=== PATIENT | female | born 1960 | race Caucasian/White ===

== ENCOUNTER 2016-06-15 17:22 | Inpatient (IN) ==
[2016-06-15] MEDS ORDERED: 0.9 % Sodium Chloride 1,000 ML IVC ONE (17:46)
--- NOTE | 2016-06-15 17:52 | Emergency Department Note ---
Disposition Clinical Impression: Hyponatremia, Hypokalemia, History of alcohol abuse Altered mental status Qualifiers: Altered mental status type: unspecified Qualified Code(s): R41.82 - Altered mental status, unspecified Disposition: Admitted As Inpatient Condition: Fair General Adult HPI - General Chief complaint: ED Fall Stated complaint: fall, AMS Time Seen by Provider: 06/15/16 17:28 Source: patient, EMS Mode of arrival: ambulatory Limitations: no limitations Nursing Notes Reviewed: Yes Vital Signs Reviewed: Yes - History of Present Illness HPI Narrative: 55-year-old female history of alcohol use, hypertension presents for evaluation of altered mental status. Patient presents Medicare of a friend. Patient is status post mechanical fall yesterday where she was walking up a couple stairs and slipped and fell hitting the back of her head. Witnessed fall with no notable LOC. Friend at bedside states that she has been getting progressively worse with her altered mental status. Patient is typically alert and oriented and functional independently. Patient reports pain in her head and in her neck. Patient denies any other pain. The friend of family states that she is a heavy drinker and drinks 20 beers a day but has not drank in the past 24 hours. Onset (ago): hour(s) Location: head Radiation: non-radiation Pain Scale: 4 - Related Data Home Medications Medication Instructions Recorded Confirmed Albuterol Neb [Proventil Neb] 2.5 mg IH TID PRN 06/15/16 06/15/16 Albuterol Sulfate [Albuterol 2 puff IH QID PRN 06/15/16 06/15/16 Inhaler] Amlodipine [Norvasc] 5 mg PO DAILY 06/15/16 06/15/16 Benzonatate [Tessalon] 100 mg PO BID PRN 06/15/16 06/15/16 Calcium Carbonate [Tums] 500 mg PO TID 06/15/16 06/15/16 Citalopram Hydrobromide 40 mg PO DAILY 06/15/16 06/15/16 [Citalopram HBr] Clotrimazole Vag CRM 1 appl VG DAILY 06/15/16 06/15/16 [Gyne-Lotrimin Vag CRM] Ergocalciferol (VITAMIN D2) 800 unit PO DAILY 06/15/16 06/15/16 [Vitamin D] Fluticasone Propionate Nasal 50 mcg NS BID PRN 06/15/16 06/15/16 [Flonase] GuaiFENesin/Dextromethorphan 10 ml PO BID PRN 06/15/16 06/15/16 [Tussin Dm Syrup] HydrOXYzine Pamoate [Vistaril] 50 mg PO Q6H PRN 06/15/16 06/15/16 Ibuprofen [Motrin] 600 mg PO Q6HR PRN 06/15/16 06/15/16 Ipratropium [Atrovent Inhaler] 2 puff IH QID 06/15/16 06/15/16 L. Rhamnosus GG/Inulin [Culturelle 1 each PO DAILY 06/15/16 06/15/16 Capsule] Levothyroxine [Synthroid] 50 mcg PO 0630 06/15/16 06/15/16 Loratadine [Claritin] 10 mg PO DAILY 06/15/16 06/15/16 Methylphenidate HCl [Metadate Cd] 20 mg PO QPM 06/15/16 06/15/16 Methylphenidate HCl [Metadate Cd] 30 mg PO QAM 06/15/16 06/15/16 Montelukast [Singulair] 10 mg PO DAILY 06/15/16 06/15/16 Omeprazole [PriLOSEC] 20 mg PO DAILY 06/15/16 06/15/16 Allergies Allergy/AdvReac Type Severity Reaction Status Date / Time egg AdvReac See Verified 06/15/16 18:55 Comments milk AdvReac See Verified 06/15/16 18:55 Comments pyridoxine AdvReac See Verified 06/15/16 18:55 Comments All systems ED: reviewed and negative except as stated. Constitutional: Reports: as per HPI. Denies: fever Eyes: Reports: as per HPI ENT ED: Reports: as per HPI Cardiovascular: Reports: as per HPI. Denies: chest pain Respiratory: Reports: as per HPI. Denies: dyspnea Gastrointestinal: Reports: as per HPI Genitourinary: Reports: as per HPI Musculoskeletal: Reports: as per HPI Integumentary: Reports: as per HPI Neurological: Reports: as per HPI, headache Psychiatric: Reports: as per HPI Endocrine: Reports: as per HPI Hematological/Lymphatic: Reports: as per HPI Allergic/Immunologic: Reports: as per HPI Past Medical History - Past Medical History Medical history: Reports: hypertension Psychiatric history: Reports: ADHD - Social History Smoking Status: Current every day smoker Alcohol use: Reports: occasionally Drug use: Reports: none Physical Exam - General Limitations: no limitations General appearance: alert - Head Head exam: atraumatic, normal inspection - Eye Eye exam: Present: normal appearance, PERRL, EOMI. Absent: nystagmus - ENT ENT exam: normal exam, mucous membranes moist - Neck Neck exam: Present: normal inspection, trachea midline, other (Atraumatic) - Chest Chest inspection: Present: normal inspection, symmetric chest wall rise - Respiratory Respiratory exam: Present: other (diffusely decreased lung sounds). Absent: respiratory distress - Cardiovascular Cardiovascular exam: Present: tachycardia. Absent: systolic murmur - Abdominal Exam Abdominal exam: Present: soft, Non-Tender - Extremities Exam Extremities exam: Present: normal inspection. Absent: pedal edema - Neurological Exam Neurological exam: Present: alert, CN II-XII intact, other (Symmetric but decreased muscle strength in the upper and lower extremities) - Expanded Neurological Exam Patient oriented to: Present: person, place. Absent: time Cranial nerves: EOM function (II, III, IV, ): Normal, facial sensation (V): Normal, facial palsy (VII): Normal, spinal accessory function (XI): Normal, tongue deviation (XII): Normal Motor strength - LUE: 4/5 Motor strength - RUE: 4/5 Motor strength - LLE: 4/5 Motor strength - RLE: 4/5 Coma Scale Eye Opening: Spontaneous Coma Scale Motor Response: Obeys Commands Coma Scale Verbal Response: Confused Coma Scale Total: 14 - Skin Skin exam: Present: warm, dry, intact, normal color Course Course Narrative: Seen and examined. Patient presents for altered mental status. Status post fall. Patient is alert but confused GCS of 14. Patient is not oriented to time or situation. Patient does have a history of alcohol use. Patient will get a screening labs, ethanol level, a urine drug screen, neuro imaging with CT. Patient will also get an infectious and metabolic workup. Patient's initial blood glucose is 105. Patient will be given folate and thiamine. Hemphill for intercranial as well as metabolic and withdrawal etiologies of symptoms. - Reevaluation(s) Reevaluation #1: Patient's lab work reviewed. Patient is significantly hyponatremic with a sodium of 107. Patient's friends at bedside stated that she did have issues with low sodium in the past. Patient's volume status appears to be euvolemic. Possibly related to be reported wilfredo. Urine electrolytes and osoms are pending. Patient received 0.9 normal saline. Patient's mental status is unchanged from initial evaluation. It is unclear how acute the patient's hyponatremia is. Patient also is hypokalemic. Patient is not acidotic. Patient's repleting potassium orally. Patient was also given 2 mg Ativan IV for possible withdrawal symptoms. Spoke with nephrology recommends repeat labs following normal saline bolus. If patient's lecture lites are unchanged worsening patient may likely need 3% normal saline. Time: 18:58 Reevaluation #2: Patient seen and examined. Patient's vitals are stable. Patient is confused with a GCS of 14. Nonfocal neurologic exam. Updated patient plan of care. Time: 21:38 - Consultations Consultation #1: Spoke with Dr. Dimas, nephrology who recommends repeat Na following IVF bolus. If no significant change the patient may likely need 3 % Saline. Time: 18:57 Consultation #2: Spoke with nephrology Dr. Dimas who suggests to continue with NS at a rate of approximately 100cc. Give lasix IV 20mg. And recheck labs in a couple hours. Patient received 40Meq K po earlier and Dr. Dimas suggest 40Meq K iv and 20 Meq PO. Time: 20:44 Consultation #3: Spoke with hospitalist for admission Time: 21:15 Vital Signs Temperature 97.3 F L 06/15/16 17:23 Pulse Rate 106 06/15/16 17:23 Respiratory Rate 20 06/15/16 17:23 Blood Pressure 158/93 06/15/16 17:23 O2 Sat by Pulse Oximetry 92 06/15/16 17:23 Temperature 98.4 F 06/15/16 23:35 Pulse Rate 93 06/16/16 01:00 Respiratory Rate 16 06/16/16 01:00 Blood Pressure 149/88 06/16/16 01:00 O2 Sat by Pulse Oximetry 96 06/16/16 01:00 Oxygen Delivery Oxygen Delivery Nasal Cannula Medical Decision Making - [facility] Narrative Medical decision making narrative: 55 show female process for evaluation of altered mental status. Patient neuroimaging is unremarkable. Patient's lab work shows hyponatremia at 107 which improved after a liter bolus of normal saline to 109. Spoke with nephrology recommended continuing at a rate of 0.9% also recommend IV Lasix as well as potassium repletion to remove free water. Patient's urine electrolytes and nausea numbness were collected prior to IV Lasix. Patient received by mouth and IV potassium in the emergency department. Patient's symptoms likely result of her hyponatremia. Patient was also ordered magnesium repletion as well. Concerned that the patient possibly was going through withdrawal with tachycardia and history of chronic alcohol use, the patient was given 2 mg Ativan. Concerns of too rapid correction. Patient will not get 3% saline in the emergency department. Patient will get repeat electrolytes in 1-2 hours. The patient will be admitted to the stepdown unit. Spoke with hospitalist for admission. - Lab Data Lab results reviewed: Yes I reviewed the patient's lab results. Result diagrams: 06/15/16 18:09 06/15/16 22:45 Lab Results 06/15/16 06/15/16 06/15/16 Range/Units 18:09 18:09 18:09 WBC 8.2 (4.3-11.1) K/mcL RBC 4.90 (3.82-4.97) M/mcL Hgb 14.5 (11.5-15.4) g/dL Hct 38.9 (35.3-44.9) % MCV 79.4 L (83.0-100.0) fL MCH 29.6 (28.0-33.3) pg MCHC 37.3 H (31.6-35.5) g/dL RDW 12.2 (11.5-14.5) % Plt Count 247 (140-400) K/mcL MPV 7.8 L (9.4-12.4) fL Immature Gran % 0.6 (0-4) % Seg Neutrophils % 78.7 % Lymphocytes % 11.3 % Monocytes % 9.2 % Eosinophils % 0.1 % Basophils % 0.1 % Neutrophils # 6.5 (1.6-8.9) K/mcL Lymphocytes # 0.9 (0.6-4.6) K/mcL Monocytes # 0.8 (0.0-1.3) K/mcL Eosinophils # 0.0 (0.0-0.6) K/mcL Basophils # 0.0 (0.0-0.2) K/mcL Immature Plt Fraction 2.1 (1.1-6.1) % PT 11.4 (9.4-12.1) Seconds INR 1.1 VBG pH (7.32-7.42) pH Units VBG pCO2 (41-51) mmHg VBG pO2 (25-40) mmHg VBG HCO3 (21-27) mEq/L Sodium 107 L* (136-145) mEq/L Potassium 2.7 L (3.5-4.5) mEq/L Chloride 68 L (98-109) mEq/L Carbon Dioxide 23 (19-29) mEq/L BUN 3 L (7-20) mg/dL Creatinine 0.55 L (0.57-1.11) mg/dL Est GFR ( Amer) > 60 (> 60) Est GFR (Non-Af Amer) > 60 (> 60) BUN/Creatinine Ratio 5 L (6-26) Glucose 91 (70-99) mg/dL Serum Osmolality (280-300) mOsm/kg Calculated Osmolality 220 L (280-300) Lactic Acid (0.5-2.2) mmol/L Calcium 8.5 L (8.6-10.8) mg/dL Phosphorus Magnesium (1.6-2.6) mg/dL Total Bilirubin 1.9 H (0.2-1.2) mg/dL AST 33 (5-34) Units/L ALT 14 (0-55) Units/L Alkaline Phosphatase 188 H (38-126) Units/L Troponin I (0-0.03) ng/mL Serum Total Protein 6.0 (6.0-8.3) g/dL Albumin 2.9 L (3.5-5.0) g/dL Globulin 3.1 (2.4-3.5) g/dL Albumin/Globulin Ratio 0.9 L (1.1-2.2) TSH 2.629 (0.350-4.840) mcIU/mL Serum , Qual (Negative) Random Cortisol mcg/dl Urine Color (Yellow) Urine Clarity (Clear) Urine pH (5.0-8.0) pH Units Ur Specific [place] (1.010-1.025) Urine Protein (Neg-Trace) mg/dL Urine Glucose (UA) (Normal) mg/dL Urine Ketones (Negative) mg/dL Urine Blood (Negative) Urine Nitrite (Negative) Urine Bilirubin (Negative) Urine Urobilinogen (Normal) mg/dL Ur Leukocyte Esterase (Negative) Urine Microscopic RBC (0-3) per hpf Urine Microscopic WBC (0-3) per hpf Ur Squamous Epith Cells (None-Few) per lpf Urine Bacteria (None-Few) per hpf Hyaline Casts (None-Few) per lpf Urine Osmolality (300-1090) mOsm/kg Urine Creatinine mg/dL Urine Sodium mEq/L Urine Opiates Screen (Qtqyqo=324) ng/mL Ur Barbiturates Screen (Kvzhnm=736) ng/mL Ur Phencyclidine Scrn (Cutoff=25) ng/mL Ur Amphetamines Screen (Khhvhl=9767) ng/mL U Benzodiazepines Scrn (Ghmpye=419) ng/mL Urine Cocaine Screen (Cutoff= 300) ng/mL U Marijuana (THC) Screen (Cutoff = 50) ng/mL Ethyl Alcohol < 10 (0-10) mg/dL 06/15/16 06/15/16 06/15/16 Range/Units 18:09 18:09 18:09 WBC (4.3-11.1) K/mcL RBC (3.82-4.97) M/mcL Hgb (11.5-15.4) g/dL Hct (35.3-44.9) % MCV (83.0-100.0) fL MCH (28.0-33.3) pg MCHC (31.6-35.5) g/dL RDW (11.5-14.5) % Plt Count (140-400) K/mcL MPV (9.4-12.4) fL Immature Gran % (0-4) % Seg Neutrophils % % Lymphocytes % % Monocytes % % Eosinophils % % Basophils % % Neutrophils # (1.6-8.9) K/mcL Lymphocytes # (0.6-4.6) K/mcL Monocytes # (0.0-1.3) K/mcL Eosinophils # (0.0-0.6) K/mcL Basophils # (0.0-0.2) K/mcL Immature Plt Fraction (1.1-6.1) % PT (9.4-12.1) Seconds INR VBG pH (7.32-7.42) pH Units VBG pCO2 (41-51) mmHg VBG pO2 (25-40) mmHg VBG HCO3 (21-27) mEq/L Sodium (136-145) mEq/L Potassium (3.5-4.5) mEq/L Chloride (98-109) mEq/L Carbon Dioxide (19-29) mEq/L BUN (7-20) mg/dL Creatinine (0.57-1.11) mg/dL Est GFR ( Amer) (> 60) Est GFR (Non-Af Amer) (> 60) BUN/Creatinine Ratio (6-26) Glucose (70-99) mg/dL Serum Osmolality (280-300) mOsm/kg Calculated Osmolality (280-300) Lactic Acid 0.6 (0.5-2.2) mmol/L Calcium (8.6-10.8) mg/dL Phosphorus Magnesium (1.6-2.6) mg/dL Total Bilirubin (0.2-1.2) mg/dL AST (5-34) Units/L ALT (0-55) Units/L Alkaline Phosphatase (38-126) Units/L Troponin I 0.00 (0-0.03) ng/mL Serum Total Protein (6.0-8.3) g/dL Albumin (3.5-5.0) g/dL Globulin (2.4-3.5) g/dL Albumin/Globulin Ratio (1.1-2.2) TSH (0.350-4.840) mcIU/mL Serum , Qual Negative (Negative) Random Cortisol mcg/dl Urine Color (Yellow) Urine Clarity (Clear) Urine pH (5.0-8.0) pH Units Ur Specific [place] (1.010-1.025) Urine Protein (Neg-Trace) mg/dL Urine Glucose (UA) (Normal) mg/dL Urine Ketones (Negative) mg/dL Urine Blood (Negative) Urine Nitrite (Negative) Urine Bilirubin (Negative) Urine Urobilinogen (Normal) mg/dL Ur Leukocyte Esterase (Negative) Urine Microscopic RBC (0-3) per hpf Urine Microscopic WBC (0-3) per hpf Ur Squamous Epith Cells (None-Few) per lpf Urine Bacteria (None-Few) per hpf Hyaline Casts (None-Few) per lpf Urine Osmolality (300-1090) mOsm/kg Urine Creatinine mg/dL Urine Sodium mEq/L Urine Opiates Screen (Xxbkmn=682) ng/mL Ur Barbiturates Screen (Vntlcp=128) ng/mL Ur Phencyclidine Scrn (Cutoff=25) ng/mL Ur Amphetamines Screen (Meqsbn=3313) ng/mL U Benzodiazepines Scrn (Nbmfik=124) ng/mL Urine Cocaine Screen (Cutoff= 300) ng/mL U Marijuana (THC) Screen (Cutoff = 50) ng/mL Ethyl Alcohol (0-10) mg/dL 06/15/16 06/15/16 06/15/16 Range/Units 18:09 18:35 18:35 WBC (4.3-11.1) K/mcL RBC (3.82-4.97) M/mcL Hgb (11.5-15.4) g/dL Hct (35.3-44.9) % MCV (83.0-100.0) fL MCH (28.0-33.3) pg MCHC (31.6-35.5) g/dL RDW (11.5-14.5) % Plt Count (140-400) K/mcL MPV (9.4-12.4) fL Immature Gran % (0-4) % Seg Neutrophils % % Lymphocytes % % Monocytes % % Eosinophils % % Basophils % % Neutrophils # (1.6-8.9) K/mcL Lymphocytes # (0.6-4.6) K/mcL Monocytes # (0.0-1.3) K/mcL Eosinophils # (0.0-0.6) K/mcL Basophils # (0.0-0.2) K/mcL Immature Plt Fraction (1.1-6.1) % PT (9.4-12.1) Seconds INR VBG pH (7.32-7.42) pH Units VBG pCO2 (41-51) mmHg VBG pO2 (25-40) mmHg VBG HCO3 (21-27) mEq/L Sodium (136-145) mEq/L Potassium (3.5-4.5) mEq/L Chloride (98-109) mEq/L Carbon Dioxide (19-29) mEq/L BUN (7-20) mg/dL Creatinine (0.57-1.11) mg/dL Est GFR ( Amer) (> 60) Est GFR (Non-Af Amer) (> 60) BUN/Creatinine Ratio (6-26) Glucose (70-99) mg/dL Serum Osmolality 217 L (280-300) mOsm/kg Calculated Osmolality (280-300) Lactic Acid (0.5-2.2) mmol/L Calcium (8.6-10.8) mg/dL Phosphorus Magnesium (1.6-2.6) mg/dL Total Bilirubin (0.2-1.2) mg/dL AST (5-34) Units/L ALT (0-55) Units/L Alkaline Phosphatase (38-126) Units/L Troponin I (0-0.03) ng/mL Serum Total Protein (6.0-8.3) g/dL Albumin (3.5-5.0) g/dL Globulin (2.4-3.5) g/dL Albumin/Globulin Ratio (1.1-2.2) TSH (0.350-4.840) mcIU/mL Serum , Qual (Negative) Random Cortisol mcg/dl Urine Color (Yellow) Urine Clarity (Clear) Urine pH (5.0-8.0) pH Units Ur Specific [place] (1.010-1.025) Urine Protein (Neg-Trace) mg/dL Urine Glucose (UA) (Normal) mg/dL Urine Ketones (Negative) mg/dL Urine Blood (Negative) Urine Nitrite (Negative) Urine Bilirubin (Negative) Urine Urobilinogen (Normal) mg/dL Ur Leukocyte Esterase (Negative) Urine Microscopic RBC (0-3) per hpf Urine Microscopic WBC (0-3) per hpf Ur Squamous Epith Cells (None-Few) per lpf Urine Bacteria (None-Few) per hpf Hyaline Casts (None-Few) per lpf Urine Osmolality 397 (300-1090) mOsm/kg Urine Creatinine 72 mg/dL Urine Sodium 40.0 mEq/L Urine Opiates Screen Negative (Asbfqo=972) ng/mL Ur Barbiturates Screen Negative (Obcrcv=189) ng/mL Ur Phencyclidine Scrn Negative (Cutoff=25) ng/mL Ur Amphetamines Screen Negative (Isxizq=6518) ng/mL U Benzodiazepines Scrn Negative (Wkmmgx=748) ng/mL Urine Cocaine Screen Negative (Cutoff= 300) ng/mL U Marijuana (THC) Screen Negative (Cutoff = 50) ng/mL Ethyl Alcohol (0-10) mg/dL 06/15/16 06/15/16 06/15/16 Range/Units 18:39 19:05 19:08 WBC (4.3-11.1) K/mcL RBC (3.82-4.97) M/mcL Hgb (11.5-15.4) g/dL Hct (35.3-44.9) % MCV (83.0-100.0) fL MCH (28.0-33.3) pg MCHC (31.6-35.5) g/dL RDW (11.5-14.5) % Plt Count (140-400) K/mcL MPV (9.4-12.4) fL Immature Gran % (0-4) % Seg Neutrophils % % Lymphocytes % % Monocytes % % Eosinophils % % Basophils % % Neutrophils # (1.6-8.9) K/mcL Lymphocytes # (0.6-4.6) K/mcL Monocytes # (0.0-1.3) K/mcL Eosinophils # (0.0-0.6) K/mcL Basophils # (0.0-0.2) K/mcL Immature Plt Fraction (1.1-6.1) % PT (9.4-12.1) Seconds INR VBG pH 7.42 (7.32-7.42) pH Units VBG pCO2 44 (41-51) mmHg VBG pO2 42 H (25-40) mmHg VBG HCO3 28.5 H (21-27) mEq/L Sodium 109 L* (136-145) mEq/L Potassium 2.7 L (3.5-4.5) mEq/L Chloride 71 L (98-109) mEq/L Carbon Dioxide 21 (19-29) mEq/L BUN 3 L (7-20) mg/dL Creatinine 0.51 L (0.57-1.11) mg/dL Est GFR ( Amer) > 60 (> 60) Est GFR (Non-Af Amer) > 60 (> 60) BUN/Creatinine Ratio 6 (6-26) Glucose 87 (70-99) mg/dL Serum Osmolality (280-300) mOsm/kg Calculated Osmolality 224 L (280-300) Lactic Acid (0.5-2.2) mmol/L Calcium 8.5 L (8.6-10.8) mg/dL Phosphorus Cancelled Magnesium 1.0 L (1.6-2.6) mg/dL Total Bilirubin (0.2-1.2) mg/dL AST (5-34) Units/L ALT (0-55) Units/L Alkaline Phosphatase (38-126) Units/L Troponin I (0-0.03) ng/mL Serum Total Protein (6.0-8.3) g/dL Albumin (3.5-5.0) g/dL Globulin (2.4-3.5) g/dL Albumin/Globulin Ratio (1.1-2.2) TSH (0.350-4.840) mcIU/mL Serum , Qual (Negative) Random Cortisol 17.0 mcg/dl Urine Color Dark Yellow (Yellow) Urine Clarity Clear (Clear) Urine pH 6.0 (5.0-8.0) pH Units Ur Specific [place] 1.015 (1.010-1.025) Urine Protein 30 H (Neg-Trace) mg/dL Urine Glucose (UA) Normal (Normal) mg/dL Urine Ketones 80 H (Negative) mg/dL Urine Blood Trace H (Negative) Urine Nitrite Negative (Negative) Urine Bilirubin Negative (Negative) Urine Urobilinogen Normal (Normal) mg/dL Ur Leukocyte Esterase Negative (Negative) Urine Microscopic RBC 0-3 (0-3) per hpf Urine Microscopic WBC 0-3 (0-3) per hpf Ur Squamous Epith Cells Many H (None-Few) per lpf Urine Bacteria None Seen (None-Few) per hpf Hyaline Casts Few (None-Few) per lpf Urine Osmolality (300-1090) mOsm/kg Urine Creatinine mg/dL Urine Sodium mEq/L Urine Opiates Screen (Ajnxok=618) ng/mL Ur Barbiturates Screen (Bwlsrr=248) ng/mL Ur Phencyclidine Scrn (Cutoff=25) ng/mL Ur Amphetamines Screen (Esiahn=5115) ng/mL U Benzodiazepines Scrn (Cyqcgg=298) ng/mL Urine Cocaine Screen (Cutoff= 300) ng/mL U Marijuana (THC) Screen (Cutoff = 50) ng/mL Ethyl Alcohol (0-10) mg/dL - Radiology Data Radiology results reviewed: Yes I reviewed the patient's radiology results. - EKG Data EKG #1 EKG shows normal: sinus rhythm Rate: tachycardia Rhythm: NSR [place]/QRS: normal Voltage: increased voltage throughout, c/w LVH Interpretation: LVH, other (sinus tachycardia) S.B.A.R. - S.B.A.R. Situation: Demographics Background: Presenting Complaint Assessment: Vital Signs, Course and respsone to treatment, Exam Concerns Recommendation: Barrier(s) to disposition, Recommendation based on pending studies, treatments, or consults S.B.A.R. Report Given to: Dr. Stephan Vogel Repor Time: 21:16 Attestation Statement - Attestation Attestation: ISergei, examined this patient and my medical decision-making was reviewed with the [employer] ARCHITECT/PA/Advanced Practice Nurse/Resident Physician. I agree with the documented findings, disposition and treatment plan as described except to the extent set forth below. Sergei Shields, examined this patient and my medical decision-making was reviewed with the [employer] ARCHITECT/PA/Advanced Practice Nurse/Resident Physician. I agree with the documented findings, disposition and treatment plan as described except to the extent set forth below. History source: Patient is unable to provide information for this note. Info was gathered from the patient, hospital staff, the patient's chart. History limitations: Patient condition Medications: As per nurses note 55-year-old female presents with concerns of altered mental status. Family member present in the room and was able to give a history who reports patient fell yesterday while walking up the porch steps. She fell backwards hitting her head but did not have loss of consciousness. Family states the patient became increasing confused after the event. She has not been able to eat or drink over the past 24 hours due to altered mental status and a lack of appetite. Patient has ambulated after the event. Family member states the patient is a chronic alcoholic drinking upwards of at least 20 beers a day. She has not been able to drink alcohol over the past 24 hours. No history of seizure in the past with cessation of alcohol use however patient has not stop drinking within the recent history. Patient has a history of hyponatremia however she has a sodium of 107 in the emergency department today. Resident spoke with the aircrewman who recommended giving a bolus of normal saline and rechecking labs. Sodium semaj to 109 on recheck and aircrewman recommended continued normal saline with administration of Lasix. Patient admitted to the hospital for further evaluation of altered mental status.
[2016-06-15] MEDS ORDERED: Folic Acid 1 MG TABLET PO ONE (18:00)
[2016-06-15] MEDS ORDERED: Thiamine (B-1) 100 MG TABLET PO SCH (18:00)
[2016-06-15 18:24] LABS: INR 1.1; Prothrombin Time 11.4 Seconds (9.4-12.1)
[2016-06-15] MEDS ORDERED: *HR* LORazepam 2 MG/ML VIAL IVP ONE (18:30)
[2016-06-15 18:32] LABS: Basophils % 0.1 %; Hemoglobin 14.5 g/dL (11.5-15.4); Immature Granulocytes % 0.6 % (0-4); Immature Platelets 2.1 % (1.1-6.1); Red Cell Distribution Width 12.2 % (11.5-14.5)
[2016-06-15 18:33] LABS: Alanine Aminotransferase 14 Units/L (0-55); Albumin 2.9 g/dL (3.5-5.0); Albumin/Globulin Ratio 0.9 (1.1-2.2); Alkaline Phosphatase 188 Units/L (38-126); Aspartate Amino Transferase 33 Units/L (5-34); BUN/Creatinine Ratio 5 (6-26); Bilirubin,Total 1.9 mg/dL (0.2-1.2); Calcium 8.5 mg/dL (8.6-10.8); Carbon Dioxide 23 mEq/L (19-29); Chloride 68 mEq/L (98-109); Globulin 3.1 g/dL (2.4-3.5); Glucose 91 mg/dL (70-99); Osmolality,Calculated 220 (280-300); Potassium 2.7 mEq/L (3.5-4.5); eGFR For African Americans > 60 (> 60); eGFR For Non-African Americans > 60 (> 60)
[2016-06-15 18:34] LABS: Blood Urea Nitrogen 3 mg/dL (7-20); Eosinophils % 0.1 %; Ethanol < 10 mg/dL (0-10); Hematocrit 38.9 % (35.3-44.9); Lymphocytes # 0.9 K/mcL (0.6-4.6); Lymphocytes % 11.3 %; Mean Corpuscular Hemoglobin 29.6 pg (28.0-33.3); Mean Corpuscular Volume 79.4 fL (83.0-100.0); Mean Platelet Volume 7.8 fL (9.4-12.4); Monocytes # 0.8 K/mcL (0.0-1.3); Monocytes % 9.2 %; Platelet Count 247 K/mcL (140-400); Segmented Neutrophils % 78.7 %
[2016-06-15 18:35] LABS: Sodium 107 mEq/L (136-145)
[2016-06-15 18:38] LABS: Mean Corpuscular HGB Conc 37.3 g/dL (31.6-35.5); Neutrophils # 6.5 K/mcL (1.6-8.9)
[2016-06-15 18:48] LABS: Bilirubin,Urine Negative (Negative); Blood,Urine Trace (Negative); Clarity,Urine Clear (Clear); Color,Urine Dark Yellow (Yellow); Glucose,Urine (UA) Normal (Normal); Ketones,Urine 80 mg/dL (Negative); Leukocyte Esterase,Urine Negative (Negative); Nitrite,Urine Negative (Negative); Protein,Urine 30 mg/dL (Neg-Trace); Specific Gravity,Urine 1.015 (1.010-1.025); Urobilinogen,Urine Normal (Normal)
[2016-06-15 18:50] LABS: Bacteria,Urine None Seen per hpf (None-Few); Hyaline Casts,Urine Few per lpf (None-Few); RBC,Urine 0-3 per hpf (0-3); Squamous Epithelial Cell,Urine Many per lpf (None-Few); WBC,Urine 0-3 per hpf (0-3)
[2016-06-15 18:54] LABS: Amphetamine Screen,Urine Negative ng/mL (Cutoff=1000); Barbiturate Screen,Urine Negative ng/mL (Cutoff=200); Benzodiazepines Screen,Urine Negative ng/mL (Cutoff=200); Cannabinoid Screen,Urine Negative ng/mL (Cutoff = 50); Cocaine Screen,Urine Negative ng/mL (Cutoff= 300); Opiate Screen,Urine Negative ng/mL (Cutoff=300); Phencyclidine Screen,Urine Negative ng/mL (Cutoff=25)
[2016-06-15 19:20] LABS: VBG HCO3 28.5 mEq/L (21-27); VBG PH 7.42 pH Units (7.32-7.42)
[2016-06-15 19:38] LABS: Thyroid Stimulating Hormone 2.629 mcIU/mL (0.350-4.840)
[2016-06-15 20:15] LABS: BUN/Creatinine Ratio 6 (6-26); Calcium 8.5 mg/dL (8.6-10.8); Carbon Dioxide 21 mEq/L (19-29); Chloride 71 mEq/L (98-109); Glucose 87 mg/dL (70-99); Osmolality,Calculated 224 (280-300); Potassium 2.7 mEq/L (3.5-4.5); eGFR For African Americans > 60 (> 60); eGFR For Non-African Americans > 60 (> 60)
[2016-06-15 20:22] LABS: Blood Urea Nitrogen 3 mg/dL (7-20); Sodium 109 mEq/L (136-145)
[2016-06-15] MEDS ORDERED: Furosemide 40 MG/4 ML VIAL IVP ONE (20:46)
[2016-06-15] MEDS ORDERED: Furosemide 20 MG/2 ML VIAL IVP ONE (20:53)
[2016-06-15] MEDS: 0.9 % Sodium Chloride 1,000 ML IVC SCH (21:13)
[2016-06-15] MEDS ORDERED: Naloxone 0.4 MG/ML INJ IVP PRN (22:47)
--- NOTE | 2016-06-15 22:49 | Internal Med History&Physical ---
<Harry Norman - Last Filed: 06/16/16 00:38> Date of Encounter: 06/16/16 Time of Encounter: 22:00 Assessment and Plan (1) Acute metabolic encephalopathy Current visit: Yes Status: Acute - Likely secondary to current hyponatremia and electrolyte imbalance. But cannot completely rule out alcohol abuse-related causes such as withdrawal or Wernicke's encephalopathy. - CT head found no acute intracranial change. - UA does not suggest UTI. - UDS negative. - Will give thiamine 500 mg IV daily x 3 days for possible Wernicke's encephalopathy. - Correct electrolyte imbalance with IV fluid and supplement with close monitoring. - Continue to monitor. (2) Hyponatremia Current visit: Yes Status: Acute - Na 107 initially but increased to 109 after 1L of NS bolus in ED. - Hypotonic hyponatremia, euvolemic or hypovolemic. Suspect beer protomania given patient's significant alcohol abuse history. SIADH is also possible give she's on citalopram at home. Doubt hypothyroidism or glucocorticoid deficiency given normal TSH and random cortisol. - Lion 40, UCr 72, UOsm 397, SOsm 217, FeNa 0.3%. - [facility] nephrology on board and recommends 100 cc/hr NS with close monitoring of electrolytes. Appreciate nephrology assistance on patient care. - The goal is to correct Na no more than 6 mEq/L within 24 hours. - Continue to monitor closely. (3) Hypokalemia Current visit: Yes Status: Acute - K at 2.7 and Mg at 1.0 - Patient had received 40 meq of IV KCl, 60 meq of PO KCl and 2 gram of IV MgSO4 in ED. - Will give another 2 gram of IV MgSO4 for her hypomagnesemia. - Continue to monitor electrolytes closely and replenish accordingly. (4) History of alcohol abuse Current visit: Yes Status: Acute - Known heavy drinker with 20 beers a day. - Alcohol free for more than 24 hours now per patient's friend. - Serum ethanol < 10 with negative UDS. - Start CIWA protocol. - Multivitamin supplements including thiamine and folate. - Closely monitor. (5) DVT prophylaxis Current visit: Yes Status: Acute - SQ heparin. Internal Medicine - H&P: HPI Chief complaint: Altered mental status Admitted From: Emergency Dept Plans for Post Hospital Care: Home History of present illness: Ms. Pulliam is a 55 year old female with known PMH of alcohol abuse. Patient was sent to [place] ED for altered mental status. Patient was found to have significant hyponatremia with Na at 107. Given patient's mental status, much of history was obtained from reviewing medical records. Per ED note, patient's friend at bedside earlier reports that patient usually drinks 20 beers a day but has no alcohol for > 24 hours. And patient is also known to have low sodium level in the past. Upon encounter, patient is hypersomnolent but arousable to verbal stimuli. Patient is oriented to her name only. Patient says no while asking she has any pain. Past Med Surg Social Fam HX - Past Medical History Medical history: hypertension Psychiatric history: ADHD - Past Surgical History Surgical History: - Social History Smoking Status: Current every day smoker Alcohol use: heavy (20 beers a day) Drug use: unknown - Family History Mother History Unknown: Yes Internal Medicine - H&P: Meds Albuterol Neb [Proventil Neb] 2.5 mg IH TID PRN 06/15/16 [History] Albuterol Sulfate [Albuterol Inhaler] 2 puff IH QID PRN 06/15/16 [History] Amlodipine [Norvasc] 5 mg PO DAILY 06/15/16 [History] Benzonatate [Tessalon] 100 mg PO BID PRN 06/15/16 [History] Calcium Carbonate [Tums] 500 mg PO TID 06/15/16 [History] Citalopram Hydrobromide [Citalopram HBr] 40 mg PO DAILY 06/15/16 [History] Clotrimazole Vag CRM [Gyne-Lotrimin Vag CRM] 1 appl VG DAILY 06/15/16 [History] Ergocalciferol (VITAMIN D2) [Vitamin D] 800 unit PO DAILY 06/15/16 [History] Fluticasone Propionate Nasal [Flonase] 50 mcg NS BID PRN 06/15/16 [History] GuaiFENesin/Dextromethorphan [Tussin Dm Syrup] 10 ml PO BID PRN 06/15/16 [ History] HydrOXYzine Pamoate [Vistaril] 50 mg PO Q6H PRN 06/15/16 [History] Ibuprofen [Motrin] 600 mg PO Q6HR PRN 06/15/16 [History] Ipratropium [Atrovent Inhaler] 2 puff IH QID 06/15/16 [History] L. Rhamnosus GG/Inulin [Culturelle Capsule] 1 each PO DAILY 06/15/16 [History] Levothyroxine [Synthroid] 50 mcg PO 0630 06/15/16 [History] Loratadine [Claritin] 10 mg PO DAILY 06/15/16 [History] Methylphenidate HCl [Metadate Cd] 20 mg PO QPM 06/15/16 [History] Methylphenidate HCl [Metadate Cd] 30 mg PO QAM 06/15/16 [History] Montelukast [Singulair] 10 mg PO DAILY 06/15/16 [History] Omeprazole [PriLOSEC] 20 mg PO DAILY 06/15/16 [History] Allergies egg Adverse Reaction (Verified 06/15/16 18:55) See [facility] per [facility] list, patient is unable to verify. milk Adverse Reaction (Verified 06/15/16 18:55) See Comments per [facility] list, patient is unable to verify. pyridoxine Adverse Reaction (Verified 06/15/16 18:55) See Comments per [facility] list, patient unable to verify. ROS unobtainable: due to mental status All Systems PM: A 10-system review of systems was performed and is negative for pertinent findings except as documented above in the HPI. - Constitutional Vitals: Temp Pulse Resp BP Pulse Ox 97.3 F L 93 18 164/88 96 06/15/16 17:23 06/15/16 21:16 06/15/16 21:16 06/15/16 21:16 06/15/16 21:16 General appearance: Present: A&O X 1, no acute distress, underweight. Absent: answers questions appropriately - Head Head exam: Present: atraumatic, normocephalic - Eye Eye exam: Present: PERRL, conjuntiva pink, sclera anicteric Pupils: Present: PERRL - Neck Neck exam general surgery: Present: supple, trachea midline. Absent: lymphadenopathy - Respiratory Respiratory exam: Present: CTAB. Absent: accessory muscle use, rales, rhonchi, wheezes - Cardiovascular Cardiovascular exam: Present: +S1, +S2, tachycardia. Absent: diastolic murmur, gallop, rubs, systolic murmur - GI/Abdominal GI/Abdominal exam: Present: normal bowel sounds, soft, no peritoneal signs. Absent: distended, tenderness - Extremities Exam Extremities exam: Present: warm, radial pulses palpable and symetrical. Absent : calf tenderness, cyanotic, pedal edema - Neurological Exam Neurological exam: Absent: pronater drift, facial droop Additional comments: Limited given patient is not answering questions appropriately nor following most of commands. - Skin Skin exam: Present: dry, intact, warm Internal Med - H&P Results - Labs CBC & Chem 7: 06/15/16 18:09 06/15/16 22:45 <Mata Cotton - Last Filed: 06/16/16 05:50> Date of Encounter: 06/15/16 Internal Medicine - H&P: HPI History of present illness: Ms. Pulliam is a 55 year old female All Systems PM: A 10-system review of systems was performed and is negative for pertinent findings except as documented above in the HPI. - Constitutional Vitals: Temp Pulse Resp BP Pulse Ox 97.4 F L 92 22 168/95 92 06/16/16 03:00 06/16/16 05:00 06/16/16 05:00 06/16/16 05:00 06/16/16 05:00 Internal Med - H&P Results - Labs CBC & Chem 7: 06/16/16 03:25 06/16/16 03:25 Labs: Short CBC 06/16/16 Range/Units 03:25 WBC 8.6 (4.3-11.1) K/mcL Hgb 14.4 (11.5-15.4) g/dL Hct 38.9 (35.3-44.9) % Plt Count 312 (140-400) K/mcL Neutrophils # 6.7 (1.6-8.9) K/mcL BMP 06/15/16 06/16/16 22:45 03:25 Sodium 110 L* 111 L* Potassium 3.3 L 3.6 Chloride 73 L 76 L Carbon Dioxide 25 24 BUN 2 L 2 L Creatinine 0.51 L 0.51 L Glucose 89 93 Calcium 8.2 L 7.9 L - Diagnostic Studies CT scan - head Status: image reviewed by me Chest x-ray Status: image reviewed by me - Attending Attestation Patient has critical illness, with multiple vital organ impairment; brain and renal with a high probability of imminent or life threatening deterioration in the patient's condition. I performed critical intervention, involving high complexity decision making to assess, manipulate, and support vital organ system failure; and I spent about 45 minutes engaged in work directly related to the patient's care at her immediate bedside and also on the unit, part of this time was also spent counseling immediate family that time was spent at the immediate bedside or elsewhere on the unit.
[2016-06-15 23:08] LABS: BUN/Creatinine Ratio 4 (6-26); Blood Urea Nitrogen 2 mg/dL (7-20); Calcium 8.2 mg/dL (8.6-10.8); Carbon Dioxide 25 mEq/L (19-29); Chloride 73 mEq/L (98-109); Glucose 89 mg/dL (70-99); Osmolality,Calculated 226 (280-300); Phosphorous 2.4 mg/dL (2.3-4.7); Potassium 3.3 mEq/L (3.5-4.5); Uric Acid 3.1 mg/dL (2.6-6.0); eGFR For African Americans > 60 (> 60); eGFR For Non-African Americans > 60 (> 60)
[2016-06-15 23:10] LABS: Sodium 110 mEq/L (136-145)
[2016-06-15] MEDS ORDERED: Magnesium Sulfate 2 GM in D5% in Water 100 ML IVPB ONE (23:19)
[2016-06-16] MEDS: *HR* LORazepam 2 MG/ML VIAL IVP PRN ×2 (02:33→20:05)
[2016-06-16 03:33] LABS: Basophils % 0.1 %; Hematocrit 38.9 % (35.3-44.9); Hemoglobin 14.4 g/dL (11.5-15.4); Immature Granulocytes % 0.6 % (0-4); Immature Platelets 2.1 % (1.1-6.1); Lymphocytes # 0.8 K/mcL (0.6-4.6); Lymphocytes % 9.8 %; Mean Corpuscular Hemoglobin 29.8 pg (28.0-33.3); Mean Corpuscular Volume 80.4 fL (83.0-100.0); Mean Platelet Volume 7.9 fL (9.4-12.4); Monocytes % 11.1 %; Neutrophils # 6.7 K/mcL (1.6-8.9); Platelet Count 312 K/mcL (140-400); Red Blood Count 4.84 M/mcL (3.82-4.97); Red Cell Distribution Width 12.3 % (11.5-14.5); Segmented Neutrophils % 78.4 %
[2016-06-16 03:45] LABS: BUN/Creatinine Ratio 4 (6-26); Calcium 7.9 mg/dL (8.6-10.8); Carbon Dioxide 24 mEq/L (19-29); Chloride 76 mEq/L (98-109); Glucose 93 mg/dL (70-99); Osmolality,Calculated 228 (280-300); Potassium 3.6 mEq/L (3.5-4.5); eGFR For African Americans > 60 (> 60); eGFR For Non-African Americans > 60 (> 60)
[2016-06-16 03:50] LABS: Blood Urea Nitrogen 2 mg/dL (7-20); Sodium 111 mEq/L (136-145)
[2016-06-16] MEDS: *HR* Heparin 5,000 UNIT/ML VIAL SQ SCH ×2 (06:12→17:48)
[2016-06-16 06:46] LABS: BUN/Creatinine Ratio 4 (6-26); Carbon Dioxide 22 mEq/L (19-29); Chloride 77 mEq/L (98-109); Glucose 87 mg/dL (70-99); Osmolality,Calculated 232 (280-300); Potassium 3.2 mEq/L (3.5-4.5); eGFR For African Americans > 60 (> 60); eGFR For Non-African Americans > 60 (> 60)
[2016-06-16 06:50] LABS: Blood Urea Nitrogen 2 mg/dL (7-20)
[2016-06-16 06:52] LABS: Sodium 113 mEq/L (136-145)
[2016-06-16] MEDS: Thiamine (B-1) 500 MG in D5% in Water 50 ML IVPB SCH (08:55)
--- NOTE | 2016-06-16 09:27 | Pulmonology Consult Note ---
Date of Encounter: 06/16/16 Time of Encounter: 07:50 Assessment and Plan (1) Altered mental status Current Visit: Yes Status: Acute Likely secondary to electrolyte imbalances vs. Wernicke's encephalopathy. CT of the head demonstrated: No acute intracranial abnormality. Chronic appearing bilateral basal ganglia lacune infarcts. CT cervical spine: No acute osseous abnormality of the cervical spine. Straightening of the normal cervical lordosis. Severe C5/C6 degenerative disc disease. Chest XR: No acute process. UA did not suggest UTI. Toxicology screen was negative. Continue thiamine supplementation. Continue folate supplementation. Consult to nutrition. Continue to monitor and replace electrolytes as needed per recommendations of nephrology. Qualifiers: Altered mental status type: unspecified Qualified Code(s): R41.82 - Altered mental status, unspecified (2) Acute metabolic encephalopathy Current Visit: Yes Status: Acute See above (3) Hyponatremia Current Visit: Yes Status: Acute 107 on arrival. Improved to 113 this morning. Fluids have been stopped at this time. Nephrology recommended no more than 6mEq/ L correction within a 24 hour period. Nephrology on board. Will follow recommendations. (4) Hypokalemia Current Visit: Yes Status: Acute Improved since arrival 2.7>3.2 Will continue to monitor and replace as needed. (5) History of alcohol abuse Current Visit: Yes Status: Acute The patient is on CIWA protocol and Librium 50mg TID KECIA has been added to prevent withdrawal. (6) Essential hypertension Current Visit: Yes Status: Chronic Continue home medication of Norvasc. The patient has had elevated blood pressures since arrival, but she has not been able to take her medication due to her change in mental status. The patient was able to wake up enough to take her medication at 10:30 this morning. Will continue to monitor. (7) DVT prophylaxis Current Visit: Yes Status: Acute SQ Heparin History of Present Illness Consult date: 06/16/16 Requesting physician: Harry Norman Reason for consult: other (Significant hyponatremia requiring close monitoring. Also potential alcohol withdrawal) Chief complaint: AMS History of present illness: History is obtained by review of medical records as the patient is currently nonresponsive. This is a 55 year old female with PMH of hypertension, ADHD, and alcohol abuse. From friends who were present in the ER she has reportedly had episodes of hyponatremia in the past and drinks up to 20 beers a day, but has not had any alcohol in the 24 hours prior to arrival. Toxicology screen demonstrated an alcohol level <10, and was negative for other substances. Her sodium upon arrival was 107, and has been corrected to 113 at this time. Fluids are currently being held as nephrology recommended no more than 6mEq/L correction within a 24 hour period. She had a CT of her head upon arrival which did not demonstrate any acute abnormality. Upon arrival the patient was arousable to verbal stimuli, but currently she does not respond to her name or awaken during examination. Past Med Surg Social Fam HX - Past Medical History Medical history: hypertension Psychiatric history: ADHD - Past Surgical History Surgical History: - Social History Smoking Status: Current every day smoker Alcohol use: occasionally Drug use: none - Family History Mother History Unknown: Yes Medications and Allergies Albuterol Neb [Proventil Neb] 2.5 mg IH TID PRN 06/15/16 [History] Albuterol Sulfate [Albuterol Inhaler] 2 puff IH QID PRN 06/15/16 [History] Amlodipine [Norvasc] 5 mg PO DAILY 06/15/16 [History] Benzonatate [Tessalon] 100 mg PO BID PRN 06/15/16 [History] Calcium Carbonate [Tums] 500 mg PO TID 06/15/16 [History] Citalopram Hydrobromide [Citalopram HBr] 40 mg PO DAILY 06/15/16 [History] Clotrimazole Vag CRM [Gyne-Lotrimin Vag CRM] 1 appl VG DAILY 06/15/16 [History] Ergocalciferol (VITAMIN D2) [Vitamin D] 800 unit PO DAILY 06/15/16 [History] Fluticasone Propionate Nasal [Flonase] 50 mcg NS BID PRN 06/15/16 [History] GuaiFENesin/Dextromethorphan [Tussin Dm Syrup] 10 ml PO BID PRN 06/15/16 [ History] HydrOXYzine Pamoate [Vistaril] 50 mg PO Q6H PRN 06/15/16 [History] Ibuprofen [Motrin] 600 mg PO Q6HR PRN 06/15/16 [History] Ipratropium [Atrovent Inhaler] 2 puff IH QID 06/15/16 [History] L. Rhamnosus GG/Inulin [Culturelle Capsule] 1 each PO DAILY 06/15/16 [History] Levothyroxine [Synthroid] 50 mcg PO 0630 06/15/16 [History] Loratadine [Claritin] 10 mg PO DAILY 06/15/16 [History] Methylphenidate HCl [Metadate Cd] 20 mg PO QPM 06/15/16 [History] Methylphenidate HCl [Metadate Cd] 30 mg PO QAM 06/15/16 [History] Montelukast [Singulair] 10 mg PO DAILY 06/15/16 [History] Omeprazole [PriLOSEC] 20 mg PO DAILY 06/15/16 [History] Allergies egg Adverse Reaction (Verified 06/15/16 18:55) See Comments per [facility] list, patient is unable to verify. milk Adverse Reaction (Verified 06/15/16 18:55) See Comments per [facility] list, patient is unable to verify. pyridoxine Adverse Reaction (Verified 06/15/16 18:55) See Comments per [facility] list, patient unable to verify. ROS unobtainable: due to mental status All Systems: A 10-system review of systems was performed and is negative for pertinent findings except as documented above in the HPI. Physical Examination Vital Signs: Vital Signs, Last 4 Hours Temp Pulse Resp BP Pulse Ox 06/16/16 08:00 89 28 157/95 95 06/16/16 07:30 98.3 F 83 28 152/95 96 06/16/16 06:00 90 24 140/102 90 General appearance: asleep (does not awaken to name or during examination) Eyes: nonicteric ENT: oropharynx moist Neck: supple Effort: normal Auscultation: bilateral: clear Cardiovascular: regular rate and rhythm Gastrointestinal: normoactive bowel sounds, non-tender, non-distended Integumentary: normal Extremities: no cyanosis Musculoskeletal: no deformities unable to assess due to mental status Results - Laboratory Findings CBC and BMP: 06/16/16 03:25 06/16/16 06:20 PT/INR, D-dimer PT 11.4 Seconds (9.4-12.1) 06/15/16 18:09 Abnormal lab findings: Abnormal lab results MCV 80.4 fL (83.0-100.0) L 06/16/16 03:25 MCHC 37.0 g/dL (31.6-35.5) H 06/16/16 03:25 MPV 7.9 fL (9.4-12.4) L 06/16/16 03:25 VBG pO2 42 mmHg (25-40) H 06/15/16 19:05 VBG HCO3 28.5 mEq/L (21-27) H 06/15/16 19:05 Sodium 113 mEq/L (136-145) L* 06/16/16 06:20 Potassium 3.2 mEq/L (3.5-4.5) L 06/16/16 06:20 Chloride 77 mEq/L (98-109) L 06/16/16 06:20 BUN 2 mg/dL (7-20) L 06/16/16 06:20 Creatinine 0.53 mg/dL (0.57-1.11) L 06/16/16 06:20 BUN/Creatinine Ratio 4 (6-26) L 06/16/16 06:20 POC Glucose 98 (58-89) H 06/15/16 23:27 Serum Osmolality 217 mOsm/kg (280-300) L 06/15/16 18:09 Calculated Osmolality 232 (280-300) L 06/16/16 06:20 Calcium 8.0 mg/dL (8.6-10.8) L 06/16/16 06:20 Total Bilirubin 1.9 mg/dL (0.2-1.2) H 06/15/16 18:09 Alkaline Phosphatase 188 Units/L (38-126) H 06/15/16 18:09 Albumin 2.9 g/dL (3.5-5.0) L 06/15/16 18:09 Albumin/Globulin Ratio 0.9 (1.1-2.2) L 06/15/16 18:09 Urine Protein 30 mg/dL (Neg-Trace) H 06/15/16 18:39 Urine Ketones 80 mg/dL (Negative) H 06/15/16 18:39 Urine Blood Trace (Negative) H 06/15/16 18:39 Ur Squamous Epith Cells Many per lpf (None-Few) H 06/15/16 18:39 - Clinical Findings Intake & Output: Intake & Output 06/15/16 06/16/16 06/16/16 23:59 07:59 15:59 Intake Total 200 / 1200 1254 / 1254 Output Total 300 / 300 400 / 400 Balance -100 / 900 854 / 854 Consult Discharge Plan - Plan [facility]errals: [facility]Primary Care Provider[facility] - - Attending Attestation I examined this patient and my medical decision-making was reviewed with the EQUIPMENT SERVICE ASSOCIATE/PA/Advanced Practice Nurse/Resident Physician. I agree with the documented findings, disposition and treatment plan as described except to the extent set forth below.
[2016-06-16] MEDS: amLODIPine 5 MG TABLET PO SCH (10:22)
[2016-06-16 11:21] LABS: BUN/Creatinine Ratio 4 (6-26); Calcium 8.2 mg/dL (8.6-10.8); Carbon Dioxide 21 mEq/L (19-29); Chloride 80 mEq/L (98-109); Glucose 95 mg/dL (70-99); Osmolality,Calculated 232 (280-300); Potassium 3.4 mEq/L (3.5-4.5); eGFR For African Americans > 60 (> 60); eGFR For Non-African Americans > 60 (> 60)
[2016-06-16 11:23] LABS: Chol/HDL Ratio 2.4 (0-4.9)
[2016-06-16 12:02] LABS: Blood Urea Nitrogen 2 mg/dL (7-20)
[2016-06-16 12:05] LABS: Sodium 113 mEq/L (136-145)
--- NOTE | 2016-06-16 12:13 | Electrocardiograph Report ---
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
--- NOTE | 2016-06-16 15:23 | Nephrology Consult Note ---
Date of Encounter: 06/16/16 Time of Encounter: 09:30 Assessment and Plan (1) Hyponatremia Current Visit: Yes Status: Acute Patient presents with hyponatremia and altered mental status. She was started on normal saline overnight, which saw a slow and steady increase in her sodium level to 113 this morning, when the fluids were stopped to prevent to fast an increase in her sodium levels. Her initial hyponatremia appears to be hypo-osmolar, hypo-volemic in nature. Lion 40, UCr 72, UOsm 397, SOsm 217, FeNa 0.3% suggesting a pre-renal cause of her sodium level. Will evaluate more closely with measured values for urine and serum osmolality. Will keep sodium correction to around 6 mEq/day Will continue to monitor the patient sodium level closely (Q4 hour) Will start isotonic saline at 100 ml/hr starting at 1900 tonight will check both measured serum osm and urine osm will obtain patient records from the [place] (2) Altered mental status Current Visit: Yes Status: Acute patient AMS likely due to her sodium levels. CT head and CXR were both negative. No other significant lab abnormalities seen. Plan as above Qualifiers: Altered mental status type: unspecified Qualified Code(s): R41.82 - Altered mental status, unspecified (3) Hypokalemia Current Visit: Yes Status: Acute Initial potassium 2.7, recheck after 12 hours showed increase in potassium to 3.0 will continue to monitor and supplement as needed (4) History of alcohol abuse Current Visit: Yes Status: Acute Likely contributing to patient hyponatremia due to low solute [place]. Patient started on scheduled librium CIWA protocol in place MVIs given previously History of Present Illness - Reason for Consult Consult date: 06/16/16 hyponatremia Requesting physician: Alex Isaacs - Chief Complaint AMS and hyponatremia - History of Present Illness Patient presents to the ER at [facility] with altered mental status. She has a medical history of hypertension. She was brought to [facility] by a friend after suffering a fall with no reported loss of consciousness. The admission records indicate that her AMS has been progressively worsening for the past several days and that she is normally functionally independent. [facility]. The patient's friend reports that she drinks 20 beers a day typically, but had not had anything to drink 24 hours prior to presentation. The patient's boyfriend was present later in the morning and he states that they were former residents at the [place], and though he was not able to elaborate more on her health history, he did state that she has been taking "handfuls of salt" for several years and that she used to be on salt pills from the [place]. She was found at presentation to have a sodium of 107 and potassium of 2.7. Given what is known about the patient history at this point, it is likely chronic in nature. Past Med Surg Social Fam HX - Past Medical History Medical history: hypertension Psychiatric history: ADHD - Past Surgical History Surgical History: - Social History Smoking Status: Current every day smoker Alcohol use: occasionally Drug use: none - Family History Mother History Unknown: Yes Medications and Allergies Albuterol Neb [Proventil Neb] 2.5 mg IH TID PRN 06/15/16 [History] Albuterol Sulfate [Albuterol Inhaler] 2 puff IH QID PRN 06/15/16 [History] Amlodipine [Norvasc] 5 mg PO DAILY 06/15/16 [History] Benzonatate [Tessalon] 100 mg PO BID PRN 06/15/16 [History] Calcium Carbonate [Tums] 500 mg PO TID 06/15/16 [History] Citalopram Hydrobromide [Citalopram HBr] 40 mg PO DAILY 06/15/16 [History] Clotrimazole Vag CRM [Gyne-Lotrimin Vag CRM] 1 appl VG DAILY 06/15/16 [History] Ergocalciferol (VITAMIN D2) [Vitamin D] 800 unit PO DAILY 06/15/16 [History] Fluticasone Propionate Nasal [Flonase] 50 mcg NS BID PRN 06/15/16 [History] GuaiFENesin/Dextromethorphan [Tussin Dm Syrup] 10 ml PO BID PRN 06/15/16 [ History] HydrOXYzine Pamoate [Vistaril] 50 mg PO Q6H PRN 06/15/16 [History] Ibuprofen [Motrin] 600 mg PO Q6HR PRN 06/15/16 [History] Ipratropium [Atrovent Inhaler] 2 puff IH QID 06/15/16 [History] L. Rhamnosus GG/Inulin [Culturelle Capsule] 1 each PO DAILY 06/15/16 [History] Levothyroxine [Synthroid] 50 mcg PO 0630 06/15/16 [History] Loratadine [Claritin] 10 mg PO DAILY 06/15/16 [History] Methylphenidate HCl [Metadate Cd] 20 mg PO QPM 06/15/16 [History] Methylphenidate HCl [Metadate Cd] 30 mg PO QAM 06/15/16 [History] Montelukast [Singulair] 10 mg PO DAILY 06/15/16 [History] Omeprazole [PriLOSEC] 20 mg PO DAILY 06/15/16 [History] Allergies egg Adverse Reaction (Verified 06/15/16 18:55) See Comments per [facility] list, patient is unable to verify. milk Adverse Reaction (Verified 06/15/16 18:55) See Comments per [facility] list, patient is unable to verify. pyridoxine Adverse Reaction (Verified 06/15/16 18:55) See Comments per [facility] list, patient unable to verify. Review of Systems ROS unobtainable: due to mental status Exam - Vital Signs Vital signs: Initial Vital Signs Temp Pulse Resp BP Pulse Ox 97.3 F L 106 20 158/93 92 06/15/16 17:23 06/15/16 17:23 06/15/16 17:23 06/15/16 17:23 06/15/16 17:23 Vital Signs - Last 8 Hours Temp Pulse Resp BP Pulse Ox 06/16/16 14:00 94 22 155/97 91 06/16/16 13:00 87 24 153/83 94 06/16/16 12:00 91 24 147/82 93 06/16/16 11:16 98.3 F 06/16/16 11:00 98.3 F 90 28 162/96 93 06/16/16 10:00 90 28 162/96 93 06/16/16 09:00 90 28 164/99 95 06/16/16 08:00 89 28 157/95 95 06/16/16 07:30 98.3 F 83 28 152/95 96 Intake and Output 06/15/16 06/16/16 06/16/16 23:59 07:59 15:59 Intake Total 200 / 1200 1254 / 1254 55 / 55 Output Total 300 / 300 400 / 400 175 / 175 Balance -100 / 900 854 / 854 -120 / -120 Intake: IV Fluids 200 / 200 1254 / 1254 55 / 55 0.9 % Sodium Chloride 1, 900 / 900 000 ML @ 100 mls/hr IVC . Q10H [facility] Rx#:[id number] Magnesium Sulfate 2 GM In 104 / 104 Dextrose 5% 100 ML @ 100 mls/hr IVPB ONCE ONE Rx# :[id number] Magnesium Sulfate 2 gm In 50 / 50 50 ml @ 50 mls/hr IVPB ONCE ONE Rx#:[id number] Potassium Chloride 10 mEq 200 / 200 200 / 200 /100mL 10 meq In 100 ml @ 100 mls/hr IVPB Q1H [facility] Rx#:[id number] Vitamin B-1 500 MG In 55 / 55 Dextrose 5% 50 ML @ 50 mls/hr IVPB DAILY [facility] Rx# :[id number] Output: Catheter 300 / 300 400 / 400 175 / 175 Other: Blood Glucose* 98 - General Appearance General appearance: well-developed, well-nourished, appears started age, frail EENT: ATNC, mucous membranes dry Neck: no JVD, supple Respiratory: clear Cardiology: no murmurs, no rub, no gallops, no edema, regular rate, regular rhythm, normal S1, normal S2 Gastrointestinal: normoactive bowel sounds, no tenderness, no guarding, no organomegaly Integumentary: no rash, warm and dry Additional Comments: slightly increased skin turgor Neurologic: no focal deficit, obtunded Additional Comments: alert and oriented x1 Musculoskeletal: no deformities, no erythema, no cyanosis, no clubbing Results - Lab Results 06/16/16 03:25 06/16/16 10:51 Most recent lab results Calcium 8.2 mg/dL (8.6-10.8) L 06/16/16 10:51 Phosphorus 2.0 mg/dL (2.3-4.7) L 06/16/16 10:51 Magnesium 2.4 mg/dL (1.6-2.6) 06/16/16 03:25 Urine Creatinine 72 mg/dL 06/15/16 18:35 Urine Sodium 40.0 mEq/L 06/15/16 18:35 Consult Discharge Plan - Plan [facility]errals: [facility] [Primary Care Provider] -
[2016-06-16] MEDS ORDERED: 0.9 % Sodium Chloride 1,000 ML IVC SCH (19:00)
[2016-06-16 19:20] LABS: BUN/Creatinine Ratio 4 (6-26); Calcium 8.1 mg/dL (8.6-10.8); Carbon Dioxide 25 mEq/L (19-29); Chloride 81 mEq/L (98-109); Glucose 85 mg/dL (70-99); Osmolality,Calculated 237 (280-300); Potassium 3.4 mEq/L (3.5-4.5); eGFR For African Americans > 60 (> 60); eGFR For Non-African Americans > 60 (> 60)
[2016-06-16 19:22] LABS: Blood Urea Nitrogen 2 mg/dL (7-20)
[2016-06-16 19:23] LABS: Sodium 116 mEq/L (136-145)
[2016-06-16] MEDS: 0.9 % Sodium Chloride 1,000 ML IVC SCH (19:53)
[2016-06-16] MEDS ORDERED: Calcium Gluconate 1,000 MG in D5% in Water 100 ML IVPB PRN (21:31)
[2016-06-16] MEDS: Sodium Phosphate 30 MMOL in D5% in Water 100 ML IVPB PRN (21:54)
[2016-06-17] MEDS: *HR* LORazepam 2 MG/ML VIAL IVP PRN ×3 (02:41→20:53)
[2016-06-17 04:24] LABS: BUN/Creatinine Ratio 4 (6-26); Calcium 8.5 mg/dL (8.6-10.8); Carbon Dioxide 24 mEq/L (19-29); Chloride 83 mEq/L (98-109); Glucose 89 mg/dL (70-99); Osmolality,Calculated 246 (280-300); eGFR For African Americans > 60 (> 60); eGFR For Non-African Americans > 60 (> 60)
[2016-06-17 04:30] LABS: Blood Urea Nitrogen 2 mg/dL (7-20); Magnesium 1.7 mg/dL (1.6-2.6); Phosphorous 4.3 mg/dL (2.3-4.7)
[2016-06-17 04:31] LABS: Potassium 3.5 mEq/L (3.5-4.5); Sodium 120 mEq/L (136-145)
[2016-06-17] MEDS: Magnesium Sulfate 2 GM in D5% in Water 100 ML IVPB PRN ×2 (05:19→17:31)
[2016-06-17] MEDS: *HR* Heparin 5,000 UNIT/ML VIAL SQ SCH ×2 (05:21→17:19)
[2016-06-17 06:34] LABS: Basophils % 0.4 %; Eosinophils % 0.4 %; Hematocrit 37.8 % (35.3-44.9); Hemoglobin 13.4 g/dL (11.5-15.4); Immature Granulocytes % 0.5 % (0-4); Immature Platelets 1.4 % (1.1-6.1); Lymphocytes # 1.3 K/mcL (0.6-4.6); Lymphocytes % 16.9 %; Mean Corpuscular HGB Conc 35.4 g/dL (31.6-35.5); Mean Corpuscular Hemoglobin 29.8 pg (28.0-33.3); Monocytes # 1.3 K/mcL (0.0-1.3); Monocytes % 16.8 %; Platelet Count 315 K/mcL (140-400); Red Cell Distribution Width 12.7 % (11.5-14.5)
--- NOTE | 2016-06-17 08:29 | Pulmonology Progress Note ---
<Kevin Hess - Last Filed: 06/17/16 10:37> Date of Encounter: 06/17/16 Time of Encounter: 07:55 Assessment and Plan (1) Altered mental status Current Visit: Yes Status: Acute Some improvement since yesterday as the patient is able to briefly awaken. She does not stay alert long enough to assess for orientation. Likely secondary to electrolyte imbalances vs. Wernicke's encephalopathy. Sodium has improved to 120 this morning and fluids have been held again as she has increased 6mEq since yesterday. Sodium checks Q4hrs per nephrology. Nutrition is following. Continue to monitor closely and replace electrolytes as needed. Qualifiers: Altered mental status type: unspecified Qualified Code(s): R41.82 - Altered mental status, unspecified (2) Acute metabolic encephalopathy Current Visit: Yes Status: Acute See above (3) Hyponatremia Current Visit: Yes Status: Acute 107 > 113 > 120. Fluids being held at this time to keep correction to approximately 6mEq per 24 hour period. Will continue to follow. (4) Hypokalemia Current Visit: Yes Status: Acute Corrected this morning at 3.5. Continue to monitor. (5) History of alcohol abuse Current Visit: Yes Status: Acute Reported history of 20 beers per day. On [place] protocol. 2mg Ativan given last night at 9:25AM for a total of 6mg given on 06/17. When the patient becomes more alert she begins getting tachypnic with RR up to 43. On Librium 50mg TID KECIA. (6) Essential hypertension Current Visit: Yes Status: Chronic The patient responds well to her home PO dose of norvasc. Her medication has not been given yet this morning due to her mental status. Currently blood pressure is 157/85. Will awaken the patient for her PO meds. (7) DVT prophylaxis Current Visit: Yes Status: Acute Heparin 5000 units SQ Q12hr. (8) Tobacco abuse Current Visit: Yes Status: Acute Nicoderm patch Subjective Principal diagnosis: AMS Interval history: The patient was seen and examined. She was able to briefly awaken long enough to say "what" and then became somnolent again. She had one dose of Ativan 2mg overnight at 2:41AM. Objective PUL Vital signs: Last Vital Signs Temp 97.7 F 06/17/16 07:43 Pulse 82 06/17/16 07:30 Resp 30 06/17/16 07:30 BP 157/85 06/17/16 07:30 Pulse Ox 95 06/17/16 07:30 General appearance: no acute distress, other (somnolent, only awakens briefly) Eyes: nonicteric ENT: oropharynx moist Neck: supple Effort: normal Auscultation: bilateral: clear Cardiovascular: regular rate and rhythm Gastrointestinal: normoactive bowel sounds Integumentary: normal Extremities: no cyanosis Musculoskeletal: no deformities unable to assess due to mental status Results - Laboratory Findings CBC and BMP: 06/17/16 05:37 06/17/16 09:13 PT/INR, D-dimer PT 11.4 Seconds (9.4-12.1) 06/15/16 18:09 Abnormal lab findings: Abnormal lab results MPV 8.0 fL (9.4-12.4) L 06/17/16 05:37 VBG pO2 42 mmHg (25-40) H 06/15/16 19:05 VBG HCO3 28.5 mEq/L (21-27) H 06/15/16 19:05 Sodium 120 mEq/L (136-145) L* 06/17/16 03:41 Chloride 83 mEq/L (98-109) L 06/17/16 03:41 BUN 2 mg/dL (7-20) L 06/17/16 03:41 Creatinine 0.48 mg/dL (0.57-1.11) L 06/17/16 03:41 BUN/Creatinine Ratio 4 (6-26) L 06/17/16 03:41 POC Glucose 110 (58-89) H 06/17/16 06:00 Serum Osmolality 237 mOsm/kg (280-300) L 06/16/16 16:07 Calculated Osmolality 246 (280-300) L 06/17/16 03:41 Calcium 8.5 mg/dL (8.6-10.8) L 06/17/16 03:41 Ionized Calcium 1.07 mmol/L (1.15-1.35) L 06/17/16 03:41 Total Bilirubin 1.9 mg/dL (0.2-1.2) H 06/15/16 18:09 Alkaline Phosphatase 188 Units/L (38-126) H 06/15/16 18:09 Albumin 2.9 g/dL (3.5-5.0) L 06/15/16 18:09 Albumin/Globulin Ratio 0.9 (1.1-2.2) L 06/15/16 18:09 HDL Cholesterol 60 mg/dL (40-59) H 06/16/16 10:51 Urine Protein 30 mg/dL (Neg-Trace) H 06/15/16 18:39 Urine Ketones 80 mg/dL (Negative) H 06/15/16 18:39 Urine Blood Trace (Negative) H 06/15/16 18:39 Ur Squamous Epith Cells Many per lpf (None-Few) H 06/15/16 18:39 Urine Osmolality 115 mOsm/kg (300-1090) L 06/16/16 15:58 - Clinical Findings Intake & Output: Intake & Output 06/16/16 06/17/16 06/17/16 23:59 07:59 15:59 Intake Total 250 / 250 724 / 724 Output Total 350 / 350 700 / 700 Balance -100 / -100 24 Weight 59.965 kg Consult Discharge Plan - Plan [facility]errals: [facility]Primary Care Provider[facility] - - Attending Attestation I examined this patient and my medical decision-making was reviewed with the [facility]/PA/Advanced Practice Nurse/Resident Physician. I agree with the documented findings, disposition and treatment plan as described except to the extent set forth below. <Zachary Greenberg - Last Filed: 06/17/16 13:55> Date of Encounter: 06/17/16 Objective PUL Vital signs: Last Vital Signs Temp 98.3 F 06/17/16 11:34 Pulse 89 06/17/16 13:00 Resp 40 06/17/16 13:00 BP 145/82 06/17/16 13:00 Pulse Ox 97 06/17/16 13:00 Results - Laboratory Findings CBC and BMP: 06/17/16 05:37 06/17/16 09:13 PT/INR, D-dimer PT 11.4 Seconds (9.4-12.1) 06/15/16 18:09 Abnormal lab findings: Abnormal lab results MPV 8.0 fL (9.4-12.4) L 06/17/16 05:37 VBG pO2 42 mmHg (25-40) H 06/15/16 19:05 VBG HCO3 28.5 mEq/L (21-27) H 06/15/16 19:05 Sodium 118 mEq/L (136-145) L* 06/17/16 09:13 Chloride 83 mEq/L (98-109) L 06/17/16 03:41 BUN 2 mg/dL (7-20) L 06/17/16 03:41 Creatinine 0.48 mg/dL (0.57-1.11) L 06/17/16 03:41 BUN/Creatinine Ratio 4 (6-26) L 06/17/16 03:41 POC Glucose 104 (58-89) H 06/17/16 11:09 Serum Osmolality 237 mOsm/kg (280-300) L 06/16/16 16:07 Calculated Osmolality 246 (280-300) L 06/17/16 03:41 Calcium 8.5 mg/dL (8.6-10.8) L 06/17/16 03:41 Ionized Calcium 1.07 mmol/L (1.15-1.35) L 06/17/16 03:41 Total Bilirubin 1.9 mg/dL (0.2-1.2) H 06/15/16 18:09 Alkaline Phosphatase 188 Units/L (38-126) H 06/15/16 18:09 Albumin 2.9 g/dL (3.5-5.0) L 06/15/16 18:09 Albumin/Globulin Ratio 0.9 (1.1-2.2) L 06/15/16 18:09 HDL Cholesterol 60 mg/dL (40-59) H 06/16/16 10:51 Urine Protein 30 mg/dL (Neg-Trace) H 06/15/16 18:39 Urine Ketones 80 mg/dL (Negative) H 06/15/16 18:39 Urine Blood Trace (Negative) H 06/15/16 18:39 Ur Squamous Epith Cells Many per lpf (None-Few) H 06/15/16 18:39 Urine Osmolality 115 mOsm/kg (300-1090) L 06/16/16 15:58 - Clinical Findings Intake & Output: Intake & Output 06/16/16 06/17/16 06/17/16 23:59 07:59 15:59 Intake Total 250 / 250 724 / 724 255 / 255 Output Total 350 / 350 700 / 700 600 / 600 Balance -100 / -100 24 / 24 -345 / -345 Weight 59.965 kg - Attending Attestation I have seen and examined the patient, reviewed all pertinent labs, and all pertinent imaging. I discussed the case on multiple rounds of agree with the resident documentation with the following additions. CITY MANAGER: Patient being somnolent but arousable. Suspect due to alcohol withdrawal and multiple doses of Ativan totaling 6 mg in the past 12 hours. Also suspect some contribution from electrolyte abnormality. Cardiovascular: Hemodynamically stable no acute issues. Pulmonary: Tachypneic on exam but maintaining adequate airway. We will obtain ABG now to assess her hypercapnia. Nephrology: Admitted for severe hyponatremia. Serum sodium now improved to 120 following fluid restriction. We will continue with fluid restriction and follow with twice a day Chem-7. GI: No acute issues. ID: No evidence of acute infection at this time. No acute issues. Heme/Onc: No acute issues. Endocrinology: No acute issues. Musculoskeletal: No acute issues. Disposition: Patient remains in ICU. Total critical care time 35 minutes.
[2016-06-17] MEDS: Folic Acid 1 MG TABLET PO SCH (08:51)
[2016-06-17] MEDS: amLODIPine 5 MG TABLET PO SCH (08:51)
[2016-06-17] MEDS: Thiamine (B-1) 500 MG in D5% in Water 50 ML IVPB SCH (08:51)
--- NOTE | 2016-06-17 09:26 | Nephrology Progress Note ---
Date of Encounter: 06/17/16 Time of Encounter: 06:40 - Assessment and Plan (1) Hyponatremia Current Visit: Yes Status: Acute Patient presented with hyponatremia and altered mental status. She initially received normal saline, which brought her sodium level to 113, the fluids were stopped to prevent to fast an increase in her sodium levels. NS was restarted again yesterday evening, but shortly thereafter, she was found to have a sodium of 120 having only received some sodium with other electrolyte replacement. Recheck today showed a slight drop in patient sodium to 118. Her initial hyponatremia appears to be hypo-osmolar, hypo-volemic in nature. Lion 40, UCr 72, UOsm 397, SOsm 217, FeNa 0.3% suggesting a pre-renal cause of her sodium level. A measuref Sosm was 237 and Uosm was 115. Will keep sodium correction to around 6 mEq/day Will continue to monitor the patient sodium level closely (Q4 hour) Will wait for repeat sodium this afternoon and consider starting NS again at a slow rate if improvement in patient sodium is not observed If the patient's sodium shows evidence of self-correction, will hold fluids over consider d5w to prevent to rapid a correction [facility] (2) Altered mental status Current Visit: Yes Status: Acute patient AMS likely due to her sodium levels. CT head and CXR were both negative. No other significant lab abnormalities seen. Patient has history of chronic alcoholism on scheduled librium on CIWA Plan as above Qualifiers: Altered mental status type: unspecified Qualified Code(s): R41.82 - Altered mental status, unspecified (3) Hypokalemia Current Visit: Yes Status: Acute Initial potassium 2.7, she was placed on electrolyte protocol and now her K is 3.5 will continue to monitor and supplement as needed (4) History of alcohol abuse Current Visit: Yes Status: Acute Likely contributing to patient hyponatremia due to low solute [place]. Patient started on scheduled librium CIWA protocol in place MVIs given previously Subjective Principal diagnosis: AMS Interval history: Patient continues to be obtunded, but the nurse reports needing to give her some ativan per CIWA protocol indicating that she appears t bee waking up some. SHe continues to be A&Ox1 and is unable to contribute to interview/ conversation. She was having some episodes of dry heaving while in the room. Objective - Vital Signs Vital signs: Vital Signs Temp Pulse Resp BP Pulse Ox 06/17/16 09:00 82 36 167/93 97 06/17/16 08:00 84 32 164/96 98 06/17/16 07:43 97.7 F 06/17/16 07:30 82 30 157/85 95 06/17/16 06:00 87 43 158/113 99 06/17/16 05:00 85 22 118/69 95 06/17/16 04:43 97.8 F 06/17/16 04:00 97.8 F 84 36 143/101 95 06/17/16 03:00 84 38 145/82 97 06/17/16 02:00 78 34 123/69 97 06/17/16 01:00 80 32 132/73 90 06/17/16 00:58 97.8 F 06/17/16 00:00 84 34 161/98 100 06/16/16 23:00 81 36 170/97 99 06/16/16 22:00 86 33 158/90 95 06/16/16 21:00 123 17 159/103 94 06/16/16 20:00 97.8 F 123 38 151/90 94 06/16/16 19:59 97.8 F 06/16/16 19:00 95 28 147/96 92 06/16/16 18:00 80 28 147/93 94 06/16/16 17:00 86 26 146/87 94 06/16/16 16:00 84 28 145/89 95 06/16/16 15:00 97.5 F L 94 28 155/91 95 06/16/16 14:00 94 22 155/97 91 06/16/16 13:00 87 24 153/83 94 06/16/16 12:00 91 24 147/82 93 06/16/16 11:16 98.3 F 06/16/16 11:00 98.3 F 90 28 162/96 93 06/16/16 10:00 90 28 162/96 93 Intake and Output 06/16/16 06/17/16 06/17/16 23:59 07:59 15:59 Intake Total 250 / 250 724 / 724 100 / 100 Output Total 350 / 350 700 / 700 Balance -100 / -100 24 / 24 100 / 100 Intake: IV Fluids 250 / 250 724 / 724 100 / 100 0.9 % Sodium Chloride 1, 50 / 50 000 ML @ 100 mls/hr IVC . Q10H KECIA Rx#:[id number] Calcium Gluconate 1,000 110 / 110 MG In Dextrose 5% 100 ML @ 50 mls/hr IVPB Q6HR PRN Rx#:[id number] Magnesium Sulfate 2 GM In 104 / 104 Dextrose 5% 100 ML @ 50 mls/hr IVPB Q6H PRN Rx#: [id number] Potassium Chloride 10 mEq 200 / 200 400 / 400 100 / 100 /100mL 10 meq In 100 ml @ 100 mls/hr IVPB Q1H PRN Rx#:[id number] Sodium Phosphate 30 MMOL 110 / 110 In Dextrose 5% 100 ML @ 16 mls/hr IVPB Q12H PRN Rx#:[id number] Output: Catheter 350 / 350 700 / 700 Other: Weight 59.965 kg Blood Glucose* 110 Patient Weight 06/17/16 23:59 Weight 59.965 kg - General Appearance General appearance: Present: well-developed, well-nourished, appears started age EENT: Present: ATNC, PERRL, mucous membranes dry. Absent: conjunctiva injected , pupils dilated, scleral icterus Neck: Present: no JVD, supple Respiratory: Present: no kyphosis, clear Cardiology: Present: no murmurs, no rub, no gallops, no edema, regular rate, regular rhythm, normal S1, normal S2 Gastrointestinal: Present: normoactive bowel sounds, no tenderness Integumentary: Present: no rash, warm and dry Neurologic: Present: no focal deficit, no asterixis, strength 5/5, obtunded. Absent: alert and oriented x3 (oriented to self only) Musculoskeletal: Present: no deformities, no erythema, no cyanosis, no clubbing Psychiatric: Present: mood/affect appropriate, cooperative - Lab 06/17/16 05:37 06/17/16 09:13 Most recent lab results Calcium 8.5 mg/dL (8.6-10.8) L 06/17/16 03:41 Phosphorus 4.3 mg/dL (2.3-4.7) D 06/17/16 03:41 Magnesium 1.7 mg/dL (1.6-2.6) 06/17/16 03:41 Urine Creatinine 72 mg/dL 06/15/16 18:35 Urine Sodium 40.0 mEq/L 06/15/16 18:35 Consult Discharge Plan - Plan [facility]errals: [facility] [Primary Care Provider] -
[2016-06-17] MEDS: Nicotine 21 MG PATCH.TD24 TD SCH (12:14)
[2016-06-17 15:30] LABS: ABG Base Excess 0.5 mEq/L (-2.0 to 3.0); ABG HCO3 25.4 mEQ/L (21-27); ABG Oxygen Saturation 98 % (95-98); ABG PCO2 41 mmHg (35-45); ABG PO2 98 mmHg (85-104); ABG TCO2 26.7 mEq/L (20-26)
[2016-06-17 15:31] LABS: Blood Gas FiO2 36 %
[2016-06-17 16:26] LABS: Ionized Calcium 1.17 mmol/L (1.15-1.35)
[2016-06-17 16:34] LABS: Magnesium 1.6 mg/dL (1.6-2.6); Potassium 4.1 mEq/L (3.5-4.5)
[2016-06-18 01:03] LABS: BUN/Creatinine Ratio 4 (6-26); Calcium 8.6 mg/dL (8.6-10.8); Carbon Dioxide 24 mEq/L (19-29); Chloride 87 mEq/L (98-109); Glucose 102 mg/dL (70-99); Osmolality,Calculated 250 (280-300); Potassium 3.8 mEq/L (3.5-4.5); Sodium 122 mEq/L (136-145); eGFR For African Americans > 60 (> 60); eGFR For Non-African Americans > 60 (> 60)
[2016-06-18 01:05] LABS: Blood Urea Nitrogen 2 mg/dL (7-20)
[2016-06-18] MEDS: *HR* LORazepam 2 MG/ML VIAL IVP PRN ×4 (01:23→21:09)
[2016-06-18 04:50] LABS: Ionized Calcium 1.14 mmol/L (1.15-1.35)
[2016-06-18 05:00] LABS: BUN/Creatinine Ratio 4 (6-26); Calcium 8.9 mg/dL (8.6-10.8); Carbon Dioxide 24 mEq/L (19-29); Chloride 86 mEq/L (98-109); Glucose 102 mg/dL (70-99); Magnesium 1.6 mg/dL (1.6-2.6); Osmolality,Calculated 250 (280-300); Phosphorous 2.7 mg/dL (2.3-4.7); Potassium 3.5 mEq/L (3.5-4.5); Sodium 122 mEq/L (136-145); eGFR For African Americans > 60 (> 60); eGFR For Non-African Americans > 60 (> 60)
[2016-06-18 05:01] LABS: Blood Urea Nitrogen 2 mg/dL (7-20)
[2016-06-18 05:23] LABS: ABG Base Excess 0.5 mEq/L (-2.0 to 3.0); ABG Oxygen Saturation 92 % (95-98); ABG PCO2 44 mmHg (35-45); ABG PH 7.38 pH Units (7.32-7.45); ABG PO2 65 mmHg (85-104); ABG TCO2 27.4 mEq/L (20-26); Blood Gas Liter Flow 10 L/MIN
[2016-06-18] MEDS: *HR* Heparin 5,000 UNIT/ML VIAL SQ SCH ×2 (05:56→17:55)
[2016-06-18] MEDS: Magnesium Sulfate 2 GM in D5% in Water 100 ML IVPB PRN (06:03)
[2016-06-18] MEDS: Sodium Phosphate 30 MMOL in D5% in Water 100 ML IVPB PRN (06:04)
[2016-06-18] MEDS: Thiamine (B-1) 500 MG in D5% in Water 50 ML IVPB SCH (09:05)
[2016-06-18] MEDS: Nicotine 21 MG PATCH.TD24 TD SCH (09:05)
[2016-06-18] MEDS: Folic Acid 1 MG TABLET PO SCH (09:12)
[2016-06-18] MEDS: amLODIPine 5 MG TABLET PO SCH (09:13)
--- NOTE | 2016-06-18 11:22 | Nephrology Progress Note ---
Date of Encounter: 06/18/16 Time of Encounter: 11:10 - Assessment and Plan (1) Hyponatremia Current Visit: Yes Status: Acute Her sodium level has safely risen to 122. Will continue with current plan. Patient is auto-correcting at this time. Per her friend she has a history of hyponatremia, but he has no idea what the sodium level normally is. Monitor closely. (2) Altered mental status Current Visit: Yes Status: Acute Spoke with critical care attending this am. Patient possibly has Wernicke's encephalopathy. Further work-up by primary team. Qualifiers: Altered mental status type: unspecified Qualified Code(s): R41.82 - Altered mental status, unspecified Subjective Principal diagnosis: AMS Interval history: Patient remains lethargic. ROS unobtainable. Objective - Vital Signs Vital signs: Vital Signs Temp Pulse Resp BP Pulse Ox 06/18/16 11:00 83 48 154/96 93 06/18/16 10:00 92 44 156/95 97 06/18/16 09:00 94 44 170/101 98 06/18/16 08:00 83 44 162/101 98 06/18/16 07:54 83 42 146/99 98 06/18/16 07:40 97.5 F L 06/18/16 06:00 83 24 134/88 97 06/18/16 05:00 96.6 F L 96 34 147/91 96 06/18/16 04:00 85 32 154/107 94 06/18/16 03:00 84 32 146/96 94 06/18/16 02:00 96 28 155/102 93 06/18/16 01:00 90 30 141/102 94 06/18/16 00:55 97.7 F 06/18/16 00:00 97.7 F 78 32 136/91 96 06/17/16 23:00 78 30 140/95 98 06/17/16 22:00 93 30 155/92 98 06/17/16 20:45 95 30 146/87 93 06/17/16 20:00 82 06/17/16 19:55 97.5 F L 06/17/16 19:00 82 28 137/90 94 06/17/16 18:00 80 32 143/90 95 06/17/16 17:00 81 32 136/85 95 06/17/16 16:00 92 38 146/96 95 06/17/16 15:48 97.7 F 06/17/16 15:00 91 42 144/91 98 06/17/16 14:15 86 40 112/74 94 06/17/16 13:00 89 40 145/82 97 06/17/16 12:00 76 42 141/88 95 06/17/16 11:34 98.3 F Intake and Output 06/17/16 06/18/16 06/18/16 23:59 07:59 15:59 Intake Total 100 / 100 100 / 100 459 / 459 Output Total 350 / 350 350 / 350 Balance -250 / -250 -250 / -250 459 / 459 Intake: IV Fluids 100 / 100 100 / 100 459 / 459 Magnesium Sulfate 2 GM In 100 / 100 104 / 104 Dextrose 5% 100 ML @ 50 mls/hr IVPB Q6H PRN Rx#: [id number] Potassium Chloride 10 mEq 100 / 100 300 / 300 /100mL 10 meq In 100 ml @ 100 mls/hr IVPB Q1H PRN Rx#:[id number] Vitamin B-1 500 MG In 55 / 55 Dextrose 5% 50 ML @ 50 mls/hr IVPB DAILY KECIA Rx# :[id number] Oral 0 / 0 0 / 0 Output: Urine 0 / 0 Urethral (Anne) 0 / 0 Catheter 350 / 350 350 / 350 Other: # Bowel Movements 0 Weight 59.103 kg Blood Glucose* 103 Patient Weight 06/18/16 23:59 Weight 59.103 kg - General Appearance General appearance: Present: well-developed, well-nourished EENT: Present: ATNC Neck: Present: supple Cardiology: Present: regular rate Integumentary: Present: warm and dry Neurologic: Present: confused - Lab 06/17/16 05:37 06/18/16 08:55 Most recent lab results ABG pH 7.38 pH Units (7.32-7.45) 06/18/16 05:13 ABG pCO2 44 mmHg (35-45) 06/18/16 05:13 ABG pO2 65 mmHg (85-104) L 06/18/16 05:13 ABG HCO3 26.0 mEQ/L (21-27) 06/18/16 05:13 ABG O2 Saturation 92 % (95-98) L 06/18/16 05:13 Calcium 8.9 mg/dL (8.6-10.8) 06/18/16 04:23 Phosphorus 2.7 mg/dL (2.3-4.7) 06/18/16 04:23 Magnesium 1.6 mg/dL (1.6-2.6) 06/18/16 04:23 Urine Creatinine 72 mg/dL 06/15/16 18:35 Urine Sodium 40.0 mEq/L 06/15/16 18:35 Consult Discharge Plan - Plan [facility]errals: [facility] [Primary Care Provider] -
--- NOTE | 2016-06-18 13:08 | Pulmonology Progress Note ---
Date of Encounter: 06/18/16 Time of Encounter: 09:45 Assessment and Plan (1) Hyponatremia Current Visit: Yes Status: Acute Acute presentation with serum sodium of 106. By report from patient's acquaintance, she has history of hyponatremia, although the degree is unknown. Hypernatremia has improved with free water restriction. Altered mental status most likely related to other factors (see below). No evidence of complication of slow christian of serum sodium. Continue with free water restriction. (2) Altered mental status Current Visit: Yes Status: Acute Most likely related to acute alcohol withdrawal and multiple doses of benzodiazepines for symptoms of withdrawal. No asterixis noted on exam and admission pneumonia with approximately 33 however, consider occult liver disease owing to long-standing EtOH abuse and recheck serum ammonia today. Thyroid functions normal. No known history of [place] encephalopathy. Exam is nonfocal and CT head obtained in ED at time of admission did not show any acute process. Low suspicion for stroke. Add IV Precedex and attempt to lower daily Ativan requirement. Continue with reorientation. Mental status currently precludes enteral nutrition and complicates the administration of by mouth medications. Qualifiers: Altered mental status type: delirium Qualified Code(s): R41.0 - Disorientation, unspecified (3) History of alcohol abuse Current Visit: Yes Status: Acute Reportedly drinks approximately one case of beer daily. Last drink approximately one day prior to admission. Showing evidence of alcohol withdrawal. No seizure activity as yet. Requiring approximately 6-10 mg of Ativan daily. Add Precedex today to reduce Ativan dose. (4) Tobacco abuse Current Visit: Yes Status: Acute Known extensive history of tobacco use. Transdermal nicotine replacement at it yesterday. Possible that nicotine withdrawal is complicating the patient's alcohol withdrawal symptoms. (5) Swallowing difficulty Current Visit: Yes Status: Acute Most likely related to acute encephalopathy. Patient has had difficulty with swallowing since admission. Minimize oral medications. Patient to remain nothing by mouth. Qualifiers: Dysphagia type: oropharyngeal phase Qualified Code(s): R13.12 - Dysphagia, oropharyngeal phase Subjective Principal diagnosis: AMS Interval history: 55-year-old female admitted for hypernatremia, most likely related to be the beer potomania. Has been treated with fluid restriction and since admission sodium has improved from 107-122. No acute events overnight the patient remains lethargic. Required 4 mg of Ativan overnight for withdrawal symptoms. Patient is arousable to loud voice this morning and does not complain of any new issues. Objective PUL Vital signs: Last Vital Signs Temp 97.4 F L 06/18/16 11:00 Pulse 83 06/18/16 12:00 Resp 38 06/18/16 12:00 BP 157/106 06/18/16 12:00 Pulse Ox 93 06/18/16 12:00 General appearance: lethargic Eyes: nonicteric Effort: mildly labored, other (tachypneic) Auscultation: bilateral: clear Cardiovascular: regular rate and rhythm Gastrointestinal: soft, non-tender Extremities: no cyanosis, no edema, no clubbing Musculoskeletal: no deformities non-focal exam, other (Lethargic, arousable to loud voice.) other (Altered mental status) Results - Laboratory Findings CBC and BMP: 06/17/16 05:37 06/18/16 11:22 ABG ABG pH 7.38 pH Units (7.32-7.45) 06/18/16 05:13 ABG pCO2 44 mmHg (35-45) 06/18/16 05:13 ABG pO2 65 mmHg (85-104) L 06/18/16 05:13 ABG O2 Saturation 92 % (95-98) L 06/18/16 05:13 PT/INR, D-dimer PT 11.4 Seconds (9.4-12.1) 06/15/16 18:09 Abnormal lab findings: Abnormal lab results MPV 8.0 fL (9.4-12.4) L 06/17/16 05:37 ABG pO2 65 mmHg (85-104) L 06/18/16 05:13 ABG Total CO2 27.4 mEq/L (20-26) H 06/18/16 05:13 ABG O2 Saturation 92 % (95-98) L 06/18/16 05:13 VBG pO2 42 mmHg (25-40) H 06/15/16 19:05 VBG HCO3 28.5 mEq/L (21-27) H 06/15/16 19:05 Sodium 120 mEq/L (136-145) L* 06/18/16 11:22 Chloride 86 mEq/L (98-109) L 06/18/16 04:23 BUN 2 mg/dL (7-20) L 06/18/16 04:23 Creatinine 0.49 mg/dL (0.57-1.11) L 06/18/16 04:23 BUN/Creatinine Ratio 4 (6-26) L 06/18/16 04:23 Glucose 102 mg/dL (70-99) H 06/18/16 04:23 POC Glucose 109 (58-89) H 06/18/16 11:15 Serum Osmolality 237 mOsm/kg (280-300) L 06/16/16 16:07 Calculated Osmolality 250 (280-300) L 06/18/16 04:23 Ionized Calcium 1.14 mmol/L (1.15-1.35) L 06/18/16 04:23 Total Bilirubin 1.9 mg/dL (0.2-1.2) H 06/15/16 18:09 Alkaline Phosphatase 188 Units/L (38-126) H 06/15/16 18:09 Albumin 2.9 g/dL (3.5-5.0) L 06/15/16 18:09 Albumin/Globulin Ratio 0.9 (1.1-2.2) L 06/15/16 18:09 HDL Cholesterol 60 mg/dL (40-59) H 06/16/16 10:51 Urine Protein 30 mg/dL (Neg-Trace) H 06/15/16 18:39 Urine Ketones 80 mg/dL (Negative) H 06/15/16 18:39 Urine Blood Trace (Negative) H 06/15/16 18:39 Ur Squamous Epith Cells Many per lpf (None-Few) H 06/15/16 18:39 Urine Osmolality 115 mOsm/kg (300-1090) L 06/16/16 15:58 - Clinical Findings Intake & Output: Intake & Output 06/17/16 06/18/16 06/18/16 23:59 07:59 15:59 Intake Total 100 / 100 100 / 100 459 / 459 Output Total 350 / 350 350 / 350 200 / 200 Balance -250 / -250 -250 / -250 259 / 259 Weight 59.103 kg Consult Discharge Plan - Plan [facility]errals: [facility] [Primary Care Provider] - - Attending Attestation RADIOLOGY SCHEDULER: Acute encephalopathy. Multifactorial to include possibly electrolyte abnormality, acute alcohol withdrawal, multiple doses of Ativan. Continue CIWA protocol and attempt to reorientation. Pulmonary: Tachypneic but with normal blood gas. Does not appear to be in significant respiratory distress. No acute issues. Cardiovascular:. Hypertension tachycardia most likely related to acute alcohol withdrawal. Continue management with when necessary Ativan and Precedex drip. Nephrology: Hypernatremia most likely related to excessive free water intake and poor oral nutrition. Continue with free water restriction. GI: No evidence of acute GI issue. Possible that her encephalopathy is related to dysfunction however no known history of liver disease. Repeat ammonia today. Continue nothing by mouth until mental status improves. ID: No evidence of acute infection. HO: No acute issues. Endo: No evidence of thyroid or adrenal dysfunction. Disposition: Patient to remain in MICU. Total critical care time: 45 minutes.
[2016-06-18] MEDS: Dexmedetomidine HCl 400 MCG/100 ML MLS IVC SCH (13:25)
[2016-06-18 13:34] LABS: Magnesium 2.5 mg/dL (1.6-2.6)
[2016-06-18 19:11] LABS: Phosphorous 3.6 mg/dL (2.3-4.7)
[2016-06-19] MEDS ORDERED: Albuterol 2.5 MG/3 ML NEBULIZER IH PRN (01:59)
[2016-06-19] MEDS: Ipratropium/Albuterol Neb 3 ML IH SCH ×5 (02:14→22:44)
[2016-06-19] MEDS: Dexmedetomidine HCl 400 MCG/100 ML MLS IVC SCH (03:35)
[2016-06-19 03:44] LABS: Ionized Calcium 1.17 mmol/L (1.15-1.35)
[2016-06-19 03:54] LABS: Alanine Aminotransferase 11 Units/L (0-55); Albumin 2.8 g/dL (3.5-5.0); Albumin/Globulin Ratio 0.8 (1.1-2.2); Alkaline Phosphatase 155 Units/L (38-126); Aspartate Amino Transferase 13 Units/L (5-34); BUN/Creatinine Ratio 5 (6-26); Bilirubin,Total 0.9 mg/dL (0.2-1.2); Calcium 9.4 mg/dL (8.6-10.8); Carbon Dioxide 26 mEq/L (19-29); Chloride 88 mEq/L (98-109); Globulin 3.6 g/dL (2.4-3.5); Glucose 100 mg/dL (70-99); Magnesium 1.3 mg/dL (1.6-2.6); Osmolality,Calculated 253 (280-300); Phosphorous 3.3 mg/dL (2.3-4.7); Potassium 4.1 mEq/L (3.5-4.5); Sodium 123 mEq/L (136-145); Total Protein 6.4 g/dL (6.0-8.3); eGFR For African Americans > 60 (> 60); eGFR For Non-African Americans > 60 (> 60)
[2016-06-19 03:55] LABS: Blood Urea Nitrogen 3 mg/dL (7-20)
[2016-06-19] MEDS: Magnesium Sulfate 2 GM in D5% in Water 100 ML IVPB PRN (04:18)
[2016-06-19 04:31] LABS: ABG HCO3 25.2 mEQ/L (21-27); ABG Oxygen Saturation 87 % (95-98); ABG PCO2 38 mmHg (35-45); ABG PH 7.43 pH Units (7.32-7.45); ABG PO2 51 mmHg (85-104); ABG TCO2 26.4 mEq/L (20-26)
[2016-06-19 04:34] LABS: Blood Gas FiO2 21 %
[2016-06-19] MEDS: *HR* Heparin 5,000 UNIT/ML VIAL SQ SCH ×2 (04:45→16:59)
[2016-06-19] MEDS: Nicotine 21 MG PATCH.TD24 TD SCH (08:02)
[2016-06-19] MEDS: Thiamine (B-1) 500 MG in D5% in Water 50 ML IVPB SCH (08:02)
[2016-06-19] MEDS: amLODIPine 5 MG TABLET PO SCH (09:38)
[2016-06-19] MEDS: Folic Acid 1 MG TABLET PO SCH (09:38)
--- NOTE | 2016-06-19 13:13 | Pulmonology Progress Note ---
Date of Encounter: 06/19/16 Time of Encounter: 10:30 Assessment and Plan (1) Hyponatremia Current Visit: Yes Status: Acute Now stable at 122 with fluid restriction. Cause likely due to poor solute intake, poor diet, and consumption of large quantities of alcohol. Continue with fluid restriction. According to report, patient has history of hyponatremia which has been treated as an outpatient with oral salt supplementation. Baseline sodium is not known. (2) Altered mental status Current Visit: Yes Status: Acute Continuing altered mentation most likely related to alcohol withdrawal. Patient is somnolent while receiving Precedex and Ativan. When central acting medications are held, patient becomes agitated, tachycardic, and hypertensive with some improvement in mental status. No other cause identified. Head imaging normal. No evidence of endocrine abnormality. No evidence of status epilepticus. Plan to continue efforts to reduce Ativan and Precedex dosing to better assess patient's mental status. However, expect this process to be prolonged owing to severe alcohol dependence. Qualifiers: Altered mental status type: delirium Qualified Code(s): R41.0 - Disorientation, unspecified (3) History of alcohol abuse Current Visit: Yes Status: Chronic Reportedly drinks approximately one case of beer daily. Last drink approximately one day prior to admission. Showing evidence of alcohol withdrawal. No seizure activity as yet. Previously required approximate 6-10 mg of Ativan daily. This dose is been reduced since the addition of Precedex drip (4) Tobacco abuse Current Visit: Yes Status: Acute Known extensive history of tobacco use. Transdermal nicotine replacement at it yesterday. Possible that nicotine withdrawal is complicating the patient's alcohol withdrawal symptoms. (5) Swallowing difficulty Current Visit: Yes Status: Acute Most likely related to acute encephalopathy. Patient has had difficulty with swallowing since admission. Minimize oral medications. Patient to remain nothing by mouth. Qualifiers: Dysphagia type: oropharyngeal phase Qualified Code(s): R13.12 - Dysphagia, oropharyngeal phase (6) Hypoxia Current Visit: Yes Status: Acute Improved after aggressive deep tracheal suctioning. Now back to previous supplemental oxygen requirement. Currently receiving scheduled DuoNeb nebs every 6 hours. Plan to add every 2 hour albuterol nebulizers when necessary with chest physiotherapy. Subjective Principal diagnosis: AMS Interval history: Received additional dose of Ativan last night for hypertension, tachycardia, agitation. Had period of hypoxemia and was managed with increased supplemental oxygen flow rate and manipulation of oxygen mask. Aggressive suctioning of respiratory tract yielded significant amount of weight sputum. Patient's SPO2 has since improved. Minimal distress today. Objective PUL Vital signs: Last Vital Signs Temp 98.3 F 06/19/16 12:17 Pulse 113 06/19/16 12:00 Resp 48 06/19/16 12:00 BP 118/82 06/19/16 12:00 Pulse Ox 95 06/19/16 12:00 General appearance: asleep Eyes: nonicteric Effort: mildly labored, other (Tachypnea) Auscultation: bilateral: rhonchi Cardiovascular: regular rate and rhythm (With intermittent periods of tachycardia) Integumentary: normal Extremities: no cyanosis, no edema, no clubbing Musculoskeletal: no deformities Gait: other (Cannot be assessed due to mental status) other (Depressed mental status but arousable to voice.) other (Cannot be assessed due to mental status.) Results - Laboratory Findings CBC and BMP: 06/17/16 05:37 06/19/16 02:28 ABG ABG pH 7.43 pH Units (7.32-7.45) 06/19/16 03:41 ABG pCO2 38 mmHg (35-45) 06/19/16 03:41 ABG pO2 51 mmHg (85-104) L 06/19/16 03:41 ABG O2 Saturation 87 % (95-98) L 06/19/16 03:41 PT/INR, D-dimer PT 11.4 Seconds (9.4-12.1) 06/15/16 18:09 Abnormal lab findings: Abnormal lab results MPV 8.0 fL (9.4-12.4) L 06/17/16 05:37 ABG pO2 51 mmHg (85-104) L 06/19/16 03:41 ABG Total CO2 26.4 mEq/L (20-26) H 06/19/16 03:41 ABG O2 Saturation 87 % (95-98) L 06/19/16 03:41 VBG pO2 42 mmHg (25-40) H 06/15/16 19:05 VBG HCO3 28.5 mEq/L (21-27) H 06/15/16 19:05 Sodium 123 mEq/L (136-145) L 06/19/16 02:28 Chloride 88 mEq/L (98-109) L 06/19/16 02:28 BUN 3 mg/dL (7-20) L 06/19/16 02:28 Creatinine 0.55 mg/dL (0.57-1.11) L 06/19/16 02:28 BUN/Creatinine Ratio 5 (6-26) L 06/19/16 02:28 Glucose 100 mg/dL (70-99) H 06/19/16 02:28 POC Glucose 115 (58-89) H 06/19/16 11:16 Serum Osmolality 237 mOsm/kg (280-300) L 06/16/16 16:07 Calculated Osmolality 253 (280-300) L 06/19/16 02:28 Magnesium 1.3 mg/dL (1.6-2.6) L 06/19/16 02:28 Alkaline Phosphatase 155 Units/L (38-126) H 06/19/16 02:28 Albumin 2.8 g/dL (3.5-5.0) L 06/19/16 02:28 Globulin 3.6 g/dL (2.4-3.5) H 06/19/16 02:28 Albumin/Globulin Ratio 0.8 (1.1-2.2) L 06/19/16 02:28 HDL Cholesterol 60 mg/dL (40-59) H 06/16/16 10:51 Urine Protein 30 mg/dL (Neg-Trace) H 06/15/16 18:39 Urine Ketones 80 mg/dL (Negative) H 06/15/16 18:39 Urine Blood Trace (Negative) H 06/15/16 18:39 Ur Squamous Epith Cells Many per lpf (None-Few) H 06/15/16 18:39 Urine Osmolality 115 mOsm/kg (300-1090) L 06/16/16 15:58 - Microbiology Findings Microbiology Findings: Microbiology, Last 48 Hours 06/19/16 02:30 Sputum Culture - Preliminary Sputum - Clinical Findings Intake & Output: Intake & Output 06/18/16 06/19/16 06/19/16 23:59 07:59 15:59 Intake Total 201.5 / 201.5 76 / 76 Output Total 250 / 250 275 / 275 50 / 50 Balance -250 / -250 -73.5 / -73.5 Consult Discharge Plan - Plan [facility]: [facility] [Primary Care Provider] -
--- NOTE | 2016-06-19 13:55 | Nephrology Progress Note ---
Date of Encounter: 06/19/16 Time of Encounter: 13:53 - Assessment and Plan (1) Hyponatremia Current Visit: Yes Status: Acute Her sodium level has safely risen to 123. Will continue with current plan. Patient is auto-correcting at this time. Per her friend she has a history of hyponatremia, but he has no idea what the sodium level normally is. Continue with free water restriction and avoiding D5 in iv carrier solutions if possible. Can consider tolvaptan if sodium does not continue to rise with conservative therapy. Monitor closely. (2) Altered mental status Current Visit: Yes Status: Acute Defer to primary team. Qualifiers: Altered mental status type: delirium Qualified Code(s): R41.0 - Disorientation, unspecified Subjective Principal diagnosis: AMS Interval history: Patient remains lethargic. ROS unobtainable. Objective - Vital Signs Vital signs: Vital Signs Temp Pulse Resp BP Pulse Ox 06/19/16 13:00 105 32 114/72 96 06/19/16 12:17 98.3 F 06/19/16 12:00 113 48 118/82 95 06/19/16 11:08 22 118/82 92 06/19/16 11:00 114 36 127/87 93 06/19/16 10:00 98 40 119/79 97 06/19/16 09:00 104 36 129/74 94 06/19/16 08:00 105 36 126/84 90 06/19/16 07:22 98.7 F 06/19/16 07:20 98 F 101 40 115/77 94 06/19/16 05:59 103 32 113/81 90 06/19/16 05:20 40 90 06/19/16 05:00 112 40 138/95 92 06/19/16 04:00 105 33 126/47 89 06/19/16 03:05 98 F 109 30 125/83 92 06/19/16 02:15 44 95 06/19/16 02:02 96 38 127/77 96 06/19/16 01:00 94 33 127/77 94 06/19/16 00:00 100 44 172/102 97 06/18/16 23:03 98 F 97 41 153/95 96 06/18/16 21:58 97 44 148/90 96 06/18/16 21:00 97 38 141/103 95 06/18/16 20:00 97 41 147/88 96 04/15/17 19:00 90 34 156/97 94 06/18/16 18:00 83 40 131/93 94 06/18/16 17:00 84 38 137/86 94 06/18/16 16:00 79 48 146/94 90 06/18/16 15:54 97.5 F L 06/18/16 15:00 79 40 134/89 97 06/18/16 14:00 97 40 155/101 96 Intake and Output 06/18/16 06/19/16 06/19/16 23:59 07:59 15:59 Intake Total 201.5 / 201.5 / 76 Output Total 250 / 250 275 / 275 50 / 50 Balance -250 / -250 -73.5 / -73.5 Intake: IV Fluids 201.5 / 201.5 76 / 76 PRECEDEX 400 mcg In 100 97.5 / 97.5 21 / 21 ml @ Titrate IVC .Q0M [facility] Rx#:[id number] Magnesium Sulfate 2 GM In 104 / 104 Dextrose 5% 100 ML @ 50 mls/hr IVPB Q6H PRN Rx#: [id number] Vitamin B-1 500 MG In 55 / 55 Dextrose 5% 50 ML @ 50 mls/hr IVPB DAILY [facility] Rx# :[id number] Oral 0 / 0 0 / 0 Output: Urine 100 / 100 Catheter 150 / 150 275 / 275 50 / 50 Other: Blood Glucose* 126 115 - General Appearance General appearance: Present: well-developed, well-nourished, chronically ill EENT: Present: ATNC Neck: Present: supple Respiratory: Present: clear Cardiology: Present: no edema Gastrointestinal: Present: no tenderness Integumentary: Present: warm and dry Neurologic: Present: confused Musculoskeletal: Present: no cyanosis - Lab 06/17/16 05:37 06/19/16 02:28 Most recent lab results ABG pH 7.43 pH Units (7.32-7.45) 06/19/16 03:41 ABG pCO2 38 mmHg (35-45) 06/19/16 03:41 ABG pO2 51 mmHg (85-104) L 06/19/16 03:41 ABG HCO3 25.2 mEQ/L (21-27) 06/19/16 03:41 ABG O2 Saturation 87 % (95-98) L 06/19/16 03:41 Calcium 9.4 mg/dL (8.6-10.8) 06/19/16 02:28 Phosphorus 3.3 mg/dL (2.3-4.7) 06/19/16 02:28 Magnesium 1.3 mg/dL (1.6-2.6) L 06/19/16 02:28 Urine Creatinine 72 mg/dL 06/15/16 18:35 Urine Sodium 40.0 mEq/L 06/15/16 18:35 Consult Discharge Plan - Plan [facility]errals: [facility] [Primary Care Provider] -
[2016-06-19] MEDS: *HR* LORazepam 2 MG/ML VIAL IVP PRN (21:03)
[2016-06-20] MEDS: Dexmedetomidine HCl 400 MCG/100 ML MLS IVC SCH (01:07)
[2016-06-20] MEDS: *HR* Heparin 5,000 UNIT/ML VIAL SQ SCH ×2 (04:30→18:19)
[2016-06-20 04:54] LABS: BUN/Creatinine Ratio 18 (6-26); Blood Urea Nitrogen 10 mg/dL (7-20); Calcium 9.4 mg/dL (8.6-10.8); Carbon Dioxide 25 mEq/L (19-29); Chloride 91 mEq/L (98-109); Glucose 116 mg/dL (70-99); Magnesium 1.9 mg/dL (1.6-2.6); Osmolality,Calculated 264 (280-300); Potassium 4.3 mEq/L (3.5-4.5); Sodium 127 mEq/L (136-145); eGFR For African Americans > 60 (> 60); eGFR For Non-African Americans > 60 (> 60)
[2016-06-20] MEDS: Ipratropium/Albuterol Neb 3 ML IH SCH ×4 (05:15→23:14)
[2016-06-20] MEDS: Magnesium Sulfate 2 GM in D5% in Water 100 ML IVPB PRN (05:45)
[2016-06-20] MEDS: Nicotine 21 MG PATCH.TD24 TD SCH (09:12)
--- NOTE | 2016-06-20 10:42 | Pulmonology Progress Note ---
<Kevin Hess - Last Filed: 06/20/16 10:51> Date of Encounter: 06/20/16 Time of Encounter: 08:50 Assessment and Plan (1) Altered mental status Current Visit: Yes Status: Acute Likely secondary to electrolyte imbalances vs. Wernicke's encephalopathy. Sodium has improved to 127 this morning, and she continues to be on fluid restriction. Nephrology is following. Nutrition is following. Continue to monitor closely and replace electrolytes as needed. Qualifiers: Altered mental status type: delirium Qualified Code(s): R41.0 - Disorientation, unspecified (2) Hyponatremia Current Visit: Yes Status: Acute 107 > 113 > 120 > 122 > 123 > 127. Continue fluid restriction. The patient is autocorrecting at this time. Secondary to poor nutrition. Will continue to follow. (3) History of alcohol abuse Current Visit: Yes Status: Chronic Reported history of 20 beers per day. On CIWA protocol. 1mg Ativan given yesterday at 21:03. Requirement of Ativan decreased since the patient has been started on precedex. When the patient becomes more alert she continues to become tachypnic and hypertensive. The patient has need been able to take her Librium due to difficulty swallowing secondary to her AMS. Will order banana bag. (4) Essential hypertension Current Visit: Yes Status: Chronic The patient is hypotensive at this time with BP of 98/61. Will continue to monitor. (5) DVT prophylaxis Current Visit: Yes Status: Acute Heparin 5000 units SQ Q12hr. (6) Tobacco abuse Current Visit: Yes Status: Acute Nicoderm patch (7) Swallowing difficulty Current Visit: Yes Status: Acute Secondary to AMS. The patient is on Precedex for control of withdrawal as she has not been able to take her Librium. Will change levothyroxine to IV. Will change omeprazole to protonix. Qualifiers: Dysphagia type: unspecified Qualified Code(s): R13.10 - Dysphagia, unspecified Subjective Principal diagnosis: AMS Interval history: The patient was seen and examined. She remains difficult to arouse. At times when she is more responsive she will become tachypnic and hypertensive. She had one dose of Ativan 1mg yesterday evening at 21:03. She is on a precedex drip in addition to being on the CIWA protocol. Objective PUL Vital signs: Last Vital Signs Temp 97.7 F 04/17/17 07:10 Pulse 91 06/20/16 09:00 Resp 23 06/20/16 09:58 BP 110/68 06/20/16 09:00 Pulse Ox 98 06/20/16 09:58 General appearance: asleep (difficult to arouse) Eyes: nonicteric ENT: oropharynx moist Neck: supple Effort: normal, other (tachypnic) Auscultation: bilateral: clear Cardiovascular: regular rate and rhythm Gastrointestinal: normoactive bowel sounds, non-tender Integumentary: normal Extremities: no cyanosis Musculoskeletal: no deformities unable to assess due to mental status Results - Laboratory Findings CBC and BMP: 06/17/16 05:37 06/20/16 04:30 ABG ABG pH 7.43 pH Units (7.32-7.45) 06/19/16 03:41 ABG pCO2 38 mmHg (35-45) 06/19/16 03:41 ABG pO2 51 mmHg (85-104) L 06/19/16 03:41 ABG O2 Saturation 87 % (95-98) L 06/19/16 03:41 PT/INR, D-dimer PT 11.4 Seconds (9.4-12.1) 06/15/16 18:09 Abnormal lab findings: Abnormal lab results MPV 8.0 fL (9.4-12.4) L 06/17/16 05:37 ABG pO2 51 mmHg (85-104) L 06/19/16 03:41 ABG Total CO2 26.4 mEq/L (20-26) H 06/19/16 03:41 ABG O2 Saturation 87 % (95-98) L 06/19/16 03:41 VBG pO2 42 mmHg (25-40) H 06/15/16 19:05 VBG HCO3 28.5 mEq/L (21-27) H 06/15/16 19:05 Sodium 127 mEq/L (136-145) L 06/20/16 04:30 Chloride 91 mEq/L (98-109) L 06/20/16 04:30 Creatinine 0.56 mg/dL (0.57-1.11) L 06/20/16 04:30 Glucose 116 mg/dL (70-99) H 06/20/16 04:30 POC Glucose 111 (58-89) H 06/19/16 23:06 Serum Osmolality 237 mOsm/kg (280-300) L 06/16/16 16:07 Calculated Osmolality 264 (280-300) L 06/20/16 04:30 Alkaline Phosphatase 155 Units/L (38-126) H 06/19/16 02:28 Albumin 2.8 g/dL (3.5-5.0) L 06/19/16 02:28 Globulin 3.6 g/dL (2.4-3.5) H 06/19/16 02:28 Albumin/Globulin Ratio 0.8 (1.1-2.2) L 06/19/16 02:28 HDL Cholesterol 60 mg/dL (40-59) H 06/16/16 10:51 Urine Protein 30 mg/dL (Neg-Trace) H 06/15/16 18:39 Urine Ketones 80 mg/dL (Negative) H 06/15/16 18:39 Urine Blood Trace (Negative) H 06/15/16 18:39 Ur Squamous Epith Cells Many per lpf (None-Few) H 06/15/16 18:39 Urine Osmolality 115 mOsm/kg (300-1090) L 06/16/16 15:58 - Microbiology Findings Microbiology Findings: Microbiology, Last 48 Hours 06/19/16 02:30 Sputum Culture - Preliminary Sputum - Clinical Findings Intake & Output: Intake & Output 06/19/16 06/20/16 06/20/16 23:59 07:59 15:59 Intake Total 60 / 60 70.9 / 70.9 104 / 104 Output Total 150 / 150 250 / 250 Balance -90 / -90 -179.1 / -179.1 104 / 104 Weight 57.9 kg Consult Discharge Plan - Plan [facility]errals: [facility] [Primary Care Provider] - - Attending Attestation I examined this patient and my medical decision-making was reviewed with the [employer]/PA/Advanced Practice Nurse/Resident Physician. I agree with the documented findings, disposition and treatment plan as described except to the extent set forth below. <Caty Aguilera - Last Filed: 06/20/16 20:01> Date of Encounter: 06/20/16 Objective PUL Vital signs: Last Vital Signs Temp 97.6 F 06/20/16 16:06 Pulse 100 06/20/16 16:07 Resp 12 06/20/16 16:06 BP 153/78 06/20/16 16:06 Pulse Ox 91 06/20/16 16:06 Results - Laboratory Findings CBC and BMP: 06/17/16 05:37 06/20/16 04:30 ABG ABG pH 7.43 pH Units (7.32-7.45) 06/19/16 03:41 ABG pCO2 38 mmHg (35-45) 06/19/16 03:41 ABG pO2 51 mmHg (85-104) L 06/19/16 03:41 ABG O2 Saturation 87 % (95-98) L 06/19/16 03:41 PT/INR, D-dimer PT 11.4 Seconds (9.4-12.1) 06/15/16 18:09 Abnormal lab findings: Abnormal lab results MPV 8.0 fL (9.4-12.4) L 06/17/16 05:37 ABG pO2 51 mmHg (85-104) L 06/19/16 03:41 ABG Total CO2 26.4 mEq/L (20-26) H 06/19/16 03:41 ABG O2 Saturation 87 % (95-98) L 06/19/16 03:41 VBG pO2 42 mmHg (25-40) H 06/15/16 19:05 VBG HCO3 28.5 mEq/L (21-27) H 06/15/16 19:05 Sodium 127 mEq/L (136-145) L 06/20/16 04:30 Chloride 91 mEq/L (98-109) L 06/20/16 04:30 Creatinine 0.56 mg/dL (0.57-1.11) L 06/20/16 04:30 Glucose 116 mg/dL (70-99) H 06/20/16 04:30 POC Glucose 105 (58-89) H 06/20/16 11:20 Serum Osmolality 237 mOsm/kg (280-300) L 06/16/16 16:07 Calculated Osmolality 264 (280-300) L 06/20/16 04:30 Alkaline Phosphatase 155 Units/L (38-126) H 06/19/16 02:28 Albumin 2.8 g/dL (3.5-5.0) L 06/19/16 02:28 Globulin 3.6 g/dL (2.4-3.5) H 06/19/16 02:28 Albumin/Globulin Ratio 0.8 (1.1-2.2) L 06/19/16 02:28 HDL Cholesterol 60 mg/dL (40-59) H 06/16/16 10:51 Urine Protein 30 mg/dL (Neg-Trace) H 06/15/16 18:39 Urine Ketones 80 mg/dL (Negative) H 06/15/16 18:39 Urine Blood Trace (Negative) H 06/15/16 18:39 Ur Squamous Epith Cells Many per lpf (None-Few) H 06/15/16 18:39 Urine Osmolality 115 mOsm/kg (300-1090) L 06/16/16 15:58 - Microbiology Findings Microbiology Findings: Microbiology, Last 48 Hours 06/19/16 02:30 Sputum Culture - Preliminary Sputum - Clinical Findings Intake & Output: Intake & Output 06/20/16 06/20/16 06/20/16 07:59 15:59 23:59 Intake Total 70.9 / 70.9 104 / 104 Output Total 250 / 250 125 / 125 Balance -179.1 / -179.1 -21 / -21 - Attending Attestation Patient seen and examined. Labs, radiology, chart personally reviewed. Agree with resident's history and physical, assessment, plan with following comments: ORGANIZATIONAL RESEARCH CONSULTANT: Patient follows commands, She is lethargic and she needs to be taking vitamins with banana bag. Pulmonary: Acceptable oxygenation and ventilation. Encourage IS. Cardiovascular: stable GI: Nutrition per dietary and GI prophylaxis per routine Heme: DVT prophylaxis per routine Renal; urine out put and renal funtion reviewed. D/C Anne's catheter Endorcine: blood glucose is monitored Lines: all lines checked and no evidence of infections Skin: skin care to prevent pressure ulcers per nursing routine care Patient to be on CIWA protocol and have social media assistant to follow up with her. She needs to change her life style, otherwise prognosis is poor.
[2016-06-20] MEDS ORDERED: MVI, adult with vitamin K 10 ML in 0.9 % Sodium Chloride 1,000 ML IVC ONE (11:12)
[2016-06-20] MEDS ORDERED: Levothyroxine Sodium 100 MCG VIAL IVP SCH (11:15)
[2016-06-20] MEDS ORDERED: Pantoprazole 40 MG VIAL IVP SCH (11:30)
[2016-06-20] MEDS: Folic Acid 1 MG TABLET PO SCH (11:54)
[2016-06-20] MEDS: amLODIPine 5 MG TABLET PO SCH (11:54)
[2016-06-20] MEDS ORDERED: Magnesium Sulfate 2 GM in D5% in Water 100 ML IVPB PRN (13:07)
[2016-06-20] MEDS ORDERED: Sodium Phosphate 30 MMOL in D5% in Water 100 ML IVPB PRN (13:07)
[2016-06-20] MEDS ORDERED: Naloxone 0.4 MG/ML INJ IVP PRN (13:07)
[2016-06-20] MEDS ORDERED: Albuterol 2.5 MG/3 ML NEBULIZER IH PRN (13:07)
[2016-06-20] MEDS ORDERED: Dexmedetomidine HCl 400 MCG/100 ML MLS IVC SCH (13:07)
--- NOTE | 2016-06-20 13:24 | Nephrology Progress Note ---
<Joni Fitzpatrick - Last Filed: 06/20/16 13:25> Date of Encounter: 06/20/16 Time of Encounter: 08:20 - Assessment and Plan (1) Hyponatremia Status: Acute Patient presented with hyponatremia and altered mental status. After initial correction with normal saline, supplemental fluids were stopped and patient was allowed to auto correct, that she has done nicely and in a controlled manner. Current sodium 127. Will keep sodium correction to around 6 mEq/day Severe hyponatremia resolved, current sodium 127. Patient continues to be obtunded and disoriented, likely due to alcohol withdrawal, currently on Precedex, Librium and Ativan based alcohol withdrawal protocol. Continue to monitor patient's sodium levels closely Continue fluid restriction and avoid further free water, if possible (2) Altered mental status Status: Acute Immediate hyponatremia resolved as concern for patient altered mental status. Care per primary team Qualifiers: Altered mental status type: delirium Qualified Code(s): R41.0 - Disorientation, unspecified (3) Hypokalemia Status: Acute Potassium level normal today will continue to monitor and supplement as needed (4) History of alcohol abuse Status: Chronic Likely contributing to patient hyponatremia due to low solute [place]. Withdrawal treatment per primary team Subjective Principal diagnosis: AMS Interval history: Patient continues to be encephalopathic. She will wake to verbal stimulation, but unable to converse meaningfully in conversation. Unable to understand what she says. Her sodium level has continued to auto correct and is at 127 today. She continues on Precedex and CIWA. No obvious signs of nausea improved today Objective - Vital Signs Vital signs: Vital Signs Temp Pulse Resp BP Pulse Ox 06/20/16 12:00 95 26 122/85 94 06/20/16 11:40 97.8 F 06/20/16 11:00 84 31 122/81 98 06/20/16 10:00 81 23 125/91 96 06/20/16 09:58 23 98 06/20/16 09:00 91 24 110/68 99 06/20/16 08:00 83 28 118/80 99 06/20/16 07:10 97.7 F 06/20/16 06:00 78 30 98/61 98 06/20/16 05:15 28 98 06/20/16 05:00 73 33 96/63 98 06/20/16 04:42 96.9 F L 06/20/16 04:00 72 26 130/81 97 06/20/16 03:00 72 25 131/82 97 06/20/16 02:00 72 27 124/81 97 06/20/16 01:00 80 30 119/82 97 06/20/16 00:00 82 32 104/75 96 06/19/16 23:27 97.5 F L 06/19/16 23:00 89 25 107/77 96 06/19/16 22:45 28 97 06/19/16 22:02 89 36 107/77 98 06/19/16 21:00 88 35 124/77 98 06/19/16 20:11 97.6 F 06/19/16 20:02 94 38 108/83 100 06/19/16 19:00 95 30 119/73 100 06/19/16 18:00 87 30 100/63 98 06/19/16 17:00 86 30 103/63 98 06/19/16 16:11 98.1 F 06/19/16 16:00 99 30 116/77 100 06/19/16 15:37 20 100/69 94 06/19/16 15:00 91 30 100/69 98 06/19/16 14:00 101 34 132/71 96 Intake and Output 06/19/16 06/20/16 06/20/16 23:59 07:59 15:59 Intake Total 60 / 60 70.9 / 70.9 104 / 104 Output Total 150 / 150 250 / 250 50 / 50 Balance -90 / -90 -179.1 / -179.1 54 / 54 Intake: IV Fluids 60 / 60 70.9 / 70.9 104 / 104 PRECEDEX 400 mcg In 100 60 / 60 70.9 / 70.9 ml @ Titrate IVC .Q0M [facility] Rx#:[id number] Magnesium Sulfate 2 GM In 104 / 104 Dextrose 5% 100 ML @ 50 mls/hr IVPB Q6H PRN Rx#: [id number] Oral 0 / 0 Output: Catheter 150 / 150 250 / 250 50 / 50 Other: Weight 57.9 kg Blood Glucose* 111 105 - General Appearance General appearance: Present: well-developed, well-nourished Exam: obtunded EENT: Present: ATNC, PERRL, mucous membranes moist Respiratory: Present: no kyphosis, clear Cardiology: Present: no murmurs, no rub, no gallops, no edema, regular rate, regular rhythm, normal S1, normal S2 Gastrointestinal: Present: normoactive bowel sounds, no tenderness, no guarding , no organomegaly, no masses Integumentary: Present: no rash, warm and dry Neurologic: Present: obtunded. Absent: alert and oriented x3 Musculoskeletal: Present: no deformities, no erythema, no cyanosis, no clubbing - Lab 06/17/16 05:37 06/20/16 04:30 Most recent lab results ABG pH 7.43 pH Units (7.32-7.45) 06/19/16 03:41 ABG pCO2 38 mmHg (35-45) 06/19/16 03:41 ABG pO2 51 mmHg (85-104) L 06/19/16 03:41 ABG HCO3 25.2 mEQ/L (21-27) 06/19/16 03:41 ABG O2 Saturation 87 % (95-98) L 06/19/16 03:41 Calcium 9.4 mg/dL (8.6-10.8) 06/20/16 04:30 Phosphorus 4.0 mg/dL (2.3-4.7) 06/20/16 04:30 Magnesium 1.9 mg/dL (1.6-2.6) 06/20/16 04:30 Urine Creatinine 72 mg/dL 06/15/16 18:35 Urine Sodium 40.0 mEq/L 06/15/16 18:35 Consult Discharge Plan - Plan Instructions: How to Stop Smoking (DC), Hypothyroidism (DC), Abuse of Alcohol ( DC), Pneumonia (DC), Cigarette Smoking and Your Health, Nanofabrication Specialist (GEN) [facility]errals: [facility] [Primary Care Provider] - 07/04/16 2:00 pm Prescriptions: Cefdinir [Omnicef] 300 mg PO BID #20 capsule Doxycycline 100 mg PO BID #20 capsule Folic Acid 1 mg PO DAILY #30 tablet Ipratropium/Albuterol Neb [Duoneb] 3 ml IH QIDR PRN 30 Days PRN Reason: Shortness Of Breath/Wheezing Lisinopril [Zestril] 10 mg PO DAILY #30 tablet LORazepam [Ativan] 1 mg IVP Q4H PRN #10 vial PRN Reason: Agitation Nicotine Patch [Nicoderm] 21 mg TD DAILY #20 patch.td24 Thiamine (B-1) [Vitamin B-1] 100 mg PO DAILY #30 tablet <Chani Patino - Last Filed: 07/07/16 16:25> Date of Encounter: 06/20/16 Objective - Lab 06/21/16 22:39 06/23/16 05:25 Most recent lab results ABG pH 7.43 pH Units (7.32-7.45) 06/19/16 03:41 ABG pCO2 38 mmHg (35-45) 06/19/16 03:41 ABG pO2 51 mmHg (85-104) L 06/19/16 03:41 ABG HCO3 25.2 mEQ/L (21-27) 06/19/16 03:41 ABG O2 Saturation 87 % (95-98) L 06/19/16 03:41 Calcium 9.8 mg/dL (8.6-10.8) 06/23/16 05:25 Phosphorus 4.3 mg/dL (2.3-4.7) 06/23/16 05:25 Magnesium 1.9 mg/dL (1.6-2.6) 06/23/16 05:25 Urine Creatinine 72 mg/dL 06/15/16 18:35 Urine Sodium 40.0 mEq/L 06/15/16 18:35 - Attending Attestation I examined this patient and my medical decision-making was reviewed with the CIRCULAR RIPSAW OPERATOR/PA/Advanced Practice Nurse/Resident Physician. I agree with the documented findings, disposition and treatment plan as described except to the extent set forth below. Pt seen and examined with interim events noted. sodium today now improved to 127. Continue increased sodium in diet. continue vitamins and protein supplements. EtOH withdrawal protocol per primary team.
[2016-06-20] MEDS: *HR* LORazepam 2 MG/ML VIAL IVP PRN (20:29)
[2016-06-21] MEDS: Ipratropium/Albuterol Neb 3 ML IH SCH ×4 (04:23→22:19)
[2016-06-21 05:17] LABS: Ionized Calcium 1.19 mmol/L (1.15-1.35)
[2016-06-21 05:38] LABS: Magnesium 1.3 mg/dL (1.6-2.6); Phosphorous 3.6 mg/dL (2.3-4.7)
[2016-06-21 05:39] LABS: BUN/Creatinine Ratio 12 (6-26); Blood Urea Nitrogen 6 mg/dL (7-20); Calcium 9.2 mg/dL (8.6-10.8); Carbon Dioxide 24 mEq/L (19-29); Chloride 96 mEq/L (98-109); Glucose 91 mg/dL (70-99); Osmolality,Calculated 267 (280-300); Potassium 3.6 mEq/L (3.5-4.5); Sodium 130 mEq/L (136-145); eGFR For African Americans > 60 (> 60); eGFR For Non-African Americans > 60 (> 60)
[2016-06-21] MEDS: *HR* Heparin 5,000 UNIT/ML VIAL SQ SCH ×2 (05:59→19:29)
[2016-06-21] MEDS: Levothyroxine Sodium 100 MCG VIAL IVP SCH (06:00)
[2016-06-21] MEDS: Nicotine 21 MG PATCH.TD24 TD SCH (08:45)
[2016-06-21] MEDS: Pantoprazole 40 MG VIAL IVP SCH (08:46)
[2016-06-21] MEDS: Doxycycline 100 MG in 0.9 % Sodium Chloride Mini Bag 100 ML IVPB SCH ×2 (10:17→19:27)
[2016-06-21] MEDS: Folic Acid 1 MG TABLET PO SCH (11:45)
[2016-06-21] MEDS: amLODIPine 5 MG TABLET PO SCH (11:45)
--- NOTE | 2016-06-21 13:10 | Nephrology Progress Note ---
<Joni Fitzpatrick - Last Filed: 06/21/16 13:14> Date of Encounter: 06/21/16 Time of Encounter: 08:15 - Assessment and Plan (1) Hyponatremia Status: Acute Patient presented with hyponatremia and altered mental status. After initial correction with normal saline, supplemental fluids were stopped and patient was allowed to auto correct, that she has done nicely and in a controlled manner. Current sodium 130. Will keep sodium correction to around 6 mEq/day Severe hyponatremia resolved, current sodium 130. Patient continues to be encephalopathic. Currently on Precedex, Librium and Ativan based alcohol withdrawal protocol. Patient sodium levels have correct appropriately Nephrology will signoff and continue to monitor peripherally Continue fluid restriction and avoid further free water (2) Altered mental status Status: Acute Immediate hyponatremia resolved as concern for patient altered mental status. Other potential causes include alcohol withdrawal and infection/pneumonia. Care per primary team Qualifiers: Altered mental status type: delirium Qualified Code(s): R41.0 - Disorientation, unspecified (3) Hypokalemia Status: Resolved Appears resolved (4) History of alcohol abuse Status: Chronic Likely contributing to patient hyponatremia due to low solute [place]. Currently on Librium, Precedex, and Ativan. Withdrawal treatment per primary team Subjective Principal diagnosis: AMS Interval history: Patient remains encephalopathic. She easily wakes verbal stimulation and is able to follow some simple commands. She remains speaking gibberish, without any apparent focal findings. Her sodium level has continued to rise and is currently at 130. She remains on Librium, Precedex, and Ativan for her alcohol withdrawal. Objective - Vital Signs Vital signs: Vital Signs Temp Pulse Resp BP Pulse Ox 06/21/16 11:50 90 06/21/16 11:12 97.7 F 96 16 148/89 92 06/21/16 09:13 93 06/21/16 08:30 96 94 06/21/16 07:23 93 06/21/16 07:21 98.3 F 93 16 145/93 95 06/21/16 05:02 97.6 F 99 20 159/88 98 06/21/16 04:23 18 96 06/21/16 00:30 98.2 F 107 20 147/74 95 06/20/16 23:14 15 94 06/20/16 18:37 98.2 F 106 14 142/76 93 06/20/16 16:07 100 06/20/16 16:06 97.6 F 12 153/78 91 06/20/16 15:15 99 06/20/16 15:00 99 28 96 Intake and Output 06/20/16 06/21/16 06/21/16 23:59 07:59 15:59 Intake Total 100 / 100 470 / 470 Output Total 300 / 300 350 / 350 Balance -200 / -200 120 / 120 Intake: IV Fluids 100 / 100 470 / 470 Doxycycline 100 MG In 0.9 100 / 100 % Sodium Chloride (Mini- Bag +) 100 ML @ 100 mls/ hr IVPB Q12HR [facility] Rx#: [id number] Magnesium Sulfate 2 GM In 100 / 100 Dextrose 5% 100 ML @ 50 mls/hr IVPB Q6H PRN Rx#: [id number] Potassium Chloride 10 mEq 100 / 100 270 / 270 /100mL 10 meq In 100 ml @ 100 mls/hr IVPB Q1H PRN Rx#:[id number] Oral 0 / 0 Output: Urine 300 / 300 350 / 350 Urethral (Anne) 350 / 350 Other: Stool Size Small Stool Consistency soft formed Stool Characteristics Normal for Patient Stool Color Brown Weight 58.1 kg Patient Weight 06/21/16 23:59 Weight 58.1 kg - General Appearance Exam: General: Cooperative, no acute distress, alert and oriented 0, appears to be speaking incoherently Head: Normocephalic, atraumatic Eye: Conjunctiva pink, sclera anicteric Neck: Supple, trachea midline Respiratory: No accessory muscle usage, clear to auscultation bilaterally, no wheezes/rhonchi/rales appreciated Cardiovascular: Mild tachycardia, S1 and S2 present, no murmurs/rubs/gallops/ clicks appreciated GI/abdominal: Nondistended, nontender, soft, normal bowel sounds, no peritoneal signs Extremities: No calf tenderness, noncyanotic, no pedal edema appreciated, warm, lower extremity pulses palpable and symmetrical Neurological: Alert and oriented 0, no facial droop, no focal deficits, accounts clerk strength intact bilaterally Skin: Dry, intact, normal color - Lab 06/17/16 05:37 06/21/16 05:00 Most recent lab results ABG pH 7.43 pH Units (7.32-7.45) 06/19/16 03:41 ABG pCO2 38 mmHg (35-45) 06/19/16 03:41 ABG pO2 51 mmHg (85-104) L 06/19/16 03:41 ABG HCO3 25.2 mEQ/L (21-27) 06/19/16 03:41 ABG O2 Saturation 87 % (95-98) L 06/19/16 03:41 Calcium 9.2 mg/dL (8.6-10.8) 06/21/16 05:00 Phosphorus 3.6 mg/dL (2.3-4.7) 06/21/16 05:00 Magnesium 1.3 mg/dL (1.6-2.6) L 06/21/16 05:00 Urine Creatinine 72 mg/dL 06/15/16 18:35 Urine Sodium 40.0 mEq/L 06/15/16 18:35 Consult Discharge Plan - Plan Instructions: How to Stop Smoking (DC), Hypothyroidism (DC), Abuse of Alcohol ( DC), Pneumonia (DC), Cigarette Smoking and Your Health, Chair Caner (GEN) [facility]errals[facility]Primary Care Provider[facility] - 07/04/16 2:00 pm Prescriptions: Cefdinir [Omnicef] 300 mg PO BID #20 capsule Doxycycline 100 mg PO BID #20 capsule Folic Acid 1 mg PO DAILY #30 tablet Ipratropium/Albuterol Neb [Duoneb] 3 ml IH QIDR PRN 30 Days PRN Reason: Shortness Of Breath/Wheezing Lisinopril [Zestril] 10 mg PO DAILY #30 tablet LORazepam [Ativan] 1 mg IVP Q4H PRN #10 vial PRN Reason: Agitation Nicotine Patch [Nicoderm] 21 mg TD DAILY #20 patch.td24 Thiamine (B-1) [Vitamin B-1] 100 mg PO DAILY #30 tablet <Chani Patino - Last Filed: 07/07/16 16:26> Date of Encounter: 06/21/16 Objective - Lab 06/21/16 22:39 06/23/16 05:25 Most recent lab results ABG pH 7.43 pH Units (7.32-7.45) 06/19/16 03:41 ABG pCO2 38 mmHg (35-45) 06/19/16 03:41 ABG pO2 51 mmHg (85-104) L 06/19/16 03:41 ABG HCO3 25.2 mEQ/L (21-27) 06/19/16 03:41 ABG O2 Saturation 87 % (95-98) L 06/19/16 03:41 Calcium 9.8 mg/dL (8.6-10.8) 06/23/16 05:25 Phosphorus 4.3 mg/dL (2.3-4.7) 06/23/16 05:25 Magnesium 1.9 mg/dL (1.6-2.6) 06/23/16 05:25 Urine Creatinine 72 mg/dL 06/15/16 18:35 Urine Sodium 40.0 mEq/L 06/15/16 18:35 - Attending Attestation I examined this patient and my medical decision-making was reviewed with the PRINCIPAL PRODUCT MANAGER/PA/Advanced Practice Nurse/Resident Physician. I agree with the documented findings, disposition and treatment plan as described except to the extent set forth below. Pt seen and examined. sodium now up to 130. Will sign off, please reconsult prn.
[2016-06-21 15:01] LABS: Magnesium 1.6 mg/dL (1.6-2.6)
[2016-06-21 15:04] LABS: Potassium 4.9 mEq/L (3.5-4.5)
--- NOTE | 2016-06-21 18:05 | Internal Med Progress Note ---
Date of Encounter: 06/21/16 Time of Encounter: 15:00 - Assessment and plan (1) Hyponatremia Current Visit: Yes Status: Acute Assessment and plan: Improving, serum sodium noted to be 130 today. Patient was admitted with severe hyponatremia due to poor oral intake and chronic alcohol abuse. Nephrology has been on board, initially treated with hypertonic saline and then auto correction. Continue to monitor closely. Monitor electrolytes, supplement serum potassium and magnesium as needed. (2) Hypokalemia Current Visit: Yes Status: Resolved (3) Acute metabolic encephalopathy Current Visit: Yes Status: Acute Assessment and plan: Could be related to underlying electrolyte imbalance and chronic alcohol abuse. Questionable Wernicke encephalopathy. Continue current management and monitor closely. Physical and occupational therapy evaluation completed, recommend placement in extended care facility. caseworker protective services consult. (4) Swallowing difficulty Current Visit: Yes Status: Acute Assessment and plan: Due to underlying encephalopathy and alcohol withdrawal. Swallow evaluation completed patient is cleared for regular diet with thickened liquids. Qualifiers: Dysphagia type: unspecified Qualified Code(s): R13.10 - Dysphagia, unspecified (5) Hypothyroidism Current Visit: Yes Status: Chronic Qualifiers: Hypothyroidism type: unspecified Qualified Code(s): E03.9 - Hypothyroidism , unspecified (6) History of alcohol abuse Current Visit: Yes Status: Chronic Assessment and plan: Continue thiamine and folate supplements. Has been on IV Precedex drip, currently off. Not in alcohol withdrawal at this time. Takes intermittent doses of Librium. Has not been receiving any doses of IV Ativan. (7) Essential hypertension Current Visit: Yes Status: Chronic (8) Tobacco abuse Current Visit: Yes Status: Chronic - Subjective Interval history: Noted to be weak, confused and disoriented. Noted to have muffled and garbled speech, incomprehensible. Cannot provide history. - Constitutional Vitals: Temp Pulse Resp BP Pulse Ox 97.4 F L 99 20 172/95 96 06/21/16 15:57 06/21/16 16:03 06/21/16 16:38 06/21/16 16:03 06/21/16 16:38 General appearance: Present: A&O X 1. Absent: answers questions appropriately - Respiratory Respiratory exam: Present: CTAB (Coarse breath sounds bilaterally). Absent: accessory muscle use, rales, rhonchi, wheezes - Cardiovascular Cardiovascular exam: Present: RRR, +S1, +S2. Absent: diastolic murmur, gallop, rubs, systolic murmur - GI/Abdominal GI/Abdominal exam: Present: normal bowel sounds, soft, no peritoneal signs. Absent: distended, tenderness - Extremities Exam Extremities exam: Present: warm, radial pulses palpable and symetrical. Absent : calf tenderness, cyanotic, pedal edema - Neurological Exam Neurological exam: Present: altered, no focal deficits (Noted to move all 4 extremities spontaneously but with diffuse weakness). Absent: pronater drift, facial droop, speech deficit Internal Medicine: Result - Labs CBC & Chem 7: 06/17/16 05:37 06/21/16 14:44 Labs: BMP 06/21/16 06/21/16 05:00 14:44 Sodium 130 L Potassium 3.6 4.9 H D Chloride 96 L Carbon Dioxide 24 BUN 6 L Creatinine 0.49 L Glucose 91 Calcium 9.2 - ABG Interpretation ABG results: ABG ABG pH 7.43 pH Units (7.32-7.45) 06/19/16 03:41 ABG pCO2 38 mmHg (35-45) 06/19/16 03:41 ABG pO2 51 mmHg (85-104) L 06/19/16 03:41 ABG O2 Saturation 87 % (95-98) L 06/19/16 03:41 PT/INR, D-dimer PT 11.4 Seconds (9.4-12.1) 06/15/16 18:09 Consult Discharge Plan - Plan [facility]: [facility] [[facility] Care Provider[facility] -
[2016-06-21] MEDS ORDERED: Magnesium Sulfate 2 GM in D5% in Water 100 ML IVPB PRN (20:34)
[2016-06-21] MEDS: Magnesium Sulfate 2 GM in D5% in Water 100 ML IVPB PRN (21:47)
[2016-06-21 21:50] LABS: BUN/Creatinine Ratio 9 (6-26); Calcium 9.3 mg/dL (8.6-10.8); Carbon Dioxide 22 mEq/L (19-29); Chloride 97 mEq/L (98-109); Glucose 90 mg/dL (70-99); Osmolality,Calculated 264 (280-300); Sodium 129 mEq/L (136-145); eGFR For African Americans > 60 (> 60); eGFR For Non-African Americans > 60 (> 60)
[2016-06-21 21:52] LABS: Blood Urea Nitrogen 4 mg/dL (7-20); Potassium 5.2 mEq/L (3.5-4.5)
[2016-06-21 22:46] LABS: Basophils # 0.1 K/mcL (0.0-0.2); Basophils % 0.7 %; Eosinophils # 0.2 K/mcL (0.0-0.6); Eosinophils % 2.9 %; Hemoglobin 13.3 g/dL (11.5-15.4); Immature Granulocytes % 0.6 % (0-4); Lymphocytes % 12.4 %; Mean Corpuscular HGB Conc 33.3 g/dL (31.6-35.5); Mean Corpuscular Hemoglobin 29.8 pg (28.0-33.3); Mean Corpuscular Volume 89.7 fL (83.0-100.0); Mean Platelet Volume 8.1 fL (9.4-12.4); Monocytes # 0.7 K/mcL (0.0-1.3); Monocytes % 8.8 %; Neutrophils # 6.1 K/mcL (1.6-8.9); Platelet Count 292 K/mcL (140-400); Red Blood Count 4.46 M/mcL (3.82-4.97); Red Cell Distribution Width 13.5 % (11.5-14.5); Segmented Neutrophils % 74.6 %
[2016-06-22] MEDS: Ipratropium/Albuterol Neb 3 ML IH SCH ×4 (03:42→22:49)
[2016-06-22] MEDS: Doxycycline 100 MG in 0.9 % Sodium Chloride Mini Bag 100 ML IVPB SCH ×2 (06:54→19:30)
[2016-06-22] MEDS: *HR* Heparin 5,000 UNIT/ML VIAL SQ SCH ×2 (06:54→19:29)
[2016-06-22] MEDS: Levothyroxine Sodium 100 MCG VIAL IVP SCH (06:54)
[2016-06-22 07:32] LABS: BUN/Creatinine Ratio 9 (6-26); Blood Urea Nitrogen 4 mg/dL (7-20); Calcium 9.4 mg/dL (8.6-10.8); Carbon Dioxide 23 mEq/L (19-29); Chloride 98 mEq/L (98-109); Glucose 89 mg/dL (70-99); Magnesium 1.8 mg/dL (1.6-2.6); Osmolality,Calculated 272 (280-300); Phosphorous 4.3 mg/dL (2.3-4.7); Potassium 4.7 mEq/L (3.5-4.5); Sodium 133 mEq/L (136-145); eGFR For African Americans > 60 (> 60); eGFR For Non-African Americans > 60 (> 60)
[2016-06-22] MEDS: amLODIPine 5 MG TABLET PO SCH (08:11)
[2016-06-22] MEDS: Folic Acid 1 MG TABLET PO SCH (08:11)
[2016-06-22] MEDS: Nicotine 21 MG PATCH.TD24 TD SCH (08:19)
[2016-06-22] MEDS: Pantoprazole 40 MG VIAL IVP SCH (08:20)
[2016-06-22] MEDS: *HR* LORazepam 2 MG/ML VIAL IVP PRN ×3 (10:51→21:02)
[2016-06-22] MEDS: Magnesium Sulfate 2 GM in D5% in Water 100 ML IVPB PRN ×2 (10:51→19:28)
--- NOTE | 2016-06-22 11:49 | Internal Med Progress Note ---
Date of Encounter: 06/22/16 Time of Encounter: 11:48 - Assessment and plan (1) Hyponatremia Current Visit: Yes Status: Acute Assessment and plan: Improving, serum sodium noted to be 133 today. Patient was admitted with severe hyponatremia due to poor oral intake and chronic alcohol abuse. Nephrology has been on board, currently signed off. The goal sodium correction less than 6 mEq in 24 hours. Monitor electrolytes, supplement serum potassium and magnesium as needed. (2) Hypokalemia Current Visit: Yes Status: Resolved Assessment and plan: Noted to have severe hypokalemia and hypomagnesemia due to chronic alcohol abuse , currently improved. (3) Acute metabolic encephalopathy Current Visit: Yes Status: Acute Assessment and plan: Continues to be confused and disoriented with delusions. 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 Continue supportive care, reorientation and fall precautions. (4) Swallowing difficulty Current Visit: Yes Status: Acute Assessment and plan: Due to underlying encephalopathy and alcohol withdrawal. Improving. Swallow evaluation completed patient is cleared for pureed diet with thin liquids, no straws. Patient continues to refuse oral intake. Qualifiers: Dysphagia type: unspecified Qualified Code(s): R13.10 - Dysphagia, unspecified (5) Hypothyroidism Current Visit: Yes Status: Chronic Assessment and plan: We will change levothyroxine to oral form. Qualifiers: Hypothyroidism type: unspecified Qualified Code(s): E03.9 - Hypothyroidism , unspecified (6) History of alcohol abuse Current Visit: Yes Status: Chronic Assessment and plan: Continue thiamine and folic acid supplements. Not in active alcohol withdrawal but does have episodes of tachycardia and hypertension. Will use PRN Clonidine and Hydralazine; (7) Essential hypertension Current Visit: Yes Status: Chronic (8) Tobacco abuse Current Visit: Yes Status: Chronic - Subjective Interval history: Appears more alert today; able to state she is in the hospital but unsure of the reason and thinks she works here; has poor appetite and generalized weakness ; also was noted to be restless and crawling out of bed this am, and transferred closer to nurses station; - Constitutional Vitals: Temp Pulse Resp BP Pulse Ox 97.7 F 110 20 146/96 91 06/22/16 07:53 06/22/16 11:20 06/22/16 10:28 06/22/16 07:53 06/22/16 10:28 General appearance: Present: A&O X 1. Absent: answers questions appropriately - Respiratory Respiratory exam: Present: CTAB. Absent: accessory muscle use, rales, rhonchi, wheezes - Cardiovascular Cardiovascular exam: Present: RRR, +S1, +S2, tachycardia. Absent: diastolic murmur, gallop, rubs, systolic murmur - GI/Abdominal GI/Abdominal exam: Present: normal bowel sounds, soft, no peritoneal signs. Absent: distended, tenderness Internal Medicine: Result - Labs CBC & Chem 7: 06/21/16 22:39 06/22/16 06:56 Labs: Short CBC 06/21/16 Range/Units 22:39 WBC 8.2 (4.3-11.1) K/mcL Hgb 13.3 (11.5-15.4) g/dL Hct 40.0 (35.3-44.9) % Plt Count 292 (140-400) K/mcL Neutrophils # 6.1 (1.6-8.9) K/mcL BMP 06/21/16 06/21/16 06/22/16 14:44 21:29 06:56 Sodium 129 L 133 L Potassium 4.9 H D 5.2 H 4.7 H Chloride 97 L 98 Carbon Dioxide 22 23 BUN 4 L 4 L Creatinine 0.47 L 0.45 L Glucose 90 89 Calcium 9.3 9.4 - ABG Interpretation ABG results: ABG ABG pH 7.43 pH Units (7.32-7.45) 06/19/16 03:41 ABG pCO2 38 mmHg (35-45) 06/19/16 03:41 ABG pO2 51 mmHg (85-104) L 06/19/16 03:41 ABG O2 Saturation 87 % (95-98) L 06/19/16 03:41 PT/INR, D-dimer PT 11.4 Seconds (9.4-12.1) 06/15/16 18:09 Consult Discharge Plan - Plan Referrals: [facility],PCP [Primary Care Provider] - 07/04/16 2:00 pm
[2016-06-22] MEDS ORDERED: cloNIDine HCl 0.1 MG TABLET PO PRN (15:35)
[2016-06-22] MEDS: Calcium Gluconate 1,000 MG in D5% in Water 100 ML IVPB PRN (19:29)
[2016-06-22 22:25] LABS: BUN/Creatinine Ratio 6 (6-26); Calcium 9.5 mg/dL (8.6-10.8); Carbon Dioxide 20 mEq/L (19-29); Chloride 97 mEq/L (98-109); Glucose 116 mg/dL (70-99); Osmolality,Calculated 268 (280-300); Potassium 5.1 mEq/L (3.5-4.5); Sodium 130 mEq/L (136-145); eGFR For African Americans > 60 (> 60); eGFR For Non-African Americans > 60 (> 60)
[2016-06-22 22:26] LABS: Blood Urea Nitrogen 3 mg/dL (7-20)
[2016-06-23] MEDS: *HR* LORazepam 2 MG/ML VIAL IVP PRN ×2 (03:13→08:50)
[2016-06-23] MEDS: Ipratropium/Albuterol Neb 3 ML IH SCH ×2 (04:39→11:00)
[2016-06-23 05:56] LABS: BUN/Creatinine Ratio 6 (6-26); Calcium 9.8 mg/dL (8.6-10.8); Carbon Dioxide 23 mEq/L (19-29); Chloride 95 mEq/L (98-109); Glucose 109 mg/dL (70-99); Osmolality,Calculated 267 (280-300); Phosphorous 4.3 mg/dL (2.3-4.7); Sodium 130 mEq/L (136-145); eGFR For African Americans > 60 (> 60); eGFR For Non-African Americans > 60 (> 60)
[2016-06-23 05:57] LABS: Blood Urea Nitrogen 3 mg/dL (7-20); Magnesium 1.9 mg/dL (1.6-2.6); Potassium 3.7 mEq/L (3.5-4.5)
[2016-06-23] MEDS: *HR* Heparin 5,000 UNIT/ML VIAL SQ SCH (06:25)
[2016-06-23] MEDS: Doxycycline 100 MG in 0.9 % Sodium Chloride Mini Bag 100 ML IVPB SCH (06:25)
[2016-06-23] MEDS: Calcium Gluconate 1,000 MG in D5% in Water 100 ML IVPB PRN (06:26)
[2016-06-23] MEDS: Magnesium Sulfate 2 GM in D5% in Water 100 ML IVPB PRN (06:27)
[2016-06-23 07:07] VITALS: BP 137/88
[2016-06-23] MEDS: Folic Acid 1 MG TABLET PO SCH (08:48)
[2016-06-23] MEDS: Nicotine 21 MG PATCH.TD24 TD SCH (08:49)
[2016-06-23] MEDS: amLODIPine 5 MG TABLET PO SCH (08:49)
--- NOTE | 2016-06-23 10:13 | Discharge Summary ---
Date of Encounter: 06/23/16 Time of Encounter: 10:07 - Discharge Diagnosis (1) Hyponatremia Priority: Primary Status: Resolved (2) Hypokalemia Priority: Primary Status: Resolved (3) Acute metabolic encephalopathy Priority: Primary Status: Acute (4) Swallowing difficulty Priority: Primary Status: Resolved Qualifiers: Dysphagia type: unspecified Qualified Code(s): R13.10 - Dysphagia, unspecified (5) Hypothyroidism Priority: Secondary Status: Chronic Qualifiers: Hypothyroidism type: unspecified Qualified Code(s): E03.9 - Hypothyroidism , unspecified (6) History of alcohol abuse Priority: Secondary Status: Chronic (7) Essential hypertension Priority: Secondary Status: Chronic (8) Tobacco abuse Priority: Secondary Status: Chronic (9) Pneumonia Priority: Primary Status: Acute Qualifiers: Pneumonia type: due to methicillin-resistant Staphylococcus aureus (MRSA) Laterality: left Lung location: unspecified part of lung Qualified Code(s): J15.212 - Pneumonia due to Methicillin resistant Staphylococcus aureus - Discharge Medications Prescriptions: Cefdinir [Omnicef] 300 mg PO BID #20 capsule Doxycycline 100 mg PO BID #20 capsule Folic Acid 1 mg PO DAILY #30 tablet Ipratropium/Albuterol Neb [Duoneb] 3 ml IH QIDR PRN 30 Days PRN Reason: Shortness Of Breath/Wheezing Lisinopril [Zestril] 10 mg PO DAILY #30 tablet LORazepam [Ativan] 1 mg IVP Q4H PRN #10 vial PRN Reason: Agitation Nicotine Patch [Nicoderm] 21 mg TD DAILY #20 patch.td24 Thiamine (B-1) [Vitamin B-1] 100 mg PO DAILY #30 tablet Home Medications: Amlodipine [Norvasc] 5 mg PO DAILY 06/15/16 [History] Benzonatate [Tessalon] 100 mg PO BID PRN 06/15/16 [History] Calcium Carbonate [Tums] 500 mg PO TID 06/15/16 [History] Citalopram Hydrobromide [Citalopram HBr] 40 mg PO DAILY 06/15/16 [History] Clotrimazole Vag CRM [Gyne-Lotrimin Vag CRM] 1 appl VG DAILY 06/15/16 [History] Ergocalciferol (VITAMIN D2) [Vitamin D] 800 unit PO DAILY 06/15/16 [History] Fluticasone Propionate Nasal [Flonase] 50 mcg NS BID PRN 06/15/16 [History] GuaiFENesin/Dextromethorphan [Tussin Dm Syrup] 10 ml PO BID PRN 06/15/16 [ History] Ipratropium [ATROVENT Inhaler] 2 puff IH QID 06/15/16 [History] L. Rhamnosus GG/Inulin [Culturelle Capsule] 1 each PO DAILY 06/15/16 [History] Levothyroxine [Synthroid] 50 mcg PO 0630 06/15/16 [History] Loratadine [Claritin] 10 mg PO DAILY 06/15/16 [History] Methylphenidate HCl [Metadate Cd] 20 mg PO QPM 06/15/16 [History] Methylphenidate HCl [Metadate Cd] 30 mg PO QAM 06/15/16 [History] Montelukast [Singulair] 10 mg PO DAILY 06/15/16 [History] Omeprazole [PriLOSEC] 20 mg PO DAILY 06/15/16 [History] Albuterol Neb [Proventil Neb] 2.5 mg IH Q4H PRN #0 06/23/16 [Rx] Cefdinir [Omnicef] 300 mg PO BID #20 capsule 06/23/16 [Rx] Doxycycline 100 mg PO BID #20 capsule 06/23/16 [Rx] Folic Acid 1 mg PO DAILY #30 tablet 06/23/16 [Rx] Ipratropium/Albuterol Neb [Duoneb] 3 ml IH QIDR PRN 30 Days 06/23/16 [Rx] LORazepam [Ativan] 1 mg IVP Q4H PRN #10 vial 06/23/16 [Rx] Lisinopril [Zestril] 10 mg PO DAILY #30 tablet 06/23/16 [Rx] Nicotine Patch [Nicoderm] 21 mg TD DAILY #20 patch.td24 06/23/16 [Rx] Thiamine (B-1) [Vitamin B-1] 100 mg PO DAILY #30 tablet 06/23/16 [Rx] Allergies/Adverse Reactions: Allergies egg Adverse Reaction (Verified 06/15/16 18:55) See Comments per [facility] list, patient is unable to verify. milk Adverse Reaction (Verified 06/15/16 18:55) See Comments per [facility] list, patient is unable to verify. pyridoxine Adverse Reaction (Verified 06/15/16 18:55) See Comments per [facility] list, patient unable to verify. Date of admission: 06/15/16 21:31 [facility] care physician: [facility] Consults: 06/15/16 21:40 Consult to Nephrology [CONS] Routine Consulting Provider: [facility] [place]/ORIPRINCESS/RONNIE/DEVON Reason for Consult: hypoNa/spoke from the ED Time Notified: 21:41 Call Completed: Yes 06/15/16 23:14 Consult to Marketing Intelligence Analyst [CONS] Routine Reason for SW Consult: Alcohol abuse 06/16/16 10:29 Consult to Nutrition [CONS] Routine Comment: Consulting Provider: NUTRITION Reason for Dietary Consult: PO Supplementation 06/17/16 09:29 Consult to Invasive Line Access Team [CONS] Routine Reason for Consult: Powerglide line insertion Line Type: EPIV 06/19/16 01:59 Consult to Nurse Navigator [CONS] Routine Comment: 06/21/16 09:44 Consult to Speech Therapy [CONS] Stat Comment: Evaluate, develop and implement POC Reason for Consult: EVAL AND TREAT Time Notified: 09:44 Call Completed: Yes 06/21/16 12:24 Consult to Occupational Therapy [CONS] Routine Comment: Evaluate, develop and implement POC Consult to Physical Therapy [CONS] Routine Comment: Evaluate, develop and implement POC Discharging clinician: Mayda Zeng Anticipated date of discharge: 06/23/16 - Patient Status Disposition: Transfer [facility] Condition: Fair Functional capacity at discharge: bed bound Overall status at discharge: patient is not back to baseline - Discharge Instructions Instructions: How to Stop Smoking (DC), Hypothyroidism (DC), Abuse of Alcohol ( DC), Pneumonia (DC), Cigarette Smoking and Your Health, Receptionist/Telephone Operator (GEN) Follow Up With: [facility],PCP [Primary Care Provider] - 07/04/16 2:00 pm - Diet and Activity Activity: as per physical therapy Diet: low fat, low cholesterol, low salt diet, other (pureed diet with thin liquids) Hospital course: Ms. Pulliam is a 55 year old female with history of chronic tobacco and alcohol abuse was initially admitted to ICU with altered mental status and generalized weakness. Patient was noted to have severe hyponatremia along with multiple electrolyte abnormalities, likely due to BX report of wilfredo/poor oral intake due to alcohol abuse/malnutrition. Nephrology was consulted and patient was started on IV hydration with normal saline with gradual improvement in serum sodium, after which she autocorrected and her serum sodium is currently in low 130s. She was placed on electrolyte protocol, serum magnesium/calcium and potassium were aggressively replaced and are currently noted to be normal. Her mental status only improved slightly during her hospitalization and she is more awake now, however remains confused and disoriented with occasional agitation, requiring low doses of IV Ativan. She did have alcohol withdrawal after admission, which is now controlled. She is noted to have untreated hypertension, which is exacerbated due to alcohol withdrawal and she has been started on Norvasc and lisinopril with improvement in blood pressure. Patient also has been seen by speech therapist, bedside swallow evaluation has been completed and she is cleared for pureed diet with thin liquids and no straws. However, patient continues to refuse oral diet and remains at risk for malnutrition and dehydration. Chest x-ray was not clear for pneumonia and she was not treated with antibiotics at admission. However, she was noted to have significant productive cough and sputum culture grew MRSA and beta-lactam is positive Haemophilus influenza and she has been started on IV doxycycline and Rocephin. Blood cultures remain negative. Patient is currently medically stable for discharge to [facility] for continued rehabilitation. Report has been given to at the [facility]. - Time Spent with Patient Total time spent providing and/or coordinating discharge services: Greater than 30 minutes (55 min) - Constitutional Vitals: Temp Pulse Resp BP Pulse Ox 97.2 F L 94 20 137/88 95 06/23/16 07:04 06/23/16 07:04 06/23/16 07:04 06/23/16 07:04 06/23/16 07:04 General appearance: Present: A&O X 1 (somnolent due to Ativan). Absent: answers questions appropriately - Respiratory Respiratory exam: Present: CTAB. Absent: accessory muscle use, rales, rhonchi, wheezes - Cardiovascular Cardiovascular exam: Present: RRR, +S1, +S2. Absent: diastolic murmur, gallop, rubs, systolic murmur
--- NOTE | 2016-06-23 10:26 | Physician Discharge Referral ---
ExtendedCare Referral Info Transfer To: [facility], [place] Provider in Charge: Mayda Zeng Provider in Charge after Transfer: Other () Institutional Level of Care: Skilled - Diagnosis (1) Hyponatremia Priority: Primary Status: Resolved (2) Hypokalemia Priority: Primary Status: Resolved (3) Acute metabolic encephalopathy Priority: Primary Status: Acute (4) Swallowing difficulty Priority: Primary Status: Resolved (5) Hypothyroidism Priority: Secondary Status: Chronic (6) History of alcohol abuse Priority: Secondary Status: Chronic (7) Essential hypertension Priority: Secondary Status: Chronic (8) Tobacco abuse Priority: Secondary Status: Chronic (9) Pneumonia Priority: Primary Status: Acute Expected Duration of Placement: 4 weeks Prognosis: Fair Aware of Diagnosis: Family Aware of Prognosis: Family - Transfer Medications Prescriptions: Cefdinir [Omnicef] 300 mg PO BID #20 capsule Doxycycline 100 mg PO BID #20 capsule Folic Acid 1 mg PO DAILY #30 tablet Ipratropium/Albuterol Neb [Duoneb] 3 ml IH QIDR PRN 30 Days PRN Reason: Shortness Of Breath/Wheezing Lisinopril [Zestril] 10 mg PO DAILY #30 tablet LORazepam [Ativan] 1 mg IVP Q4H PRN #10 vial PRN Reason: Agitation Nicotine Patch [Nicoderm] 21 mg TD DAILY #20 patch.td24 Thiamine (B-1) [Vitamin B-1] 100 mg PO DAILY #30 tablet Home Medications: Amlodipine [Norvasc] 5 mg PO DAILY 06/15/16 [History] Benzonatate [Tessalon] 100 mg PO BID PRN 06/15/16 [History] Calcium Carbonate [Tums] 500 mg PO TID 06/15/16 [History] Citalopram Hydrobromide [Citalopram HBr] 40 mg PO DAILY 06/15/16 [History] Clotrimazole Vag CRM [Gyne-Lotrimin Vag CRM] 1 appl VG DAILY 06/15/16 [History] Ergocalciferol (VITAMIN D2) [Vitamin D] 800 unit PO DAILY 06/15/16 [History] Fluticasone Propionate Nasal [Flonase] 50 mcg NS BID PRN 06/15/16 [History] GuaiFENesin/Dextromethorphan [Tussin Dm Syrup] 10 ml PO BID PRN 04/12/17 [ History] Ipratropium [ATROVENT Inhaler] 2 puff IH QID 06/15/16 [History] L. Rhamnosus GG/Inulin [Culturelle Capsule] 1 each PO DAILY 06/15/16 [History] Levothyroxine [Synthroid] 50 mcg PO 0630 06/15/16 [History] Loratadine [Claritin] 10 mg PO DAILY 06/15/16 [History] Methylphenidate HCl [Metadate Cd] 20 mg PO QPM 06/15/16 [History] Methylphenidate HCl [Metadate Cd] 30 mg PO QAM 06/15/16 [History] Montelukast [Singulair] 10 mg PO DAILY 06/15/16 [History] Omeprazole [PriLOSEC] 20 mg PO DAILY 06/15/16 [History] Albuterol Neb [Proventil Neb] 2.5 mg IH Q4H PRN #0 06/23/16 [Rx] Cefdinir [Omnicef] 300 mg PO BID #20 capsule 06/23/16 [Rx] Doxycycline 100 mg PO BID #20 capsule 06/23/16 [Rx] Folic Acid 1 mg PO DAILY #30 tablet 06/23/16 [Rx] Ipratropium/Albuterol Neb [Duoneb] 3 ml IH QIDR PRN 30 Days 06/23/16 [Rx] LORazepam [Ativan] 1 mg IVP Q4H PRN #10 vial 06/23/16 [Rx] Lisinopril [Zestril] 10 mg PO DAILY #30 tablet 06/23/16 [Rx] Nicotine Patch [Nicoderm] 21 mg TD DAILY #20 patch.td24 06/23/16 [Rx] Thiamine (B-1) [Vitamin B-1] 100 mg PO DAILY #30 tablet 06/23/16 [Rx] Allergies/Adverse Reactions: Allergies egg Adverse Reaction (Verified 06/15/16 18:55) [facility], patient is unable to verify. milk Adverse Reaction (Verified 06/15/16 18:55) See Comments [facility] list, patient is unable to verify. pyridoxine Adverse Reaction (Verified 06/15/16 18:55) See Comments per [facility] list, patient unable to verify. - Respiratory Orders Smoking Cessation: Smoking cessation has been advised. For more information, call the [place] Tobacco Quit Line at 4-225-TGPK-NOW. - Advance Directives Code Status: Full Code - Mobility Orders Ambulate - Rehabiliation Orders Rehab Potential: Fair Rehab Orders: ROM Exercises, Evaluation for Physical Therapy, Evaluation for Occupational Therapy, Evaluation for Speech Therapy - Diet Orders Pureed (thin liquids, no straws) CERTIFICATION: I certify that the transfer of the above named patient to an Extended Care Facility is necessary for the continuing treatment of the diagnosis listed. The above information is true and accurate reflection of patient's current condition. Confidential - Redisclosure prohibited without a patient's written consent.
== END 2016-06-23 12:00 | DRG 640 ==
LOC: EMEROO 17:22 → SUATTDRO 21:31 → ICNU 21:31 → 2NNU 06-20 16:05
PROVIDERS: ADMIT Internal Medicine; ATTEND Internal Medicine

== ENCOUNTER 2016-08-01 23:06 | Inpatient (IN) ==
--- NOTE | 2016-08-01 23:44 | Emergency Department Note ---
Disposition Clinical Impression: Hyponatremia Stroke Qualifiers: CVA mechanism: unspecified Qualified Code(s): I63.9 - Cerebral infarction, unspecified Disposition: Admitted As Inpatient Condition: Fair Altered Mental Status HPI - General Chief Complaint: ED Altered Mental Status Stated Complaint: slurred speech Time Seen by Provider: 08/01/16 23:15 Source: patient, EMS Mode of arrival: EMS Limitations: no limitations Nursing Notes Reviewed: Yes Vital Signs Reviewed: Yes - History of Present Illness HPI Narrative: Patient brought in for evaluation of slurred speech and confusion. called emelia as he is concerned about potential hyponatremia. She is recently diagnosed with this last month. Patient takes salt pills daily. Patient states she has not missed any doses of medication. She states that she currently feels fine and would like to return home. Upon further questioning of her symptoms, she states that she had hard time finding her words. - Related Data Home Medications Medication Instructions Recorded Confirmed Benzonatate [Tessalon] 100 mg PO BID PRN 06/15/16 06/15/16 Calcium Carbonate [Tums] 500 mg PO TID 06/15/16 06/15/16 Citalopram Hydrobromide 40 mg PO DAILY 06/15/16 06/15/16 [Citalopram HBr] Clotrimazole Vag CRM 1 appl VG DAILY 06/15/16 06/15/16 [Gyne-Lotrimin Vag CRM] Ergocalciferol (VITAMIN D2) 800 unit PO DAILY 06/15/16 06/15/16 [Vitamin D] Fluticasone Propionate Nasal 50 mcg NS BID PRN 06/15/16 06/15/16 [Flonase] GuaiFENesin/Dextromethorphan 10 ml PO BID PRN 06/15/16 06/15/16 [Tussin Dm Syrup] Ipratropium [ATROVENT Inhaler] 2 puff IH QID 06/15/16 06/15/16 L. Rhamnosus GG/Inulin [Culturelle 1 each PO DAILY 06/15/16 06/15/16 Capsule] Levothyroxine [Synthroid] 50 mcg PO 0630 06/15/16 06/15/16 Loratadine [Claritin] 10 mg PO DAILY 06/15/16 06/15/16 Methylphenidate HCl [Metadate Cd] 20 mg PO QPM 06/15/16 06/15/16 Methylphenidate HCl [Metadate Cd] 30 mg PO QAM 06/15/16 06/15/16 Montelukast [Singulair] 10 mg PO DAILY 06/15/16 06/15/16 Omeprazole [PriLOSEC] 20 mg PO DAILY 06/15/16 06/15/16 amLODIPine [Norvasc] 5 mg PO DAILY 06/15/16 06/15/16 Previous Rx's Medication Instructions Recorded Albuterol Neb [Proventil Neb] 2.5 mg IH Q4H PRN #0 06/23/16 Cefdinir [Omnicef] 300 mg PO BID #20 capsule 06/23/16 Doxycycline 100 mg PO BID #20 capsule 06/23/16 Folic Acid 1 mg PO DAILY #30 tablet 06/23/16 Ipratropium/Albuterol Neb [Duoneb] 3 ml IH QIDR PRN 30 Days 06/23/16 LORazepam [Ativan] 1 mg IVP Q4H PRN #10 vial 06/23/16 Lisinopril [Zestril] 10 mg PO DAILY #30 tablet 06/23/16 Nicotine Patch [Nicoderm] 21 mg TD DAILY #20 patch.td24 06/23/16 Thiamine (B-1) [Vitamin B-1] 100 mg PO DAILY #30 tablet 06/23/16 Allergies Allergy/AdvReac Type Severity Reaction Status Date / Time egg AdvReac See Verified 06/15/16 18:55 Comments milk AdvReac See Verified 06/15/16 18:55 Comments pyridoxine AdvReac See Verified 06/15/16 18:55 Comments Review of Systems: CONSTITUTIONAL: No weight loss, fever, chills, weakness or fatigue. HEENT: Eyes: No visual changes. Ears, Nose, Throat: No hearing loss, difficulty talking or unable to swallow. SKIN: No rash or itching. CARDIOVASCULAR: No chest pain, chest pressure or chest discomfort. No palpitations or edema. RESPIRATORY: No shortness of breath, cough or sputum. GASTROINTESTINAL: No anorexia, nausea, vomiting or diarrhea. No abdominal pain or blood. GENITOURINARY: No burning on urination or hematuria. NEUROLOGICAL: dizziness , confusion, slurred speech; No syncope, paralysis, ataxia, numbness or tingling in the extremities. No change in bowel or bladder control. MUSCULOSKELETAL: No muscle pain, back pain, joint pain or stiffness. Past Medical History - Past Medical History Medical history: Reports: hypertension Surgical history: Reports: Psychiatric history: Reports: ADHD - Social History Smoking Status: Current every day smoker Smokeless Tobacco Status: No Alcohol use: Reports: occasionally Drug use: Reports: none Physical Exam General appearance: NAD, conversant Eyes: anicteric sclerae, moist conjunctivae; PERRL HENT: Atraumatic; oropharynx clear with moist mucous membranes and no mucosal ulcerations Neck: Normal inspection; Trachea midline; FROM, supple Lungs: CTA, with normal respiratory effort and no intercostal retractions CV: RRR, no MRGs Abdomen: Soft, non-tender; no rebound or gaurding Extremities: No peripheral edema or extremity lymphadenopathy Skin: Normal temperature; no rash, ulcers or lesions Psych: Appropriate mood and affect Neuro: alert and oriented to person, place and time - General Limitations: no limitations General appearance: alert - Expanded Neurological Exam Patient oriented to: Present: person, place, time Speech: Present: fluid speech Cranial nerves: EOM function (II, III, IV, ): Normal, facial sensation (V): Normal, facial palsy (VII): Normal (mild flattening at rest that resolves with smiling), gag reflex (IX): Normal, spinal accessory function (XI): Normal, tongue deviation (XII): Normal Cerebellar function: finger to nose: Normal, heel to mae: Normal Motor strength - LUE: 5/5 Motor strength - RUE: 5/5 Motor strength - LLE: 5/5 Motor strength - RLE: 5/5 Sensory exam upper extremity: light touch: Normal Sensory exam lower extremity: light touch: Normal Coma Scale Eye Opening: Spontaneous Coma Scale Motor Response: Obeys Commands Coma Scale Verbal Response: Oriented Coma Scale Total: 15 Course - Reevaluation(s) Reevaluation #1: Patient reevaluated. Patient continues to be stable. No change in symptoms. Reevaluation #2: CTA negative. Patient will be able to be admitted to this hospital for further evaluation. - Consultations Consultation #1: Discussed with [facility] neurology. Patient is close to the timeframe window. Recommend getting a CT angiogram head and neck for further evaluation. If no Findings the patient can be admitted to our hospital for stroke workup as well as management of her other metabolic issues. Consultation #2: Discussed with Dr. MAGUIRE. Patient accepted for admission. Vital Signs Temperature 98.0 F 08/01/16 23:12 Pulse Rate 87 08/01/16 23:12 Respiratory Rate 18 08/01/16 23:12 Blood Pressure 101/56 08/01/16 23:12 O2 Sat by Pulse Oximetry 99 08/01/16 23:12 Temperature 98.0 F 08/01/16 23:12 Pulse Rate 87 08/02/16 03:20 Respiratory Rate 18 08/02/16 03:20 Blood Pressure 122/77 08/02/16 03:20 O2 Sat by Pulse Oximetry 98 08/02/16 03:20 Oxygen Delivery Oxygen Delivery Room Air Altered Mental Status - Lab Data Result diagrams: 08/01/16 23:20 08/01/16 23:20 Lab Results 08/01/16 08/01/16 08/01/16 Range/Units 23:20 23:20 23:20 WBC 6.4 (4.3-11.1) K/mcL RBC 4.72 (3.82-4.97) M/mcL Hgb 14.2 (11.5-15.4) g/dL Hct 40.9 (35.3-44.9) % MCV 86.7 (83.0-100.0) fL MCH 30.1 (28.0-33.3) pg MCHC 34.7 (31.6-35.5) g/dL RDW 14.8 H (11.5-14.5) % Plt Count 217 (140-400) K/mcL MPV 7.9 L (9.4-12.4) fL Immature Gran % 0.3 (0-4) % Seg Neutrophils % 60.5 % Lymphocytes % 29.5 % Monocytes % 8.2 % Eosinophils % 0.9 % Basophils % 0.6 % Neutrophils # 3.9 (1.6-8.9) K/mcL Lymphocytes # 1.9 (0.6-4.6) K/mcL Monocytes # 0.5 (0.0-1.3) K/mcL Eosinophils # 0.1 (0.0-0.6) K/mcL Basophils # 0.0 (0.0-0.2) K/mcL Sodium 119 L* (136-145) mEq/L Potassium 3.8 (3.5-4.5) mEq/L Chloride 90 L (98-109) mEq/L Carbon Dioxide 16 L (19-29) mEq/L BUN 3 L (7-20) mg/dL Creatinine 0.70 (0.57-1.11) mg/dL Est GFR ( Amer) > 60 (> 60) Est GFR (Non-Af Amer) > 60 (> 60) BUN/Creatinine Ratio 4 L (6-26) Glucose 92 (70-99) mg/dL POC Glucose (58-89) Calculated Osmolality 244 L (280-300) Calcium 8.6 (8.6-10.8) mg/dL Total Bilirubin 0.5 (0.2-1.2) mg/dL Direct Bilirubin 0.2 (0.0-0.5) mg/dL Indirect Bilirubin 0.3 (0.0-1.2) mg/dL AST 31 (5-34) Units/L ALT 9 (0-55) Units/L Alkaline Phosphatase 99 (38-126) Units/L Troponin I 0.00 (0-0.03) ng/mL Serum Total Protein 6.6 (6.0-8.3) g/dL Albumin 3.3 L (3.5-5.0) g/dL Globulin 3.3 (2.4-3.5) g/dL Albumin/Globulin Ratio 1.0 L (1.1-2.2) Urine Color (Yellow) Urine Clarity (Clear) Urine pH (5.0-8.0) pH Units Ur Specific Banks (1.010-1.025) Urine Protein (Neg-Trace) mg/dL Urine Glucose (UA) (Normal) mg/dL Urine Ketones (Negative) mg/dL Urine Blood (Negative) Urine Nitrite (Negative) Urine Bilirubin (Negative) Urine Urobilinogen (Normal) mg/dL Ur Leukocyte Esterase (Negative) Ur Culture Indicated? (NO) Ethyl Alcohol 51 H (0-10) mg/dL 08/02/16 08/02/16 Range/Units 00:02 03:05 WBC (4.3-11.1) K/mcL RBC (3.82-4.97) M/mcL Hgb (11.5-15.4) g/dL Hct (35.3-44.9) % MCV (83.0-100.0) fL MCH (28.0-33.3) pg MCHC (31.6-35.5) g/dL RDW (11.5-14.5) % Plt Count (140-400) K/mcL MPV (9.4-12.4) fL Immature Gran % (0-4) % Seg Neutrophils % % Lymphocytes % % Monocytes % % Eosinophils % % Basophils % % Neutrophils # (1.6-8.9) K/mcL Lymphocytes # (0.6-4.6) K/mcL Monocytes # (0.0-1.3) K/mcL Eosinophils # (0.0-0.6) K/mcL Basophils # (0.0-0.2) K/mcL Sodium (136-145) mEq/L Potassium (3.5-4.5) mEq/L Chloride (98-109) mEq/L Carbon Dioxide (19-29) mEq/L BUN (7-20) mg/dL Creatinine (0.57-1.11) mg/dL Est GFR ( Amer) (> 60) Est GFR (Non-Af Amer) (> 60) BUN/Creatinine Ratio (6-26) Glucose (70-99) mg/dL POC Glucose 84 (58-89) Calculated Osmolality (280-300) Calcium (8.6-10.8) mg/dL Total Bilirubin (0.2-1.2) mg/dL Direct Bilirubin (0.0-0.5) mg/dL Indirect Bilirubin (0.0-1.2) mg/dL AST (5-34) Units/L ALT (0-55) Units/L Alkaline Phosphatase (38-126) Units/L Troponin I (0-0.03) ng/mL Serum Total Protein (6.0-8.3) g/dL Albumin (3.5-5.0) g/dL Globulin (2.4-3.5) g/dL Albumin/Globulin Ratio (1.1-2.2) Urine Color Yellow (Yellow) Urine Clarity Clear (Clear) Urine pH 6.5 (5.0-8.0) pH Units Ur Specific Banks 1.018 (1.010-1.025) Urine Protein Negative (Neg-Trace) mg/dL Urine Glucose (UA) Normal (Normal) mg/dL Urine Ketones Negative (Negative) mg/dL Urine Blood Negative (Negative) Urine Nitrite Negative (Negative) Urine Bilirubin Negative (Negative) Urine Urobilinogen Normal (Normal) mg/dL Ur Leukocyte Esterase Negative (Negative) Ur Culture Indicated? NO (NO) Ethyl Alcohol (0-10) mg/dL Attestation Statement - Attestation Attestation: I personally interviewed and examined this patient and my medical decision- making was reviewed with the ED Resident Physician, Dr. Blair. I agree with the documented findings, disposition and treatment plan as described except to the extent set forth below. Patient is a 55-year-old white female who presented to the emergency department by EMS after describing an episode of acute slurred speech disorientation and lightheadedness that she experienced at home just before 8 PM tonight. Patient states her roommates were very concerned with these changes and called 911 to bring her to the emergency department for evaluation. On arrival to the ED patient was awake alert and oriented 4, clear speech, no focal neurologic deficits and NIH stroke scale of 0. Patient had no complaints on arrival, no headaches or visual changes, no vertigo or dizziness, no chest pain or pressure no shortness of breath, no abdominal pain nausea vomiting diarrhea, no flank pain or urinary symptoms. Patient states she has a history of low sodium and is on salt tabs and has had similar episodes in the past of confusion and disorientation related to her sodium being too low. Patient states she has not had any recent nausea vomiting and is taking her medications as prescribed. Based on patient's complete resolution of symptoms on arrival by EMS we did not call a stroke alert, patient not a candidate for TPA if symptoms prior to arrival were secondary to an acute CVA. We will continue to do serial neurologic examinations here in the ED and proceed with head CT imaging. Patient's sodium was found to be very low today despite oral sodium intake. Patient also with positive blood alcohol which could have contributed to some of her symptoms. We were not directly contacted by radiology but upon review of her CT report she was noted to have an acute right cerebral infarct, putamen. Patient was apparently 5 a half hours into her symptoms at the time of review misreport so we did go ahead and consult the neurologist at [facility] and reviewed the case. They agreed with holding TPA at this time and recommended CTA of the head and neck for further evaluation. Since neuro exam is stable at this time with no change since arrival. CTA of the head and neck showed no vascular obstruction or narrowing. Since CTA images were within normal limits we proceeded to admit the patient here for further evaluation and management. Patient did receive aspirin following her CT studies. Case discussed with hospitalist who accepted patient for admission.
[2016-08-01 23:46] LABS: Basophils % 0.6 %; Eosinophils # 0.1 K/mcL (0.0-0.6); Eosinophils % 0.9 %; Hematocrit 40.9 % (35.3-44.9); Hemoglobin 14.2 g/dL (11.5-15.4); Immature Granulocytes % 0.3 % (0-4); Lymphocytes # 1.9 K/mcL (0.6-4.6); Lymphocytes % 29.5 %; Mean Corpuscular HGB Conc 34.7 g/dL (31.6-35.5); Mean Corpuscular Hemoglobin 30.1 pg (28.0-33.3); Mean Corpuscular Volume 86.7 fL (83.0-100.0); Mean Platelet Volume 7.9 fL (9.4-12.4); Monocytes # 0.5 K/mcL (0.0-1.3); Monocytes % 8.2 %; Neutrophils # 3.9 K/mcL (1.6-8.9); Platelet Count 217 K/mcL (140-400); Red Blood Count 4.72 M/mcL (3.82-4.97); Red Cell Distribution Width 14.8 % (11.5-14.5); Segmented Neutrophils % 60.5 %
[2016-08-01 23:58] LABS: Alanine Aminotransferase 9 Units/L (0-55); Albumin 3.3 g/dL (3.5-5.0); Alkaline Phosphatase 99 Units/L (38-126); BUN/Creatinine Ratio 4 (6-26); Bilirubin,Indirect 0.3 mg/dL (0.0-1.2); Bilirubin,Total 0.5 mg/dL (0.2-1.2); Calcium 8.6 mg/dL (8.6-10.8); Carbon Dioxide 16 mEq/L (19-29); Chloride 90 mEq/L (98-109); Globulin 3.3 g/dL (2.4-3.5); Glucose 92 mg/dL (70-99); Osmolality,Calculated 244 (280-300); Potassium 3.8 mEq/L (3.5-4.5); Total Protein 6.6 g/dL (6.0-8.3); eGFR For African Americans > 60 (> 60); eGFR For Non-African Americans > 60 (> 60)
[2016-08-02 00:01] LABS: Aspartate Amino Transferase 31 Units/L (5-34); Bilirubin,Direct 0.2 mg/dL (0.0-0.5); Blood Urea Nitrogen 3 mg/dL (7-20)
[2016-08-02 00:02] LABS: Sodium 119 mEq/L (136-145)
[2016-08-02] MEDS ORDERED: 0.9 % Sodium Chloride 500 ML IVC ONE (00:04)
[2016-08-02 00:57] LABS: Ethanol 51 mg/dL (0-10)
[2016-08-02 03:16] LABS: Bilirubin,Urine Negative (Negative); Blood,Urine Negative (Negative); Clarity,Urine Clear (Clear); Color,Urine Yellow (Yellow); Glucose,Urine (UA) Normal (Normal); Ketones,Urine Negative (Negative); Leukocyte Esterase,Urine Negative (Negative); Nitrite,Urine Negative (Negative); PH,Urine 6.5 pH Units (5.0-8.0); Protein,Urine Negative (Neg-Trace); Specific Gravity,Urine 1.018 (1.010-1.025); Urobilinogen,Urine Normal (Normal)
[2016-08-02] MEDS ORDERED: Aspirin 81 MG TAB.CHEW PO ONE (04:18)
[2016-08-02] MEDS ORDERED: Ondansetron 4 MG/2 ML VIAL IVP PRN (04:43)
[2016-08-02] MEDS ORDERED: Naloxone 0.4 MG/ML INJ IVP PRN (04:43)
[2016-08-02] MEDS ORDERED: *HR* LORazepam 2 MG/ML VIAL IVP PRN ×3 (04:46)
[2016-08-02 05:06] LABS: Chol/HDL Ratio 2.5 (0-4.9); Cholesterol 160 mg/dL (< 200); HDL Cholesterol 63 mg/dL (40-59); LDL Cholesterol,Calculated 80 mg/dL (0-99); Triglycerides 83 mg/dL (< 150); Uric Acid 5.3 mg/dL (2.6-6.0)
--- NOTE | 2016-08-02 05:18 | Internal Med History&Physical ---
Date of Encounter: 08/02/16 Time of Encounter: 05:00 Assessment and Plan (1) Stroke Current visit: Yes Status: Acute Pt. presents with change in speech and confusion that have resolved. NIH [address] head reveals an ischemic focus right caudate and internal capsule CTA head and neck does not reveal any occlusion Admit to inpatient status. Expected to be in the hospital at least 2 midnights. Expected DC dispo is to inpatient rehab. High risk due to new onset CVA and hyponatremia. PT/OT and speech therapy NPO for now. 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 was recently admitted with hyponatremia last month and given iv fluid hydration and correction froim 107 to 130 Likely related to dehydration vs SIADH Will obtain serum and urine osmolalities, urine electrolytes, FLP, uric acid Once labs obtained, will start iv saline as the patient looks dehydrated clinically (3) Alcohol dependence Current visit: Yes Status: Chronic History of alcohol withdrawal in the past admission requiring BZDs Currently, elevated alcohol level Place on [facility] protocol B1 and folic acid iv Counselled regarding need for cessation. Pt. not willing to quit Qualifiers: Substance use status: uncomplicated Qualified Code(s): F10.20 - Alcohol dependence, uncomplicated (4) Essential hypertension Current visit: Yes Status: Chronic Allow permissive HTN due to acute CVA Hold anti-HTN meds (5) Tobacco abuse Current visit: Yes Status: Chronic Counselled regarding the need for smoking cessation Pt. not willing to quit Internal Medicine - H&P: HPI Chief complaint: Confusion and slurred speech Admitted From: Emergency Dept Plans for Post Hospital Care: Transfer Inp Rehab Fac History of present illness: Ms. Pulliam is a 55 year old female who was brought to the emergency department via EMS due to confusion and slurring speech. Patient is currently alone in the room and is not accompanied by her boyfriend. She is a poor historian and states that she does not remember what happened that led to her being brought to the emergency department. History has been obtained by review of records, EMS notes and from talking to the ER physician. According to the EMS notes, 911 was called by her boyfriend as the patient had confusion and slurring of the speech. When EMS arrived, the patient did not have any neurological symptoms. She was transferred to the emergency department. In the emergency department, she was found to have hyponatremia. CT scan of the head revealed acute ischemia involving the right caudate and internal capsule. As the patient was within the time window, [facility] was contacted. It was recommended that the patient have a CT angiogram of the head and neck. These were normal. The recommendation was that the patient did not require TPA as her symptoms had resolved and CTA of the head and neck did not reveal any blockage. Hence, the patient is being admitted to [facility] for evaluation of her stroke and management of her hyponatremia. The patient currently denies any weakness in her arms or legs, difficulty swallowing, changes in her vision, headache, feeling lightheaded. Past Med Surg Social Fam HX - Past Medical History Source: old records reviewed Medical history: hypertension, other (Alcohol dependence; Tobacco abuse) Psychiatric history: ADHD - Past Surgical History Surgical History: - Social History Smoking Status: Current every day smoker Smokeless Tobacco Status: No Alcohol use: heavy, recent Drug use: none Current living situation: Home, With Family Activity Level: Independent ambulation Recent Out of Country Travel Within the Last 8 Weeks: No Exposure or Possible Exposure to Illness During Travel: No - Additional Family History Additional family history: Reviewed; Not pertinent Internal Medicine - H&P: Meds Benzonatate [Tessalon] 100 mg PO BID PRN 06/15/16 [History] Calcium Carbonate [Tums] 500 mg PO TID 06/15/16 [History] Citalopram Hydrobromide [Citalopram HBr] 40 mg PO DAILY 06/15/16 [History] Clotrimazole Vag CRM [Gyne-Lotrimin Vag CRM] 1 appl VG DAILY 06/15/16 [History] Ergocalciferol (VITAMIN D2) [Vitamin D] 800 unit PO DAILY 06/15/16 [History] Fluticasone Propionate Nasal [Flonase] 50 mcg NS BID PRN 06/15/16 [History] GuaiFENesin/Dextromethorphan [Tussin Dm Syrup] 10 ml PO BID PRN 06/15/16 [ History] Ipratropium [ATROVENT Inhaler] 2 puff IH QID 06/15/16 [History] L. Rhamnosus GG/Inulin [Culturelle Capsule] 1 each PO DAILY 06/15/16 [History] Levothyroxine [Synthroid] 50 mcg PO 0630 06/15/16 [History] Loratadine [Claritin] 10 mg PO DAILY 06/15/16 [History] Methylphenidate HCl [Metadate Cd] 20 mg PO QPM 06/15/16 [History] Methylphenidate HCl [Metadate Cd] 30 mg PO QAM 06/15/16 [History] Montelukast [Singulair] 10 mg PO DAILY 06/15/16 [History] Omeprazole [PriLOSEC] 20 mg PO DAILY 06/15/16 [History] amLODIPine [Norvasc] 5 mg PO DAILY 06/15/16 [History] Albuterol Neb [Proventil Neb] 2.5 mg IH Q4H PRN #0 06/23/16 [Rx] Cefdinir [Omnicef] 300 mg PO BID #20 capsule 06/23/16 [Rx] Doxycycline 100 mg PO BID #20 capsule 06/23/16 [Rx] Folic Acid 1 mg PO DAILY #30 tablet 06/23/16 [Rx] Ipratropium/Albuterol Neb [Duoneb] 3 ml IH QIDR PRN 30 Days 06/23/16 [Rx] LORazepam [Ativan] 1 mg IVP Q4H PRN #10 vial 06/23/16 [Rx] Lisinopril [Zestril] 10 mg PO DAILY #30 tablet 06/23/16 [Rx] Nicotine Patch [Nicoderm] 21 mg TD DAILY #20 patch.td24 06/23/16 [Rx] Thiamine (B-1) [Vitamin B-1] 100 mg PO DAILY #30 tablet 06/23/16 [Rx] Allergies egg Adverse Reaction (Verified 06/15/16 18:55) See Comments per [facility] list, patient is unable to verify. milk Adverse Reaction (Verified 06/15/16 18:55) See Comments per [facility] list, patient is unable to verify. pyridoxine Adverse Reaction (Verified 06/15/16 18:55) See Comments per [facility] list, patient unable to verify. All Systems PM: A 10-system review of systems was performed and is negative for pertinent findings except as documented above in the HPI. Review of systems: 10 systems have been reviewed and are negative except as mentioned in the history of present illness - Constitutional Vitals: Temp Pulse Resp BP Pulse Ox 98.0 F 87 18 122/77 98 08/01/16 23:12 08/02/16 03:20 08/02/16 03:20 08/02/16 03:20 08/02/16 03:20 Exam: Gen.: Lying in bed. No acute distress. Eyes: Pupils equal, round and reactive to light. Extraocular muscles intact. ENT: Moist mucous membranes. No oropharyngeal erythema or discharge. Chest: Clear to auscultation bilaterally. No adventitious sounds present. CVS: First and second heart sounds present. No murmurs, rubs or gallops. Abdomen: Soft, nontender, nondistended. Bowel sounds present. No hepatosplenomegaly. Skin: No decubitus ulcers appreciated. MACHINE CLIPPER: No focal neuro deficits present. Psychiatric: Alert, awake and oriented to time, place and person. Lymphatic system: No lymphadenopathy appreciated Internal Med - H&P Results - Labs CBC & Chem 7: 08/01/16 23:20 08/01/16 23:20 - EKG Data -: EKG Interpreted by Myself EKG shows normal: sinus rhythm Rate: normal - EKG Data Prior EKG available for review: yes When compared to previous EKG: there is no significant change - Diagnostic Studies CT scan - head Additional comments: Small focus of acute ischemia in right caudate head and internal capsule per read. No acute hemorrhage Chest x-ray Status: image reviewed by me (No acute infiltrate seen)
[2016-08-02 06:04] LABS: BUN/Creatinine Ratio 3 (6-26); Calcium 8.1 mg/dL (8.6-10.8); Carbon Dioxide 18 mEq/L (19-29); Chloride 95 mEq/L (98-109); Glucose 85 mg/dL (70-99); Osmolality,Calculated 251 (280-300); Potassium 4.4 mEq/L (3.5-4.5); Sodium 123 mEq/L (136-145); eGFR For African Americans > 60 (> 60); eGFR For Non-African Americans > 60 (> 60)
[2016-08-02 06:05] LABS: Blood Urea Nitrogen 2 mg/dL (7-20)
[2016-08-02 12:05] LABS: BUN/Creatinine Ratio 3 (6-26); Calcium 8.5 mg/dL (8.6-10.8); Carbon Dioxide 23 mEq/L (19-29); Chloride 95 mEq/L (98-109); Glucose 74 mg/dL (70-99); Osmolality,Calculated 255 (280-300); Potassium 3.5 mEq/L (3.5-4.5); Sodium 125 mEq/L (136-145); eGFR For African Americans > 60 (> 60); eGFR For Non-African Americans > 60 (> 60)
[2016-08-02 12:08] LABS: Blood Urea Nitrogen 2 mg/dL (7-20)
[2016-08-02] MEDS: *HR* Heparin 5,000 UNIT/ML VIAL SQ SCH ×3 (12:38→23:43)
[2016-08-02] MEDS: Aspirin Enteric Coated 81 MG Tablet PO SCH (12:38)
--- NOTE | 2016-08-02 16:49 | Electrocardiograph Report ---
[address] [address] Test Date: 2016-08-02 Pat Name: Meredith Pulliam Department: 105 Room: 2N3 Gender: F Parachute Line Tier: JUAN LUIS : 1960 Requested By: Ken Blair Order Number: [id number] Reading MD: Terrie Pride Measurements Intervals [place] Rate: 81 P: 59 NV: 178 QRS: 33 QRSD: 85 T: 40 QT: 394 QTc: 431 Interpretive Statements SINUS RHYTHM Electronically Signed On 08-02-2016 16:47:35 EDT by Terrie Pride
--- NOTE | 2016-08-02 17:05 | Internal Med Progress Note ---
<Chung Manjarrez - Last Filed: 08/02/16 17:19> Date of Encounter: 08/02/16 Time of Encounter: 17:05 - Assessment and plan (1) Stroke Current Visit: Yes Status: Acute Assessment and plan: 55-year-old female presented with chief complaint of slurred speech and confusion that resolved before arrival to ER. Patient underwent CT head which showed ischemia on the right caudate and internal capsule. CT head and neck were negative. PT/OT and speech therapy consulted: PT and OT state patient is at baseline and does not need therapy. Speech stated patient should receive regular textures with thin liquids. Echocardiogram pending. MRI brain shows that patient's right caudate and internal capsule infarct is old. There is no restricted diffusion to suggest acute ischemia or infarct. This was confirmed by radiology. Continue aspirin and statin. Qualifiers: CVA mechanism: embolism Precerebral and cerebral artery: middle cerebral artery Laterality of affected vessel: right Qualified Code(s): I63.411 - Cerebral infarction due to embolism of right middle cerebral artery (2) Hyponatremia Current Visit: Yes Status: Resolved Assessment and plan: Patient was admitted for hyponatremia last month and given IV fluid, hydration. At that time her sodium was 107 and improved to 130. She was discharged with salt tablets and fluid restricted diet. Serum osmolalities 200, urine osmolalities 258. Urine sodium is 38, urine creatinine is 22. Uric acid 5.3 On admission patient appeared dehydrated. Initially patient's sodium was 119 and has improved to 125. Patient has been given 500 mL of normal saline. She is on a cardiac diet. unclear if dehydration versus SIADH, However patient's sodium has improved since administering normal saline and she is not on a fluid restricted diet. Currently plan is to continue cardiac diet without fluid restriction and monitor her sodium every 6 hours. (3) History of alcohol abuse Current Visit: Yes Status: Chronic Assessment and plan: Patient states she drinks 2-3 beers daily and does not drink hard liquor. Her ethanol level was elevated. We will continue her on CIWA protocol. Continue banana bag. She is normotensive, without tremor, without diaphoresis, without confusion. Patient has no intention of quitting alcohol. (4) Essential hypertension Current Visit: Yes Status: Chronic Assessment and plan: Patient has history of hypertension. Antihypertensive medications are on hold to allow for permissive hypertension currently bp is systolic 130s. (5) Tobacco abuse Current Visit: Yes Status: Chronic Assessment and plan: Patient has no intention of quitting tobacco smoking at this point. - Subjective Interval history: Patient denies any numbness, tingling, weakness on one side, slurred speech, confusion. - Constitutional Vitals: Temp Pulse Resp BP Pulse Ox 97.5 F L 92 16 139/82 98 08/02/16 14:46 08/02/16 14:46 08/02/16 14:46 08/02/16 14:46 08/02/16 14:46 General appearance: Present: A&O X 3 - Respiratory Respiratory exam: Present: CTAB. Absent: accessory muscle use, rales, rhonchi, wheezes - Cardiovascular Cardiovascular exam: Present: RRR, +S1, +S2. Absent: diastolic murmur, gallop, rubs, systolic murmur - GI/Abdominal GI/Abdominal exam: Present: normal bowel sounds, soft, no peritoneal signs. Absent: distended, tenderness - Extremities Exam Extremities exam: Present: warm, radial pulses palpable and symetrical. Absent : calf tenderness, cyanotic, pedal edema - Neurological Exam Neurological exam: Present: CN II-XII intact, oriented X3, no focal deficits. Absent: pronater drift, facial droop, speech deficit Internal Medicine: Result - Labs CBC & Chem 7: 08/01/16 23:20 08/02/16 11:26 Labs: BMP 08/02/16 08/02/16 05:39 11:26 Sodium 123 L 125 L Potassium 4.4 3.5 Chloride 95 L 95 L Carbon Dioxide 18 L 23 BUN 2 L 2 L Creatinine 0.59 0.65 Glucose 85 74 Calcium 8.1 L 8.5 L - Impressions Impressions Brain MRI 08/02/16 05:27 IMPRESSION: No acute intracranial abnormality. Mild chronic microvascular ischemic disease. D/ / 08/02/2016 09:21:41 Nikhil Garcia MD / [facility] Interpreting Provider: Nikhil Garcia MD Consult Discharge Plan - Plan [facility]errals: [facility]Primary Care Provider[facility] - <Avery Gomez P - Last Filed: 08/02/16 17:43> Date of Encounter: 08/02/16 - Constitutional Vitals: Temp Pulse Resp BP Pulse Ox 97.5 F L 92 16 139/82 98 08/02/16 14:46 08/02/16 14:46 08/02/16 14:46 08/02/16 14:46 08/02/16 14:46 Internal Medicine: Result - Labs CBC & Chem 7: 08/01/16 23:20 08/02/16 11:26 Labs: BMP 08/02/16 08/02/16 05:39 11:26 Sodium 123 L 125 L Potassium 4.4 3.5 Chloride 95 L 95 L Carbon Dioxide 18 L 23 BUN 2 L 2 L Creatinine 0.59 0.65 Glucose 85 74 Calcium 8.1 L 8.5 L - Impressions Impressions Brain MRI 08/02/16 05:27 IMPRESSION: No acute intracranial abnormality. Mild chronic microvascular ischemic disease. D/ / 08/02/2016 09:21:41 Nikhil Garcia MD / [facility] Interpreting Provider: Nikhil Garcia MD - Attending Attestation I examined this patient and my medical decision-making was reviewed with the STREETSWEEPER OPERATOR/PA/Advanced Practice Nurse/Resident Physician. I agree with the documented findings, disposition and treatment plan as described except to the extent set forth below.
[2016-08-02] MEDS ORDERED: Thiamine (B-1) 100 MG, Folic Acid 1 MG, MVI, adult with vitamin K 10 ML in 0.9 % Sodi... IVPB SCH (18:00)
[2016-08-02] MEDS ORDERED: Acetaminophen 325 MG TABLET PO PRN (21:19)
[2016-08-03 04:02] LABS: Basophils % 0.9 %; Eosinophils # 0.1 K/mcL (0.0-0.6); Eosinophils % 1.8 %; Hematocrit 34.7 % (35.3-44.9); Immature Granulocytes % 0.2 % (0-4); Lymphocytes % 45.5 %; Mean Corpuscular HGB Conc 32.9 g/dL (31.6-35.5); Mean Corpuscular Volume 91.3 fL (83.0-100.0); Mean Platelet Volume 8.6 fL (9.4-12.4); Monocytes # 0.4 K/mcL (0.0-1.3); Neutrophils # 1.9 K/mcL (1.6-8.9); Platelet Count 203 K/mcL (140-400); Red Cell Distribution Width 15.3 % (11.5-14.5); Segmented Neutrophils % 42.6 %
[2016-08-03 04:07] LABS: Hemoglobin 11.4 g/dL (11.5-15.4)
[2016-08-03 04:17] LABS: Alanine Aminotransferase 7 Units/L (0-55); Alkaline Phosphatase 75 Units/L (38-126); Aspartate Amino Transferase 14 Units/L (5-34); BUN/Creatinine Ratio 7 (6-26); Calcium 8.1 mg/dL (8.6-10.8); Carbon Dioxide 17 mEq/L (19-29); Chloride 97 mEq/L (98-109); Globulin 2.5 g/dL (2.4-3.5); Glucose 87 mg/dL (70-99); Osmolality,Calculated 252 (280-300); Potassium 3.6 mEq/L (3.5-4.5); Sodium 123 mEq/L (136-145); eGFR For African Americans > 60 (> 60); eGFR For Non-African Americans > 60 (> 60)
[2016-08-03 04:19] LABS: Bilirubin,Total 0.8 mg/dL (0.2-1.2); Blood Urea Nitrogen 4 mg/dL (7-20)
[2016-08-03 04:20] LABS: Albumin 2.5 g/dL (3.5-5.0)
[2016-08-03 08:09] VITALS: BP 160/93
[2016-08-03] MEDS: Aspirin Enteric Coated 81 MG Tablet PO SCH (08:09)
[2016-08-03] MEDS: *HR* Heparin 5,000 UNIT/ML VIAL SQ SCH (08:09)
--- NOTE | 2016-08-03 11:41 | Discharge Summary ---
<Avery Gomez P - Last Filed: 08/03/16 14:32> Date of Encounter: 08/03/16 - Discharge Medications Prescriptions: Aspirin Enteric Coated [Aspirin EC] 81 mg PO DAILY #30 tablet. Atorvastatin [Lipitor] 80 mg PO HS #30 tablet Home Medications: Benzonatate [Tessalon] 100 mg PO BID PRN 06/15/16 [History] Calcium Carbonate [Tums] 500 mg PO TID 06/15/16 [History] Citalopram Hydrobromide [Citalopram HBr] 40 mg PO DAILY 06/15/16 [History] Ergocalciferol (VITAMIN D2) [Vitamin D] 800 unit PO DAILY 06/15/16 [History] Ipratropium [ATROVENT Inhaler] 2 puff IH QID 06/15/16 [History] L. Rhamnosus GG/Inulin [Culturelle Capsule] 1 each PO DAILY 06/15/16 [History] Levothyroxine [Synthroid] 50 mcg PO 0630 06/15/16 [History] Methylphenidate HCl [Metadate Cd] 20 mg PO QPM 06/15/16 [History] Methylphenidate HCl [Metadate Cd] 30 mg PO QAM 06/15/16 [History] Montelukast [Singulair] 10 mg PO DAILY PRN 06/15/16 [History] Omeprazole [PriLOSEC] 20 mg PO DAILY 06/15/16 [History] Albuterol Neb [Proventil Neb] 2.5 mg IH TID PRN 08/02/16 [History] Albuterol Sulfate [Albuterol Inhaler] 2 puff IH QID PRN 08/02/16 [History] Cyclobenzaprine [Flexeril] 10 mg PO DAILY PRN 08/02/16 [History] Ibuprofen [Motrin] 600 mg PO Q6HR PRN 08/02/16 [History] Lidocaine Viscous Oral Soln 5 ml MM QID PRN 08/02/16 [History] Magnesium Oxide [Mag-Ox] 400 mg PO BID 08/02/16 [History] Polyethylene Glycol 3350 [Smoothlax] 17 gm PO DAILY 08/02/16 [History] Potassium Chloride [K-Tab ER] 20 meq PO DAILY 08/02/16 [History] Sodium Chloride 1 gm PO BID 08/02/16 [History] hydrOXYzine pamoate [HydrOXYzine Pamoate] 50 mg PO Q6H PRN 08/02/16 [History] Aspirin Enteric Coated [Aspirin EC] 81 mg PO DAILY #30 tablet. 08/03/16 [Rx] Atorvastatin [Lipitor] 80 mg PO HS #30 tablet 08/03/16 [Rx] Allergies/Adverse Reactions: Allergies egg Adverse Reaction (Verified 06/15/16 18:55) See Comments per [facility] list, patient is unable to verify. milk Adverse Reaction (Verified 06/15/16 18:55) See Comments per [facility] list, patient is unable to verify. pyridoxine Adverse Reaction (Verified 06/15/16 18:55) See Comments per [facility] list, patient unable to verify. Procedures/tests Complete & Pending: Procedures Performed prior 72 hours Category Date Time Status MR head/brain wo con [MR] Routine MRI 08/02/16 05:27 Draft EV echocardiogram Routine Y 08/02/16 05:24 Completed Date of admission: 08/02/16 04:43 Primary care physician: PCP [facility] Consults: 08/02/16 05:24 Consult to Occupational Therapy [CONS] Routine Comment: Evaluate, develop and implement POC Reason for Consult: CVA Consult to Physical Therapy [CONS] Routine Comment: Evaluate, develop and implement POC Reason for Consult: CVA Consult to Speech Therapy [CONS] Routine Comment: Evaluate, develop and implement POC Reason for Consult: CVA Call Completed: No 08/02/16 13:18 Consult to Vat House Supervisor [CONS] Routine Reason for SW Consult: ETOH abuse - Patient Status Disposition: Home, Self-Care Condition: Fair - Discharge Instructions Instructions: Cirrhosis (DC), Cirrhosis (GEN), Hypothyroidism (DC), Abuse of Alcohol (DC), Abuse of Alcohol (GEN), Ischemic Stroke (DC), Ischemic Stroke (GEN ), Pneumonia (DC), Cigarette Smoking and Your Health, Charge Entry Clerk (GEN) Follow Up With: [facility] [Primary Care Provider] - 08/11/16 3:30 pm Bi Gross MD [Partnered Physician] - (Stroke) Additional Instructions: Please continue to take her salt tablets, follow a fluid restricted diet of 1500 mL, follow-up with neurology and [facility] PCP. Please return to ER if you have new onset numbness, tingling, syncope, unilateral weakness, facial drooping, weakness, fatigue. Hospital course: Ms. Pulliam is a 55 year old female - Time Spent with Patient Total time spent providing and/or coordinating discharge services: - Constitutional Vitals: Temp Pulse Resp BP Pulse Ox 97.7 F 78 16 160/93 97 08/03/16 08:05 08/03/16 08:05 08/03/16 08:05 08/03/16 08:05 08/03/16 08:34 - Attending Attestation I examined this patient and my medical decision-making was reviewed with the TRAVEL REGISTERED NURSE PACU/PA/Advanced Practice Nurse/Resident Physician. I agree with the documented findings, disposition and treatment plan as described except to the extent set forth below. <Chung Manjarrez - Last Filed: 08/03/16 15:31> Date of Encounter: 08/03/16 Time of Encounter: 11:40 - Discharge Diagnosis (1) Stroke Priority: Primary Status: Chronic Qualifiers: CVA mechanism: embolism Precerebral and cerebral artery: middle cerebral artery Laterality of affected vessel: right Qualified Code(s): I63.411 - Cerebral infarction due to embolism of right middle cerebral artery (2) Hyponatremia Priority: Secondary Status: Resolved (3) History of alcohol abuse Priority: Secondary Status: Chronic (4) Essential hypertension Priority: Secondary Status: Chronic (5) Tobacco abuse Priority: Secondary Status: Chronic Procedures/tests Complete & Pending: Procedures Performed prior 72 hours Category Date Time Status MR head/brain wo con [MR] Routine MRI 08/02/16 05:27 Draft EV echocardiogram Routine Y 08/02/16 05:24 Completed Date of admission: 08/02/16 04:43 Primary care physician: [facility]CP [facility] Consults: 08/02/16 05:24 Consult to Occupational Therapy [CONS] Routine Comment: Evaluate, develop and implement POC Reason for Consult: CVA Consult to Physical Therapy [CONS] Routine Comment: Evaluate, develop and implement POC Reason for Consult: CVA Consult to Speech Therapy [CONS] Routine Comment: Evaluate, develop and implement POC Reason for Consult: CVA Call Completed: No 08/02/16 13:18 Consult to Vat House Supervisor [CONS] Routine Reason for SW Consult: ETOH abuse Discharging clinician: Chung Manjarrez Anticipated date of discharge: 08/03/16 - Patient Status Functional capacity at discharge: independent ambulation Overall status at discharge: patient is progressing back to baseline - Diet and Activity Activity: increase activity as tolerated Diet: other (Cardiac diet with fluid restriction 1500.) Interval History: 55-year-old male presented with chief complaint of slurred speech and confusion that resolved before relative the ER. Patient stated she did not remember what happened before being brought to the emergency department. EMS stated that they were called by the boyfriend due to patient being confused and having slurred speech when EMS arrived the patient did not have any neurological symptoms. In the ER patient was found to have hypernatremia and a CT scan of the head revealed acute ischemia involving the right caudate and internal capsule. [facility] was contacted and recommended CT angiogram of the head and neck which was normal. Was recommended not to give TPA as the patient symptoms had resolved. On admission her NIHSS scale was 0. Patient was also found to have elevated ethanol level and stated she drinks 2-3 beers daily with a history of alcohol dependence. Patient had previous admission for hyponatremia last month and was given IV fluids and hydration which improved her sodium from 107 to 1:30. She was discharged at that time at salt tablets and fluid restrict diet. Hospital course: Patient had PT, OT, speech therapy, echocardiogram and MRI of the brain. She started on aspirin and statin. MR of the brain showed that patient's infarct noted on CT scan was not acute as there was no restricted diffusion to suggest acute ischemia or infarct. PT/OT cleared patient. Speech therapy stated patient should receive regular textures with thin liquids. Echocardiogram showed a LVEF of 55% with no valvular dysfunction, no evidence of pulmonary hypertension, no evidence of intracardiac shunting, no wall motion abnormalities. For patient's hyponatremia she was given 500 mL of fluids initially and put on a cardiac diet. Her sodium initially was 119 and improved to 123. Patient's hyponatremia is secondary to combination of beer potomania possible underlying SIADH as she has a history of alcohol abuse. She was on CIWA protocol and banana bag. Throughout the visit she was normotensive without tremor, without diaphoresis, without confusion. She did not require any Ativan per CIWA protocol. 24 hours after admission patients NIHSS scale was 0. She denied any neurological symptoms. She is awake alert 3, ambulating without assistance, with good oral intake. Plan: We will discharge patient with fluid restricted cardiac diet and continue salt tablets. Patient will follow-up with neurology outpatient for further evaluation. Patient has [facility]up with [facility] P[facility] in the next 7 days. - Time Spent with Patient Total time spent providing and/or coordinating discharge services: - Constitutional Vitals: Temp Pulse Resp BP Pulse Ox 97.7 F 78 16 160/93 97 08/03/16 08:05 08/03/16 08:05 08/03/16 08:05 08/03/16 08:05 08/03/16 08:34 General appearance: Present: A&O X 3 - Head Head exam: Present: atraumatic, normocephalic - Eye Eye exam: Present: PERRL, conjuntiva pink, sclera anicteric - Neck Neck exam general surgery: Present: supple, trachea midline. Absent: lymphadenopathy - Respiratory Respiratory exam: Present: CTAB. Absent: accessory muscle use, rales, rhonchi, wheezes - Cardiovascular Cardiovascular exam: Present: RRR, +S1, +S2. Absent: diastolic murmur, gallop, rubs, systolic murmur - GI/Abdominal GI/Abdominal exam: Present: normal bowel sounds, soft, no peritoneal signs. Absent: distended, tenderness - Extremities Exam Extremities exam: Present: warm, radial pulses palpable and symetrical. Absent : calf tenderness, cyanotic, pedal edema - Neurological Exam Neurological exam: Present: CN II-XII intact, oriented X3, no focal deficits. Absent: pronater drift, facial droop, speech deficit - Skin Skin exam: Present: dry, intact
== END 2016-08-03 16:00 | disposition home or self-care (01) | DRG 65 ==
LOC: EMEROO 23:06 → 2NENU 23:06
PROVIDERS: ADMIT Internal Medicine Sleep Medicine; ATTEND Internal Medicine

== ENCOUNTER 2017-06-19 16:46 | Observation (INO) ==
[2017-06-19] MEDS ORDERED: Nitroglycerin 0.4 MG TAB.SUBL SL PRN (17:02)
--- NOTE | 2017-06-19 17:02 | Emergency Department Note ---
Disposition Clinical Impression: Tachycardia, Essential hypertension Chest pain Qualifiers: Chest pain type: precordial pain Qualified Code(s): R07.2 - Precordial pain Disposition: Still a Patient Condition: Good [facility] Provider[facility] - Forms: ED Satisfaction Letter Time of Disposition: 19:21 General Adult HPI - General Chief complaint: ED Chest Pain Stated complaint: chest pain Time Seen by Provider: 06/19/17 16:54 Source: patient, EMS Limitations: no limitations Nursing Notes Reviewed: Yes Vital Signs Reviewed: Yes - History of Present Illness HPI Narrative: Ms. Pulliam is a very pleasant 56-year-old with a past history of COPD, hyperlipidemia, hypertension, hypothyroidism, ADHD and tobacco abuse presents to the [facility] emergency department with a chief complaint of throbbing chest pain. Patient is a [facility] patient. She reports that she has been out of her medications for 3 days which she reports she takes Synthroid and 3 unknown blood pressure medications. Patient uses mail in medication service. For roughly the same time, she reports having this throbbing type chest pain that is nonexertional in nature. She describes this pain as intermittent and nonradiating. No history of chest pain previously. She denies any associated symptoms consistent with short as above, palpitations , nausea, vomiting, diaphoresis. Patient denies any history of CAD. She is a current every day smoker and occasionally uses alcohol. No other complaints at this time. Pain Scale: 5 - Related Data Home Medications Medication Instructions Recorded Confirmed Citalopram Hydrobromide 40 mg PO DAILY 06/15/16 08/02/16 [Citalopram HBr] Ipratropium [ATROVENT Inhaler] 2 puff IH QID 06/15/16 08/02/16 Levothyroxine [Synthroid] 50 mcg PO 0630 06/15/16 08/02/16 Montelukast [Singulair] 10 mg PO DAILY PRN 06/15/16 08/02/16 Omeprazole [PriLOSEC] 20 mg PO DAILY 06/15/16 08/02/16 Albuterol Sulfate [Albuterol 2 puff IH QID PRN 08/02/16 08/02/16 Inhaler] Ibuprofen [Motrin] 600 mg PO Q6HR PRN 08/02/16 08/02/16 Magnesium Oxide [Mag-Ox] 400 mg PO BID 08/02/16 08/02/16 Potassium Chloride [K-Tab ER] 20 meq PO DAILY 08/02/16 08/02/16 Atorvastatin Calcium [Lipitor] 20 mg PO HS 06/19/17 06/19/17 Cyclobenzaprine HCl 5 mg PO TID PRN 06/19/17 06/19/17 hydrOXYzine HCl [Hydroxyzine HCl] 25 mg PO QID 06/19/17 06/19/17 Previous Rx's Medication Instructions Recorded Aspirin Enteric Coated [Aspirin EC] 81 mg PO DAILY #30 tablet. 08/03/16 Allergies Allergy/AdvReac Type Severity Reaction Status Date / Time egg AdvReac See Verified 06/15/16 18:55 Comments milk AdvReac Vomiting Verified 06/19/17 16:55 pyridoxine AdvReac Rash Verified 06/19/17 16:55 Review of Systems: Constitutional: No fever Vision: No blurred vision ENT: No rhinorrhea Respiratory: No cough Allergic: No allergies : No blood in urine GI: No blood in stool Hematologic: No bruising Dermatologic: No skin rash Musculoskeletal: No pain in the extremities Neuro: No numbness of the extremities Past Medical History - Past Medical History Medical history: Reports: hypertension, thyroid disease, other Surgical history: Reports: Psychiatric history: Reports: ADHD - Social History Smoking Status: Current every day smoker Smokeless Tobacco Status: No Alcohol use: Reports: heavy, recent Drug use: Reports: none Physical Exam CONSTITUTIONAL: Alert and oriented X3 in no apparent distress HEAD: Normocephalic; atraumatic. RESP: NRD without use of accessory musculature, CTA b/l with no wheezes/rales/ rhonchi CARD: Regular rhythm, without murmurs, rubs, or gallop ABD: grossly normal, soft, non-tender, no guarding/distention/rigidity SKIN: normal appearance, no pallor/diaphoresis,mottling,jaundice,cyanosis EXT: DP/Rad pulses 2+ and symmetrical; no lateralizing edema; no other lesions seen PSYCH: appropriate mood/affect - General Limitations: no limitations General appearance: alert, in no apparent distress Course Course Narrative: Patient was seen and examined at bedside. Vital signs reviewed and showed heart rate 137 with a blood pressure 167/101. Physical examination was unremarkable. No tenderness to palpation about her chest wall. We will begin workup for chest pain involving twelve-lead EKG, chest x-ray, troponin, CBC, and chemistries. Patient is still complaining of some mild chest pain at this time and Sublingual nitroglycerin will be administered PRN. [facility] and stated that she is not been seen for quite some time. They will however send the most recent medication list. Patient appears comfortable and nontoxic at this time. Disposition pending. 1730: [place] records were sent and shows patient is on multiple medications but of note she is taking aspirin, atorvastatin, diltiazem 60 mg 1 pill 3 times a day as well as metoprolol succinate 50 mg 1 half tablet once per day. CXR shows no acute process. Difficulty obtaining peripheral IV access. On reexamination patient is now chest pain-free and heart rate is down to the 120s and blood pressure is 150/100. 1830: Patient is still persistently tachycardic in the 120s and will proceed with CTA of the chest rule out pulmonary embolism. IV access will be obtained. IV fluids will be given. TSH ordered. Disposition will be likely admission for observation for ACS rule out. 1900: Signed out [place] [address] Waters and Dr. Ponce. All questions and concerns were addressed. Vital Signs Temperature 97.1 F L 06/19/17 16:48 Pulse Rate 137 06/19/17 16:48 Respiratory Rate 16 06/19/17 16:48 Blood Pressure 167/101 06/19/17 16:48 O2 Sat by Pulse Oximetry 98 06/19/17 16:48 Temperature 97.1 F L 06/19/17 16:48 Pulse Rate 118 06/19/17 18:40 Respiratory Rate 20 06/19/17 18:40 Blood Pressure 161/100 06/19/17 18:40 O2 Sat by Pulse Oximetry 98 06/19/17 18:40 Oxygen Delivery Oxygen Delivery Room Air Medical Decision Making - Medical Records Medical records reviewed: Yes I reviewed the patient's medical records. - Lab Data Lab results reviewed: Yes I reviewed the patient's lab results. Result diagrams: 06/19/17 17:21 06/19/17 17:21 Lab Results 06/19/17 06/19/17 06/19/17 Range/Units 17:21 17:21 17:21 WBC 12.2 H (4.3-11.1) K/mcL RBC 4.38 (3.82-4.97) M/mcL Hgb 13.3 (11.5-15.4) g/dL Hct 37.2 (35.3-44.9) % MCV 84.9 (83.0-100.0) fL MCH 30.4 (28.0-33.3) pg MCHC 35.8 H (31.6-35.5) g/dL RDW 13.8 (11.5-14.5) % Plt Count 297 (140-400) K/mcL MPV 8.6 L (9.4-12.4) fL Immature Gran % 0.3 (0-4) % Seg Neutrophils % 72.3 % Lymphocytes % 21.7 % Monocytes % 4.9 % Eosinophils % 0.5 % Basophils % 0.3 % Neutrophils # 8.8 (1.6-8.9) K/mcL Lymphocytes # 2.6 (0.6-4.6) K/mcL Monocytes # 0.6 (0.0-1.3) K/mcL Eosinophils # 0.1 (0.0-0.6) K/mcL Basophils # 0.0 (0.0-0.2) K/mcL PT (9.4-12.1) Seconds INR APTT (26.0-36.0) Seconds Sodium 125 L (136-145) mEq/L Potassium 3.6 (3.5-5.1) mEq/L Chloride 93 L (98-107) mEq/L Carbon Dioxide 21 L (23-29) mEq/L BUN 3 L (6-20) mg/dL Creatinine 0.56 L (0.60-1.20) mg/dL Est GFR ( Amer) > 60 (> 60) Est GFR (Non-Af Amer) > 60 (> 60) BUN/Creatinine Ratio 5 L (6-26) Glucose 110 H (70-105) mg/dL Calculated Osmolality 257 L (280-300) Calcium 9.3 (8.6-10.3) mg/dL Troponin I < 0.03 (< 0.04) ng/mL B-Natriuretic Peptide 110 H (Less than 100) pg/mL 06/19/17 Range/Units 18:16 WBC (4.3-11.1) K/mcL RBC (3.82-4.97) M/mcL Hgb (11.5-15.4) g/dL Hct (35.3-44.9) % MCV (83.0-100.0) fL MCH (28.0-33.3) pg MCHC (31.6-35.5) g/dL RDW (11.5-14.5) % Plt Count (140-400) K/mcL MPV (9.4-12.4) fL Immature Gran % (0-4) % Seg Neutrophils % % Lymphocytes % % Monocytes % % Eosinophils % % Basophils % % Neutrophils # (1.6-8.9) K/mcL Lymphocytes # (0.6-4.6) K/mcL Monocytes # (0.0-1.3) K/mcL Eosinophils # (0.0-0.6) K/mcL Basophils # (0.0-0.2) K/mcL PT 11.2 (9.4-12.1) Seconds INR 1.0 APTT 27.1 (26.0-36.0) Seconds Sodium (136-145) mEq/L Potassium (3.5-5.1) mEq/L Chloride (98-107) mEq/L Carbon Dioxide (23-29) mEq/L BUN (6-20) mg/dL Creatinine (0.60-1.20) mg/dL Est GFR ( Amer) (> 60) Est GFR (Non-Af Amer) (> 60) BUN/Creatinine Ratio (6-26) Glucose (70-105) mg/dL Calculated Osmolality (280-300) Calcium (8.6-10.3) mg/dL Troponin I (< 0.04) ng/mL B-Natriuretic Peptide (Less than 100) pg/mL - Radiology Data Chest X-Ray 06/19/17 16:57 IMPRESSION: No acute process. D/ / Kody Reza MD / Kody Reza MD Interpreting Provider: Kody Reza MD - EKG Data EKG #1 EKG results narrative: 06/19/17 1654: Heart rate 127, WI 155, QRS 82, QTC 3627 consistent with sinus tachycardia. Normal axis. No evidence of acute MO. This EKG was compared to previous was performed on 08/02/16. Lela - Lela Situation: Demographics, MOA Background: Presenting Complaint, Relevant PMH, Meds, & Allergies Assessment: Vital Signs, Course and respsone to treatment, Exam Concerns, Patient/Family Expectation, Pertinant Lab Results, Outstanding Labs Recommendation: Barrier(s) to disposition, Recommendation based on pending studies, treatments, or consults SClint Report Given to: Dr. Jt Vogel Repor Time: 19:00 Attestation Statement - Attestation Attestation: I, Adonay Seals DO, examined this patient [id number] and my medical decision-making was reviewed with Stewart Egan PGY-1, Resident Physician. I agree with the documented findings, disposition and treatment plan as described except to the extent set forth below. Please see my progress notes for details.
[2017-06-19 17:34] LABS: Basophils % 0.3 %; Eosinophils # 0.1 K/mcL (0.0-0.6); Eosinophils % 0.5 %; Hematocrit 37.2 % (35.3-44.9); Hemoglobin 13.3 g/dL (11.5-15.4); Immature Granulocytes % 0.3 % (0-4); Lymphocytes # 2.6 K/mcL (0.6-4.6); Lymphocytes % 21.7 %; Mean Corpuscular HGB Conc 35.8 g/dL (31.6-35.5); Mean Corpuscular Hemoglobin 30.4 pg (28.0-33.3); Mean Corpuscular Volume 84.9 fL (83.0-100.0); Mean Platelet Volume 8.6 fL (9.4-12.4); Monocytes # 0.6 K/mcL (0.0-1.3); Monocytes % 4.9 %; Neutrophils # 8.8 K/mcL (1.6-8.9); Platelet Count 297 K/mcL (140-400); Red Blood Count 4.38 M/mcL (3.82-4.97); Red Cell Distribution Width 13.8 % (11.5-14.5); Segmented Neutrophils % 72.3 %
[2017-06-19 17:58] LABS: Troponin I < 0.03 ng/mL (< 0.04)
[2017-06-19 17:59] LABS: BUN/Creatinine Ratio 5 (6-26); Blood Urea Nitrogen 3 mg/dL (6-20); Calcium 9.3 mg/dL (8.6-10.3); Carbon Dioxide 21 mEq/L (23-29); Chloride 93 mEq/L (98-107); Glucose 110 mg/dL (70-105); Osmolality,Calculated 257 (280-300); Potassium 3.6 mEq/L (3.5-5.1); Sodium 125 mEq/L (136-145); eGFR For African Americans > 60 (> 60); eGFR For Non-African Americans > 60 (> 60)
[2017-06-19] MEDS ORDERED: Aspirin 81 MG TAB.CHEW PO STA (18:41)
--- NOTE | 2017-06-19 18:43 | Emergency Department Note ---
Disposition Clinical Impression: Tachycardia, Essential hypertension, Hyponatremia Chest pain Qualifiers: Chest pain type: precordial pain Qualified Code(s): R07.2 - Precordial pain Disposition: Still a Patient Condition: Fair [facility] Care Provider[facility] - Forms: ED Satisfaction Letter Time of Disposition: 19:25 General Adult HPI - General Chief complaint: ED Chest Pain Stated complaint: chest pain Time Seen by Provider: 06/19/17 16:54 Source: patient, EMS Limitations: no limitations - History of Present Illness Pain Scale: 5 - Related Data Home Medications Medication Instructions Recorded Confirmed Citalopram Hydrobromide 40 mg PO DAILY 06/15/16 08/02/16 [Citalopram HBr] Ipratropium [ATROVENT Inhaler] 2 puff IH QID 06/15/16 08/02/16 Levothyroxine [Synthroid] 50 mcg PO 0630 06/15/16 08/02/16 Montelukast [Singulair] 10 mg PO DAILY PRN 06/15/16 08/02/16 Omeprazole [PriLOSEC] 20 mg PO DAILY 06/15/16 08/02/16 Albuterol Sulfate [Albuterol 2 puff IH QID PRN 08/02/16 08/02/16 Inhaler] Ibuprofen [Motrin] 600 mg PO Q6HR PRN 08/02/16 08/02/16 Magnesium Oxide [Mag-Ox] 400 mg PO BID 08/02/16 08/02/16 Potassium Chloride [K-Tab ER] 20 meq PO DAILY 08/02/16 08/02/16 Atorvastatin Calcium [Lipitor] 20 mg PO HS 06/19/17 06/19/17 Cyclobenzaprine HCl 5 mg PO TID PRN 06/19/17 06/19/17 hydrOXYzine HCl [Hydroxyzine HCl] 25 mg PO QID 06/19/17 06/19/17 Previous Rx's Medication Instructions Recorded Aspirin Enteric Coated [Aspirin EC] 81 mg PO DAILY #30 tablet. 08/03/16 Allergies Allergy/AdvReac Type Severity Reaction Status Date / Time egg AdvReac See Verified 06/15/16 18:55 Comments milk AdvReac Vomiting Verified 06/19/17 16:55 pyridoxine AdvReac Rash Verified 06/19/17 16:55 Past Medical History - Past Medical History Medical history: Reports: hypertension, thyroid disease, other Surgical history: Reports: Psychiatric history: Reports: ADHD - Social History Smoking Status: Current every day smoker Smokeless Tobacco Status: No Alcohol use: Reports: heavy, recent Drug use: Reports: none Physical Exam - General Limitations: no limitations General appearance: alert, in no apparent distress Course Vital Signs Temperature 97.1 F L 06/19/17 16:48 Pulse Rate 137 06/19/17 16:48 Respiratory Rate 16 06/19/17 16:48 Blood Pressure 167/101 06/19/17 16:48 O2 Sat by Pulse Oximetry 98 06/19/17 16:48 Temperature 97.1 F L 06/19/17 16:48 Pulse Rate 118 06/19/17 18:40 Respiratory Rate 20 06/19/17 18:40 Blood Pressure 161/100 06/19/17 18:40 O2 Sat by Pulse Oximetry 98 06/19/17 18:40 Oxygen Delivery Oxygen Delivery Room Air Medical Decision Making - Lab Data Result diagrams: 06/19/17 17:21 06/19/17 17:21 Lab Results 06/19/17 06/19/17 06/19/17 Range/Units 17:21 17:21 17:21 WBC 12.2 H (4.3-11.1) K/mcL RBC 4.38 (3.82-4.97) M/mcL Hgb 13.3 (11.5-15.4) g/dL Hct 37.2 (35.3-44.9) % MCV 84.9 (83.0-100.0) fL MCH 30.4 (28.0-33.3) pg MCHC 35.8 H (31.6-35.5) g/dL RDW 13.8 (11.5-14.5) % Plt Count 297 (140-400) K/mcL MPV 8.6 L (9.4-12.4) fL Immature Gran % 0.3 (0-4) % Seg Neutrophils % 72.3 % Lymphocytes % 21.7 % Monocytes % 4.9 % Eosinophils % 0.5 % Basophils % 0.3 % Neutrophils # 8.8 (1.6-8.9) K/mcL Lymphocytes # 2.6 (0.6-4.6) K/mcL Monocytes # 0.6 (0.0-1.3) K/mcL Eosinophils # 0.1 (0.0-0.6) K/mcL Basophils # 0.0 (0.0-0.2) K/mcL PT (9.4-12.1) Seconds INR APTT (26.0-36.0) Seconds Sodium 125 L (136-145) mEq/L Potassium 3.6 (3.5-5.1) mEq/L Chloride 93 L (98-107) mEq/L Carbon Dioxide 21 L (23-29) mEq/L BUN 3 L (6-20) mg/dL Creatinine 0.56 L (0.60-1.20) mg/dL Est GFR ( Amer) > 60 (> 60) Est GFR (Non-Af Amer) > 60 (> 60) BUN/Creatinine Ratio 5 L (6-26) Glucose 110 H (70-105) mg/dL Calculated Osmolality 257 L (280-300) Calcium 9.3 (8.6-10.3) mg/dL Troponin I < 0.03 (< 0.04) ng/mL B-Natriuretic Peptide 110 H (Less than 100) pg/mL 06/19/17 Range/Units 18:16 WBC (4.3-11.1) K/mcL RBC (3.82-4.97) M/mcL Hgb (11.5-15.4) g/dL Hct (35.3-44.9) % MCV (83.0-100.0) fL MCH (28.0-33.3) pg MCHC (31.6-35.5) g/dL RDW (11.5-14.5) % Plt Count (140-400) K/mcL MPV (9.4-12.4) fL Immature Gran % (0-4) % Seg Neutrophils % % Lymphocytes % % Monocytes % % Eosinophils % % Basophils % % Neutrophils # (1.6-8.9) K/mcL Lymphocytes # (0.6-4.6) K/mcL Monocytes # (0.0-1.3) K/mcL Eosinophils # (0.0-0.6) K/mcL Basophils # (0.0-0.2) K/mcL PT 11.2 (9.4-12.1) Seconds INR 1.0 APTT 27.1 (26.0-36.0) Seconds Sodium (136-145) mEq/L Potassium (3.5-5.1) mEq/L Chloride (98-107) mEq/L Carbon Dioxide (23-29) mEq/L BUN (6-20) mg/dL Creatinine (0.60-1.20) mg/dL Est GFR ( Amer) (> 60) Est GFR (Non-Af Amer) (> 60) BUN/Creatinine Ratio (6-26) Glucose (70-105) mg/dL Calculated Osmolality (280-300) Calcium (8.6-10.3) mg/dL Troponin I (< 0.04) ng/mL B-Natriuretic Peptide (Less than 100) pg/mL Attestation Statement - Attestation Attestation: I, Adonay Seals DO, examined this patient [id number] and my medical decision-making was reviewed with Stewart Egan PGY-1, Resident Physician. I agree with the documented findings, disposition and treatment plan as described except to the extent set forth below. Please see my progress notes for details. 56-year-old female presents emergency room for the [facility] for evaluation chest pain. Patient had these symptoms on and off for several days. Patient denies any specific cardiac history but she has had anginal-like chest pain that is worse with exertion. Vital signs on presentation are stable onset of tachycardia. Patient has no history of atrial fibrillation and atrial flutter or cardiac arrhythmia. Patient denies any history of pulmonary emboli respiratory distress COPD emphysema. Currently she is denying fevers chills nausea vomiting or diarrhea. Denies any headache or vision change. On my evaluation she says that she is completely chest pain-free. Because of the clinical presentation as well as elevated heart rate patient is concerning for multiple medical pathology. EKG chest x-ray CBC chemistry troponin and BNP and thyroid function testing will be ordered at this time. She will also most likely require CT imaging during this treatment course. Physical exam is relatively unremarkable this is a thin appearing female in some mild distress she does not appear to have any discomfort or pain at this time she just has some slight increased work of breathing. Lungs are clear to auscultation with intermittent wheezing. Heart is tachycardic but regular. Abdomen is soft no pulsatile masses lesions were noted at this time. Patient moves all 4 of her extremities without any complication. She has no signs of swelling or pitting edema. Patient will be provided with aspirin nitroglycerin and screening evaluation will be completed. Disposition pending the full workup and treatment course The patient will need admitted to the hospital for acute coronary syndrome rule out. See detailed documentation of the physical exam, medical intervention, medical decision-making and disposition in the resident physician's note. No critical care provider this patient's treatment course at this time 1900 Patient was signed out to the nighttime physician Dr. Ponce and Dr. Waters. Patient was CT angiography of the chest and the most likely admission to the hospital for further management. Patient is asymptomatic at this time but still persistently tachycardic. Fluids will be given as well as resuscitative measures. Patient is found to have hyponatremia and hypochloremia and decreased bicarbonate of unknown etiology at this point. Patient will require further inpatient management.
[2017-06-19] MEDS ORDERED: 0.9 % Sodium Chloride 1,000 ML IVC ONE (18:44)
[2017-06-19] MEDS ORDERED: 0.9 % Sodium Chloride 1,000 ML ONE (18:46)
[2017-06-19 18:52] LABS: Prothrombin Time 11.2 Seconds (9.4-12.1)
[2017-06-19 18:55] LABS: Activated Partial Thrombo Time 27.1 Seconds (26.0-36.0)
--- NOTE | 2017-06-19 19:55 | Emergency Department Note ---
Disposition Clinical Impression: Tachycardia, Essential hypertension, Hyponatremia Chest pain Qualifiers: Chest pain type: unspecified Qualified Code(s): R07.9 - Chest pain, unspecified Disposition: Admitted As Inpatient Condition: Fair Time of Disposition: 19:55 Chest Pain HPI - General Chief Complaint: ED Chest Pain Stated Complaint: chest pain Time Seen by Provider: 06/19/17 16:54 Source: patient, EMS Limitations: no limitations - History of Present Illness Severity scale (1-10): 5 - Related Data Home Medications Medication Instructions Recorded Confirmed Citalopram Hydrobromide 20 mg PO DAILY 06/15/16 06/19/17 [Citalopram HBr] Ipratropium [ATROVENT Inhaler] 2 puff IH QID 06/15/16 06/19/17 Levothyroxine [Synthroid] 50 mcg PO 0630 06/15/16 06/19/17 Montelukast [Singulair] 10 mg PO DAILY PRN 06/15/16 06/19/17 Omeprazole [PriLOSEC] 20 mg PO DAILY 06/15/16 06/19/17 Albuterol Sulfate [Albuterol 2 puff IH QID PRN 08/02/16 06/19/17 Inhaler] Ibuprofen [Motrin] 600 mg PO Q6HR PRN 08/02/16 06/19/17 Magnesium Oxide [Mag-Ox] 400 mg PO BID 08/02/16 06/19/17 Potassium Chloride [K-Tab ER] 20 meq PO DAILY 08/02/16 06/19/17 Acetaminophen [8Hr Muscle 650 mg PO Q6H PRN 06/19/17 06/19/17 Ache-Pain] Atorvastatin Calcium [Lipitor] 20 mg PO HS 06/19/17 06/19/17 Cyclobenzaprine HCl 5 mg PO TID PRN 06/19/17 06/19/17 Diltiazem [Cardizem] 60 mg PO Q8HR 06/19/17 06/19/17 Fluticasone Propionate Nasal 1 spr NS BID 06/19/17 06/19/17 [Flonase] Melatonin [Melatin] 9 mg PO HS 06/19/17 06/19/17 Metoprolol Succinate [Toprol Xl] 25 mg PO DAILY 06/19/17 06/19/17 hydrOXYzine HCl [Hydroxyzine HCl] 25 mg PO QID 06/19/17 06/19/17 traZODone [TraZODone] 50 mg PO HS 06/19/17 06/19/17 Previous Rx's Medication Instructions Recorded Aspirin Enteric Coated [Aspirin EC] 81 mg PO DAILY #30 tablet. 08/03/16 Allergies Allergy/AdvReac Type Severity Reaction Status Date / Time egg AdvReac See Verified 06/19/17 19:28 Comments milk AdvReac Vomiting Verified 06/19/17 19:28 pyridoxine AdvReac Rash Verified 06/19/17 19:28 Chest Pain PMH - Past Medical History Medical history: Reports: hypertension, thyroid disease, other Surgical history: Reports: Psychiatric history: Reports: ADHD - Social History Smoking Status: Current every day smoker Alcohol use: Reports: heavy, recent Drug use: Reports: none Physical Exam - General Limitations: no limitations General appearance: alert, in no apparent distress Course - Reevaluation(s) Reevaluation #1: Patient was signed out from the daytime team with Dr. Seals and Dre. Patient had presented with chest pain. I reviewed the history of present illness, review of systems and physical exam and agree with the previous documentation. Patient was signed out pending. CT of the chest to rule out PE due to tachycardia. There is no evidence of PE on imaging. She does state that she is out of her blood pressure medications, which one of them sounds like it could be a beta sánchez. Reports that she gets them from a [facility] pharmacy and they just have not arrived yet. This could explain her tachycardia and chest pain. However, she has not had a cardiac workup in the past and will be admitted to the hospitalist service for further workup. She also has chronic hyponatremia and is about baseline but we do have an unclear source of what causing that. Underlying malignancy cannot be excluded. I do recommend further evaluation of this. During this hospitalization. Patient's agreeable with staying in the hospital. She is in no acute distress at this time and is pain-free Time: 19:53 Vital Signs Temperature 97.1 F L 06/19/17 16:48 Pulse Rate 137 06/19/17 16:48 Respiratory Rate 16 06/19/17 16:48 Blood Pressure 167/101 06/19/17 16:48 O2 Sat by Pulse Oximetry 98 06/19/17 16:48 Temperature 98.1 F 06/20/17 03:31 Pulse Rate 97 06/20/17 03:31 Respiratory Rate 18 06/20/17 03:31 Blood Pressure 113/71 06/20/17 03:31 O2 Sat by Pulse Oximetry 94 06/20/17 03:31 Oxygen Delivery Oxygen Delivery Room Air Chest Pain - Lab Data Result diagrams: 06/19/17 17:21 06/19/17 17:21 Lab Results 06/19/17 06/19/17 06/19/17 Range/Units 17:21 17:21 17:21 WBC 12.2 H (4.3-11.1) K/mcL RBC 4.38 (3.82-4.97) M/mcL Hgb 13.3 (11.5-15.4) g/dL Hct 37.2 (35.3-44.9) % MCV 84.9 (83.0-100.0) fL MCH 30.4 (28.0-33.3) pg MCHC 35.8 H (31.6-35.5) g/dL RDW 13.8 (11.5-14.5) % Plt Count 297 (140-400) K/mcL MPV 8.6 L (9.4-12.4) fL Immature Gran % 0.3 (0-4) % Seg Neutrophils % 72.3 % Lymphocytes % 21.7 % Monocytes % 4.9 % Eosinophils % 0.5 % Basophils % 0.3 % Neutrophils # 8.8 (1.6-8.9) K/mcL Lymphocytes # 2.6 (0.6-4.6) K/mcL Monocytes # 0.6 (0.0-1.3) K/mcL Eosinophils # 0.1 (0.0-0.6) K/mcL Basophils # 0.0 (0.0-0.2) K/mcL PT (9.4-12.1) Seconds INR APTT (26.0-36.0) Seconds Sodium 125 L (136-145) mEq/L Potassium 3.6 (3.5-5.1) mEq/L Chloride 93 L (98-107) mEq/L Carbon Dioxide 21 L (23-29) mEq/L BUN 3 L (6-20) mg/dL Creatinine 0.56 L (0.60-1.20) mg/dL Est GFR ( Amer) > 60 (> 60) Est GFR (Non-Af Amer) > 60 (> 60) BUN/Creatinine Ratio 5 L (6-26) Glucose 110 H (70-105) mg/dL Calculated Osmolality 257 L (280-300) Calcium 9.3 (8.6-10.3) mg/dL Troponin I < 0.03 (< 0.04) ng/mL B-Natriuretic Peptide 110 H (Less than 100) pg/mL TSH 5.761 H (0.340-5.600) mcIU/mL 06/19/17 Range/Units 18:16 WBC (4.3-11.1) K/mcL RBC (3.82-4.97) M/mcL Hgb (11.5-15.4) g/dL Hct (35.3-44.9) % MCV (83.0-100.0) fL MCH (28.0-33.3) pg MCHC (31.6-35.5) g/dL RDW (11.5-14.5) % Plt Count (140-400) K/mcL MPV (9.4-12.4) fL Immature Gran % (0-4) % Seg Neutrophils % % Lymphocytes % % Monocytes % % Eosinophils % % Basophils % % Neutrophils # (1.6-8.9) K/mcL Lymphocytes # (0.6-4.6) K/mcL Monocytes # (0.0-1.3) K/mcL Eosinophils # (0.0-0.6) K/mcL Basophils # (0.0-0.2) K/mcL PT 11.2 (9.4-12.1) Seconds INR 1.0 APTT 27.1 (26.0-36.0) Seconds Sodium (136-145) mEq/L Potassium (3.5-5.1) mEq/L Chloride (98-107) mEq/L Carbon Dioxide (23-29) mEq/L BUN (6-20) mg/dL Creatinine (0.60-1.20) mg/dL Est GFR ( Amer) (> 60) Est GFR (Non-Af Amer) (> 60) BUN/Creatinine Ratio (6-26) Glucose (70-105) mg/dL Calculated Osmolality (280-300) Calcium (8.6-10.3) mg/dL Troponin I (< 0.04) ng/mL B-Natriuretic Peptide (Less than 100) pg/mL TSH (0.340-5.600) mcIU/mL Attestation Statement - Attestation Attestation: I examined this patient and my medical decision-making was reviewed with the Resident Physician. I agree with the documented findings, disposition and treatment plan as described except to the extent set forth below. Findings consistent with chest pain. CT shows no acute findings. We will admit for ACS rule out and further management as well as turning of cardiac biomarkers.
[2017-06-19 20:10] LABS: Thyroid Stimulating Hormone 5.761 mcIU/mL (0.340-5.600)
--- NOTE | 2017-06-19 21:58 | Internal Med History&Physical ---
<Mayra Murry H - Last Filed: 06/19/17 23:10> Date of Encounter: 06/19/17 Time of Encounter: 21:58 Internal Medicine - H&P: HPI Chief complaint: Chest palpitations/chest pain Admitted From: Emergency Dept Plans for Post Hospital Care: Home History of present illness: Ms. Pulliam is a 56 year old female with past medical history of COPD, HLD, HTN , hypothyroidism, ADHD, alcohol abuse, tobacco abuse, 2 CVAs in May 2016, history of DVTs, and chronic hyponatremia who presented to [facility] on 06/19/2017 with chief complaints of chest pain that she describes as a pounding sensation. Patient reports palpitations that are thudding so significantly they are causing chest discomfort. She states her chest discomfort is localized and does not radiate. She denies any worsening shortness of breath above her baseline. She does report some nausea, however, no vomiting. She denies diaphoresis. Patient states she has been off of her medications for the previous 3 days including Cardizem and metoprolol. She denies any cardiac history including CAD or cardiac interventions. She states she suffered 2 strokes in early 2016. She denies taking any anticoagulation, however[facility]. The reason is unclear. She states she only drinks 2 alcoholic beverages per day, the last of which was yesterday. Patient reports a three-week history of chronic diarrhea which she describes as loose stool. She denies any mucus or blood in her stool. She denies any dysuria or hematuria. She denies any fevers , chills, or night sweats. In the emergency department, EKG showed a ventricular rate of 127 bpm, sinus tachycardia, and moderate ST depression in V4 and V5. CTA was negative for pulmonary embolism. Labs sodium 15, chloride 93, bicarbonate 21. BNP 110, TSH 5.761. Past Med Surg Social Fam HX - Past Medical History Attestation: Yes The following information was validated with the patient. Source: patient, old records reviewed Medical history: COPD, CVA, DVT, GERD, hyperlipidemia, hypertension, thyroid disease, other Psychiatric history: ADHD, depression - Past Surgical History Surgical History: - Social History Smoking Status: Current every day smoker Smokeless Tobacco Status: No Alcohol use: heavy, recent Drug use: none - Family History Mother Living Status: Still Living Hx Family Endocrine Disorder: Yes Internal Medicine - H&P: Meds Citalopram Hydrobromide [Citalopram HBr] 20 mg PO DAILY 06/15/16 [History] Ipratropium [ATROVENT Inhaler] 2 puff IH QID 06/15/16 [History] Levothyroxine [Synthroid] 50 mcg PO 0630 06/15/16 [History] Montelukast [Singulair] 10 mg PO DAILY PRN 06/15/16 [History] Omeprazole [PriLOSEC] 20 mg PO DAILY 06/15/16 [History] Albuterol Sulfate [Albuterol Inhaler] 2 puff IH QID PRN 08/02/16 [History] Ibuprofen [Motrin] 600 mg PO Q6HR PRN 08/02/16 [History] Magnesium Oxide [Mag-Ox] 400 mg PO BID 08/02/16 [History] Potassium Chloride [K-Tab ER] 20 meq PO DAILY 08/02/16 [History] Aspirin Enteric Coated [Aspirin EC] 81 mg PO DAILY #30 tablet. 08/03/16 [Rx] Acetaminophen [8Hr Muscle Ache-Pain] 650 mg PO Q6H PRN 06/19/17 [History] Atorvastatin Calcium [Lipitor] 20 mg PO HS 06/19/17 [History] Cyclobenzaprine HCl 5 mg PO TID PRN 06/19/17 [History] Diltiazem [Cardizem] 60 mg PO Q8HR 06/19/17 [History] Fluticasone Propionate Nasal [Flonase] 1 spr NS BID 06/19/17 [History] Melatonin [Melatin] 9 mg PO HS 06/19/17 [History] Metoprolol Succinate [Toprol Xl] 25 mg PO DAILY 06/19/17 [History] hydrOXYzine HCl [Hydroxyzine HCl] 25 mg PO QID 06/19/17 [History] traZODone [TraZODone] 50 mg PO HS 06/19/17 [History] 3 Allergy/AdvReac Type Severity Reaction Status Date / Time egg AdvReac See Verified 06/19/17 19:28 Comments milk AdvReac Vomiting Verified 06/19/17 19:28 pyridoxine AdvReac Rash Verified 06/19/17 19:28 All Systems PM: A 10-system review of systems was performed and is negative for pertinent findings except as documented above in the HPI. - Constitutional Constitutional: lethargy, weakness, no chills, no fatigue, no night sweats, no weight gain, no weight loss - EENT Eyes: no loss of vision, no other visual disturbances Nose, mouth and throat: no facial pain, no nasal congestion, no nasal discharge - Cardiovascular Cardiovascular ROS IM: chest pain, palpitations, no claudication, no diaphoresis , no dyspnea, no dyspnea on exertion, no edema, no irregular heart rhythm, no lightheadedness, no orthopnea, no paroxysmal nocturnal dyspnea, no syncope - Respiratory Respiratory: dyspnea, no cough, no chest congestion - Gastrointestinal Gastrointestinal: diarrhea, heartburn, loose stools, nausea, no abdominal pain, no coffee ground emesis, no hematemesis, no hematochezia, no melena, no vomiting - Genitourinary Genitourinary: hot flashes - Musculoskeletal Musculoskeletal ROS IM: no numbness - Integumentary Integumentary IM: no pruritus, no rash, no jaundice - Neurological Neurological ROS: no abnormal gait, no confusion, no focal weakness, no tingling - Psychiatric Psychiatric: anxiety, depression - Endocrine Endocrine IM: cold intolerance, no flushing - Hematologic/Lymphatic Hematologic/Lymphatic: no easy bleeding - Constitutional Vitals: Temp Pulse Resp BP Pulse Ox 98.2 F 113 18 135/79 98 06/19/17 21:03 06/19/17 21:03 06/19/17 21:03 06/19/17 21:03 06/19/17 21:03 General appearance: Present: A&O X 3, pleasant, no acute distress, answers questions appropriately - Head Head exam: Present: atraumatic, normocephalic - Eye Eye exam: Present: conjuntiva pink, sclera anicteric - Neck Neck exam general surgery: Present: supple, trachea midline. Absent: lymphadenopathy - Respiratory Respiratory exam: Present: CTAB. Absent: accessory muscle use, rales, rhonchi, wheezes - Cardiovascular Cardiovascular exam: Present: +S1, +S2, tachycardia. Absent: diastolic murmur, gallop, rubs, systolic murmur - GI/Abdominal GI/Abdominal exam: Present: normal bowel sounds, soft, no peritoneal signs. Absent: distended, firm, guarding, tenderness - Extremities Exam Extremities exam: Present: warm, radial pulses palpable and symmetrical. Absent : calf tenderness, cyanotic, pedal edema - Neurological Exam Neurological exam: Present: CN II-XII intact, oriented X3, no focal deficits. Absent: pronater drift, facial droop, speech deficit - Skin Skin exam: Present: dry, intact Internal Med - H&P Results - Labs CBC & Chem 7: 06/19/17 17:21 06/19/17 17:21 - Assessment and plan (1) Chest pain Current Visit: Yes Status: Acute Assessment and plan: 56-year-old female with sinus tachycardia that causes intermittent chest pain with acceleration. -Resume home medications of diltiazem and metoprolol. Unclear reason why she is taking these medications, suspect chronic management of sinus tachycardia and /or essential hypertension. -Because of chest pain with tachycardia, we will proceed with nuclear stress test in the morning. -Echocardiogram in the morning. -Trend troponins. -NPO midnight. Qualifiers: Chest pain type: unspecified Qualified Code(s): R07.9 - Chest pain, unspecified (2) Tachycardia Current Visit: Yes Status: Acute Assessment and plan: Sinus tachycardia. Unclear etiology. Suspect multifactorial including recently running out of medications, potential alcohol withdrawal, and chronic sinus tachycardia. -Resume home metoprolol and diltiazem. -Hydration with IVF. -Echocardiogram and stress test in the a.m. (3) Essential hypertension Current Visit: Yes Status: Acute Assessment and plan: Resume home medications of diltiazem and metoprolol. (4) Hyponatremia Current Visit: Yes Status: Acute Assessment and plan: Chronic in nature. Well-documented history of alcohol abuse. -Hydration with normal saline. (5) History of alcohol abuse Current Visit: No Status: Chronic Assessment and plan: Well-documented history of alcohol abuse. Patient states she only has 2 alcoholic beverages per day. -We will get LFTs in the morning. -[facility] protocol. -Folate B12 and thiamine repletion. (6) GERD (gastroesophageal reflux disease) Current Visit: Yes Status: Acute Assessment and plan: Omeprazole daily. Qualifiers: Esophagitis presence: esophagitis presence not specified Qualified Code(s) : K21.9 - Gastro-esophageal reflux disease without esophagitis (7) History of DVT (deep vein thrombosis) Current Visit: Yes Status: Acute Assessment and plan: CTA negative. -We will continue to monitor and cover with subcutaneous heparin. (8) Hypothyroidism Current Visit: No Status: Chronic Assessment and plan: Resume Synthroid. Qualifiers: Hypothyroidism type: unspecified Qualified Code(s): E03.9 - Hypothyroidism , unspecified (9) DVT prophylaxis Current Visit: No Status: Acute Assessment and plan: Heparin subcutaneous twice a day. (10) History of CVA (cerebrovascular accident) Current Visit: Yes Status: Acute Assessment and plan: CVA in July 2016. -Continue statin and aspirin. - Time Spent With Patient Total time spent is greater than 50% in coordination of care (as documented) at patient's floor/unit and/or counseling patient: <Davie Ramirez - Last Filed: 06/20/17 06:04> Date of Encounter: 06/20/17 Internal Medicine - H&P: HPI History of present illness: Ms. Pulliam is a 56 year old female All Systems PM: A 10-system review of systems was performed and is negative for pertinent findings except as documented above in the HPI. - Constitutional Vitals: Temp Pulse Resp BP Pulse Ox 98.1 F 97 18 113/71 94 06/20/17 03:31 06/20/17 03:31 06/20/17 03:31 06/20/17 03:31 06/20/17 03:31 Internal Med - H&P Results - Labs CBC & Chem 7: 06/20/17 05:19 06/20/17 05:19 Labs: Short CBC 06/20/17 Range/Units 05:19 WBC 5.3 D (4.3-11.1) K/mcL Hgb 10.6 L D (11.5-15.4) g/dL Hct 30.1 L (35.3-44.9) % Plt Count 232 (140-400) K/mcL Neutrophils # 2.3 (1.6-8.9) K/mcL BMP 06/20/17 05:19 Sodium 132 L Potassium 3.6 Chloride 105 Carbon Dioxide 20 L BUN 2 L Creatinine 0.43 L Glucose 92 Calcium 8.2 L Cardiac Enzymes 06/19/17 06/20/17 Range/Units 22:27 05:19 Troponin I < 0.03 < 0.03 (< 0.04) ng/mL Liver Function 06/20/17 Range/Units 05:19 Total Bilirubin 0.8 (0.3-1.0) mg/dL AST 20 (13-39) Units/L ALT 21 (7-52) Units/L Alkaline Phosphatase 117 H (34-104) Units/L Albumin 3.2 L (3.5-5.7) g/dL - Attending Attestation I have seen and examined this patient independently. I have discussed with resident physician Dr Arias regarding the management plan. Agree with the documentation. - Assessment and plan (1) History of alcohol abuse Current Visit: No Status: Chronic (2) DVT prophylaxis Current Visit: No Status: Acute (3) Hypothyroidism Current Visit: No Status: Chronic Qualifiers: Hypothyroidism type: unspecified Qualified Code(s): E03.9 - Hypothyroidism , unspecified (4) Hyponatremia Current Visit: Yes Status: Acute (5) Tachycardia Current Visit: Yes Status: Acute (6) Essential hypertension Current Visit: Yes Status: Acute (7) Chest pain Current Visit: Yes Status: Acute Qualifiers: Chest pain type: unspecified Qualified Code(s): R07.9 - Chest pain, unspecified (8) GERD (gastroesophageal reflux disease) Current Visit: Yes Status: Acute Qualifiers: Esophagitis presence: esophagitis presence not specified Qualified Code(s) : K21.9 - Gastro-esophageal reflux disease without esophagitis (9) History of DVT (deep vein thrombosis) Current Visit: Yes Status: Acute (10) History of CVA (cerebrovascular accident) Current Visit: Yes Status: Acute - Time Spent With Patient Total time spent is greater than 50% in coordination of care (as documented) at patient's floor/unit and/or counseling patient:
[2017-06-19] MEDS ORDERED: *HR* LORazepam 2 MG/ML VIAL IVP PRN ×3 (22:07)
[2017-06-19] MEDS ORDERED: Naloxone 0.4 MG/ML INJ IVP PRN (22:12)
[2017-06-19] MEDS ORDERED: traZODone 50 MG TABLET PO SCH (22:15)
[2017-06-19] MEDS: 0.9 % Sodium Chloride 1,000 ML IVC SCH (23:34)
[2017-06-19] MEDS: Vitamin B Complex/Vit C/Vit E 1 EACH TABLET PO SCH (23:34)
[2017-06-19] MEDS: Thiamine (B-1) 100 MG TABLET PO SCH (23:34)
[2017-06-19] MEDS: Folic Acid 1 MG TABLET PO SCH (23:34)
[2017-06-19] MEDS: Metoprolol XL (24 HR) Succ 25 MG TAB.ER.24H PO SCH (23:34)
[2017-06-20] MEDS: dilTIAZem HCl 60 MG TABLET PO SCH ×2 (00:55→10:32)
[2017-06-20 05:35] LABS: Basophils % 0.6 %; Eosinophils # 0.1 K/mcL (0.0-0.6); Eosinophils % 2.1 %; Hematocrit 30.1 % (35.3-44.9); Immature Granulocytes % 0.2 % (0-4); Lymphocytes # 2.3 K/mcL (0.6-4.6); Lymphocytes % 43.2 %; Mean Corpuscular HGB Conc 35.2 g/dL (31.6-35.5); Mean Corpuscular Hemoglobin 30.3 pg (28.0-33.3); Mean Platelet Volume 8.8 fL (9.4-12.4); Monocytes # 0.5 K/mcL (0.0-1.3); Neutrophils # 2.3 K/mcL (1.6-8.9); Platelet Count 232 K/mcL (140-400); Red Cell Distribution Width 13.9 % (11.5-14.5); Segmented Neutrophils % 43.9 %
[2017-06-20 05:39] LABS: Hemoglobin 10.6 g/dL (11.5-15.4)
[2017-06-20] MEDS ORDERED: Regadenoson 0.4 MG/5 ML SYRINGE IVP ONE (05:44)
[2017-06-20] MEDS ORDERED: *HR* Heparin 5,000 UNIT/ML VIAL SQ SCH (06:00)
[2017-06-20 06:02] LABS: Alanine Aminotransferase 21 Units/L (7-52); Albumin 3.2 g/dL (3.5-5.7); Albumin/Globulin Ratio 1.6 (1.1-2.2); Alkaline Phosphatase 117 Units/L (34-104); Aspartate Amino Transferase 20 Units/L (13-39); BUN/Creatinine Ratio 5 (6-26); Bilirubin,Total 0.8 mg/dL (0.3-1.0); Blood Urea Nitrogen 2 mg/dL (6-20); Calcium 8.2 mg/dL (8.6-10.3); Carbon Dioxide 20 mEq/L (23-29); Chloride 105 mEq/L (98-107); Chol/HDL Ratio 2.3 (0-4.9); Cholesterol 144 mg/dL (< 200); Glucose 92 mg/dL (70-105); HDL Cholesterol 62 mg/dL (40-59); LDL Cholesterol,Calculated 63 mg/dL (0-99); Magnesium 1.6 mg/dL (1.6-2.6); Osmolality,Calculated 270 (280-300); Phosphorous 3.4 mg/dL (2.7-4.5); Potassium 3.6 mEq/L (3.5-5.1); Sodium 132 mEq/L (136-145); Total Protein 5.2 g/dL (6.4-8.9); Triglycerides 95 mg/dL (< 150); eGFR For African Americans > 60 (> 60); eGFR For Non-African Americans > 60 (> 60)
[2017-06-20] MEDS ORDERED: Magnesium Oxide 400 MG TABLET PO SCH (09:00)
[2017-06-20] MEDS ORDERED: Aspirin Enteric Coated 81 MG Tablet PO SCH (09:00)
--- NOTE | 2017-06-20 09:25 | Electrocardiograph Report ---
[address] [place], [place] [address] Test Date: 2017-06-19 Pat Name: Meredith Pulliam Department: 102 Room: 2A25 Gender: F Living Manager: Ekp : 1960 Requested By: Jeremy Egan Order Number: [id number] Reading MD: Evelin Flores Measurements Intervals [place] Rate: 127 P: 72 [place]: 155 QRS: 25 QRSD: 82 T: 12 QT: 294 QTc: 369 Interpretive Statements SINUS TACHYCARDIA Electronically Signed On 06-20-2017 9:23:26 EDT by Evelin Flores
[2017-06-20] MEDS: Thiamine (B-1) 100 MG TABLET PO SCH (10:32)
[2017-06-20] MEDS: Metoprolol XL (24 HR) Succ 25 MG TAB.ER.24H PO SCH (10:32)
[2017-06-20] MEDS: Folic Acid 1 MG TABLET PO SCH (10:32)
[2017-06-20] MEDS: Vitamin B Complex/Vit C/Vit E 1 EACH TABLET PO SCH (10:33)
[2017-06-20] MEDS: 0.9 % Sodium Chloride 1,000 ML IVC SCH (10:33)
[2017-06-20 11:35] VITALS: BP 138/69
[2017-06-20] MEDS ORDERED: Magnesium Oxide 400 MG TABLET PO ONE (11:43)
--- NOTE | 2017-06-20 11:54 | Discharge Summary ---
Orders not resulted at time of discharge: Pending orders 06/19/17 22:11 NM lydia perf SPECT multi [NM] Routine 06/19/17 22:15 GI Panel,Stool [MOLMIC] Routine 06/20/17 06:00 ECG 12 lead ECG [ECG] AM 0600 06/20/17 11:25 Troponin I Q6H Date of Encounter: 06/20/17 Time of Encounter: 11:54 - Discharge Diagnosis (1) History of alcohol abuse Priority: Primary Status: Chronic (2) Hypothyroidism Priority: Secondary Status: Chronic Qualifiers: Hypothyroidism type: unspecified Qualified Code(s): E03.9 - Hypothyroidism , unspecified (3) Hyponatremia Priority: Primary Status: Acute (4) Tachycardia Priority: Primary Status: Acute (5) Essential hypertension Priority: Secondary Status: Acute (6) Chest pain Priority: Primary Status: Acute Qualifiers: Chest pain type: unspecified Qualified Code(s): R07.9 - Chest pain, unspecified (7) GERD (gastroesophageal reflux disease) Priority: Secondary Status: Acute Qualifiers: Esophagitis presence: esophagitis presence not specified Qualified Code(s) : K21.9 - Gastro-esophageal reflux disease without esophagitis (8) History of DVT (deep vein thrombosis) Priority: Secondary Status: Acute (9) History of CVA (cerebrovascular accident) Priority: Secondary Status: Acute Hospital course: Ms. Pulliam is a 56 year old female with past medical history of COPD, HLD, HTN , hypothyroidism, ADHD, alcohol abuse, tobacco abuse, 2 CVAs in May 2016, history of DVTs, and chronic hyponatremia who presented to [facility] on 06/19/2017 with chief complaints of chest pain that she describes as a pounding sensation. Patient reported palpitations. Patient states she has been off of her medications for the previous 3 days including Cardizem and metoprolol. She denied any cardiac history including CAD or cardiac interventions. She states she suffered 2 strokes in early 2016. She stated that she only drinks 2 alcoholic beverages per day, the last of which was yesterday. In the emergency department, EKG showed a ventricular rate of 127 bpm, sinus tachycardia, and moderate ST depression in V4 and V5. CTA was negative for pulmonary embolism. Labs sodium 125, chloride 93, bicarbonate 21. BNP 110, TSH 5.761. She was admitted. trops were not elevated x3. She had an echo and a stress test which were unremrakable. Sodium went up to 132 with IVF. Tachycardia resolved with IVF. I increased her Synthroid to 75mcg from 50 due to mildly elevated TSH. Discharged on 06/20. - Time Spent with Patient Total time spent providing and/or coordinating discharge services: Greater than 30 minutes - Discharge Medications Prescriptions: Levothyroxine [Synthroid] 75 mcg PO 0630 #30 tablet Home Medications: Citalopram Hydrobromide [Citalopram HBr] 20 mg PO DAILY 06/15/16 [History] Ipratropium [ATROVENT Inhaler] 2 puff IH QID 06/15/16 [History] Montelukast [Singulair] 10 mg PO DAILY PRN 06/15/16 [History] Omeprazole [PriLOSEC] 20 mg PO DAILY 06/15/16 [History] Albuterol Sulfate [Albuterol Inhaler] 2 puff IH QID PRN 08/02/16 [History] Ibuprofen [Motrin] 600 mg PO Q6HR PRN 08/02/16 [History] Magnesium Oxide [Mag-Ox] 400 mg PO BID 08/02/16 [History] Potassium Chloride [K-Tab ER] 20 meq PO DAILY 08/02/16 [History] Aspirin Enteric Coated [Aspirin EC] 81 mg PO DAILY #30 tablet. 08/03/16 [Rx] Acetaminophen [8Hr Muscle Ache-Pain] 650 mg PO Q6H PRN 06/19/17 [History] Atorvastatin Calcium [Lipitor] 20 mg PO HS 06/19/17 [History] Cyclobenzaprine HCl 5 mg PO TID PRN 06/19/17 [History] Diltiazem [Cardizem] 60 mg PO Q8HR 06/19/17 [History] Fluticasone Propionate Nasal [Flonase] 1 spr NS BID 06/19/17 [History] Melatonin [Melatin] 9 mg PO HS 06/19/17 [History] Metoprolol Succinate [Toprol Xl] 25 mg PO DAILY 06/19/17 [History] hydrOXYzine HCl [Hydroxyzine HCl] 25 mg PO QID 06/19/17 [History] traZODone [TraZODone] 50 mg PO HS 06/19/17 [History] Levothyroxine [Synthroid] 75 mcg PO 629 #30 tablet 06/20/17 [Rx] Allergies/Adverse Reactions: 3 Allergy/AdvReac Type Severity Reaction Status Date / Time egg AdvReac See Verified 06/19/17 19:28 Comments milk AdvReac Vomiting Verified 06/19/17 19:28 pyridoxine AdvReac Rash Verified 06/19/17 19:28 Date of admission: 06/19/17 19:59 Primary care physician: PCP VIDHYA - Constitutional Vitals: Temp Pulse Resp BP Pulse Ox 98.0 F 88 16 138/69 96 06/20/17 11:32 06/20/17 11:32 06/20/17 11:32 06/20/17 11:32 06/20/17 11:32 General appearance: Present: A&O X 3, pleasant, no acute distress, answers questions appropriately - Patient Status Disposition: Home, Self-Care Condition: Fair Overall status at discharge: patient is progressing back to baseline - Discharge Instructions Instructions: Chest Pain (DC) Follow Up With: VIDHYA,PCP [Primary Care Provider] - 06/28/17 9:30 am (Please follow up as schedule...) - Diet and Activity Activity: increase activity as tolerated Diet: regular diet
[2017-06-20] MEDS ORDERED: Melatonin 3 MG TABLET PO SCH (21:00)
== END 2017-06-20 15:46 | disposition home or self-care (01) ==
LOC: 2ANU 16:46 → EMEROO 16:46 → 2ANU 20:43
PROVIDERS: ADMIT Internal Medicine; ATTEND Internal Medicine

== ENCOUNTER 2017-11-04 17:54 | Inpatient (IN) ==
--- NOTE | 2017-11-04 18:11 | Emergency Department Note ---
Disposition Clinical Impression: Hyponatremia Hearing loss Qualifiers: Hearing loss type: unspecified Laterality: right Qualified Code(s): H91.91 - Unspecified hearing loss, right ear Lower extremity weakness Qualifiers: Laterality: bilateral Qualified Code(s): R29.898 - Other symptoms and signs involving the musculoskeletal system Disposition: Still a Patient Condition: Good [facility]errals: [facility] Care Provider[facility] - Forms: ED Satisfaction Letter, Work/School Release Time of Disposition: 21:22 General Adult HPI - General Chief complaint: ED General Medical Stated complaint: ekg changes Time Seen by Provider: 11/04/17 17:58 Source: patient, EMS Mode of arrival: EMS Limitations: no limitations Nursing Notes Reviewed: Yes Vital Signs Reviewed: Yes - History of Present Illness HPI Narrative: Meredith Pulliam is a 57-yo female patient with PMHx of HTN, HLD, alcohol dependence, hypothyroidism, hyponatremia, stroke x3 this past May with no residual defects, and homelessness. She is presenting after transfer from the [place] [facility] with a chief complaint of bilateral LE weakness for the past few days, and right-sided hearing loss for the past day. She was concerned that her symptoms may have been symptomatic of a stroke, however she states that her symptoms subsided earlier this afternoon after arrival at the [facility]. She admits to having had some lightheadedness as well as sinonasal congestion with coughing, sneezing, and rhinorrhea for several days, but denies any numbness or tingling, chest pain, shortness of breath, or incontinence. EKG shows tachycardia at 104, with T wave inversions in the inferolateral distribution. She denies having any significant workup performed at the [facility] hospital, and says that she was transferred for evaluation of her EKG changes and stroke workup. Pt Subjective Complaint: Lower extremity weakness Onset (ago): hour(s) Pain Scale: 0 Associated symptoms: Reports: weakness Treatments Prior to Arrival: none - Related Data Home Medications Medication Instructions Recorded Confirmed Citalopram Hydrobromide 20 mg PO DAILY 06/15/16 06/19/17 [Citalopram HBr] Ipratropium [ATROVENT Inhaler] 2 puff IH QID 06/15/16 06/19/17 Montelukast [Singulair] 10 mg PO DAILY PRN 06/15/16 06/19/17 Omeprazole [PriLOSEC] 20 mg PO DAILY 06/15/16 06/19/17 Albuterol Sulfate [Albuterol 2 puff IH QID PRN 08/02/16 06/19/17 Inhaler] Ibuprofen [Motrin] 600 mg PO Q6HR PRN 08/02/16 06/19/17 Magnesium Oxide [Mag-Ox] 400 mg PO BID 08/02/16 06/19/17 Potassium Chloride [K-Tab ER] 20 meq PO DAILY 08/02/16 06/19/17 Acetaminophen [8Hr Muscle 650 mg PO Q6H PRN 06/19/17 06/19/17 Aches-Pain] Atorvastatin Calcium [Lipitor] 20 mg PO HS 06/19/17 06/19/17 Cyclobenzaprine HCl 5 mg PO TID PRN 06/19/17 06/19/17 Diltiazem [Cardizem] 60 mg PO Q8HR 06/19/17 06/19/17 Fluticasone Propionate Nasal 1 spr NS BID 06/19/17 06/19/17 [Flonase] Melatonin [Melatin] 9 mg PO HS 06/19/17 06/19/17 Metoprolol Succinate [Toprol Xl] 25 mg PO DAILY 06/19/17 06/19/17 hydrOXYzine HCl [Hydroxyzine HCl] 25 mg PO QID 06/19/17 06/19/17 traZODone [TraZODone] 50 mg PO HS 06/19/17 06/19/17 Previous Rx's Medication Instructions Recorded Aspirin Enteric Coated [Aspirin EC] 81 mg PO DAILY #30 tablet. 08/03/16 Levothyroxine [Synthroid] 75 mcg PO 0630 #30 tablet 06/20/17 Allergies Allergy/AdvReac Type Severity Reaction Status Date / Time egg AdvReac See Verified 06/19/17 19:28 Comments milk AdvReac Vomiting Verified 06/19/17 19:28 pyridoxine AdvReac Rash Verified 06/19/17 19:28 Constitutional: Reports: as per HPI ENT ED: Reports: hearing loss, congestion Respiratory: Reports: cough. Denies: dyspnea Gastrointestinal: Denies: abdominal pain, nausea, vomiting, diarrhea, constipation Genitourinary: Denies: urgency Neurological: Reports: weakness. Denies: numbness, paresthesias, abnormal gait Past Medical History - Past Medical History Medical history: Reports: CVA, hyperlipidemia, hypertension, thyroid disease, other Surgical history: Reports: Psychiatric history: Reports: ADHD - Social History Smoking Status: Current every day smoker Smokeless Tobacco Status: No Alcohol use: Reports: rarely Drug use: Reports: none Physical Exam Patient looks older than her stated age and appears chronically ill. She is alert and oriented x3. On exam, heart has regular rate and rhythm and lungs are CTAB. Ear canals are patent bilaterally with visible cone of light and no erythema. dope heater II-XII are intact bilaterally, and strength, sensation are present with no ataxia. - General Limitations: no limitations General appearance: alert, in no apparent distress - Head Head exam: atraumatic - Eye Eye exam: Present: normal appearance, PERRL, EOMI - ENT ENT exam: normal exam - Respiratory Respiratory exam: Present: normal lung sounds bilaterally - Cardiovascular Cardiovascular exam: Present: regular rate, normal rhythm - Extremities Exam Extremities exam: Present: normal inspection - Neurological Exam Neurological exam: Present: alert, oriented X3, CN II-XII intact - Psychiatric Psychiatric exam: Present: normal affect, normal mood - Skin Skin exam: Present: warm, dry Course Vital Signs Temperature 98.9 F 11/04/17 18:00 Pulse Rate 101 11/04/17 18:00 Respiratory Rate 18 11/04/17 18:00 Blood Pressure 161/96 11/04/17 18:00 O2 Sat by Pulse Oximetry 100 11/04/17 18:00 Temperature 98.9 F 11/04/17 18:00 Pulse Rate 101 11/04/17 18:00 Respiratory Rate 18 11/04/17 18:00 Blood Pressure 161/96 11/04/17 18:00 O2 Sat by Pulse Oximetry 100 11/04/17 18:00 Oxygen Delivery Oxygen Delivery Room Air Medical Decision Making - Lab Data Result diagrams: 11/04/17 18:44 11/04/17 18:44 Lab Results 11/04/17 11/04/17 11/04/17 Range/Units 18:44 18:44 18:44 WBC 5.8 (4.3-11.1) K/mcL RBC 4.09 (3.82-4.97) M/mcL Hgb 12.6 (11.5-15.4) g/dL Hct 35.0 L (35.3-44.9) % MCV 85.6 (83.0-100.0) fL MCH 30.8 (28.0-33.3) pg MCHC 36.0 H (31.6-35.5) g/dL RDW 12.8 (11.5-14.5) % Plt Count 293 (140-400) K/mcL MPV 8.8 L (9.4-12.4) fL Immature Gran % 0.5 (0-4) % Seg Neutrophils % 69.3 % Lymphocytes % 19.3 % Monocytes % 9.2 % Eosinophils % 0.7 % Basophils % 1.0 % Neutrophils # 4.0 (1.6-8.9) K/mcL Lymphocytes # 1.1 (0.6-4.6) K/mcL Monocytes # 0.5 (0.0-1.3) K/mcL Eosinophils # 0.0 (0.0-0.6) K/mcL Basophils # 0.1 (0.0-0.2) K/mcL PT 11.7 (9.4-12.1) Seconds INR 1.0 APTT 31.0 (26.0-36.0) Seconds Sodium 123 L (136-145) mEq/L Potassium 3.3 L (3.5-5.1) mEq/L Chloride 94 L (98-107) mEq/L Carbon Dioxide 19 L (23-29) mEq/L BUN 4 L (6-20) mg/dL Creatinine 0.43 L (0.60-1.20) mg/dL Est GFR ( Amer) > 60 (> 60) Est GFR (Non-Af Amer) > 60 (> 60) BUN/Creatinine Ratio 9 (6-26) Glucose 90 (70-105) mg/dL Calculated Osmolality 252 L (280-300) Calcium 8.8 (8.6-10.3) mg/dL Troponin I < 0.03 (< 0.04) ng/mL Attestation Statement - Attestation Attestation: I, Adonay Seals DO, examined this patient [id number] and my medical decision-making was reviewed with Ruben Alejandro ,MS - 4. I agree with the documented findings, disposition and treatment plan as described except to the extent set forth below. Please see my progress notes for details.
[2017-11-04] MEDS ORDERED: Isovue-370 500 ML INFUS..BTL IV ONE (18:15)
--- NOTE | 2017-11-04 18:20 | Emergency Department Note ---
Disposition Clinical Impression: Hyponatremia Hearing loss Qualifiers: Hearing loss type: unspecified Laterality: right Qualified Code(s): H91.91 - Unspecified hearing loss, right ear Lower extremity weakness Qualifiers: Laterality: bilateral Qualified Code(s): R29.898 - Other symptoms and signs involving the musculoskeletal system Disposition: Still a Patient Condition: Good [facility]errals: [facility] [Non-Partnered Physician] - Forms: ED Satisfaction Letter, Work/School Release Time of Disposition: 21:02 Neuro HPI - General Chief Complaint: ED General Medical Stated Complaint: ekg changes Time Seen by Provider: 11/04/17 17:58 Source: patient, EMS Mode of arrival: EMS Limitations: no limitations Nursing Notes Reviewed: Yes Vital Signs Reviewed: Yes - History of Present Illness HPI Narrative: I have re-performed and reviewed the history documented by the medical student, and I confirm its accuracy except as noted below Patient is a 57-year-old female with past medical history of anxiety, depression , hypertension, reported previous stroke and May, hyponatremia, hypothyroidism, all abuse and dependence. She presented today via EMS due to multiple complaints. She states that over the past 4 days, she has had bilateral lower showed a weakness. Denies any numbness, tingling, specific focal weakness. Denies any falls. Denies any chest pain, shortness breath, nausea, vomiting, fevers, diarrhea, abdominal pain, dysuria, hematuria. She states that she has had some upper respiratory symptoms over the past few days, sinus congestion, sneezing, coughing. She states that yesterday afternoon, her hearing became muffled and then went silent in the right ear. She presented this afternoon/evening to the [facility] for further assessment of right- sided hearing loss and lower showed a weakness. She does report a history of stroke and was concern for possible stroke again. She had an EKG performed at the outside facility. EKG showed new T-wave inversions and V2, V3, V4, V5 that was new from old EKG at [facility]. She denies having had imaging performed at outside facility. She also reports that while at the [facility], she regained hearing and her right ear. She was transferred here for further stroke workup and due to EKG changes. Currently, patient has no symptoms. - Related Data Home Medications: Home Medications Medication Instructions Recorded Confirmed Citalopram Hydrobromide 20 mg PO DAILY 06/15/16 06/19/17 [Citalopram HBr] Ipratropium [ATROVENT Inhaler] 2 puff IH QID 06/15/16 06/19/17 Montelukast [Singulair] 10 mg PO DAILY PRN 06/15/16 06/19/17 Omeprazole [PriLOSEC] 20 mg PO DAILY 06/15/16 06/19/17 Albuterol Sulfate [Albuterol 2 puff IH QID PRN 08/02/16 06/19/17 Inhaler] Ibuprofen [Motrin] 600 mg PO Q6HR PRN 08/02/16 06/19/17 Magnesium Oxide [Mag-Ox] 400 mg PO BID 08/02/16 06/19/17 Potassium Chloride [K-Tab ER] 20 meq PO DAILY 08/02/16 06/19/17 Acetaminophen [8Hr Muscle 650 mg PO Q6H PRN 06/19/17 06/19/17 Aches-Pain] Atorvastatin Calcium [Lipitor] 20 mg PO HS 06/19/17 06/19/17 Cyclobenzaprine HCl 5 mg PO TID PRN 06/19/17 06/19/17 Diltiazem [Cardizem] 60 mg PO Q8HR 06/19/17 06/19/17 Fluticasone Propionate Nasal 1 spr NS BID 06/19/17 06/19/17 [Flonase] Melatonin [Melatin] 9 mg PO HS 06/19/17 06/19/17 Metoprolol Succinate [Toprol Xl] 25 mg PO DAILY 06/19/17 06/19/17 hydrOXYzine HCl [Hydroxyzine HCl] 25 mg PO QID 06/19/17 06/19/17 traZODone [TraZODone] 50 mg PO HS 06/19/17 06/19/17 Previous Rx's Medication Instructions Recorded Aspirin Enteric Coated [Aspirin EC] 81 mg PO DAILY #30 tablet. 08/03/16 Levothyroxine [Synthroid] 75 mcg PO 0630 #30 tablet 06/20/17 Allergies/Adverse Reactions: Allergies Allergy/AdvReac Type Severity Reaction Status Date / Time egg AdvReac See Verified 06/19/17 19:28 Comments milk AdvReac Vomiting Verified 06/19/17 19:28 pyridoxine AdvReac Rash Verified 06/19/17 19:28 All systems ED: reviewed and negative except as stated. Constitutional: Denies: fever Cardiovascular: Denies: chest pain Respiratory: Denies: cough, dyspnea Gastrointestinal: Denies: abdominal pain, nausea, vomiting, diarrhea Genitourinary: Denies: urgency, dysuria Musculoskeletal: Denies: back pain, neck pain Neurological: Reports: weakness (Lower extremity). Denies: headache, numbness Past Medical History - Past Medical History Attestation: Yes The following information was validated with the patient. Medical history: Reports: CVA, hypertension, thyroid disease, other Surgical history: Reports: Psychiatric history: Reports: ADHD - Social History Smoking Status: Current every day smoker Smokeless Tobacco Status: No Alcohol use: Reports: rarely Drug use: Reports: none Physical Exam - General Limitations: no limitations General appearance: alert, in no apparent distress - Head Head exam: atraumatic, normocephalic, normal inspection - Eye Eye exam: Present: normal appearance, PERRL, EOMI - ENT ENT exam: normal exam, normal oropharynx, mucous membranes moist, TM's normal bilaterally - Neck Neck exam: Present: normal inspection, full ROM, trachea midline - Chest Chest inspection: Present: normal inspection, symmetric chest wall rise - Respiratory Respiratory exam: Present: normal lung sounds bilaterally - Cardiovascular Cardiovascular exam: Present: regular rate, normal rhythm, normal heart sounds - Abdominal Exam Abdominal exam: Present: soft, Non-Tender. Absent: tenderness, distention, guarding, rebound, rigidity - Extremities Exam Extremities exam: Present: normal inspection, full ROM. Absent: tenderness, pedal edema - Neurological Exam Neurological exam: Present: alert, oriented X3, CN II-XII intact. Absent: motor sensory deficit - Expanded Neurological Exam Patient oriented to: Present: person, place, time Speech: Present: fluid speech Cranial nerves: EOM function (II, III, IV, ): Normal, facial sensation (V): Normal, facial palsy (VII): Normal, spinal accessory function (XI): Normal, tongue deviation (XII): Normal Motor strength - LUE: 5/5 Motor strength - RUE: 5/5 Motor strength - LLE: 5/5 Motor strength - RLE: 5/5 Sensory exam upper extremity: light touch: Normal Sensory exam lower extremity: light touch: Normal Coma Scale Eye Opening: Spontaneous Coma Scale Motor Response: Obeys Commands Coma Scale Verbal Response: Oriented Coma Scale Total: 15 - Psychiatric Psychiatric exam: Present: normal affect, normal mood - Skin Skin exam: Present: warm, dry, intact, normal color Course Course Narrative: On presentation, NIH score was 0. No focal neurologic deficits. Heart regular rate and rhythm, lungs clear to auscultation, abdomen soft and nontender. In no acute distress. HEENT exam is within normal limits. She is currently asymptomatic. EKG repeated here and does show T-wave inversion in V1, V2, V3, V4, V5, lead 3, lead 2. No acute ST elevation. These are new changes from EKG that was performed on 05/22/2017 on EKG that was provided by the [facility]. She is currently denying any chest pain or shortness of breath. She has a Coumadin agreement form in her chart but currently states that she is not on Coumadin. She is unsure of any blood thinners at this time. We will perform CT the head, CTA head and neck, basic blood work, EKG, chest x-ray. We will likely admit for further CVA workup. 21:00 labs show chronic hyponatremia. Otherwise, no other major abnormalities. Waiting on CTA of the head and neck, CT noncontrast head. Did not recommend admitting for CVA workup. Patient will be signed out to Dr. Apple and Dr. Nelsy Post for further care and disposition. Vital Signs Temperature 98.9 F 11/04/17 18:00 Pulse Rate 101 11/04/17 18:00 Respiratory Rate 18 11/04/17 18:00 Blood Pressure 161/96 11/04/17 18:00 O2 Sat by Pulse Oximetry 100 11/04/17 18:00 Temperature 98.9 F 11/04/17 18:00 Pulse Rate 101 11/04/17 18:00 Respiratory Rate 18 11/04/17 18:00 Blood Pressure 161/96 11/04/17 18:00 O2 Sat by Pulse Oximetry 100 11/04/17 18:00 Oxygen Delivery Oxygen Delivery Room Air Neuro Symptoms/Deficit - MDM Narrative Medical decision making narrative: On presentation, NIH score was 0. No focal neurologic deficits. Heart regular rate and rhythm, lungs clear to auscultation, abdomen soft and nontender. In no acute distress. HEENT exam is within normal limits. She is currently asymptomatic. EKG repeated here and does show T-wave inversion in V1, V2, V3, V4, V5, lead 3, lead 2. No acute ST elevation. These are new changes from EKG that was performed on 05/22/2017 on EKG that was provided by the [facility]. She is currently denying any chest pain or shortness of breath. She has a Coumadin agreement form in her chart but currently states that she is not on Coumadin. She is unsure of any blood thinners at this time. We will perform CT the head, CTA head and neck, basic blood work, EKG, chest x-ray. We will likely admit for further CVA workup. 21:00 labs show chronic hyponatremia. Otherwise, no other major abnormalities. Waiting on CTA of the head and neck, CT noncontrast head. Did not recommend admitting for CVA workup. Patient will be signed out to Dr. Apple and Dr. Nelsy Post for further care and disposition. - Medical Records Medical records reviewed: Yes I reviewed the patient's medical records. - Lab Data Lab results reviewed: Yes I reviewed the patient's lab results. Result diagrams: 11/04/17 18:44 11/04/17 18:44 Lab Results 11/04/17 11/04/17 11/04/17 Range/Units 18:44 18:44 18:44 WBC 5.8 (4.3-11.1) K/mcL RBC 4.09 (3.82-4.97) M/mcL Hgb 12.6 (11.5-15.4) g/dL Hct 35.0 L (35.3-44.9) % MCV 85.6 (83.0-100.0) fL MCH 30.8 (28.0-33.3) pg MCHC 36.0 H (31.6-35.5) g/dL RDW 12.8 (11.5-14.5) % Plt Count 293 (140-400) K/mcL MPV 8.8 L (9.4-12.4) fL Immature Gran % 0.5 (0-4) % Seg Neutrophils % 69.3 % Lymphocytes % 19.3 % Monocytes % 9.2 % Eosinophils % 0.7 % Basophils % 1.0 % Neutrophils # 4.0 (1.6-8.9) K/mcL Lymphocytes # 1.1 (0.6-4.6) K/mcL Monocytes # 0.5 (0.0-1.3) K/mcL Eosinophils # 0.0 (0.0-0.6) K/mcL Basophils # 0.1 (0.0-0.2) K/mcL PT 11.7 (9.4-12.1) Seconds INR 1.0 APTT 31.0 (26.0-36.0) Seconds Sodium 123 L (136-145) mEq/L Potassium 3.3 L (3.5-5.1) mEq/L Chloride 94 L (98-107) mEq/L Carbon Dioxide 19 L (23-29) mEq/L BUN 4 L (6-20) mg/dL Creatinine 0.43 L (0.60-1.20) mg/dL Est GFR ( Amer) > 60 (> 60) Est GFR (Non-Af Amer) > 60 (> 60) BUN/Creatinine Ratio 9 (6-26) Glucose 90 (70-105) mg/dL Calculated Osmolality 252 L (280-300) Calcium 8.8 (8.6-10.3) mg/dL Troponin I < 0.03 (< 0.04) ng/mL NIH Stroke Scale - Level of Consciousness LOC: Alert - LOC Questions LOC Questions: Answers both correctly - LOC Commands LOC Commands: Performs both correctly - Best Gaze Best Gaze: Normal - Visual Visual: No visual loss - Facial Palsy Facial Palsy: Normal - Motor Arms Motor Arm-Left: No drift for 10 seconds Motor Arm-Right: No drift for 10 seconds - Motor Legs Motor Leg-Left: No drift for 5 seconds Motor Leg-Right: No drift for 5 seconds - Limb Ataxia Limb Ataxia: Absent of affected limb too weak to perform exam - Sensory Sensory: Normal - Best Language Best Language: No aphasia - Dysarthria Dysarthria: Normal - Extinction and Inattention Extinction and Inattention: Normal - NIHSS Total Score NIHSS Total Score: 0 S.B.A.R. - S.B.A.R. Situation: Demographics, MOA Background: Presenting Complaint, Relevant PMH, Meds, & Allergies Assessment: Vital Signs, Course and respsone to treatment, Exam Concerns, Patient/Family Expectation, Pertinant Lab Results, Outstanding Labs Recommendation: Barrier(s) to disposition, Recommendation based on pending studies, treatments, or consults S.B.A.R. Report Given to: Dr. apple,Dr. Nelsy Post Attestation Statement - Attestation Attestation: I, Adonay Seals DO, examined this patient [id number] and my medical decision-making was reviewed withDr. Jaxon Herbert Resident Physician. I agree with the documented findings, disposition and treatment plan as described except to the extent set forth below. Please see my progress notes for details.
[2017-11-04 19:03] LABS: Prothrombin Time 11.7 Seconds (9.4-12.1)
[2017-11-04 19:14] LABS: Basophils # 0.1 K/mcL (0.0-0.2); Eosinophils % 0.7 %; Hemoglobin 12.6 g/dL (11.5-15.4); Immature Granulocytes % 0.5 % (0-4); Lymphocytes # 1.1 K/mcL (0.6-4.6); Lymphocytes % 19.3 %; Mean Corpuscular Hemoglobin 30.8 pg (28.0-33.3); Mean Corpuscular Volume 85.6 fL (83.0-100.0); Mean Platelet Volume 8.8 fL (9.4-12.4); Monocytes # 0.5 K/mcL (0.0-1.3); Monocytes % 9.2 %; Platelet Count 293 K/mcL (140-400); Red Blood Count 4.09 M/mcL (3.82-4.97); Red Cell Distribution Width 12.8 % (11.5-14.5); Segmented Neutrophils % 69.3 %
--- NOTE | 2017-11-04 19:33 | Emergency Department Note ---
Disposition Clinical Impression: Hyponatremia Hearing loss Qualifiers: Hearing loss type: unspecified Laterality: right Qualified Code(s): H91.91 - Unspecified hearing loss, right ear Lower extremity weakness Qualifiers: Laterality: bilateral Qualified Code(s): R29.898 - Other symptoms and signs involving the musculoskeletal system Disposition: Still a Patient Condition: Good [facility]: [facility] [Primary Care Provider[facility] - Forms: ED Satisfaction Letter, Work/School Release Time of Disposition: 21:15 General Adult HPI - General Chief complaint: ED General Medical Stated complaint: ekg changes Time Seen by Provider: 11/04/17 17:58 Source: patient, EMS Mode of arrival: EMS Limitations: no limitations - History of Present Illness Pain Scale: 0 Associated symptoms: Reports: weakness Treatments Prior to Arrival: none - Related Data Home Medications Medication Instructions Recorded Confirmed Citalopram Hydrobromide 20 mg PO DAILY 06/15/16 06/19/17 [Citalopram HBr] Ipratropium [ATROVENT Inhaler] 2 puff IH QID 06/15/16 06/19/17 Montelukast [Singulair] 10 mg PO DAILY PRN 06/15/16 06/19/17 Omeprazole [PriLOSEC] 20 mg PO DAILY 06/15/16 06/19/17 Albuterol Sulfate [Albuterol 2 puff IH QID PRN 08/02/16 06/19/17 Inhaler] Ibuprofen [Motrin] 600 mg PO Q6HR PRN 08/02/16 06/19/17 Magnesium Oxide [Mag-Ox] 400 mg PO BID 08/02/16 06/19/17 Potassium Chloride [K-Tab ER] 20 meq PO DAILY 08/02/16 06/19/17 Acetaminophen [8Hr Muscle 650 mg PO Q6H PRN 06/19/17 06/19/17 Aches-Pain] Atorvastatin Calcium [Lipitor] 20 mg PO HS 06/19/17 06/19/17 Cyclobenzaprine HCl 5 mg PO TID PRN 06/19/17 06/19/17 Diltiazem [Cardizem] 60 mg PO Q8HR 06/19/17 06/19/17 Fluticasone Propionate Nasal 1 spr NS BID 06/19/17 06/19/17 [Flonase] Melatonin [Melatin] 9 mg PO HS 06/19/17 06/19/17 Metoprolol Succinate [Toprol Xl] 25 mg PO DAILY 06/19/17 06/19/17 hydrOXYzine HCl [Hydroxyzine HCl] 25 mg PO QID 06/19/17 06/19/17 traZODone [TraZODone] 50 mg PO HS 06/19/17 06/19/17 Previous Rx's Medication Instructions Recorded Aspirin Enteric Coated [Aspirin EC] 81 mg PO DAILY #30 tablet. 08/03/16 Levothyroxine [Synthroid] 75 mcg PO 0630 #30 tablet 06/20/17 Allergies Allergy/AdvReac Type Severity Reaction Status Date / Time egg AdvReac See Verified 06/19/17 19:28 Comments milk AdvReac Vomiting Verified 06/19/17 19:28 pyridoxine AdvReac Rash Verified 06/19/17 19:28 Constitutional: Denies: fever ENT ED: Reports: hearing loss, congestion Cardiovascular: Denies: chest pain Respiratory: Denies: cough, dyspnea Gastrointestinal: Denies: abdominal pain, nausea, vomiting, diarrhea Genitourinary: Denies: urgency, dysuria Musculoskeletal: Denies: back pain, neck pain Neurological: Reports: weakness (Lower extremity). Denies: headache, numbness Past Medical History - Past Medical History Medical history: Reports: CVA, hypertension, thyroid disease, other Surgical history: Reports: Psychiatric history: Reports: ADHD - Social History Smoking Status: Current every day smoker Smokeless Tobacco Status: No Alcohol use: Reports: rarely Drug use: Reports: none Physical Exam - General Limitations: no limitations General appearance: alert, in no apparent distress Course Vital Signs Temperature 98.9 F 11/04/17 18:00 Pulse Rate 101 11/04/17 18:00 Respiratory Rate 18 11/04/17 18:00 Blood Pressure 161/96 11/04/17 18:00 O2 Sat by Pulse Oximetry 100 11/04/17 18:00 Temperature 98.9 F 11/04/17 18:00 Pulse Rate 101 11/04/17 18:00 Respiratory Rate 18 11/04/17 18:00 Blood Pressure 161/96 11/04/17 18:00 O2 Sat by Pulse Oximetry 100 11/04/17 18:00 Oxygen Delivery Oxygen Delivery Room Air Medical Decision Making - Lab Data Result diagrams: 11/04/17 18:44 09/01/18 18:44 Lab Results 11/04/17 11/04/17 11/04/17 Range/Units 18:44 18:44 18:44 WBC 5.8 (4.3-11.1) K/mcL RBC 4.09 (3.82-4.97) M/mcL Hgb 12.6 (11.5-15.4) g/dL Hct 35.0 L (35.3-44.9) % MCV 85.6 (83.0-100.0) fL MCH 30.8 (28.0-33.3) pg MCHC 36.0 H (31.6-35.5) g/dL RDW 12.8 (11.5-14.5) % Plt Count 293 (140-400) K/mcL MPV 8.8 L (9.4-12.4) fL Immature Gran % 0.5 (0-4) % Seg Neutrophils % 69.3 % Lymphocytes % 19.3 % Monocytes % 9.2 % Eosinophils % 0.7 % Basophils % 1.0 % Neutrophils # 4.0 (1.6-8.9) K/mcL Lymphocytes # 1.1 (0.6-4.6) K/mcL Monocytes # 0.5 (0.0-1.3) K/mcL Eosinophils # 0.0 (0.0-0.6) K/mcL Basophils # 0.1 (0.0-0.2) K/mcL PT 11.7 (9.4-12.1) Seconds INR 1.0 APTT 31.0 (26.0-36.0) Seconds Sodium 123 L (136-145) mEq/L Potassium 3.3 L (3.5-5.1) mEq/L Chloride 94 L (98-107) mEq/L Carbon Dioxide 19 L (23-29) mEq/L BUN 4 L (6-20) mg/dL Creatinine 0.43 L (0.60-1.20) mg/dL Est GFR ( Amer) > 60 (> 60) Est GFR (Non-Af Amer) > 60 (> 60) BUN/Creatinine Ratio 9 (6-26) Glucose 90 (70-105) mg/dL Calculated Osmolality 252 L (280-300) Calcium 8.8 (8.6-10.3) mg/dL Troponin I < 0.03 (< 0.04) ng/mL Attestation Statement - Attestation Attestation: I, Adonay Seals DO, examined this patient [id number] and my medical decision-making was reviewed with Dr. Jaxon Herbert, Resident Physician. I agree with the documented findings, disposition and treatment plan as described except to the extent set forth below. Please see my progress notes for details. 57-year-old female presents emergency room for the [facility] for evaluation of abnormal EKG. Patient was seen there today secondary to pressure inside of her head. She has had this on and off over the last several days but is worse today however she fell issues having difficulty walking. Patient has history of strokes according to her she denies any chest pain shortness of breath headache vision changes nausea vomiting or diarrhea. Denies any fevers or chills. Denies any falls trauma or injury. She has not been started on any new medications but she does not recall being on any blood thinners. Patient was seen and evaluated outside facility and supposedly had some labs completed the did not show any acute signs of cardiac related etiology. EKG revealed transported with her shows T-wave inversions in 23 aVF as well as lateral precordial leads. There is no visible signs of ST segment elevation or abnormality at this time. Vital signs are reviewed and are stable. Repeat EKG as well as labs including CBC chemistry and troponin will be added on. CT imaging the head will be resulted. Disposition pending the full workup and treatment course. See detailed documentation of the physical exam, medical intervention, medical decision-making and disposition in the resident physician's note. 2100 Patient's cardiac evaluation is unremarkable at this time troponin is negative. CT of the head is unremarkable but CT angiography of the head and neck are still pending. Patient will require admission for TIA like symptoms after this workup is completed. Patient was discussed and reviewed with the physician Dr. Nelsy Post and Dr. Dowd. We will continue the treatment course and follow up on the imaging modalities. Patient is otherwise clinically stable in no distress pending further evaluation and possible admission
[2017-11-04 19:53] LABS: Troponin I < 0.03 ng/mL (< 0.04)
[2017-11-04 19:59] LABS: BUN/Creatinine Ratio 9 (6-26); Blood Urea Nitrogen 4 mg/dL (6-20); Calcium 8.8 mg/dL (8.6-10.3); Carbon Dioxide 19 mEq/L (23-29); Chloride 94 mEq/L (98-107); Glucose 90 mg/dL (70-105); Osmolality,Calculated 252 (280-300); Potassium 3.3 mEq/L (3.5-5.1); Sodium 123 mEq/L (136-145); eGFR For Non-African Americans > 60 (> 60)
[2017-11-04] MEDS ORDERED: Tdap (Boostrix) Vaccine 0.5 ML SYRINGE IM ONE (20:41)
[2017-11-04] MEDS ORDERED: Aspirin 325 MG TABLET PO ONE (23:40)
--- NOTE | 2017-11-04 23:40 | Emergency Department Note ---
Disposition Clinical Impression: Hyponatremia, T wave inversion in EKG, TIA (transient ischemic attack) Disposition: Admitted As Inpatient Condition: Good [facility] - Forms: ED Satisfaction Letter, Work/School Release General Adult HPI - General Chief complaint: ED General Medical Stated complaint: ekg changes Time Seen by Provider: 11/04/17 17:58 Source: patient, EMS Mode of arrival: EMS Limitations: no limitations - History of Present Illness Pain Scale: 0 Associated symptoms: Reports: weakness Treatments Prior to Arrival: none - Related Data Home Medications Medication Instructions Recorded Confirmed Citalopram Hydrobromide 20 mg PO DAILY 06/15/16 06/19/17 [Citalopram HBr] Ipratropium [ATROVENT Inhaler] 2 puff IH QID 06/15/16 06/19/17 Montelukast [Singulair] 10 mg PO DAILY PRN 06/15/16 06/19/17 Omeprazole [PriLOSEC] 20 mg PO DAILY 06/15/16 06/19/17 Albuterol Sulfate [Albuterol 2 puff IH QID PRN 08/02/16 06/19/17 Inhaler] Ibuprofen [Motrin] 600 mg PO Q6HR PRN 08/02/16 06/19/17 Magnesium Oxide [Mag-Ox] 400 mg PO BID 08/02/16 06/19/17 Potassium Chloride [K-Tab ER] 20 meq PO DAILY 08/02/16 06/19/17 Acetaminophen [8Hr Muscle 650 mg PO Q6H PRN 06/19/17 06/19/17 Aches-Pain] Atorvastatin Calcium [Lipitor] 20 mg PO HS 06/19/17 06/19/17 Cyclobenzaprine HCl 5 mg PO TID PRN 06/19/17 06/19/17 Diltiazem [Cardizem] 60 mg PO Q8HR 06/19/17 06/19/17 Fluticasone Propionate Nasal 1 spr NS BID 06/19/17 06/19/17 [Flonase] Melatonin [Melatin] 9 mg PO HS 06/19/17 06/19/17 Metoprolol Succinate [Toprol Xl] 25 mg PO DAILY 06/19/17 06/19/17 hydrOXYzine HCl [Hydroxyzine HCl] 25 mg PO QID 06/19/17 06/19/17 traZODone [TraZODone] 50 mg PO HS 06/19/17 06/19/17 Previous Rx's Medication Instructions Recorded Aspirin Enteric Coated [Aspirin EC] 81 mg PO DAILY #30 tablet. 08/03/16 Levothyroxine [Synthroid] 75 mcg PO 0630 #30 tablet 06/20/17 Allergies Allergy/AdvReac Type Severity Reaction Status Date / Time egg AdvReac See Verified 06/19/17 19:28 Comments milk AdvReac Vomiting Verified 06/19/17 19:28 pyridoxine AdvReac Rash Verified 06/19/17 19:28 Constitutional: Reports: as per HPI ENT ED: Reports: hearing loss, congestion Cardiovascular: Denies: chest pain Respiratory: Reports: cough. Denies: dyspnea Gastrointestinal: Denies: abdominal pain, nausea, vomiting, diarrhea, constipation Genitourinary: Denies: urgency Musculoskeletal: Denies: back pain, neck pain Neurological: Reports: weakness. Denies: numbness, paresthesias, abnormal gait Past Medical History - Past Medical History Medical history: Reports: CVA, hyperlipidemia, hypertension, thyroid disease, other Surgical history: Reports: Psychiatric history: Reports: ADHD - Social History Smoking Status: Current every day smoker Smokeless Tobacco Status: No Alcohol use: Reports: rarely Drug use: Reports: none Physical Exam - General Limitations: no limitations General appearance: alert, in no apparent distress Course Vital Signs Temperature 98.9 F 11/04/17 18:00 Pulse Rate 101 11/04/17 18:00 Respiratory Rate 18 11/04/17 18:00 Blood Pressure 161/96 11/04/17 18:00 O2 Sat by Pulse Oximetry 100 11/04/17 18:00 Temperature 98.9 F 11/04/17 18:00 Pulse Rate 101 11/04/17 18:00 Respiratory Rate 18 11/04/17 18:00 Blood Pressure 161/96 11/04/17 18:00 O2 Sat by Pulse Oximetry 100 11/04/17 18:00 Oxygen Delivery Oxygen Delivery Room Air Medical Decision Making - Lab Data Result diagrams: 11/04/17 18:44 11/04/17 18:44 Lab Results 11/04/17 11/04/17 11/04/17 Range/Units 18:44 18:44 18:44 WBC 5.8 (4.3-11.1) K/mcL RBC 4.09 (3.82-4.97) M/mcL Hgb 12.6 (11.5-15.4) g/dL Hct 35.0 L (35.3-44.9) % MCV 85.6 (83.0-100.0) fL MCH 30.8 (28.0-33.3) pg MCHC 36.0 H (31.6-35.5) g/dL RDW 12.8 (11.5-14.5) % Plt Count 293 (140-400) K/mcL MPV 8.8 L (9.4-12.4) fL Immature Gran % 0.5 (0-4) % Seg Neutrophils % 69.3 % Lymphocytes % 19.3 % Monocytes % 9.2 % Eosinophils % 0.7 % Basophils % 1.0 % Neutrophils # 4.0 (1.6-8.9) K/mcL Lymphocytes # 1.1 (0.6-4.6) K/mcL Monocytes # 0.5 (0.0-1.3) K/mcL Eosinophils # 0.0 (0.0-0.6) K/mcL Basophils # 0.1 (0.0-0.2) K/mcL PT 11.7 (9.4-12.1) Seconds INR 1.0 APTT 31.0 (26.0-36.0) Seconds Sodium 123 L (136-145) mEq/L Potassium 3.3 L (3.5-5.1) mEq/L Chloride 94 L (98-107) mEq/L Carbon Dioxide 19 L (23-29) mEq/L BUN 4 L (6-20) mg/dL Creatinine 0.43 L (0.60-1.20) mg/dL Est GFR ( Amer) > 60 (> 60) Est GFR (Non-Af Amer) > 60 (> 60) BUN/Creatinine Ratio 9 (6-26) Glucose 90 (70-105) mg/dL Calculated Osmolality 252 L (280-300) Calcium 8.8 (8.6-10.3) mg/dL Troponin I < 0.03 (< 0.04) ng/mL Attestation Statement - Attestation Attestation: I examined this patient and my medical decision-making was reviewed with the Resident Physician. I agree with the documented findings, disposition and treatment plan as described except to the extent set forth below. 57 year old female prsentse to the ED with complaints of EKG changes and stroke like symptoms that occured earlier today. [facility] and fond ot have EKF changes with t wave inversions in the precordial leads. Patinet HCT is negative and has a history of strokesx3 and states that she was havign ssymptoms simliar ot thos einthe past but they have no resolved. We will admit ot medicine for a cardioneuro workup
--- NOTE | 2017-11-04 23:55 | Emergency Department Note ---
Disposition Clinical Impression: Hyponatremia, T wave inversion in EKG, TIA (transient ischemic attack) Disposition: Admitted As Inpatient Condition: Good [facility]errals: [facility] [Primary Care Provider[facility] - Forms: ED Satisfaction Letter, Work/School Release General Adult HPI - General Chief complaint: ED General Medical Stated complaint: ekg changes Time Seen by Provider: 11/04/17 17:58 Source: patient, EMS Mode of arrival: EMS Limitations: no limitations - History of Present Illness Pain Scale: 0 Associated symptoms: Reports: weakness Treatments Prior to Arrival: none - Related Data Home Medications Medication Instructions Recorded Confirmed Citalopram Hydrobromide 20 mg PO DAILY 06/15/16 06/19/17 [Citalopram HBr] Ipratropium [ATROVENT Inhaler] 2 puff IH QID 06/15/16 06/19/17 Montelukast [Singulair] 10 mg PO DAILY PRN 06/15/16 06/19/17 Omeprazole [PriLOSEC] 20 mg PO DAILY 06/15/16 06/19/17 Albuterol Sulfate [Albuterol 2 puff IH QID PRN 08/02/16 06/19/17 Inhaler] Ibuprofen [Motrin] 600 mg PO Q6HR PRN 08/02/16 06/19/17 Magnesium Oxide [Mag-Ox] 400 mg PO BID 08/02/16 06/19/17 Potassium Chloride [K-Tab ER] 20 meq PO DAILY 08/02/16 06/19/17 Acetaminophen [8Hr Muscle 650 mg PO Q6H PRN 06/19/17 06/19/17 Aches-Pain] Atorvastatin Calcium [Lipitor] 20 mg PO HS 06/19/17 06/19/17 Cyclobenzaprine HCl 5 mg PO TID PRN 06/19/17 06/19/17 Diltiazem [Cardizem] 60 mg PO Q8HR 06/19/17 06/19/17 Fluticasone Propionate Nasal 1 spr NS BID 06/19/17 06/19/17 [Flonase] Melatonin [Melatin] 9 mg PO HS 06/19/17 06/19/17 Metoprolol Succinate [Toprol Xl] 25 mg PO DAILY 06/19/17 06/19/17 hydrOXYzine HCl [Hydroxyzine HCl] 25 mg PO QID 06/19/17 06/19/17 traZODone [TraZODone] 50 mg PO HS 06/19/17 06/19/17 Previous Rx's Medication Instructions Recorded Aspirin Enteric Coated [Aspirin EC] 81 mg PO DAILY #30 tablet. 08/03/16 Levothyroxine [Synthroid] 75 mcg PO 0630 #30 tablet 06/20/17 Allergies Allergy/AdvReac Type Severity Reaction Status Date / Time egg AdvReac See Verified 06/19/17 19:28 Comments milk AdvReac Vomiting Verified 06/19/17 19:28 pyridoxine AdvReac Rash Verified 06/19/17 19:28 Constitutional: Reports: as per HPI ENT ED: Reports: hearing loss, congestion Cardiovascular: Denies: chest pain Respiratory: Reports: cough. Denies: dyspnea Gastrointestinal: Denies: abdominal pain, nausea, vomiting, diarrhea, constipation Genitourinary: Denies: urgency Musculoskeletal: Denies: back pain, neck pain Neurological: Reports: weakness. Denies: numbness, paresthesias, abnormal gait Past Medical History - Past Medical History Medical history: Reports: CVA, hyperlipidemia, hypertension, thyroid disease, other Surgical history: Reports: Psychiatric history: Reports: ADHD - Social History Smoking Status: Current every day smoker Smokeless Tobacco Status: No Alcohol use: Reports: rarely Drug use: Reports: none Physical Exam - General Limitations: no limitations General appearance: alert, in no apparent distress Course Vital Signs Temperature 98.9 F 11/04/17 18:00 Pulse Rate 101 11/04/17 18:00 Respiratory Rate 18 11/04/17 18:00 Blood Pressure 161/96 11/04/17 18:00 O2 Sat by Pulse Oximetry 100 11/04/17 18:00 Temperature 98.9 F 11/04/17 18:00 Pulse Rate 101 11/04/17 18:00 Respiratory Rate 18 11/04/17 18:00 Blood Pressure 161/96 11/04/17 18:00 O2 Sat by Pulse Oximetry 100 11/04/17 18:00 Oxygen Delivery Oxygen Delivery Room Air Medical Decision Making - MDM Narrative Medical decision making narrative: 49-year-old female who initially presented today hearing loss and lower extremity weakness. Signed out from day shift team pending had imaging. She was difficult with access so this was changed to a noncontrast head CT which showed no acute findings. Been concern today is that she has new EKG findings from her prior in May. She voices a little bit of shortness of breath but no chest pain. She is hemodynamically stable. The patient is admitted for EKG changes and for neuro monitoring. - Lab Data Lab results reviewed: Yes I reviewed the patient's lab results. Result diagrams: 11/04/17 18:44 11/04/17 18:44 Lab Results 11/04/17 11/04/17 11/04/17 Range/Units 18:44 18:44 18:44 WBC 5.8 (4.3-11.1) K/mcL RBC 4.09 (3.82-4.97) M/mcL Hgb 12.6 (11.5-15.4) g/dL Hct 35.0 L (35.3-44.9) % MCV 85.6 (83.0-100.0) fL MCH 30.8 (28.0-33.3) pg MCHC 36.0 H (31.6-35.5) g/dL RDW 12.8 (11.5-14.5) % Plt Count 293 (140-400) K/mcL MPV 8.8 L (9.4-12.4) fL Immature Gran % 0.5 (0-4) % Seg Neutrophils % 69.3 % Lymphocytes % 19.3 % Monocytes % 9.2 % Eosinophils % 0.7 % Basophils % 1.0 % Neutrophils # 4.0 (1.6-8.9) K/mcL Lymphocytes # 1.1 (0.6-4.6) K/mcL Monocytes # 0.5 (0.0-1.3) K/mcL Eosinophils # 0.0 (0.0-0.6) K/mcL Basophils # 0.1 (0.0-0.2) K/mcL PT 11.7 (9.4-12.1) Seconds INR 1.0 APTT 31.0 (26.0-36.0) Seconds Sodium 123 L (136-145) mEq/L Potassium 3.3 L (3.5-5.1) mEq/L Chloride 94 L (98-107) mEq/L Carbon Dioxide 19 L (23-29) mEq/L BUN 4 L (6-20) mg/dL Creatinine 0.43 L (0.60-1.20) mg/dL Est GFR ( Amer) > 60 (> 60) Est GFR (Non-Af Amer) > 60 (> 60) BUN/Creatinine Ratio 9 (6-26) Glucose 90 (70-105) mg/dL Calculated Osmolality 252 L (280-300) Calcium 8.8 (8.6-10.3) mg/dL Troponin I < 0.03 (< 0.04) ng/mL - Radiology Data Radiology results reviewed: Yes I reviewed the patient's radiology results. Head CT 11/04/17 00:00 IMPRESSION: No acute intracranial abnormality. D/ / Reese Pinon MD / Reese Pinon MD Interpreting Provider: Reese Pinon MD Chest X-Ray 11/04/17 18:24 IMPRESSION: No acute process. D/ / Bradley Alvarez MD / Bradley Alvarez MD Interpreting Provider: Bradley Alvarez MD Lela - Lela Situation: Demographics, MOA Background: Presenting Complaint, Relevant PMH, Meds, & Allergies Assessment: Course and respsone to treatment, Exam Concerns, Patient/Family Expectation, Pertinant Lab Results Recommendation: Barrier(s) to disposition, Recommendation based on pending studies, treatments, or consults [email or web address] Report Given to: Hospitalist Lela Macario Time: 23:54
[2017-11-04] MEDS ORDERED: Naloxone 0.4 MG/ML INJ IVP PRN (23:58)
[2017-11-05] MEDS ORDERED: Folic Acid 1 MG TABLET PO SCH (00:15)
[2017-11-05] MEDS ORDERED: Vitamin B Complex/Vit C/Vit E 1 EACH TABLET PO SCH (00:15)
[2017-11-05] MEDS ORDERED: Thiamine (B-1) 100 MG TABLET PO SCH (00:15)
[2017-11-05 00:54] LABS: Basophils % 0.6 %; Eosinophils # 0.1 K/mcL (0.0-0.6); Eosinophils % 1.2 %; Hematocrit 34.1 % (35.3-44.9); Hemoglobin 12.3 g/dL (11.5-15.4); Immature Granulocytes % 0.2 % (0-4); Lymphocytes # 1.4 K/mcL (0.6-4.6); Lymphocytes % 21.6 %; Mean Corpuscular HGB Conc 36.1 g/dL (31.6-35.5); Mean Corpuscular Volume 85.9 fL (83.0-100.0); Mean Platelet Volume 8.9 fL (9.4-12.4); Monocytes # 0.5 K/mcL (0.0-1.3); Monocytes % 7.4 %; Neutrophils # 4.6 K/mcL (1.6-8.9); Platelet Count 269 K/mcL (140-400); Red Blood Count 3.97 M/mcL (3.82-4.97); Red Cell Distribution Width 12.8 % (11.5-14.5)
[2017-11-05 01:12] LABS: Alanine Aminotransferase 11 Units/L (7-52); Albumin/Globulin Ratio 1.3 (1.1-2.2); Alkaline Phosphatase 149 Units/L (34-104); Aspartate Amino Transferase 17 Units/L (13-39); BUN/Creatinine Ratio 8 (6-26); Bilirubin,Total 0.6 mg/dL (0.3-1.0); Blood Urea Nitrogen 3 mg/dL (6-20); Calcium 8.4 mg/dL (8.6-10.3); Carbon Dioxide 20 mEq/L (23-29); Chloride 94 mEq/L (98-107); Globulin 2.4 g/dL (2.4-3.5); Glucose 75 mg/dL (70-105); Magnesium 1.6 mg/dL (1.6-2.6); Osmolality,Calculated 253 (280-300); Phosphorous 2.6 mg/dL (2.7-4.5); Sodium 124 mEq/L (136-145); Total Protein 5.4 g/dL (6.4-8.9); eGFR For Non-African Americans > 60 (> 60)
[2017-11-05] MEDS ORDERED: Thiamine (B-1) 100 MG, Folic Acid 1 MG, MVI, adult with vitamin K 10 ML in 0.9 % Sodi... IVPB ONE (04:30)
--- NOTE | 2017-11-05 05:40 | Internal Med History&Physical ---
Date of Encounter: 11/04/17 Time of Encounter: 04:35 Internal Medicine - H&P: HPI Chief complaint: Abnormal EKG/Transient hearing loss History of present illness: Ms. Pulliam is a 57 year old female with a past medical history of COPD, hyperlipidemia, hypertension, hypothyroidism, chronic-hyponatremia, alcohol abuse, and 2 CVAs in May 2016 who originally presented to the [place] earlier today complaining of transient loss of hearing involving her left ear and bilateral lower extremity weakness. Patient underwent workup and was found to have new EKG changes not previously noted on a prior EKG. Patient did not endorse any chest pain but was subsequently transferred to [place] for further evaluation. Patient states that she experienced left-sided hearing loss earlier yesterday around 1 PM described as if someone was holding a sock over her ear. Symptoms lasted for 3-4 hours and were not was associated with any pain or upper airway congestion. She denies any recent illness, fever, or chills and eventually the hearing returned. Patient also endorses bilateral lower extremity weakness it has been going for the past 3 days. She states that she can stand but when she ambulates she has difficulty walking. She denies any numbness or tingling in her extremities or low back pain. These symptoms to have also since resolved. She reports poor PO intake which she attributes to her inability to chew food given her poor dentition with many of her natural teeth missing. She states that she is supposed to get dentures but has not been able to do so. Nevertheless she is unable to chew foods except those that are soft. She states that as a result she has lost about 12 pounds over the last month. Patient drinks 2 beers a day and has a significant past smoking history and continues to smoke. Review of EKG shows new T-wave inversions in the precordial leads specifically V3 and V4 when compared to EKG in May 2017 which at this time were upright. Patient received loading dose dose of aspirin in the ED. Past Med Surg Social Fam HX - Past Medical History Medical history: CVA, hyperlipidemia, hypertension, thyroid disease, other Psychiatric history: ADHD - Past Surgical History Surgical History: - Social History Smoking Status: Current every day smoker Smokeless Tobacco Status: No (States she is interesting in a nicotine patch while she is here) Alcohol use: rarely Drug use: none - Family History Mother Living Status: Still Living Hx Family Endocrine Disorder: Yes Internal Medicine - H&P: Meds Ipratropium [ATROVENT Inhaler] 2 puff IH QID PRN 06/15/16 [History] Montelukast [Singulair] 10 mg PO DAILY PRN 06/15/16 [History] Omeprazole [PriLOSEC] 40 mg PO DAILY 06/15/16 [History] Albuterol Sulfate [Albuterol Inhaler] 2 puff IH Q4H PRN 08/02/16 [History] Ibuprofen [Motrin] 600 mg PO TID PRN 08/02/16 [History] Potassium Chloride [K-Tab ER] 20 meq PO DAILY 08/02/16 [History] Aspirin Enteric Coated [Aspirin EC] 81 mg PO DAILY #30 tablet. 08/03/16 [Rx] Atorvastatin Calcium [Lipitor] 20 mg PO HS 06/19/17 [History] Cyclobenzaprine HCl 5 mg PO TID PRN 06/19/17 [History] Fluticasone Propionate Nasal [Flonase] 1 spr NS BID 06/19/17 [History] Melatonin [Melatin] 9 mg PO HS 06/19/17 [History] Metoprolol Succinate [Toprol Xl] 25 mg PO DAILY 06/19/17 [History] hydrOXYzine HCl [Hydroxyzine HCl] 25 mg PO QID 06/19/17 [History] traZODone [TraZODone] 50 mg PO HS 06/19/17 [History] Levothyroxine [Synthroid] 75 mcg PO 0630 #30 tablet 06/20/17 [Rx] Acetaminophen [Tylenol] 650 mg PO Q6HR PRN 11/05/17 [History] Bupropion HCl [Wellbutrin Xl] 300 mg PO DAILY 11/05/17 [History] Calcium Carbonate [Calcium] 500 mg PO BID 11/05/17 [History] Diltiazem HCl [Cardizem] 60 mg PO TID 11/05/17 [History] Ergocalciferol (VITAMIN D2) [Vitamin D] 800 unit PO DAILY 11/05/17 [History] Escitalopram [Lexapro] 10 mg PO DAILY 11/05/17 [History] Estrogens, Conjugated [Premarin Cream] 1 appl VG HS 11/05/17 [History] Medroxyprogesterone Acetate [Provera] 5 mg PO HS 11/05/17 [History] Sodium Chloride [Sodium Chloride Tab] 1 gm PO BID 11/05/17 [History] 3 Allergy/AdvReac Type Severity Reaction Status Date / Time egg AdvReac See Verified 06/19/17 19:28 Comments milk AdvReac Vomiting Verified 06/19/17 19:28 pyridoxine AdvReac Rash Verified 06/19/17 19:28 All Systems PM: A 10-system review of systems was performed and is negative for pertinent findings except as documented above in the HPI. - Constitutional Constitutional: no chills, no fever(s), no night sweats - EENT Eyes: no change in vision, no discharge, no pain, no photophobia Ears: no ear discharge, no ear pain, no tinnitus Nose, mouth and throat: no dysphagia, no nasal discharge, no neck pain, no sore throat - Cardiovascular Cardiovascular ROS IM: no chest pain, no diaphoresis, no dyspnea, no lightheadedness, no palpitations, no syncope - Respiratory Respiratory: no cough, no dyspnea, no wheezing, no excessive phlegm production - Gastrointestinal Gastrointestinal: no abdominal pain, no diarrhea, no hematemesis, no hematochezia, no melena, no nausea, no vomiting - Genitourinary Genitourinary: no change in urinary stream, no dysuria, no flank pain, no hematuria - Musculoskeletal Musculoskeletal ROS IM: no numbness, no tingling - Integumentary Integumentary IM: no rash, no unusual bruising - Neurological Neurological ROS: no confusion, no convulsions, no focal weakness, no numbness, no tingling, no tremor(s) - Hematologic/Lymphatic Hematologic/Lymphatic: no easy bruising - Constitutional Vitals: Temp Pulse Resp BP Pulse Ox 97.3 F L 100 18 152/105 98 11/05/17 02:07 11/05/17 02:07 11/05/17 02:07 11/05/17 02:07 11/05/17 02:07 Exam: General: Alert and oriented 3. Lying in bed in no acute distress. Skin:Normal color, no rash, no lesions. HEENT:EOM, pupils equal, round and reactive. Dry mucous membranes poor dentition with multiple missing teeth Cardiovascular:Normal S1 & S2, no rubs, murmurs or gallops. No JVD. Pulse regular. Lungs:Normal breath sounds, no wheezes or crackles. Abdomen:Soft, non-tender, no rigidity. Extremities:No deformity, no edema or tenderness, no joint swelling or clubbing. Neurological: Cranial nerves II through XII grossly intact; Normal cognition and motor skills with 5 out of 5 muscle strength in the lower extremities.. Pulses:Carotid and radial pulses normal +2. Rest of the physical exam is non contributory Internal Med - H&P Results - Labs CBC & Chem 7: 11/08/17 06:19 11/07/17 07:26 Labs: Short CBC 11/05/17 Range/Units 00:41 WBC 6.6 (4.3-11.1) K/mcL Hgb 12.3 (11.5-15.4) g/dL Hct 34.1 L (35.3-44.9) % Plt Count 269 (140-400) K/mcL Neutrophils # 4.6 (1.6-8.9) K/mcL BMP 11/05/17 00:41 Sodium 124 L Potassium 3.0 L Chloride 94 L Carbon Dioxide 20 L BUN 3 L Creatinine 0.40 L Glucose 75 Calcium 8.4 L Cardiac Enzymes 11/05/17 Range/Units 00:41 Troponin I < 0.03 (< 0.04) ng/mL Liver Function 11/05/17 Range/Units 00:41 Total Bilirubin 0.6 (0.3-1.0) mg/dL AST 17 (13-39) Units/L ALT 11 (7-52) Units/L Alkaline Phosphatase 149 H (34-104) Units/L Albumin 3.0 L (3.5-5.7) g/dL - Assessment and plan (1) Abnormal finding on EKG Current Visit: Yes Status: Acute Assessment and plan: New findings of T-wave inversions within the precordial leads predominantly in V3, V4 and somewhat in V5. These are new findings compared to previous EKG in May 2017. Patient however denies any chest pain or shortness of breath. We will continue to monitor on telemetry. Trend troponins. Consider cardiology consult in the morning. (2) TIA (transient ischemic attack) Current Visit: Yes Status: Suspected Assessment and plan: Low suspicion for TIA in the setting of transient bilateral lower extremity weakness and diminished hearing involving the left ear. CT scan of the head was unremarkable. Patient does have a history of CVA 2 in the past. Her symptoms and more likely be explained by her history of poor by mouth intake, alcohol use and electrolyte derangements. At this time we will continue neuro checks every 2 hours. Consider MRI. (3) Hyponatremia Current Visit: Yes Status: Resolved Assessment and plan: Hyponatremia likely chronic. Reviewing previous sodium levels, her sodium seems to run in the 120s. Possibly secondary to beer potomania given history of alcohol abuse with low solute intake. We will obtain urine osmolality and urine sodium. For now will provide gentle hydration with normal saline. (4) Hypokalemia Current Visit: Yes Status: Acute Assessment and plan: Mild hypokalemia. We will replete potassium (5) Alcohol use disorder Current Visit: Yes Status: Acute Assessment and plan: Patient reportedly drinks 2 beers a day until has a history of chronic alcohol abuse. We will place patient on CIWA protocol and monitor for signs of withdrawal. (6) Tobacco abuse Current Visit: Yes Status: Chronic Assessment and plan: NicoDerm patch - Time Spent With Patient Total time spent is greater than 50% in coordination of care (as documented) at patient's floor/unit and/or counseling patient:
[2017-11-05] MEDS ORDERED: 0.9 % Sodium Chloride 1,000 ML IVC SCH (06:30)
[2017-11-05] MEDS ORDERED: Potassium Chloride 40 MEQ, Lidocaine 1% 2 ML in D5% in Water 500 ML IVPB ONE (07:42)
[2017-11-05] MEDS: Vitamin B Complex/Vit C/Vit E 1 EACH TABLET PO SCH ×2 (08:24→08:40)
[2017-11-05] MEDS: Thiamine (B-1) 100 MG TABLET PO SCH (08:24)
[2017-11-05] MEDS: Folic Acid 1 MG TABLET PO SCH (08:24)
--- NOTE | 2017-11-05 09:44 | Cardiology Consult Note ---
Date of Encounter: 11/05/17 Time of Encounter: 08:00 Assessment and Plan (1) Abnormal EKG Current Visit: Yes Status: Acute Abnormal ECG in the setting of severe electrolyte imbalance. Troponin negative. No chest pain/discomfort reported. Recent nuclear stress test in June 2017 negative for ischemia; TTE June 2017 demonstrated preserved LVEF with normal wall motion. Recommend replacement of electrolytes--potassium rider ordered. On MVI/thiamine per CIWA protool (ETOH abuse). Check limited TTE. If no significant findings on TTE, anticipate sign-off. Recommend close outpatient f/u with PCP at [place]. Discussion w patient/family: The assessment and plan as outlined above was discussed with the patient and/or family members who expressed understanding and agreement. All questions were answered. Thank you for involving us in the care of your patient. Please call with any questions. The patient will be discussed and reviewed with Dr. Concepcion; changes to be made accordingly. History of Present Illness Consult date: 11/05/17 Requesting physician: Tiny Salazar Consult reason: ECG changes Chief complaint: TIA symptoms History of present illness: Ms. Pulliam is a 57 year old female with PMHx significant of HTN, DVT, ETOH abuse, and CVA (x3 last year per patient) who presented to the [place] with TIA symptoms including dizziness, difficulty walking, and sinus/head pressure. Reports symptoms had been ongoing for the past 1 week. ECG with T wave changes at [place] therefore patient was sent to [facility] for further evaluation. Significant electrolyte abnormality noted upon arrival to ED--hyponatremia and hypokalemia. Troponin negative. Patient denies any other CV symptoms including leg edema, chest pain/discomfort, shortness of breath or syncope. Of note, patient is poor historian. Prior CV testing: TTE 06/20/17: LVEF 60-65%, mild MR, normal wall motion, borderline mild PH Regadenoson nuclear stress 06/20/17: perfusion imaging negative for ischemia or infarct, gated EF=59% Past Med Surg Social Fam HX - Past Medical History Attestation: Yes The following information was validated with the patient. Source: patient Medical history: CVA, hyperlipidemia, hypertension, thyroid disease, other Psychiatric history: ADHD - Past Surgical History Surgical History: - Social History Smoking Status: Current every day smoker Packs per day: 0.5-1 Smokeless Tobacco Status: No (States she is interesting in a nicotine patch while she is here) Alcohol use: rarely Drug use: none - Family History Mother Living Status: Still Living Hx Family Endocrine Disorder: Yes Medications and Allergies Citalopram Hydrobromide [Citalopram HBr] 20 mg PO DAILY 06/15/16 [History] Ipratropium [ATROVENT Inhaler] 2 puff IH QID 06/15/16 [History] Montelukast [Singulair] 10 mg PO DAILY PRN 06/15/16 [History] Omeprazole [PriLOSEC] 20 mg PO DAILY 06/15/16 [History] Albuterol Sulfate [Albuterol Inhaler] 2 puff IH QID PRN 08/02/16 [History] Ibuprofen [Motrin] 600 mg PO Q6HR PRN 08/02/16 [History] Magnesium Oxide [Mag-Ox] 400 mg PO BID 08/02/16 [History] Potassium Chloride [K-Tab ER] 20 meq PO DAILY 08/02/16 [History] Aspirin Enteric Coated [Aspirin EC] 81 mg PO DAILY #30 tablet. 08/03/16 [Rx] Acetaminophen [8Hr Muscle Aches-Pain] 650 mg PO Q6H PRN 06/19/17 [History] Atorvastatin Calcium [Lipitor] 20 mg PO HS 06/19/17 [History] Cyclobenzaprine HCl 5 mg PO TID PRN 06/19/17 [History] Diltiazem [Cardizem] 60 mg PO Q8HR 06/19/17 [History] Fluticasone Propionate Nasal [Flonase] 1 spr NS BID 06/19/17 [History] Melatonin [Melatin] 9 mg PO HS 06/19/17 [History] Metoprolol Succinate [Toprol Xl] 25 mg PO DAILY 06/19/17 [History] hydrOXYzine HCl [Hydroxyzine HCl] 25 mg PO QID 06/19/17 [History] traZODone [TraZODone] 50 mg PO HS 06/19/17 [History] Levothyroxine [Synthroid] 75 mcg PO 0630 #30 tablet 06/20/17 [Rx] 3 Allergy/AdvReac Type Severity Reaction Status Date / Time egg AdvReac See Verified 04/16/18 19:28 Comments milk AdvReac Vomiting Verified 06/19/17 19:28 pyridoxine AdvReac Rash Verified 06/19/17 19:28 All Systems Review: The remainder of the systems were reviewed and are negative - Cardiovascular Cardiovascular: as per HPI Physical Examination Vital Signs, Last 4 Hours Temp Pulse Resp BP Pulse Ox 11/05/17 06:52 97.5 F L 100 15 135/92 96 General: Conversant HEENT: Atraumatic, Normocephaly Cardiac: Reg Rate and Rhythm, Normal S1 and S2 Lungs: Normal Breath Sounds Neuro: Alert and responsive Abdomen: Soft Skin: No rashes noted on visualized skin Musculoskeletal: No Chest Wall Tenderness Extremities: No Edema, Normal Pulses Results 11/05/17 00:41 11/05/17 00:41 Lab Results 11/05/17 11/05/17 11/05/17 00:41 00:41 00:41 WBC 6.6 Hgb 12.3 Hct 34.1 L Plt Count 269 Sodium 124 L Potassium 3.0 L Chloride 94 L Carbon Dioxide 20 L BUN 3 L Creatinine 0.40 L Glucose 75 Calcium 8.4 L Magnesium 1.6 Total Bilirubin 0.6 AST 17 ALT 11 Alkaline Phosphatase 149 H Troponin I < 0.03 11/05/17 06:42 WBC Hgb Hct Plt Count Sodium Potassium Chloride Carbon Dioxide BUN Creatinine Glucose Calcium Magnesium Total Bilirubin AST ALT Alkaline Phosphatase Troponin I < 0.03 Active Medications Diphenhydramine HCl (Benadryl) 12.5 mg PO Q8HR PRN PRN Reason: Allergy Symptoms Stop: 05/07/18 00:15 Folic Acid (Folic Acid) 1 mg PO DAILY [facility] Stop: 05/07/18 09:01 Last Admin: 11/05/17 08:24 Dose: 1 mg Thiamine HCl 100 mg/ Folic Acid 1 mg/ Multivitamins 10 ml / Sodium Chloride 511.2 mls @ 85.2 mls/hr IVPB ONCE ONE Stop: 11/05/17 10:29 Last Admin: 11/05/17 05:58 Dose: 85.2 mls/hr Sodium Chloride (0.9 % Sodium Chloride) 1,000 mls @ 75 mls/hr IVC .[id number] [facility] Stop: 11/05/17 19:49 Last Admin: 11/05/17 08:32 Dose: 75 mls/hr Potassium Chloride 40 meq/ (Lidocaine 2 ml/ Dextrose) 522 mls @ 130.5 mls/hr IVPB ONCE ONE Stop: 11/05/17 11:41 Last Admin: 11/05/17 08:33 Dose: 130.5 mls/hr Naloxone HCl (Narcan) 0.4 mg IVP Q2MIN PRN PRN Reason: SEE COMMENTS Stop: 05/06/18 23:59 Thiamine HCl (Vitamin B-1) 100 mg PO DAILY [facility] Stop: 05/07/18 09:01 Last Admin: 11/05/17 08:24 Dose: 100 mg Vitamin B Complex/Vit C/Vit E (Stresstab) 1 each PO DAILY [facility] Stop: 05/07/18 09:01 Last Admin: 11/05/17 08:40 Dose: Not Given - Imaging and Cardiology Stress Test: report reviewed Echo: report reviewed Other Results: 12 hour tele: avg [id number] SR/ST - EKG Interpretation EKG results cardiology: personally reviewed Consult Discharge Plan - Plan [facility]errals: [facility] [Primary Care Provider] -
--- NOTE | 2017-11-05 11:50 | Event Note ---
Date of Encounter: 11/05/17 Time of Encounter: 11:46 Ms. Pulliam is a 57 year old female with a past medical history of COPD, hyperlipidemia, hypertension, hypothyroidism, chronic-hyponatremia, alcohol abuse, and 2 CVAs in May 2016 who originally presented to the [place] earlier today complaining of transient loss of hearing involving her left ear and bilateral lower extremity weakness. Patient underwent workup and was found to have new EKG changes not previously noted on a prior EKG. Patient did not endorse any chest pain but was subsequently transferred to [place] for further evaluation. Patient states that she experienced left-sided hearing loss earlier yesterday around 1 PM described as if someone was holding a sock over her ear. Symptoms lasted for 3-4 hours and were not was associated with any pain or upper airway congestion. She denies any recent illness, fever, or chills and eventually the hearing returned. Patient also endorses bilateral lower extremity weakness it has been going for the past 3 days. She states that she can stand but when she ambulates she has difficulty walking. She denies any numbness or tingling in her extremities or low back pain. These symptoms to have also since resolved. She reports poor PO intake which she attributes to her inability to chew food given her poor dentition with many of her natural teeth missing. She states that she is supposed to get dentures but has not been able to do so. Nevertheless she is unable to chew foods except those that are soft. She states that as a result she has lost about 12 pounds over the last month. Patient drinks 2 beers a day and has a significant past smoking history and continues to smoke. Review of EKG shows new T-wave inversions in the precordial leads specifically V3 and V4 when compared to EKG in May 2017 which at this time were upright. Patient received loading dose dose of aspirin in the ED. Patient was admitted for abnormal EKG and TIA, and possible alcohol with drawal 1. abnormla EKG, cardiology is on board, pending TTE 2. TIA, I ordered MRI, carotid duplex, add ASA 3. alcoholism and possible withdrawal, last drink 36 hours ago, she drinks 2 bottles liquor daily
[2017-11-05] MEDS: Aspirin Enteric Coated 81 MG Tablet PO SCH (13:12)
[2017-11-05] MEDS ORDERED: *HR* LORazepam 2 MG/ML VIAL IVP ONE (16:04)
[2017-11-05] MEDS ORDERED: Nicotine 2 MG GUM BC SCH (16:39)
[2017-11-05] MEDS ORDERED: Nicotine 2 MG GUM BC PRN (16:51)
[2017-11-05] MEDS: Nicotine 21 MG PATCH.TD24 TD SCH (16:55)
[2017-11-05] MEDS: diazePAM 10 MG TABLET PO SCH ×2 (16:55→22:05)
[2017-11-05] MEDS ORDERED: Haloperidol Lactate 5 MG/ML VIAL IVP ONE (22:26)
[2017-11-06] MEDS ORDERED: *HR* LORazepam 2 MG/ML VIAL IVP PRN ×3 (06:14)
[2017-11-06] MEDS: Vitamin B Complex/Vit C/Vit E 1 EACH TABLET PO SCH (08:25)
[2017-11-06] MEDS: Folic Acid 1 MG TABLET PO SCH (08:25)
[2017-11-06] MEDS: Nicotine 21 MG PATCH.TD24 TD SCH (08:26)
[2017-11-06] MEDS: Aspirin Enteric Coated 81 MG Tablet PO SCH ×2 (08:26→12:32)
[2017-11-06] MEDS: Thiamine (B-1) 100 MG TABLET PO SCH (08:26)
[2017-11-06] MEDS: diazePAM 10 MG TABLET PO SCH ×4 (08:26→22:18)
[2017-11-06 08:33] LABS: Basophils # 0.1 K/mcL (0.0-0.2); Eosinophils # 0.2 K/mcL (0.0-0.6); Eosinophils % 3.1 %; Hematocrit 31.8 % (35.3-44.9); Hemoglobin 11.5 g/dL (11.5-15.4); Lymphocytes % 41.5 %; Mean Corpuscular HGB Conc 36.2 g/dL (31.6-35.5); Mean Corpuscular Hemoglobin 30.7 pg (28.0-33.3); Monocytes # 0.7 K/mcL (0.0-1.3); Monocytes % 14.5 %; Neutrophils # 1.9 K/mcL (1.6-8.9); Platelet Count 260 K/mcL (140-400); Red Blood Count 3.74 M/mcL (3.82-4.97); Red Cell Distribution Width 12.7 % (11.5-14.5); Segmented Neutrophils % 37.9 %
--- NOTE | 2017-11-06 08:48 | Cardiology Progress Note ---
Date of Encounter: 11/06/17 Time of Encounter: 07:45 Assessment and Plan (1) Abnormal EKG Current Visit: Yes Status: Acute Abnormal ECG in the setting of severe electrolyte imbalance. Troponin negative. No chest pain/discomfort reported. Combative overnight with nursing staff, in restraints; 1:1 sitter at bedside. Recent nuclear stress test in June 2017 negative for ischemia; TTE June 2017 demonstrated preserved LVEF with normal wall motion. Electrolytes replaced this AM; still with T wave abnormalities on ECG, however improved from yesterday. Continue electrolyte replacement as needed, defer to primary service. On MVI/thiamine per CIWA protool (ETOH abuse). Limited TTE demonstrated preserved LVEF with normal wall motion. Recommend close outpatient f/u with PCP at [place]. Cardiology will sign-off. Discussion w patient/family: The assessment and plan as outlined above was discussed with the patient and/or family members who expressed understanding and agreement. All questions were answered. Thank you for involving us in the care of your patient. Please call with any questions. The patient will be discussed and reviewed with Dr. Concepcion; changes to be made accordingly. Subjective Principal diagnosis: Abnormal ECG Interval history: Seen and examined. No complaints upon exam this morning including chest pain/discomfort or shortness of breath. 1:1 sitter at bedside, patient in restraints. Reportedly combative overnight with nursing staff. Objective Vital Signs, Last 4 Hours Pulse Resp BP Pulse Ox 11/06/17 08:31 117 18 150/107 96 11/06/17 08:15 117 18 150/107 96 11/06/17 06:07 117 15 96 General: Conversant, No Apparent Distress HEENT: Atraumatic, Normocephaly Cardiac: Reg Rate and Rhythm, Normal S1 and S2 Lungs: Normal Breath Sounds Neuro: Alert and responsive Abdomen: Soft Skin: No rashes noted on visualized skin Musculoskeletal: No Chest Wall Tenderness Extremities: No Edema, Normal Pulses Results 11/06/17 08:11 11/05/17 00:41 Lab Results 11/05/17 11/06/17 12:38 08:11 WBC 4.9 Hgb 11.5 Hct 31.8 L Plt Count 260 Troponin I < 0.03 Active Medications Aspirin (Aspirin Ec) 81 mg PO DAILY [facility] Stop: 05/07/18 10:46 Last Admin: 11/06/17 08:26 Dose: 81 mg Diazepam (Valium) 10 mg PO TID [facility] Stop: 05/07/18 16:16 Last Admin: 11/06/17 08:26 Dose: 10 mg Diphenhydramine HCl (Benadryl) 12.5 mg PO Q8HR PRN PRN Reason: Allergy Symptoms Stop: 05/07/18 00:15 Folic Acid (Folic Acid) 1 mg PO DAILY [facility] Stop: 05/07/18 09:01 Last Admin: 11/06/17 08:25 Dose: 1 mg Lorazepam (Ativan) 1 mg IVP Q1H PRN PRN Reason: Alcohol Withdrawal Stop: 05/08/18 06:15 Lorazepam (Ativan) 2 mg IVP Q4HR PRN PRN Reason: CIWA Score of 10-21 Stop: 05/08/18 06:15 Lorazepam (Ativan) 4 mg IVP Q4HR PRN PRN Reason: CIWA Score of 22-45 Stop: 05/08/18 06:15 Naloxone HCl (Narcan) 0.4 mg IVP Q2MIN PRN PRN Reason: SEE COMMENTS Stop: 05/06/18 23:59 Nicotine (Nicoderm) 21 mg TD DAILY [facility] PRN Reason: Protocol Stop: 05/07/18 16:39 Last Admin: 11/06/17 08:26 Dose: 21 mg Nicotine Polacrilex (Nicorette Gum) 2 mg BC Q2HWA PRN PRN Reason: smoker Stop: 05/07/18 16:40 Thiamine HCl (Vitamin B-1) 100 mg PO DAILY [facility] Stop: 05/07/18 09:01 Last Admin: 11/06/17 08:26 Dose: 100 mg Vitamin B Complex/Vit C/Vit E (Stresstab) 1 each PO DAILY [facility] Stop: 05/07/18 09:01 Last Admin: 11/06/17 08:25 Dose: 1 each - Imaging and Cardiology Echo: report reviewed - EKG Interpretation EKG results cardiology: personally reviewed Consult Discharge Plan - Plan [facility]errals: [facility] [Primary Care Provider] -
[2017-11-06 10:33] LABS: BUN/Creatinine Ratio 5 (6-26); Blood Urea Nitrogen 2 mg/dL (6-20); Calcium 8.6 mg/dL (8.6-10.3); Carbon Dioxide 16 mEq/L (23-29); Chloride 100 mEq/L (98-107); Glucose 91 mg/dL (70-105); Magnesium 1.6 mg/dL (1.6-2.6); Osmolality,Calculated 256 (280-300); Potassium 4.1 mEq/L (3.5-5.1); Sodium 125 mEq/L (136-145); eGFR For Non-African Americans > 60 (> 60)
[2017-11-06] MEDS ORDERED: Acetaminophen 325 MG TABLET PO PRN (11:14)
[2017-11-06] MEDS ORDERED: Ipratropium 1 PUFF INHALER IH PRN (11:14)
[2017-11-06] MEDS ORDERED: Ibuprofen 600 MG TABLET PO PRN (11:14)
--- NOTE | 2017-11-06 12:18 | Internal Med Progress Note ---
Hospitalist Progress Note - Encounter Date of Encounter: 11/06/17 Time of Encounter: 12:01 - Subjective Interval History: Ms. Pulliam is a 57 year old female with a past medical history of COPD, hyperlipidemia, hypertension, hypothyroidism, chronic-hyponatremia, alcohol abuse, and 2 CVAs in May 2016 who [facility] complaining of transient loss of hearing involving her left ear and bilateral lower extremity weakness. Patient underwent workup and was found to have new EKG changes not previously noted on a prior EKG. Patient did not endorse any chest pain but was subsequently transferred to [place] for further evaluation. Patient states that she experienced left-sided hearing loss earlier yesterday around 1 PM described as if someone was holding a sock over her ear. Symptoms lasted for 3-4 hours and were not was associated with any pain or upper airway congestion. . Patient also endorses bilateral lower extremity weakness it has been going for the past 3 days. She states that she can stand but when she ambulates she has difficulty walking. She denies any numbness or tingling in her extremities or low back pain. These symptoms to have also since resolved. She states that as a result she has lost about 12 pounds over the last month. Patient drinks daily a day, has a significant past smoking history and continues to smoke. Review of EKG shows new T-wave inversions in the precordial leads specifically V3 and V4 when compared to EKG in May 2017 which at this time were upright. Patient received loading dose dose of aspirin in the ED. Patient was admitted for abnormal EKG and TIA, and possible alcohol with drawal 1. abnormla EKG, cardiology is on board, normal TTE, cardiology signed off 2. TIA, I ordered MRI, but unable to obtain due to confusion and withdrawal, carotid duplex showed non-stenotic plaque, add ASA 3. alcoholism and possible withdrawal, last drink was on 11/03 night, add scheduled diazapam, since floor CIWA score only give ativan when score >9, 4. Hyponatremia, pending urine sodium and Osmo, she looks dehydrated, not eating and drinking, add D5NS at 100, IV thiamine for 3-5 days 5.weight loss, check TSH, consult nutrition, check B12, folic acid - Exam Vitals: Temp Pulse Resp BP Pulse Ox 98.2 F 103 17 129/87 95 11/05/17 19:19 11/06/17 11:46 11/06/17 11:46 11/06/17 11:46 11/06/17 11:46 Exam: General: Alert and oriented 2. Lying in bed in no acute distress. Skin:Normal color, no rash, no lesions. HEENT:EOM, pupils equal, round and reactive. Dry mucous membranes poor dentition with multiple missing teeth Cardiovascular:Normal S1 & S2, no rubs, murmurs or gallops. No JVD. Pulse regular. Lungs:Normal breath sounds, no wheezes or crackles. Abdomen:Soft, non-tender, no rigidity. Extremities:No deformity, no edema or tenderness, no joint swelling or clubbing. Neurological: Cranial nerves II through XII grossly intact; Normal cognition and motor skills with 5 out of 5 muscle strength in the lower extremities.. Pulses:Carotid and radial pulses normal +2. Rest of the physical exam is non contributory - Assessment and Plan (1) TIA (transient ischemic attack) Current Visit: Yes Status: Acute Assessment and Plan: possible TIA, but paitnet has alcoholism, transient bilateral lower extremity weakness and diminished hearing involving the left ear. CT scan of the head was unremarkable. Patient does have a history of CVA 2 in the past. unalb eto get MRI due to AMS, alcohol withdrawal. (2) Alcohol dependence Current Visit: Yes Status: Acute Assessment and Plan: patient is in active withdrawal, has a sitter, not eating and drinking any water , will start IVF add IV thiamie, check B12 and folic acid increase scheduled diazepam (3) Hyponatremia Current Visit: Yes Status: Acute Assessment and Plan: pending urine OSmo and sodium (4) Tobacco abuse Current Visit: No Status: Chronic Assessment and Plan: placed nicotine patch (5) Hypothyroidism Current Visit: No Status: Chronic Assessment and Plan: contineu home meds (6) Essential hypertension Current Visit: Yes Status: Chronic Assessment and Plan: conitneu home meds (7) GERD (gastroesophageal reflux disease) Current Visit: Yes Status: Chronic Assessment and Plan: continue PPI (8) Abnormal EKG Current Visit: Yes Status: Acute Assessment and Plan: Recent nuclear stress test in June 2017 negative for ischemia; TTE June 2017 demonstrated preserved LVEF with normal wall motion. Limited TTE demonstrated preserved LVEF with normal wall motion. cardiology signed off (9) Weight loss, non-intentional Current Visit: Yes Status: Acute Assessment and Plan: check TSh, B12. consult nutrition - Time Spent with Patient Total time spent is greater than 50% in coordination of care (as documented) at patient's floor/unit and/or counseling patient: 25 - 35 minutes Plan of Care Discussed with: patient Internal Medicine: Result - Labs CBC & Chem 7: 11/06/17 08:11 11/06/17 09:55 Labs: Short CBC 11/06/17 Range/Units 08:11 WBC 4.9 (4.3-11.1) K/mcL Hgb 11.5 (11.5-15.4) g/dL Hct 31.8 L (35.3-44.9) % Plt Count 260 (140-400) K/mcL Neutrophils # 1.9 (1.6-8.9) K/mcL BMP 11/06/17 09:55 Sodium 125 L Potassium 4.1 Chloride 100 Carbon Dioxide 16 L BUN 2 L Creatinine 0.39 L Glucose 91 Calcium 8.6 Cardiac Enzymes 11/05/17 Range/Units 12:38 Troponin I < 0.03 (< 0.04) ng/mL - ABG Interpretation ABG results: PT/INR, D-dimer PT 11.7 Seconds (9.4-12.1) 11/04/17 18:44 - Impressions Impressions Echocardiogram Limited Views 11/05/17 09:46 Impressions: LVEF 60-65%. Normal LV chamber size, wall thickness and function. Limited study, valves not assessed. Left Ventricular Wall Motion: Rest Echo Findings All wall segments showed normal motion. Findings: Study Quality * Technically adequate exam. ECG Findings * Sinus tachycardia. Left Ventricle * LVEF 60-65%. * Normal LV chamber size, wall thickness and function. Right Ventricle * Normal right ventricular structure and function. Aorta * Normally sized aortic root. Pericardium * There is a trivial pericardial effusion present. Consult Discharge Plan - Plan [facility]errals: [facility] [Primary Care Provider] - (2) Alcohol dependence Qualifiers: Substance use status: in withdrawal Complication of substance-induced condition: with delirium Qualified Code(s): F10.231 - Alcohol dependence with withdrawal delirium (5) Hypothyroidism Qualifiers: Hypothyroidism type: unspecified Qualified Code(s): E03.9 - Hypothyroidism, unspecified (7) GERD (gastroesophageal reflux disease) Qualifiers: Esophagitis presence: esophagitis presence not specified Qualified Code(s): K21.9 - Gastro-esophageal reflux disease without esophagitis
[2017-11-06] MEDS: hydrOXYzine pamoate 25 MG CAPSULE PO SCH ×3 (12:32→20:32)
[2017-11-06] MEDS: dilTIAZem HCl 60 MG TABLET PO SCH ×3 (12:32→20:26)
[2017-11-06] MEDS: Metoprolol XL (24 HR) Succ 25 MG TAB.ER.24H PO SCH (12:32)
[2017-11-06] MEDS: D5% in 0.9% NACL 1,000 ML IVC SCH ×2 (12:33→23:17)
[2017-11-06] MEDS: Thiamine (B-1) 500 MG in D5% in Water 50 ML IVPB SCH ×3 (15:29→23:50)
[2017-11-06] MEDS: Melatonin 3 MG TABLET PO SCH (20:27)
[2017-11-06] MEDS: traZODone 50 MG TABLET PO SCH (20:27)
[2017-11-06] MEDS: Fluticasone Propionate Nasal 50 MCG/SPRAY BOTTLE NS SCH (22:15)
[2017-11-06] MEDS: Estrogens, Conjugated CREAM 30 GM TUBE VG SCH (22:16)
[2017-11-07 07:47] LABS: Basophils # 0.1 K/mcL (0.0-0.2); Basophils % 1.7 %; Eosinophils # 0.1 K/mcL (0.0-0.6); Eosinophils % 3.1 %; Hematocrit 35.1 % (35.3-44.9); Hemoglobin 12.3 g/dL (11.5-15.4); Immature Granulocytes % 0.2 % (0-4); Lymphocytes # 2.4 K/mcL (0.6-4.6); Mean Corpuscular Hemoglobin 30.4 pg (28.0-33.3); Mean Corpuscular Volume 86.9 fL (83.0-100.0); Monocytes # 0.4 K/mcL (0.0-1.3); Monocytes % 10.2 %; Neutrophils # 1.1 K/mcL (1.6-8.9); Platelet Count 305 K/mcL (140-400); Red Blood Count 4.04 M/mcL (3.82-4.97); Red Cell Distribution Width 13.3 % (11.5-14.5); Segmented Neutrophils % 26.8 %
[2017-11-07] MEDS: Nicotine 21 MG PATCH.TD24 TD SCH (08:30)
[2017-11-07] MEDS: dilTIAZem HCl 60 MG TABLET PO SCH ×3 (08:31→20:12)
[2017-11-07] MEDS: Folic Acid 1 MG TABLET PO SCH (08:31)
[2017-11-07] MEDS: Aspirin Enteric Coated 81 MG Tablet PO SCH (08:31)
[2017-11-07] MEDS: Metoprolol XL (24 HR) Succ 25 MG TAB.ER.24H PO SCH (08:32)
[2017-11-07] MEDS: hydrOXYzine pamoate 25 MG CAPSULE PO SCH (08:32)
[2017-11-07] MEDS: Vitamin B Complex/Vit C/Vit E 1 EACH TABLET PO SCH (08:32)
[2017-11-07] MEDS: diazePAM 10 MG TABLET PO SCH (08:33)
[2017-11-07] MEDS: BuPROPion XL (24 HR) 150 MG TABLET PO SCH (08:33)
[2017-11-07] MEDS: Cholecalciferol (D-3) 1,000 UNIT TABLET PO SCH (08:33)
[2017-11-07 08:34] LABS: Folate 9.1 ng/mL (3.0-16.0)
[2017-11-07] MEDS: Fluticasone Propionate Nasal 50 MCG/SPRAY BOTTLE NS SCH ×2 (08:48→20:13)
[2017-11-07 09:46] LABS: Blood Urea Nitrogen < 2 mg/dL (6-20); Calcium 8.6 mg/dL (8.6-10.3); Carbon Dioxide 18 mEq/L (23-29); Chloride 102 mEq/L (98-107); Glucose 93 mg/dL (70-105); Magnesium 1.5 mg/dL (1.6-2.6); Potassium 3.2 mEq/L (3.5-5.1); Sodium 128 mEq/L (136-145); Thyroid Stimulating Hormone 2.552 mcIU/mL (0.340-5.600); eGFR For Non-African Americans > 60 (> 60)
[2017-11-07] MEDS ORDERED: Potassium Chloride Elixir 20 MEQ/15 ML UDC PO ONE (11:12)
[2017-11-07] MEDS: D5% in 0.9% NACL 1,000 ML IVC SCH (13:51)
[2017-11-07] MEDS: Thiamine (B-1) 500 MG in D5% in Water 50 ML IVPB SCH (13:52)
--- NOTE | 2017-11-07 17:00 | Internal Med Progress Note ---
Hospitalist Progress Note - Encounter Date of Encounter: 11/07/17 Time of Encounter: 15:40 - Subjective Interval History: Patient is somnolent and drowsy, opens eyes but unable to provide any history; responds to her name, denies pain. - Exam Vitals: Temp Pulse Resp BP Pulse Ox 98.3 F 82 18 126/82 97 11/07/17 15:46 11/07/17 15:46 11/07/17 15:46 11/07/17 15:46 11/07/17 15:46 Exam: General: Appears pale, somnolent, lying in bed, thin-built chronically sick female lying comfortably in bed in no acute distress Skin: Warm and supple Chest: Normal thoracic expansion. Normal breath sounds. Clear to auscultation B/ L; Heart: Normal S1 & S2; rhythmic. No rubs or murmurs. Tachycardic; Abdomen: Non-distended, soft and nontender Extremities: No clubbing, cyanosis or edema. No calf tenderness. Normal distal pulses. Neurological: Somnolent and lethargic, quickly falls back asleep; difficult to assess further; follows a few commands; - Assessment and Plan (1) TIA (transient ischemic attack) Current Visit: Yes Status: Suspected Assessment and Plan: less likely; patient presented with nonspecific symptoms of transient hearing loss and generalized leg weakness. CT head showed no acute infarct/bleed. MRI brain shows no acute intracranial abnormality, shows right mastoid effusion; Continue telemetry monitoring. (2) Alcohol withdrawal Current Visit: Yes Status: Acute Assessment and Plan: Patient is currently lethargic, could be secondary to alcohol withdrawal. She does have significant chronic alcohol abuse. Continue CIWA protocol with PRN IV Ativan; Thiamine and MVT supplements; supportive care; adult services librarian consult; PT/OT evaluation when stable; (3) Hyponatremia Current Visit: Yes Status: Resolved (4) Hypokalemia Current Visit: Yes Status: Acute Assessment and Plan: Supplement with oral potassium chloride; monitor electrolytes closely; (5) Tobacco abuse Current Visit: Yes Status: Chronic Assessment and Plan: Nicotine transdermal patch as needed. (6) Abnormal finding on EKG Current Visit: Yes Status: Acute Assessment and Plan: Per previous notes, patient had nonspecific T-wave inversions on initial EKG. Cardiology was consulted, transthoracic echocardiogram and carotid Doppler showed no acute abnormality. Recommended to correct electrolyte abnormalities and treat underlying conditions, currently signed off. (7) COPD (chronic obstructive pulmonary disease) Current Visit: Yes Status: Chronic (8) Essential hypertension Current Visit: Yes Status: Chronic (9) Hypothyroidism Current Visit: Yes Status: Chronic (10) Stroke Current Visit: Yes Status: Chronic DVT Prophylaxis: started s.c Heparin; - Time Spent with Patient Total time spent is greater than 50% in coordination of care (as documented) at patient's floor/unit and/or counseling patient: Plan of Care Discussed with: nurse Internal Medicine: Result - Labs CBC & Chem 7: 11/07/17 07:26 11/07/17 07:26 - ABG Interpretation ABG results: PT/INR, D-dimer PT 11.7 Seconds (9.4-12.1) 11/04/17 18:44 Consult Discharge Plan - Plan [facility]errals: [facility] [Primary Care Provider] - (2) Alcohol withdrawal Qualifiers: Complication of substance-induced condition: with unspecified complication Qualified Code(s): F10.239 - Alcohol dependence with withdrawal, unspecified (7) COPD (chronic obstructive pulmonary disease) Qualifiers: COPD type: unspecified COPD Qualified Code(s): J44.9 - Chronic obstructive pulmonary disease, unspecified (9) Hypothyroidism Qualifiers: Hypothyroidism type: unspecified Qualified Code(s): E03.9 - Hypothyroidism, unspecified (10) Stroke Qualifiers: CVA mechanism: unspecified Qualified Code(s): I63.9 - Cerebral infarction, unspecified
[2017-11-07] MEDS: *HR* Heparin 5,000 UNIT/ML VIAL SQ SCH (17:33)
[2017-11-07] MEDS: traZODone 50 MG TABLET PO SCH (20:11)
[2017-11-07] MEDS: Melatonin 3 MG TABLET PO SCH (20:12)
[2017-11-07] MEDS: Estrogens, Conjugated CREAM 30 GM TUBE VG SCH (20:27)
[2017-11-08] MEDS: *HR* Heparin 5,000 UNIT/ML VIAL SQ SCH ×3 (01:10→16:02)
[2017-11-08] MEDS: D5% in 0.9% NACL 1,000 ML IVC SCH ×3 (01:42→20:30)
[2017-11-08 06:43] LABS: Basophils # 0.1 K/mcL (0.0-0.2); Basophils % 1.3 %; Eosinophils # 0.1 K/mcL (0.0-0.6); Hematocrit 28.6 % (35.3-44.9); Hemoglobin 9.7 g/dL (11.5-15.4); Immature Granulocytes % 0.2 % (0-4); Lymphocytes # 2.5 K/mcL (0.6-4.6); Lymphocytes % 53.3 %; Mean Corpuscular HGB Conc 33.9 g/dL (31.6-35.5); Mean Corpuscular Hemoglobin 29.9 pg (28.0-33.3); Mean Corpuscular Volume 88.3 fL (83.0-100.0); Mean Platelet Volume 9.2 fL (9.4-12.4); Monocytes # 0.5 K/mcL (0.0-1.3); Monocytes % 9.6 %; Neutrophils # 1.5 K/mcL (1.6-8.9); Platelet Count 261 K/mcL (140-400); Red Blood Count 3.24 M/mcL (3.82-4.97); Red Cell Distribution Width 13.8 % (11.5-14.5); Segmented Neutrophils % 32.6 %
[2017-11-08 08:41] LABS: Sodium 131 mEq/L (136-145)
[2017-11-08 08:42] LABS: Blood Urea Nitrogen < 2 mg/dL (6-20); Carbon Dioxide 18 mEq/L (23-29); Chloride 109 mEq/L (98-107); Glucose 88 mg/dL (70-105); Magnesium 1.8 mg/dL (1.6-2.6); Potassium 3.6 mEq/L (3.5-5.1); eGFR For Non-African Americans > 60 (> 60)
[2017-11-08] MEDS: BuPROPion XL (24 HR) 150 MG TABLET PO SCH (10:08)
[2017-11-08] MEDS: Cholecalciferol (D-3) 1,000 UNIT TABLET PO SCH (10:08)
[2017-11-08] MEDS: Thiamine (B-1) 100 MG TABLET PO SCH (10:09)
[2017-11-08] MEDS: Aspirin Enteric Coated 81 MG Tablet PO SCH (10:09)
[2017-11-08] MEDS: Folic Acid 1 MG TABLET PO SCH (10:09)
[2017-11-08] MEDS: Metoprolol XL (24 HR) Succ 25 MG TAB.ER.24H PO SCH (10:09)
[2017-11-08] MEDS: dilTIAZem HCl 60 MG TABLET PO SCH ×3 (10:09→21:36)
[2017-11-08] MEDS: Nicotine 21 MG PATCH.TD24 TD SCH (10:10)
[2017-11-08] MEDS: Vitamin B Complex/Vit C/Vit E 1 EACH TABLET PO SCH (10:10)
[2017-11-08] MEDS: Fluticasone Propionate Nasal 50 MCG/SPRAY BOTTLE NS SCH ×2 (10:44→21:54)
[2017-11-08] MEDS: Sennosides/Docusate Sodium TABLET PO SCH ×2 (10:48→21:54)
--- NOTE | 2017-11-08 16:31 | Internal Med Progress Note ---
Hospitalist Progress Note - Encounter Date of Encounter: 11/08/17 Time of Encounter: 11:00 - Subjective Interval History: Noted to be more awake and alert today. Denies chest or abdominal pain, nausea or vomiting. Reports constipation. Able to participate in physical therapy, not agreeable to placement at this time. - Exam Vitals: Temp Pulse Resp BP Pulse Ox 98.1 F 86 16 134/87 100 11/08/17 15:58 11/08/17 15:58 11/08/17 15:58 11/08/17 15:58 11/08/17 15:58 Exam: General: thin-built chronically sick female lying comfortably in bed in no acute distress Skin: Warm and supple Chest: Normal thoracic expansion. Normal breath sounds. Clear to auscultation B/ L; Heart: Normal S1 & S2; rhythmic. No rubs or murmurs. Tachycardic; Abdomen: Non-distended, soft and nontender Extremities: No clubbing, cyanosis or edema. No calf tenderness. Normal distal pulses. Neurological: awake, alert and oriented to person, place and time; no focal deficits; - Assessment and Plan (1) Hyponatremia Current Visit: Yes Status: Resolved (2) Hypokalemia Current Visit: Yes Status: Resolved (3) Tobacco abuse Current Visit: Yes Status: Chronic Assessment and Plan: NicoDerm patch (4) TIA (transient ischemic attack) Current Visit: Yes Status: Suspected Assessment and Plan: less likely; patient presented with nonspecific symptoms of transient hearing loss and generalized leg weakness. CT head showed no acute infarct/bleed. MRI brain shows no acute intracranial abnormality, shows right mastoid effusion; currently asymptomatic. Continue telemetry monitoring. (5) Abnormal finding on EKG Current Visit: Yes Status: Acute Assessment and Plan: Per previous notes, patient had nonspecific T-wave inversions on initial EKG. Cardiology was consulted, transthoracic echocardiogram and carotid Doppler showed no acute abnormality. Recommended to correct electrolyte abnormalities and treat underlying conditions, currently signed off. (6) Alcohol withdrawal Current Visit: Yes Status: Acute Assessment and Plan: Patient is improving; she denies significant chronic alcohol abuse. Continue CIWA protocol with PRN IV Ativan, has not received any doses so far; Thiamine and MVT supplements; supportive care; resident services manager consulted; PT/OT evaluation noted- recommend ECF placement; (7) COPD (chronic obstructive pulmonary disease) Current Visit: Yes Status: Chronic (8) Essential hypertension Current Visit: Yes Status: Chronic (9) Hypothyroidism Current Visit: Yes Status: Chronic (10) Stroke Current Visit: Yes Status: Chronic - Time Spent with Patient Total time spent is greater than 50% in coordination of care (as documented) at patient's floor/unit and/or counseling patient: Internal Medicine: Result - Labs CBC & Chem 7: 11/08/17 06:19 11/08/17 06:19 Labs: Short CBC 11/08/17 Range/Units 06:19 WBC 4.7 (4.3-11.1) K/mcL Hgb 9.7 L D (11.5-15.4) g/dL Hct 28.6 L (35.3-44.9) % Plt Count 261 (140-400) K/mcL Neutrophils # 1.5 L (1.6-8.9) K/mcL BMP 11/08/17 06:19 Sodium 131 L Potassium 3.6 Chloride 109 H Carbon Dioxide 18 L BUN < 2 L Creatinine 0.46 L Glucose 88 Calcium 8.0 L - ABG Interpretation ABG results: PT/INR, D-dimer PT 11.7 Seconds (9.4-12.1) 11/04/17 18:44 Consult Discharge Plan - Plan [facility] Care Provider[facility] - (6) Alcohol withdrawal Qualifiers: Complication of substance-induced condition: with unspecified complication Qualified Code(s): F10.239 - Alcohol dependence with withdrawal, unspecified (7) COPD (chronic obstructive pulmonary disease) Qualifiers: COPD type: unspecified COPD Qualified Code(s): J44.9 - Chronic obstructive pulmonary disease, unspecified (9) Hypothyroidism Qualifiers: Hypothyroidism type: unspecified Qualified Code(s): E03.9 - Hypothyroidism, unspecified (10) Stroke Qualifiers: CVA mechanism: unspecified Qualified Code(s): I63.9 - Cerebral infarction, unspecified
--- NOTE | 2017-11-08 21:31 | Electrocardiograph Report ---
[address] [place], [place] [address] Test Date: 2017-11-04 Pat Name: Meredith Pulliam Department: EXAM12 Room: 2NE19 Gender: F Mat Weaver: : 1960 Requested By: Jaxon Herbert Order Number: [id number] Reading MD: Gerald Yadav Measurements Intervals [place] Rate: 97 P: 77 UT: 200 QRS: 68 QRSD: 89 T: -80 QT: 404 QTc: 514 Interpretive Statements Sinus rhythm Borderline prolonged UT interval Marked prolonged QT interval Diffuse T wave inversion. Consider ischemia, electrolyte disturbance or drug effect Electronically Signed On 11-08-2017 21:29:30 EDT by Gerald Yadav
[2017-11-08] MEDS: Melatonin 3 MG TABLET PO SCH (21:36)
[2017-11-08] MEDS: traZODone 50 MG TABLET PO SCH (21:36)
[2017-11-08] MEDS: Estrogens, Conjugated CREAM 30 GM TUBE VG SCH (21:54)
--- NOTE | 2017-11-08 23:08 | Electrocardiograph Report ---
[address] [place], [place] [address] Test Date: 2017-11-06 Pat Name: Meredith Pulliam Department: 111 Room: 2NE19 Gender: F Manager Systems: FESTUS : 1960 Requested By: Russel Concepcion Order Number: [id number] Reading MD: Gerald Yadav Measurements Intervals [place] Rate: 110 P: 78 PA: 156 QRS: 56 QRSD: 92 T: -23 QT: 349 QTc: 414 Interpretive Statements SINUS TACHYCARDIA MODERATE T-WAVE ABNORMALITY, CONSIDER ANTERIOR ISCHEMIA Electronically Signed On 11-08-2017 23:06:58 EDT by Gerald Yadav
[2017-11-09] MEDS: *HR* Heparin 5,000 UNIT/ML VIAL SQ SCH ×3 (00:11→15:45)
[2017-11-09] MEDS: D5% in 0.9% NACL 1,000 ML IVC SCH (06:45)
[2017-11-09] MEDS: Folic Acid 1 MG TABLET PO SCH (08:16)
[2017-11-09] MEDS: Metoprolol XL (24 HR) Succ 25 MG TAB.ER.24H PO SCH (08:16)
[2017-11-09] MEDS: Cholecalciferol (D-3) 1,000 UNIT TABLET PO SCH (08:16)
[2017-11-09] MEDS: dilTIAZem HCl 60 MG TABLET PO SCH ×3 (08:16→20:55)
[2017-11-09] MEDS: BuPROPion XL (24 HR) 150 MG TABLET PO SCH (08:17)
[2017-11-09] MEDS: Vitamin B Complex/Vit C/Vit E 1 EACH TABLET PO SCH (08:17)
[2017-11-09] MEDS: Thiamine (B-1) 100 MG TABLET PO SCH (08:17)
[2017-11-09] MEDS: Aspirin Enteric Coated 81 MG Tablet PO SCH (08:17)
[2017-11-09] MEDS: Sennosides/Docusate Sodium TABLET PO SCH ×2 (08:18→20:55)
[2017-11-09] MEDS: Nicotine 21 MG PATCH.TD24 TD SCH (08:18)
[2017-11-09] MEDS: Fluticasone Propionate Nasal 50 MCG/SPRAY BOTTLE NS SCH ×2 (08:48→20:57)
--- NOTE | 2017-11-09 14:02 | Consult Note ---
Date of Encounter: 11/09/17 Time of Encounter: 12:10 Assessment & Recommendation (1) Delirium Current visit: Yes Status: Acute (2) Altered mental status Current visit: No Status: Acute Qualifiers: Altered mental status type: delirium Qualified Code(s): R41.0 - Disorientation, unspecified (3) Alcohol dependence Current visit: Yes Status: Acute Qualifiers: Substance use status: in withdrawal Complication of substance-induced condition: with delirium Qualified Code(s): F10.231 - Alcohol dependence with withdrawal delirium History of Present Illness Patient: new to practice Requesting Physician: Mayda Zeng MD Reason for consult: exacerbation of confusion History of present illness: Pt is a 57 yo, , female, who presents for exacerabation of confusion with hx of alcohol use D/O currently in detox. Pt was alert only to self. Pt did not know where she was located or the date or year. Pt remained confused and unable to fully participate in interview process. Pt noted she felt safe and comfortable on the unit. Pt noted she slept pretty good I think last night. Pt noted her appetite is i am not sure. Pt rated her depression a 0 , on a scale of zero to ten with ten being the worst and zero being none. Pt rate her anxiety a "0, on the same scale. Pt denied any current visual or auditory hallucinations. Pt denied any thoughts to harm herself or anyone else. Pt noted hx of seizure 1 year ago with alcohol detox. Pt denied Hep C, HIV or TBI's No TD noted, AIMS=0 Tobacco: 1ppd Alcohol: minimizes, stated she was "unsure" then stated "only a few....I need to go." Street: denies any current. Caffeine: 2-3 per day 1.Interval hx 2.Continue current medications 3.Review current labs 4.Pt had an opportunity to ask questions and discuss current treatment plan. 5.Supportive therapy was provided 6.Pt encouraged to consider group or individual therapy 7.Pt was in agreement with treatment plan. 8.Pt was educated on the risks benefits and side effects of current medications. 9. Recommend pt follow up with [facility]). 10. Consider fixed ativan taper due to questionable alcohol withdrawal due to severe chronic alcohol 11. consider a UA CC: Mayda Zeng MD Past Med Surg Social Fam HX - Past Medical History Medical history: CVA, hyperlipidemia, hypertension, thyroid disease, other - Past Psychiatric History Psychiatric history: Reports: other (alcohol use D/O) - Past Surgical History Surgical History: - Social History Smoking Status: Current every day smoker Smokeless Tobacco Status: No (States she is interesting in a nicotine patch while she is here) Alcohol use: rarely Drug use: none - Family History Mother Living Status: Still Living Hx Family Endocrine Disorder: Yes Medications & Allergies Ipratropium [ATROVENT Inhaler] 2 puff IH QID PRN 06/15/16 [History] Montelukast [Singulair] 10 mg PO DAILY PRN 06/15/16 [History] Omeprazole [PriLOSEC] 40 mg PO DAILY 06/15/16 [History] Albuterol Sulfate [Albuterol Inhaler] 2 puff IH Q4H PRN 08/02/16 [History] Ibuprofen [Motrin] 600 mg PO TID PRN 08/02/16 [History] Potassium Chloride [K-Tab ER] 20 meq PO DAILY 08/02/16 [History] Aspirin Enteric Coated [Aspirin EC] 81 mg PO DAILY #30 tablet. 08/03/16 [Rx] Atorvastatin Calcium [Lipitor] 20 mg PO HS 06/19/17 [History] Cyclobenzaprine HCl 5 mg PO TID PRN 06/19/17 [History] Fluticasone Propionate Nasal [Flonase] 1 spr NS BID 06/19/17 [History] Melatonin [Melatin] 9 mg PO HS 06/19/17 [History] Metoprolol Succinate [Toprol Xl] 25 mg PO DAILY 06/19/17 [History] hydrOXYzine HCl [Hydroxyzine HCl] 25 mg PO QID 06/19/17 [History] traZODone [TraZODone] 50 mg PO HS 06/19/17 [History] Levothyroxine [Synthroid] 75 mcg PO 0630 #30 tablet 06/20/17 [Rx] Acetaminophen [Tylenol] 650 mg PO Q6HR PRN 11/05/17 [History] Bupropion HCl [Wellbutrin Xl] 300 mg PO DAILY 11/05/17 [History] Calcium Carbonate [Calcium] 500 mg PO BID 11/05/17 [History] Diltiazem HCl [Cardizem] 60 mg PO TID 11/05/17 [History] Ergocalciferol (VITAMIN D2) [Vitamin D] 800 unit PO DAILY 11/05/17 [History] Escitalopram [Lexapro] 10 mg PO DAILY 11/05/17 [History] Estrogens, Conjugated [Premarin Cream] 1 appl VG HS 11/05/17 [History] Medroxyprogesterone Acetate [Provera] 5 mg PO HS 11/05/17 [History] Sodium Chloride [Sodium Chloride Tab] 1 gm PO BID 11/05/17 [History] 3 Allergy/AdvReac Type Severity Reaction Status Date / Time egg AdvReac See Verified 06/19/17 19:28 Comments milk AdvReac Vomiting Verified 06/19/17 19:28 pyridoxine AdvReac Rash Verified 06/19/17 19:28 Review of Systems Constitutional: Denies: fever, chills, weakness, weight change Eyes: Denies: eye pain, vision change Ears, Nose, Throat: Denies: ear pain, throat pain, dental pain, hearing loss, congestion Cardiovascular: Denies: chest pain, palpitations, dyspnea on exertion Respiratory: Denies: cough, dyspnea, wheezes Gastrointestinal: Denies: abdominal pain, nausea, vomiting, diarrhea, constipation Genitourinary female: Denies: urgency, dysuria, frequency, abnormal menses, dyspareunia Musculoskeletal: Denies: joint swelling, joint pain Integumentary: Denies: rash, lesions, pruritus Neurological: Denies: headache, weakness, numbness, memory loss Psychiatric: Reports: other (alcohol use D/O) Endocrine: Denies: fatigue, heat or cold intolerance Hematologic/Lymphatic: Denies: easy bruising, lymphadenopathy Allergic/Immunologic: Denies: urticaria, itchy eyes Psychiatry Exam - Constitutional Vitals: Temp Pulse Resp BP Pulse Ox 98.8 F 86 15 134/87 95 11/09/17 10:44 11/09/17 10:44 11/08/17 20:27 11/09/17 10:44 11/08/17 20:27 General appearance: unkempt, disheveled - Musculoskeletal Gait: unsteady Station: relaxed Strength & Tone: mild weakness - Psychiatric Patient Orientation: Yes Person Level of alertness: Sedated Behavior: calm, uncooperative Psychomotor activity: Slowed Eye Contact: No Eye Contact Mood Description: Depressed Affect description: dysphoric Speech Volume: Whispering Speech pattern: slowed Language & Vocabulary: limited Thought Process: Disorganized, Slowed Thinking Thought Content: No Suicidal ideation, No Homicidal ideation Perceptual Disturbances: No Auditory hallucinations, No Visual hallucinations Attention Span Ability: Unable to Focus Memory Description: Recent Impaired Patient Reliability: Not Reliable Historian Fund of knowledge: Yes average Intelligence Estimate: Average Judgment: Poor Insight: Minimal Results - Labs Labs: Laboratory Last Values WBC 4.7 K/mcL (4.3-11.1) 11/08/17 06:19 RBC 3.24 M/mcL (3.82-4.97) L 11/08/17 06:19 Hgb 9.7 g/dL (11.5-15.4) L D 11/08/17 06:19 Hct 28.6 % (35.3-44.9) L 11/08/17 06:19 MCV 88.3 fL (83.0-100.0) 11/08/17 06:19 MCH 29.9 pg (28.0-33.3) 11/08/17 06:19 MCHC 33.9 g/dL (31.6-35.5) 11/08/17 06:19 RDW 13.8 % (11.5-14.5) 11/08/17 06:19 Plt Count 261 K/mcL (140-400) 11/08/17 06:19 MPV 9.2 fL (9.4-12.4) L 11/08/17 06:19 Immature Gran % 0.2 % (0-4) 11/08/17 06:19 Seg Neutrophils % 32.6 % 11/08/17 06:19 Lymphocytes % 53.3 % 11/08/17 06:19 Monocytes % 9.6 % 11/08/17 06:19 Eosinophils % 3.0 % 11/08/17 06:19 Basophils % 1.3 % 11/08/17 06:19 Neutrophils # 1.5 K/mcL (1.6-8.9) L 11/08/17 06:19 Lymphocytes # 2.5 K/mcL (0.6-4.6) 11/08/17 06:19 Monocytes # 0.5 K/mcL (0.0-1.3) 11/08/17 06:19 Eosinophils # 0.1 K/mcL (0.0-0.6) 11/08/17 06:19 Basophils # 0.1 K/mcL (0.0-0.2) 11/08/17 06:19 PT 11.7 Seconds (9.4-12.1) 11/04/17 18:44 INR 1.0 11/04/17 18:44 APTT 31.0 Seconds (26.0-36.0) 11/04/17 18:44 Sodium 131 mEq/L (136-145) L 11/08/17 06:19 Potassium 3.6 mEq/L (3.5-5.1) 11/08/17 06:19 Chloride 109 mEq/L (98-107) H 11/08/17 06:19 Carbon Dioxide 18 mEq/L (23-29) L 11/08/17 06:19 BUN < 2 mg/dL (6-20) L 11/08/17 06:19 Creatinine 0.46 mg/dL (0.60-1.20) L 11/08/17 06:19 Est GFR ( Amer) > 60 (> 60) 11/08/17 06:19 Est GFR (Non-Af Amer) > 60 (> 60) 11/08/17 06:19 BUN/Creatinine Ratio TNP 11/08/17 06:19 Glucose 88 mg/dL (70-105) 11/08/17 06:19 Calculated Osmolality TNP 11/08/17 06:19 Calcium 8.0 mg/dL (8.6-10.3) L 11/08/17 06:19 Phosphorus 2.6 mg/dL (2.7-4.5) L 11/05/17 00:41 Magnesium 1.8 mg/dL (1.6-2.6) 11/08/17 06:19 Total Bilirubin 0.6 mg/dL (0.3-1.0) 11/05/17 00:41 AST 17 Units/L (13-39) 11/05/17 00:41 ALT 11 Units/L (7-52) 11/05/17 00:41 Alkaline Phosphatase 149 Units/L (34-104) H 11/05/17 00:41 Troponin I < 0.03 ng/mL (< 0.04) 11/05/17 12:38 Serum Total Protein 5.4 g/dL (6.4-8.9) L 11/05/17 00:41 Albumin 3.0 g/dL (3.5-5.7) L 11/05/17 00:41 Globulin 2.4 g/dL (2.4-3.5) 11/05/17 00:41 Albumin/Globulin Ratio 1.3 (1.1-2.2) 11/05/17 00:41 Vitamin B12 702 pg/mL (250-1100) 11/07/17 07:26 Folate 9.1 ng/mL (3.0-16.0) 11/07/17 07:26 TSH 2.552 mcIU/mL (0.340-5.600) 11/07/17 07:26 Urine Osmolality 175 mOsm/kg (300-900) L 11/06/17 16:56 Urine Sodium 32.5 mEq/L 11/06/17 16:56 Specimen Rejected Hemolyzed 11/06/17 08:11 Consult Discharge Plan - Plan Additional Instructions: 1. Recommend pt follow up with Substance abuse treatment program ([facility] the [facility] or [facility] abuse program). 2. Consider fixed ativan taper due to questionable alcohol withdrawal due to severe chronic alcohol 3. consider a UA [facility]errals: [facility] [Primary Care Provider] -
--- NOTE | 2017-11-09 14:16 | Internal Med Progress Note ---
Hospitalist Progress Note - Encounter Date of Encounter: 11/09/17 Time of Encounter: 11:00 - Subjective Interval History: Noted to be disoriented and confused today; able to tell me her name but does not know where she is; insists on going home, with her fiance, who she never mentioned; her story keeps changing between different staff members; denies chest pain, dyspnea, nausea, vomiting or abdominal pain; - Exam Vitals: Temp Pulse Resp BP Pulse Ox 98.8 F 86 15 134/87 95 11/09/17 10:44 11/09/17 10:44 11/08/17 20:27 11/09/17 10:44 11/08/17 20:27 Exam: General: thin-built chronically sick female lying comfortably in bed in no acute distress Skin: Warm and supple Chest: Normal thoracic expansion. Normal breath sounds. Clear to auscultation B/ L; Heart: Normal S1 & S2; rhythmic. No rubs or murmurs. Tachycardic; Neurological: awake, alert and oriented to person, only; no focal deficits; - Assessment and Plan (1) Hyponatremia Current Visit: Yes Status: Resolved (2) Hypokalemia Current Visit: Yes Status: Resolved (3) Tobacco abuse Current Visit: Yes Status: Chronic Assessment and Plan: NicoDerm patch (4) TIA (transient ischemic attack) Current Visit: Yes Status: Suspected (5) Abnormal finding on EKG Current Visit: Yes Status: Acute (6) Alcohol withdrawal Current Visit: Yes Status: Acute Assessment and Plan: continues to have delirium and confusion; consulted and case d/w Psychiatry- agrees with this and thinks she is probably still in withdrawal as she is known to drink heavily; recommend scheduled benzodiazepines slowly tapered; will start Ativan 1mg TID; she has no capacity to make informed decisions at this time, hence cannot be discharged home like she insists; creative services manager on board for placement; PT/OT evaluation noted- recommend ECF placement; (7) COPD (chronic obstructive pulmonary disease) Current Visit: Yes Status: Chronic Assessment and Plan: not in exacerbation; continue PRN breathing treatments and supplemental O2; (8) Essential hypertension Current Visit: Yes Status: Chronic (9) Hypothyroidism Current Visit: Yes Status: Chronic (10) Stroke Current Visit: Yes Status: Chronic - Time Spent with Patient Total time spent is greater than 50% in coordination of care (as documented) at patient's floor/unit and/or counseling patient: Plan of Care Discussed with: actuarial consultant Internal Medicine: Result - Labs CBC & Chem 7: 11/08/17 06:19 11/08/17 06:19 - ABG Interpretation ABG results: PT/INR, D-dimer PT 11.7 Seconds (9.4-12.1) 11/04/17 18:44 Consult Discharge Plan - Plan Additional Instructions: 1. Recommend pt follow up with Substance abuse treatment program ([facility] the [facility] or [facility]stance abuse program). 2. Consider fixed ativan taper due to questionable alcohol withdrawal due to severe chronic alcohol 3. consider a UA Referrals: [facility],PCP [Primary Care Provider] - (6) Alcohol withdrawal Qualifiers: Complication of substance-induced condition: with unspecified complication Qualified Code(s): F10.239 - Alcohol dependence with withdrawal, unspecified (7) COPD (chronic obstructive pulmonary disease) Qualifiers: COPD type: unspecified COPD Qualified Code(s): J44.9 - Chronic obstructive pulmonary disease, unspecified (9) Hypothyroidism Qualifiers: Hypothyroidism type: unspecified Qualified Code(s): E03.9 - Hypothyroidism, unspecified (10) Stroke Qualifiers: CVA mechanism: unspecified Qualified Code(s): I63.9 - Cerebral infarction, unspecified
[2017-11-09] MEDS: *HR* LORazepam 1 MG TABLET PO SCH ×2 (15:45→20:56)
[2017-11-09 16:51] LABS: Bilirubin,Urine Negative (Negative); Blood,Urine Negative (Negative); Clarity,Urine Clear (Clear); Color,Urine Yellow (Yellow); Glucose,Urine (UA) Normal (Normal); Ketones,Urine Negative (Negative); Leukocyte Esterase,Urine Negative (Negative); Nitrite,Urine Negative (Negative); PH,Urine 6.5 pH Units (5.0-8.0); Protein,Urine Negative (Neg-Trace); Specific Gravity,Urine 1.007 (1.010-1.025); Urobilinogen,Urine Normal (Normal)
[2017-11-09] MEDS: traZODone 50 MG TABLET PO SCH (20:55)
[2017-11-09] MEDS: Melatonin 3 MG TABLET PO SCH (20:56)
[2017-11-09] MEDS: Estrogens, Conjugated CREAM 30 GM TUBE VG SCH (20:57)
[2017-11-10] MEDS: *HR* Heparin 5,000 UNIT/ML VIAL SQ SCH (00:50)
[2017-11-10 04:03] LABS: Basophils # 0.1 K/mcL (0.0-0.2); Basophils % 1.5 %; Eosinophils # 0.1 K/mcL (0.0-0.6); Hematocrit 27.2 % (35.3-44.9); Hemoglobin 9.2 g/dL (11.5-15.4); Immature Granulocytes % 0.2 % (0-4); Lymphocytes # 2.5 K/mcL (0.6-4.6); Lymphocytes % 54.7 %; Mean Corpuscular HGB Conc 33.8 g/dL (31.6-35.5); Mean Corpuscular Hemoglobin 29.9 pg (28.0-33.3); Mean Corpuscular Volume 88.3 fL (83.0-100.0); Monocytes # 0.5 K/mcL (0.0-1.3); Monocytes % 9.7 %; Neutrophils # 1.4 K/mcL (1.6-8.9); Platelet Count 280 K/mcL (140-400); Red Blood Count 3.08 M/mcL (3.82-4.97); Red Cell Distribution Width 13.9 % (11.5-14.5); Segmented Neutrophils % 30.9 %
[2017-11-10 04:34] LABS: Blood Urea Nitrogen < 2 mg/dL (6-20); Calcium 8.2 mg/dL (8.6-10.3); Carbon Dioxide 18 mEq/L (23-29); Chloride 108 mEq/L (98-107); Glucose 90 mg/dL (70-105); Magnesium 1.4 mg/dL (1.6-2.6); Potassium 3.7 mEq/L (3.5-5.1); Sodium 130 mEq/L (136-145); eGFR For Non-African Americans > 60 (> 60)
[2017-11-10] MEDS ORDERED: Thiamine (B-1) 100 MG TABLET PO SCH (09:00)
[2017-11-10] MEDS: Thiamine (B-1) 100 MG TABLET PO SCH (09:35)
[2017-11-10] MEDS: Folic Acid 1 MG TABLET PO SCH (09:35)
[2017-11-10] MEDS: BuPROPion XL (24 HR) 150 MG TABLET PO SCH (09:36)
[2017-11-10] MEDS: Vitamin B Complex/Vit C/Vit E 1 EACH TABLET PO SCH (09:36)
[2017-11-10] MEDS: Magnesium Oxide 400 MG TABLET PO SCH ×2 (09:36→20:13)
[2017-11-10] MEDS: Cholecalciferol (D-3) 1,000 UNIT TABLET PO SCH (09:36)
[2017-11-10] MEDS: Nicotine 21 MG PATCH.TD24 TD SCH (09:36)
[2017-11-10] MEDS: dilTIAZem HCl 60 MG TABLET PO SCH ×3 (09:36→20:13)
[2017-11-10] MEDS: Aspirin Enteric Coated 81 MG Tablet PO SCH (09:37)
[2017-11-10] MEDS: Metoprolol XL (24 HR) Succ 25 MG TAB.ER.24H PO SCH (09:37)
[2017-11-10 10:40] LABS: % Iron Saturation 68 % (15-50); Iron 115 mcg/dL (50-170); Transferrin 121 mg/dL (203-362)
[2017-11-10 10:58] LABS: Ferritin 352 ng/mL (10-120)
[2017-11-10] MEDS: *HR* LORazepam 1 MG TABLET PO SCH (11:05)
[2017-11-10] MEDS: Sennosides/Docusate Sodium TABLET PO SCH ×2 (11:06→20:12)
[2017-11-10] MEDS: Fluticasone Propionate Nasal 50 MCG/SPRAY BOTTLE NS SCH ×2 (11:06→20:18)
--- NOTE | 2017-11-10 14:47 | Internal Med Progress Note ---
Hospitalist Progress Note - Encounter Date of Encounter: 11/10/17 Time of Encounter: 11:00 - Subjective Interval History: Patient is noted to be very drowsy today, unable to provide any history. Very poor appetite. - Exam Vitals: Temp Pulse Resp BP Pulse Ox 98.3 F 97 19 124/85 98 11/10/17 11:50 11/10/17 11:50 11/10/17 11:50 11/10/17 11:50 11/10/17 11:50 Exam: General: thin-built chronically sick female lying comfortably in bed in no acute distress, somnolent, pallor+ Skin: Warm and supple Chest: Normal thoracic expansion. Normal breath sounds. Clear to auscultation B/ L; Heart: Normal S1 & S2; rhythmic. No rubs or murmurs. Neurological: no focal deficits; generalized decrease in motor power noted; somnolent; does not follow commands; - Assessment and Plan (1) Hyponatremia Current Visit: Yes Status: Resolved (2) Hypokalemia Current Visit: Yes Status: Resolved (3) Tobacco abuse Current Visit: Yes Status: Chronic Assessment and Plan: NicoDerm patch (4) TIA (transient ischemic attack) Current Visit: Yes Status: Suspected (5) Abnormal finding on EKG Current Visit: Yes Status: Acute (6) Alcohol withdrawal Current Visit: Yes Status: Acute Assessment and Plan: continues to have delirium and confusion; started on scheduled oral Ativan per psychiatry recommendations, noted to be extremely somnolent today. Discussed with psychiatry again-we will decrease dose of Ativan to 0.5 mg twice daily and gradually taper. 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 she has no capacity to make informed decisions at this time, hence cannot be discharged home; business services tech on board for placement; PT/OT evaluation noted- recommend ECF placement; (7) COPD (chronic obstructive pulmonary disease) Current Visit: Yes Status: Chronic Assessment and Plan: not in exacerbation; continue PRN breathing treatments and supplemental O2; (8) Essential hypertension Current Visit: Yes Status: Chronic (9) Hypothyroidism Current Visit: Yes Status: Chronic (10) Stroke Current Visit: Yes Status: Chronic (11) Anemia Current Visit: Yes Status: Chronic Assessment and Plan: Normocytic anemia, likely due to nutritional deficiencies and chronic heavy alcoholism. Serum Vit B12 and folate levels normal; f/up iron profile and ferritin; hold pharmacological anticoagulation; monitor for signs of bleeding; (12) Moderate protein-energy malnutrition Current Visit: Yes Status: Chronic Assessment and Plan: secondary to poor nutrition from alcohol abuse; Nutrition consulted; (13) Acute metabolic encephalopathy Current Visit: Yes Status: Acute Assessment and Plan: Toxic/metabolic encephalopathy due to chronic alcohol abuse, possible current alcohol withdrawal. plan as mentioned above. No signs of infection, urinalysis normal. - Time Spent with Patient Total time spent is greater than 50% in coordination of care (as documented) at patient's floor/unit and/or counseling patient: Plan of Care Discussed with: nurse Internal Medicine: Result - Labs CBC & Chem 7: 11/10/17 03:48 11/10/17 03:48 Labs: Short CBC 11/10/17 Range/Units 03:48 WBC 4.6 (4.3-11.1) K/mcL Hgb 9.2 L (11.5-15.4) g/dL Hct 27.2 L (35.3-44.9) % Plt Count 280 (140-400) K/mcL Neutrophils # 1.4 L (1.6-8.9) K/mcL BMP 11/10/17 03:48 Sodium 130 L Potassium 3.7 Chloride 108 H Carbon Dioxide 18 L BUN < 2 L Creatinine 0.47 L Glucose 90 Calcium 8.2 L Urine 11/09/17 Range/Units 16:30 Urine Color Yellow (Yellow) Urine Clarity Clear (Clear) Urine pH 6.5 (5.0-8.0) pH Units Ur Specific Effie 1.007 L (1.010-1.025) Urine Protein Negative (Neg-Trace) mg/dL Urine Glucose (UA) Normal (Normal) mg/dL - ABG Interpretation ABG results: PT/INR, D-dimer PT 11.7 Seconds (9.4-12.1) 11/04/17 18:44 Consult Discharge Plan - Plan Additional Instructions: 1. Recommend pt follow up with Substance abuse treatment program ([facility] at the [facility] or [facility] Substance abuse program). 2. Consider fixed ativan taper due to questionable alcohol withdrawal due to severe chronic alcohol 3. consider a UA [facility]errals: [facility] [Primary Care Provider] - (6) Alcohol withdrawal Qualifiers: Complication of substance-induced condition: with unspecified complication Qualified Code(s): F10.239 - Alcohol dependence with withdrawal, unspecified (7) COPD (chronic obstructive pulmonary disease) Qualifiers: COPD type: unspecified COPD Qualified Code(s): J44.9 - Chronic obstructive pulmonary disease, unspecified (9) Hypothyroidism Qualifiers: Hypothyroidism type: unspecified Qualified Code(s): E03.9 - Hypothyroidism, unspecified (10) Stroke Qualifiers: CVA mechanism: unspecified Qualified Code(s): I63.9 - Cerebral infarction, unspecified (11) Anemia Qualifiers: Anemia type: unspecified type Qualified Code(s): D64.9 - Anemia, unspecified
[2017-11-10] MEDS: *HR* LORazepam 0.5 MG TABLET PO SCH ×2 (15:27→20:13)
[2017-11-10] MEDS: traZODone 50 MG TABLET PO SCH (20:13)
[2017-11-10] MEDS: Melatonin 3 MG TABLET PO SCH (20:13)
[2017-11-10] MEDS: Estrogens, Conjugated CREAM 30 GM TUBE VG SCH (20:23)
[2017-11-11 04:22] LABS: Blood Urea Nitrogen < 2 mg/dL (6-20); Calcium 8.5 mg/dL (8.6-10.3); Carbon Dioxide 21 mEq/L (23-29); Chloride 106 mEq/L (98-107); Glucose 87 mg/dL (70-105); Magnesium 1.7 mg/dL (1.6-2.6); Potassium 3.9 mEq/L (3.5-5.1); Sodium 132 mEq/L (136-145); eGFR For Non-African Americans > 60 (> 60)
[2017-11-11] MEDS: Nicotine 21 MG PATCH.TD24 TD SCH (07:37)
[2017-11-11] MEDS: Thiamine (B-1) 100 MG TABLET PO SCH (07:38)
[2017-11-11] MEDS: BuPROPion XL (24 HR) 150 MG TABLET PO SCH (07:38)
[2017-11-11] MEDS: Fluticasone Propionate Nasal 50 MCG/SPRAY BOTTLE NS SCH ×2 (07:38→20:08)
[2017-11-11] MEDS: Cholecalciferol (D-3) 1,000 UNIT TABLET PO SCH (07:38)
[2017-11-11] MEDS: dilTIAZem HCl 60 MG TABLET PO SCH ×3 (07:38→20:04)
[2017-11-11] MEDS: *HR* LORazepam 0.5 MG TABLET PO SCH ×2 (07:38→20:04)
[2017-11-11] MEDS: Metoprolol XL (24 HR) Succ 25 MG TAB.ER.24H PO SCH (07:38)
[2017-11-11] MEDS: Sennosides/Docusate Sodium TABLET PO SCH ×2 (07:38→20:03)
[2017-11-11] MEDS: Folic Acid 1 MG TABLET PO SCH (07:38)
[2017-11-11] MEDS: Vitamin B Complex/Vit C/Vit E 1 EACH TABLET PO SCH (07:38)
[2017-11-11] MEDS: Aspirin Enteric Coated 81 MG Tablet PO SCH (07:38)
[2017-11-11] MEDS: Magnesium Oxide 400 MG TABLET PO SCH ×2 (07:38→20:04)
--- NOTE | 2017-11-11 12:06 | Internal Med Progress Note ---
Hospitalist Progress Note - Encounter Date of Encounter: 11/11/17 Time of Encounter: 10:25 - Subjective Interval History: Patient is more awake today, however continues to be confused and disoriented; tells me her name but does not know where she is; she thinks "she is here to find her daughter and her best friend, it is her daughter's birthday today and she has a lot of things planned, and she needs to go home"; denies chest pain, shortness of breath, cough; poor appetite; - Exam Vitals: Temp Pulse Resp BP Pulse Ox 98.1 F 84 17 123/82 96 11/11/17 10:30 11/11/17 10:30 11/11/17 10:30 11/11/17 10:30 11/11/17 10:30 Exam: General: thin-built chronically sick female sitting up in bed in no acute distress, occasionally trying to crawl out; Skin: Warm and supple Chest: Normal thoracic expansion. Normal breath sounds. Clear to auscultation B/ L; Heart: Normal S1 & S2; rhythmic. No rubs or murmurs. 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 she has no capacity to make informed decisions at this time, hence cannot be discharged home; she has been [place]-slipped on 11/10 as she keeps asking to be discharged home; registered nurse surgical services on board for placement; PT/OT evaluation noted- recommend ECF placement; She is probably as stable for discharge as she can be; (2) Hyponatremia Current Visit: Yes Status: Resolved (3) Hypokalemia Current Visit: Yes Status: Resolved (4) Tobacco abuse Current Visit: Yes Status: Chronic Assessment and Plan: continue NicoDerm patch (5) TIA (transient ischemic attack) Current Visit: Yes Status: Suspected (6) Abnormal finding on EKG Current Visit: Yes Status: Acute (7) COPD (chronic obstructive pulmonary disease) Current Visit: Yes Status: Chronic (8) Essential hypertension Current Visit: Yes Status: Chronic Assessment and Plan: BP acceptable; continue current meds; (9) Hypothyroidism Current Visit: Yes Status: Chronic (10) Stroke Current Visit: Yes Status: Chronic (11) Anemia Current Visit: Yes Status: Chronic Assessment and Plan: Normocytic anemia, likely due to nutritional deficiencies and chronic heavy alcoholism. Serum Vit B12 and folate levels normal; iron stores normal, mildly elevated Ferritin; hold pharmacological anticoagulation; monitor for signs of bleeding; (12) Moderate protein-energy malnutrition Current Visit: Yes Status: Chronic (13) Acute metabolic encephalopathy Current Visit: Yes Status: Acute Assessment and Plan: Toxic/metabolic encephalopathy due to chronic alcohol abuse, possible current alcohol withdrawal. plan as mentioned above. No signs of infection, urinalysis normal. - Time Spent with Patient Total time spent is greater than 50% in coordination of care (as documented) at patient's floor/unit and/or counseling patient: Plan of Care Discussed with: nurse Internal Medicine: Result - Labs CBC & Chem 7: 11/10/17 03:48 11/11/17 03:54 Labs: BMP 11/11/17 03:54 Sodium 132 L Potassium 3.9 Chloride 106 Carbon Dioxide 21 L BUN < 2 L Creatinine 0.43 L Glucose 87 Calcium 8.5 L - ABG Interpretation ABG results: PT/INR, D-dimer PT 11.7 Seconds (9.4-12.1) 11/04/17 18:44 - VTE Documentation of Mechanical Device: Graduated compression elastic hosiery Consult Discharge Plan - Plan Additional Instructions: 1. Recommend pt follow up with Substance abuse treatment program ([facility] at the [place] or civilian Substance abuse program). 2. Consider fixed ativan taper due to questionable alcohol withdrawal due to severe chronic alcohol 3. consider a UA [facility]Primary Care Provider[facility] - (1) Alcohol withdrawal Qualifiers: Complication of substance-induced condition: with unspecified complication Qualified Code(s): F10.239 - Alcohol dependence with withdrawal, unspecified (7) COPD (chronic obstructive pulmonary disease) Qualifiers: COPD type: unspecified COPD Qualified Code(s): J44.9 - Chronic obstructive pulmonary disease, unspecified (9) Hypothyroidism Qualifiers: Hypothyroidism type: unspecified Qualified Code(s): E03.9 - Hypothyroidism, unspecified (10) Stroke Qualifiers: CVA mechanism: unspecified Qualified Code(s): I63.9 - Cerebral infarction, unspecified (11) Anemia Qualifiers: Anemia type: unspecified type Qualified Code(s): D64.9 - Anemia, unspecified
[2017-11-11] MEDS ORDERED: *HR* LORazepam 2 MG/ML VIAL IVP ONE (14:04)
[2017-11-11] MEDS ORDERED: *HR* LORazepam 2 MG/ML VIAL ONE (14:08)
[2017-11-11] MEDS: Melatonin 3 MG TABLET PO SCH (20:03)
[2017-11-11] MEDS: traZODone 50 MG TABLET PO SCH (20:04)
[2017-11-11] MEDS: Estrogens, Conjugated CREAM 30 GM TUBE VG SCH (20:08)
[2017-11-12] MEDS: Sennosides/Docusate Sodium TABLET PO SCH ×2 (07:32→20:53)
[2017-11-12] MEDS: Cholecalciferol (D-3) 1,000 UNIT TABLET PO SCH (07:32)
[2017-11-12] MEDS: Thiamine (B-1) 100 MG TABLET PO SCH (07:33)
[2017-11-12] MEDS: Folic Acid 1 MG TABLET PO SCH (07:33)
[2017-11-12] MEDS: *HR* LORazepam 0.5 MG TABLET PO SCH ×2 (07:33→20:54)
[2017-11-12] MEDS: Aspirin Enteric Coated 81 MG Tablet PO SCH (07:33)
[2017-11-12] MEDS: Vitamin B Complex/Vit C/Vit E 1 EACH TABLET PO SCH (07:33)
[2017-11-12] MEDS: Magnesium Oxide 400 MG TABLET PO SCH ×2 (07:33→20:53)
[2017-11-12] MEDS: Metoprolol XL (24 HR) Succ 25 MG TAB.ER.24H PO SCH (07:33)
[2017-11-12] MEDS: dilTIAZem HCl 60 MG TABLET PO SCH ×3 (07:33→20:53)
[2017-11-12] MEDS: Nicotine 21 MG PATCH.TD24 TD SCH (07:33)
[2017-11-12] MEDS: BuPROPion XL (24 HR) 150 MG TABLET PO SCH (07:33)
[2017-11-12] MEDS: Fluticasone Propionate Nasal 50 MCG/SPRAY BOTTLE NS SCH ×2 (07:34→20:54)
--- NOTE | 2017-11-12 14:48 | Internal Med Progress Note ---
Hospitalist Progress Note - Encounter Date of Encounter: 11/12/17 Time of Encounter: 11:00 - Subjective Interval History: remains confused and not oriented to place or time, poor insight into her medical conditions; denies chest or abdominal pain, has poor appetite; no nausea , vomiting, diarrhea; per staff development manager, patient sustained a fall and hit her head as she got out of her bed in confusion despite bed alarms and multiple reinforcements to call for help ; - Exam Vitals: Temp Pulse Resp BP Pulse Ox 98.7 F 89 16 135/93 97 11/12/17 13:10 11/12/17 13:10 11/12/17 13:10 11/12/17 13:10 11/12/17 13:10 Exam: General: thin-built chronically sick female sitting up in bed in no acute distress, occasionally trying to crawl out; Skin: Warm and supple Chest: Normal thoracic expansion. Normal breath sounds. Clear to auscultation B/ L; Heart: Normal S1 & S2; rhythmic. No rubs or murmurs. 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 Wernicke's encephalopathy and alcohol- related dementia; continue scheduled oral Ativan tapering per psychiatry recommendations, now on 0.25mg PO BID; she has no capacity to make informed decisions at this time, hence cannot be discharged home; she has been [place]-slipped on 11/10 as she keeps asking to be discharged home; instructional media services technician on board for placement; PT/OT evaluation noted- recommend ECF placement; 11/12- Patient sustained a fall today as she got out of bed without supervision due to delirium, and sustained a fall, she hit her head; she has posterior scalp hematoma with no acute fracture/bleed on CT head; (2) Hyponatremia Current Visit: Yes Status: Resolved (3) Hypokalemia Current Visit: Yes Status: Resolved (4) Tobacco abuse Current Visit: Yes Status: Chronic Assessment and Plan: continue NicoDerm patch (5) TIA (transient ischemic attack) Current Visit: Yes Status: Suspected (6) Abnormal finding on EKG Current Visit: Yes Status: Acute (7) COPD (chronic obstructive pulmonary disease) Current Visit: Yes Status: Chronic Assessment and Plan: not in exacerbation; continue PRN breathing treatments and supplemental O2; (8) Essential hypertension Current Visit: Yes Status: Chronic (9) Hypothyroidism Current Visit: Yes Status: Chronic (10) Stroke Current Visit: Yes Status: Chronic (11) Anemia Current Visit: Yes Status: Chronic Assessment and Plan: Normocytic anemia, likely due to nutritional deficiencies and chronic heavy alcoholism. Serum Vit B12 and folate levels normal; iron stores normal, mildly elevated Ferritin; hold pharmacological anticoagulation; monitor for signs of bleeding; (12) Moderate protein-energy malnutrition Current Visit: Yes Status: Chronic (13) Acute metabolic encephalopathy Current Visit: Yes Status: Acute Assessment and Plan: Toxic/metabolic encephalopathy due to chronic alcohol abuse, possible current alcohol withdrawal. plan as mentioned above. No signs of infection, urinalysis normal. - Time Spent with Patient Total time spent is greater than 50% in coordination of care (as documented) at patient's floor/unit and/or counseling patient: Plan of Care Discussed with: nurse Internal Medicine: Result - Labs CBC & Chem 7: 11/10/17 03:48 11/11/17 03:54 - ABG Interpretation ABG results: PT/INR, D-dimer PT 11.7 Seconds (9.4-12.1) 11/04/17 18:44 - Impressions Impressions Head CT 11/12/17 13:07 IMPRESSION: No acute intracranial abnormality. Posterior scalp hematoma. No underlying calvarial fracture. D/ / 11/12/2017 13:58:39 Frank Garcia MD / [facility] Interpreting Provider: Frank Garcia MD - VTE Documentation of Mechanical Device: Graduated compression elastic hosiery Consult Discharge Plan - Plan Additional Instructions: 1. Recommend pt follow up with [facility]). 2. Consider fixed ativan taper due to questionable alcohol withdrawal due to severe chronic alcohol 3. consider a UA Referrals: [facility] [Primary Care Provider] - (1) Alcohol withdrawal Qualifiers: Complication of substance-induced condition: with unspecified complication Qualified Code(s): F10.239 - Alcohol dependence with withdrawal, unspecified (7) COPD (chronic obstructive pulmonary disease) Qualifiers: COPD type: unspecified COPD Qualified Code(s): J44.9 - Chronic obstructive pulmonary disease, unspecified (9) Hypothyroidism Qualifiers: Hypothyroidism type: unspecified Qualified Code(s): E03.9 - Hypothyroidism, unspecified (10) Stroke Qualifiers: CVA mechanism: unspecified Qualified Code(s): I63.9 - Cerebral infarction, unspecified (11) Anemia Qualifiers: Anemia type: unspecified type Qualified Code(s): D64.9 - Anemia, unspecified
[2017-11-12] MEDS: traZODone 50 MG TABLET PO SCH (20:52)
[2017-11-12] MEDS: Melatonin 3 MG TABLET PO SCH (20:53)
[2017-11-12] MEDS: Estrogens, Conjugated CREAM 30 GM TUBE VG SCH (20:54)
[2017-11-13 06:15] LABS: Basophils % 0.5 %; Eosinophils # 0.1 K/mcL (0.0-0.6); Eosinophils % 2.1 %; Hematocrit 30.5 % (35.3-44.9); Hemoglobin 10.7 g/dL (11.5-15.4); Immature Granulocytes % 0.2 % (0-4); Lymphocytes # 1.9 K/mcL (0.6-4.6); Lymphocytes % 44.4 %; Mean Corpuscular HGB Conc 35.1 g/dL (31.6-35.5); Mean Corpuscular Hemoglobin 30.7 pg (28.0-33.3); Mean Corpuscular Volume 87.4 fL (83.0-100.0); Mean Platelet Volume 9.4 fL (9.4-12.4); Monocytes # 0.5 K/mcL (0.0-1.3); Monocytes % 10.3 %; Neutrophils # 1.9 K/mcL (1.6-8.9); Platelet Count 327 K/mcL (140-400); Red Blood Count 3.49 M/mcL (3.82-4.97); Red Cell Distribution Width 13.4 % (11.5-14.5); Segmented Neutrophils % 42.5 %
[2017-11-13 06:42] LABS: BUN/Creatinine Ratio 4 (6-26); Blood Urea Nitrogen 2 mg/dL (6-20); Calcium 8.9 mg/dL (8.6-10.3); Carbon Dioxide 23 mEq/L (23-29); Chloride 98 mEq/L (98-107); Glucose 92 mg/dL (70-105); Osmolality,Calculated 258 (280-300); Potassium 4.2 mEq/L (3.5-5.1); Sodium 126 mEq/L (136-145); eGFR For Non-African Americans > 60 (> 60)
[2017-11-13] MEDS: Thiamine (B-1) 100 MG TABLET PO SCH (10:20)
[2017-11-13] MEDS: Aspirin Enteric Coated 81 MG Tablet PO SCH (10:20)
[2017-11-13] MEDS: BuPROPion XL (24 HR) 150 MG TABLET PO SCH (10:20)
[2017-11-13] MEDS: Vitamin B Complex/Vit C/Vit E 1 EACH TABLET PO SCH (10:21)
[2017-11-13] MEDS: Cholecalciferol (D-3) 1,000 UNIT TABLET PO SCH (10:21)
[2017-11-13] MEDS: dilTIAZem HCl 60 MG TABLET PO SCH ×3 (10:21→20:44)
[2017-11-13] MEDS: Metoprolol XL (24 HR) Succ 25 MG TAB.ER.24H PO SCH (10:21)
[2017-11-13] MEDS: Nicotine 21 MG PATCH.TD24 TD SCH (10:21)
[2017-11-13] MEDS: Magnesium Oxide 400 MG TABLET PO SCH ×2 (10:24→20:44)
[2017-11-13] MEDS: Folic Acid 1 MG TABLET PO SCH (10:24)
[2017-11-13] MEDS: Sennosides/Docusate Sodium TABLET PO SCH ×2 (10:24→20:46)
[2017-11-13] MEDS: Fluticasone Propionate Nasal 50 MCG/SPRAY BOTTLE NS SCH ×2 (10:24→21:08)
[2017-11-13] MEDS: *HR* LORazepam 0.5 MG TABLET PO SCH ×2 (10:25→20:45)
--- NOTE | 2017-11-13 14:20 | Internal Med Progress Note ---
Hospitalist Progress Note - Encounter Date of Encounter: 11/13/17 Time of Encounter: 10:15 - Subjective Interval History: with 1:1 sitter for safety as she sustained a fall yesterday; only remembers her name, does not know where she is, or her medical condition; keeps asking for her daughter; - Exam Vitals: Temp Pulse Resp BP Pulse Ox 97.7 F 95 16 127/92 97 11/13/17 11:35 11/13/17 11:35 11/13/17 11:35 11/13/17 11:35 11/13/17 11:35 Exam: General: thin-built chronically sick female sitting up in bed in no acute distress, drowsy; Skin: Warm and supple Chest: Normal thoracic expansion. Normal breath sounds. Clear to auscultation B/ L; Heart: Normal S1 & S2; rhythmic. No rubs or murmurs. 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 Wernicke's encephalopathy and alcohol- related dementia; she had a fall with no acute trauma on CT head; continue scheduled oral Ativan tapering per initial psychiatry recommendations, now on 0.25mg PO BID;will reconsult Psychiatry to recommend BDZ dosing and disposition; she has no capacity to make informed decisions at this time, hence cannot be discharged home; she has been [place]-slipped on 11/10 as she keeps asking to be discharged home; supervisor gate services on board for placement; PT/OT evaluation noted- recommend ECF placement; (2) Hyponatremia Current Visit: Yes Status: Chronic Assessment and Plan: acute on chronic, due to poor oral intake; continues to refuse food due to dementia and delirium; continue salt tablets; (3) Hypokalemia Current Visit: Yes Status: Resolved (4) Tobacco abuse Current Visit: Yes Status: Chronic Assessment and Plan: continue NicoDerm patch (5) TIA (transient ischemic attack) Current Visit: Yes Status: Suspected Assessment and Plan: less likely; patient presented with nonspecific symptoms of transient hearing loss and generalized leg weakness. CT head showed no acute infarct/bleed. MRI brain shows no acute intracranial abnormality, shows right mastoid effusion; currently asymptomatic. Continue telemetry monitoring. (6) Abnormal finding on EKG Current Visit: Yes Status: Acute Assessment and Plan: Per previous notes, patient had nonspecific T-wave inversions on initial EKG. Cardiology was consulted, transthoracic echocardiogram and carotid Doppler showed no acute abnormality. Recommended to correct electrolyte abnormalities and treat underlying conditions, currently signed off. (7) COPD (chronic obstructive pulmonary disease) Current Visit: Yes Status: Chronic (8) Essential hypertension Current Visit: Yes Status: Chronic (9) Hypothyroidism Current Visit: Yes Status: Chronic (10) Stroke Current Visit: Yes Status: Chronic (11) Anemia Current Visit: Yes Status: Chronic Assessment and Plan: Normocytic anemia, likely due to nutritional deficiencies and chronic heavy alcoholism. Serum Vit B12 and folate levels normal; iron stores normal, mildly elevated Ferritin; hold pharmacological anticoagulation; monitor for signs of bleeding; (12) Moderate protein-energy malnutrition Current Visit: Yes Status: Chronic (13) Acute metabolic encephalopathy Current Visit: Yes Status: Acute Assessment and Plan: Toxic/metabolic encephalopathy due to chronic alcohol abuse, possible current alcohol withdrawal. plan as mentioned above. No signs of infection, urinalysis normal. - Time Spent with Patient Total time spent is greater than 50% in coordination of care (as documented) at patient's floor/unit and/or counseling patient: Plan of Care Discussed with: nurse Internal Medicine: Result - Labs CBC & Chem 7: 11/13/17 05:55 11/13/17 05:55 Labs: Short CBC 11/13/17 Range/Units 05:55 WBC 4.4 (4.3-11.1) K/mcL Hgb 10.7 L D (11.5-15.4) g/dL Hct 30.5 L (35.3-44.9) % Plt Count 327 (140-400) K/mcL Neutrophils # 1.9 (1.6-8.9) K/mcL BMP 11/13/17 05:55 Sodium 126 L Potassium 4.2 Chloride 98 Carbon Dioxide 23 BUN 2 L Creatinine 0.47 L Glucose 92 Calcium 8.9 - ABG Interpretation ABG results: PT/INR, D-dimer PT 11.7 Seconds (9.4-12.1) 11/04/17 18:44 - Impressions Impressions Head CT 11/12/17 13:07 IMPRESSION: 1. No acute intracranial abnormality. 2. Posterior scalp hematoma. No underlying calvarial fracture. D/ / 11/12/2017 13:58:39 Frank Garcia MD / [facility] Interpreting Provider: Frank Garcia MD - [facility] Documentation of Mechanical Device: Graduated compression elastic hosiery Consult Discharge Plan - Plan Additional Instructions: 1. Recommend pt follow up with Substance abuse treatment program ([facility] at the [place] or civilian Substance abuse program). 2. Consider fixed ativan taper due to questionable alcohol withdrawal due to severe chronic alcohol 3. consider a UA [facility]errals: [facility] [Primary Care Provider] - (1) Alcohol withdrawal Qualifiers: Complication of substance-induced condition: with unspecified complication Qualified Code(s): F10.239 - Alcohol dependence with withdrawal, unspecified (7) COPD (chronic obstructive pulmonary disease) Qualifiers: COPD type: unspecified COPD Qualified Code(s): J44.9 - Chronic obstructive pulmonary disease, unspecified (9) Hypothyroidism Qualifiers: Hypothyroidism type: unspecified Qualified Code(s): E03.9 - Hypothyroidism, unspecified (10) Stroke Qualifiers: CVA mechanism: unspecified Qualified Code(s): I63.9 - Cerebral infarction, unspecified (11) Anemia Qualifiers: Anemia type: unspecified type Qualified Code(s): D64.9 - Anemia, unspecified
--- NOTE | 2017-11-13 18:21 | Consult Note ---
Date of Encounter: 11/13/17 Time of Encounter: 17:30 Assessment & Recommendation (1) Delirium due to known physiological condition Current visit: Yes Status: Acute (2) Hyponatremia Current visit: Yes Status: Acute (3) Altered mental status Current visit: No Status: Acute Qualifiers: Altered mental status type: delirium Qualified Code(s): R41.0 - Disorientation, unspecified History of Present Illness Patient: known to practice within the last 3 years Requesting Physician: Mayda Zeng MD Reason for consult: confusion History of present illness: Ms. 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 History of present illness: This patient is known to me from the [facility] and treated her on an outpatient basis and recently when she was [facility] she stopped me in the camp to talk to me. The patient's hospital course is been complicated 1 alcohol withdrawal has been suspected use of Ativan to help with this has been used. 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 She does not know what day it is does not know what floor it is on and she is rather irritable. This is a change from her baseline personality she is mostly hypoactive wandering around the unit confused she reported that she heard children talking in the camp. She did not report visual hallucinations she had impaired short-term memory. My colleague and recommended a taper of lorazepam and she is on very little. CC: Mayda Zeng MD Past Med Surg Social Fam HX - Past Medical History Medical history: CVA, hyperlipidemia, hypertension, thyroid disease, other - Past Psychiatric History Psychiatric history: Reports: anxiety Family psychiatric history: Unknown Family History of Suicide: Unknown - Past Surgical History Surgical History: - Social History Smoking Status: Current every day smoker Smokeless Tobacco Status: No (States she is interesting in a nicotine patch while she is here) Alcohol use: rarely Drug use: none Occupational status: previously employed Current living situation: Home, With Family Activity Level: Independent ambulation Recent Out of Country Travel Within the Last 8 Weeks: No Exposure or Possible Exposure to Illness During Travel: No - Family History Mother Living Status: Still Living Hx Family Endocrine Disorder: Yes Medications & Allergies Ipratropium [ATROVENT Inhaler] 2 puff IH QID PRN 06/15/16 [History] Montelukast [Singulair] 10 mg PO DAILY PRN 06/15/16 [History] Omeprazole [PriLOSEC] 40 mg PO DAILY 06/15/16 [History] Albuterol Sulfate [Albuterol Inhaler] 2 puff IH Q4H PRN 08/02/16 [History] Ibuprofen [Motrin] 600 mg PO TID PRN 08/02/16 [History] Potassium Chloride [K-Tab ER] 20 meq PO DAILY 08/02/16 [History] Aspirin Enteric Coated [Aspirin EC] 81 mg PO DAILY #30 tablet. 08/03/16 [Rx] Atorvastatin Calcium [Lipitor] 20 mg PO HS 06/19/17 [History] Cyclobenzaprine HCl 5 mg PO TID PRN 06/19/17 [History] Fluticasone Propionate Nasal [Flonase] 1 spr NS BID 06/19/17 [History] Melatonin [Melatin] 9 mg PO HS 06/19/17 [History] Metoprolol Succinate [Toprol Xl] 25 mg PO DAILY 06/19/17 [History] hydrOXYzine HCl [Hydroxyzine HCl] 25 mg PO QID 06/19/17 [History] traZODone [TraZODone] 50 mg PO HS 06/19/17 [History] Levothyroxine [Synthroid] 75 mcg PO 0630 #30 tablet 06/20/17 [Rx] Acetaminophen [Tylenol] 650 mg PO Q6HR PRN 11/05/17 [History] Bupropion HCl [Wellbutrin Xl] 300 mg PO DAILY 11/05/17 [History] Calcium Carbonate [Calcium] 500 mg PO BID 11/05/17 [History] Diltiazem HCl [Cardizem] 60 mg PO TID 11/05/17 [History] Ergocalciferol (VITAMIN D2) [Vitamin D] 800 unit PO DAILY 11/05/17 [History] Escitalopram [Lexapro] 10 mg PO DAILY 11/05/17 [History] Estrogens, Conjugated [Premarin Cream] 1 appl VG HS 11/05/17 [History] Medroxyprogesterone Acetate [Provera] 5 mg PO HS 11/05/17 [History] Sodium Chloride [Sodium Chloride Tab] 1 gm PO BID 11/05/17 [History] 3 Allergy/AdvReac Type Severity Reaction Status Date / Time egg AdvReac See Verified 06/19/17 19:28 Comments milk AdvReac Vomiting Verified 06/19/17 19:28 pyridoxine AdvReac Rash Verified 06/19/17 19:28 Review of Systems Psychiatric: Reports: abnormal sleep pattern, auditory hallucinations, confusion , difficulty concentrating, other (alcohol use D/O) Psychiatry Exam - Constitutional Vitals: Temp Pulse Resp BP Pulse Ox 97.7 F 95 16 127/92 97 11/13/17 11:35 11/13/17 11:35 11/13/17 11:35 11/13/17 11:35 11/13/17 11:35 General appearance: age & developmentally appropriate, disheveled - Musculoskeletal Gait: unsteady Station: shaky - Psychiatric Patient Orientation: Yes Person, Yes Place Level of alertness: Alert Behavior: uncooperative Psychomotor activity: Slowed Eye Contact: Minimal Contact Mood Description: Anxious Affect description: anxious Speech Volume: Soft/Quiet Speech pattern: Inappropriate to situation, impoverished Thought Process: Slowed Thinking, Confabulation Thought Content: No Suicidal ideation, No Homicidal ideation, No Overt delusions Perceptual Disturbances: Yes Auditory hallucinations Attention Span Ability: Unable to Focus Patient Reliability: Not Reliable Historian Intelligence Estimate: Average Judgment: Poor Insight: None Results - Labs Labs: Laboratory Last Values WBC 4.4 K/mcL (4.3-11.1) 11/13/17 05:55 RBC 3.49 M/mcL (3.82-4.97) L 11/13/17 05:55 Hgb 10.7 g/dL (11.5-15.4) L D 11/13/17 05:55 Hct 30.5 % (35.3-44.9) L 11/13/17 05:55 MCV 87.4 fL (83.0-100.0) 11/13/17 05:55 MCH 30.7 pg (28.0-33.3) 11/13/17 05:55 MCHC 35.1 g/dL (31.6-35.5) 11/13/17 05:55 RDW 13.4 % (11.5-14.5) 11/13/17 05:55 Plt Count 327 K/mcL (140-400) 11/13/17 05:55 MPV 9.4 fL (9.4-12.4) 11/13/17 05:55 Immature Gran % 0.2 % (0-4) 11/13/17 05:55 Seg Neutrophils % 42.5 % 11/13/17 05:55 Lymphocytes % 44.4 % 11/13/17 05:55 Monocytes % 10.3 % 11/13/17 05:55 Eosinophils % 2.1 % 11/13/17 05:55 Basophils % 0.5 % 11/13/17 05:55 Neutrophils # 1.9 K/mcL (1.6-8.9) 11/13/17 05:55 Lymphocytes # 1.9 K/mcL (0.6-4.6) 11/13/17 05:55 Monocytes # 0.5 K/mcL (0.0-1.3) 11/13/17 05:55 Eosinophils # 0.1 K/mcL (0.0-0.6) 11/13/17 05:55 Basophils # 0.0 K/mcL (0.0-0.2) 11/13/17 05:55 PT 11.7 Seconds (9.4-12.1) 11/04/17 18:44 INR 1.0 11/04/17 18:44 APTT 31.0 Seconds (26.0-36.0) 11/04/17 18:44 Sodium 126 mEq/L (136-145) L 11/13/17 05:55 Potassium 4.2 mEq/L (3.5-5.1) 11/13/17 05:55 Chloride 98 mEq/L (98-107) 11/13/17 05:55 Carbon Dioxide 23 mEq/L (23-29) 11/13/17 05:55 BUN 2 mg/dL (6-20) L 11/13/17 05:55 Creatinine 0.47 mg/dL (0.60-1.20) L 11/13/17 05:55 Est GFR ( Amer) > 60 (> 60) 11/13/17 05:55 Est GFR (Non-Af Amer) > 60 (> 60) 11/13/17 05:55 BUN/Creatinine Ratio 4 (6-26) L 11/13/17 05:55 Glucose 92 mg/dL (70-105) 11/13/17 05:55 Calculated Osmolality 258 (280-300) L 11/13/17 05:55 Calcium 8.9 mg/dL (8.6-10.3) 11/13/17 05:55 Phosphorus 2.6 mg/dL (2.7-4.5) L 11/05/17 00:41 Magnesium 1.7 mg/dL (1.6-2.6) 11/11/17 03:54 Iron 115 mcg/dL (50-170) 11/10/17 07:59 % Saturation 68 % (15-50) H 11/10/17 07:59 Transferrin 121 mg/dL (203-362) L 11/10/17 07:59 Ferritin 352 ng/mL (10-120) H 11/10/17 07:59 Total Bilirubin 0.6 mg/dL (0.3-1.0) 11/05/17 00:41 AST 17 Units/L (13-39) 11/05/17 00:41 ALT 11 Units/L (7-52) 11/05/17 00:41 Alkaline Phosphatase 149 Units/L (34-104) H 11/05/17 00:41 Troponin I < 0.03 ng/mL (< 0.04) 11/05/17 12:38 Serum Total Protein 5.4 g/dL (6.4-8.9) L 11/05/17 00:41 Albumin 3.0 g/dL (3.5-5.7) L 11/05/17 00:41 Globulin 2.4 g/dL (2.4-3.5) 11/05/17 00:41 Albumin/Globulin Ratio 1.3 (1.1-2.2) 11/05/17 00:41 Vitamin B12 702 pg/mL (250-1100) 11/07/17 07:26 Folate 9.1 ng/mL (3.0-16.0) 11/07/17 07:26 TSH 2.552 mcIU/mL (0.340-5.600) 11/07/17 07:26 Urine Color Yellow (Yellow) 11/09/17 16:30 Urine Clarity Clear (Clear) 11/09/17 16:30 Urine pH 6.5 pH Units (5.0-8.0) 11/09/17 16:30 Ur Specific Bryce 1.007 (1.010-1.025) L 11/09/17 16:30 Urine Protein Negative mg/dL (Neg-Trace) 11/09/17 16:30 Urine Glucose (UA) Normal mg/dL (Normal) 11/09/17 16:30 Urine Ketones Negative mg/dL (Negative) 11/09/17 16:30 Urine Blood Negative (Negative) 11/09/17 16:30 Urine Nitrite Negative (Negative) 11/09/17 16:30 Urine Bilirubin Negative (Negative) 11/09/17 16:30 Urine Urobilinogen Normal mg/dL (Normal) 11/09/17 16:30 Ur Leukocyte Esterase Negative (Negative) 11/09/17 16:30 Ur Culture Indicated? NO (NO) 11/09/17 16:30 Urine Osmolality 175 mOsm/kg (300-900) L 11/06/17 16:56 Urine Sodium 32.5 mEq/L 11/06/17 16:56 Specimen Rejected Hemolyzed 11/06/17 08:11 - Impressions Impressions Head CT 11/12/17 13:07 IMPRESSION: 1. No acute intracranial abnormality. 2. Posterior scalp hematoma. No underlying calvarial fracture. D/ / 11/12/2017 13:58:39 Frank Garcia MD / sofia Interpreting Provider: Frank Garcia MD Consult Discharge Plan - Plan Additional Instructions: 1. Recommend pt follow up with Substance abuse treatment program ([facility] at the [facility] or civilian Substance abuse program). 2. Consider fixed ativan taper due to questionable alcohol withdrawal due to severe chronic alcohol 3. consider a UA [facility]: [facility] [Primary Care Provider[facility] -
[2017-11-13] MEDS: traZODone 50 MG TABLET PO SCH (20:44)
[2017-11-13] MEDS: Melatonin 3 MG TABLET PO SCH (20:47)
[2017-11-14 04:35] LABS: BUN/Creatinine Ratio 7 (6-26); Blood Urea Nitrogen 3 mg/dL (6-20); Calcium 8.6 mg/dL (8.6-10.3); Carbon Dioxide 20 mEq/L (23-29); Chloride 100 mEq/L (98-107); Glucose 94 mg/dL (70-105); Magnesium 1.6 mg/dL (1.6-2.6); Osmolality,Calculated 262 (280-300); Phosphorous 3.9 mg/dL (2.7-4.5); Potassium 4.1 mEq/L (3.5-5.1); Sodium 128 mEq/L (136-145); eGFR For Non-African Americans > 60 (> 60)
[2017-11-14] MEDS: Estrogens, Conjugated CREAM 30 GM TUBE VG SCH ×2 (05:00→22:50)
[2017-11-14] MEDS: dilTIAZem HCl 60 MG TABLET PO SCH ×3 (10:24→22:36)
[2017-11-14] MEDS: Folic Acid 1 MG TABLET PO SCH (10:24)
[2017-11-14] MEDS: Magnesium Oxide 400 MG TABLET PO SCH ×2 (10:24→22:37)
[2017-11-14] MEDS: Metoprolol XL (24 HR) Succ 25 MG TAB.ER.24H PO SCH (10:24)
[2017-11-14] MEDS: Thiamine (B-1) 100 MG TABLET PO SCH (10:25)
[2017-11-14] MEDS: Sennosides/Docusate Sodium TABLET PO SCH ×2 (10:25→22:37)
[2017-11-14] MEDS: Vitamin B Complex/Vit C/Vit E 1 EACH TABLET PO SCH (10:25)
[2017-11-14] MEDS: BuPROPion XL (24 HR) 150 MG TABLET PO SCH (10:25)
[2017-11-14] MEDS: Aspirin Enteric Coated 81 MG Tablet PO SCH (10:25)
[2017-11-14] MEDS: Nicotine 21 MG PATCH.TD24 TD SCH (10:25)
[2017-11-14] MEDS: Cholecalciferol (D-3) 1,000 UNIT TABLET PO SCH (10:25)
[2017-11-14] MEDS: Fluticasone Propionate Nasal 50 MCG/SPRAY BOTTLE NS SCH ×2 (10:28→22:50)
[2017-11-14] MEDS: *HR* LORazepam 0.5 MG TABLET PO SCH (10:29)
[2017-11-14] MEDS: Potassium Chloride Elixir 20 MEQ/15 ML UDC PO SCH (10:46)
--- NOTE | 2017-11-14 15:14 | Internal Med Progress Note ---
Hospitalist Progress Note - Encounter Date of Encounter: 11/14/17 Time of Encounter: 09:00 - Subjective Interval History: Patient is laying on bed, in no acute distress. Do not like to talk to me. No complaints. - Exam Vitals: Temp Pulse Resp BP Pulse Ox 98.6 F 81 15 122/84 96 11/14/17 03:33 11/14/17 03:33 11/14/17 03:33 11/14/17 11:27 11/14/17 03:33 Exam: General: thin-built chronically sick female laying in bed in no acute distress , drowsy; Skin: Warm and supple Chest: Normal thoracic expansion. Normal breath sounds. Clear to auscultation B/ L; Heart: Normal S1 & S2; rhythmic. No rubs or murmurs. Neurological: no focal deficits; generalized decrease in motor power noted; confused and disoriented. - Assessment and Plan (1) Hyponatremia Current Visit: Yes Status: Acute Assessment and Plan: acute on chronic, due to poor oral intake; continues to have poor intake due to dementia and delirium; continue salt tablets; (2) Hypokalemia Current Visit: Yes Status: Resolved Assessment and Plan: Resolved (3) Acute metabolic encephalopathy Current Visit: Yes Status: Acute Assessment and Plan: Toxic/metabolic encephalopathy due to chronic alcohol abuse, less likely current alcohol withdrawal as pt is already in hospital for 10days. plan as mentioned above. No signs of infection, urinalysis normal. Psychiatry consult appreciated. We will switch Ativan to Haldol po. Continue closely monitor patient. (4) Essential hypertension Current Visit: Yes Status: Chronic Assessment and Plan: BP acceptable; continue current meds; (5) Tobacco abuse Current Visit: Yes Status: Chronic Assessment and Plan: continue NicoDerm patch (6) Hypothyroidism Current Visit: Yes Status: Chronic Assessment and Plan: Continue home medications (7) Stroke Current Visit: Yes Status: Chronic Assessment and Plan: History of CVA, continue antiplatelet treatment. MRI shows no acute infarct this time. (8) TIA (transient ischemic attack) Current Visit: Yes Status: Suspected Assessment and Plan: less likely; patient presented with nonspecific symptoms of transient hearing loss and generalized leg weakness. CT head showed no acute infarct/bleed. MRI brain shows no acute intracranial abnormality, shows right mastoid effusion; currently asymptomatic. Continue telemetry monitoring. Echo and duplex carotid unremarkable (9) Abnormal finding on EKG Current Visit: Yes Status: Acute Assessment and Plan: Cardiology consult appreciated. Consider caused by electrolyte abnormality. Patient denies chest pain. (10) Alcohol withdrawal Current Visit: Yes Status: Acute Assessment and Plan: Cont closely monitoring. Less likely alcohol withdrawal at this point. environmental services manager on board for placement; PT/OT evaluation noted- recommend ECF placement; (11) COPD (chronic obstructive pulmonary disease) Current Visit: Yes Status: Chronic Assessment and Plan: not in exacerbation; continue PRN breathing treatments and supplemental O2; (12) Anemia Current Visit: Yes Status: Chronic Assessment and Plan: Normocytic anemia, likely due to nutritional deficiencies and chronic heavy alcoholism. Serum Vit B12 and folate levels normal; iron stores normal, mildly elevated Ferritin, monitor for signs of bleeding; (13) Moderate protein-energy malnutrition Current Visit: Yes Status: Chronic Assessment and Plan: secondary to poor nutrition from alcohol abuse; Nutrition consulted; DVT Prophylaxis: SCDs - Time Spent with Patient Total time spent is greater than 50% in coordination of care (as documented) at patient's floor/unit and/or counseling patient: 30 min 25 - 35 minutes Internal Medicine: Result - Labs CBC & Chem 7: 11/13/17 05:55 11/14/17 03:28 Labs: BMP 11/14/17 03:28 Sodium 128 L Potassium 4.1 Chloride 100 Carbon Dioxide 20 L BUN 3 L Creatinine 0.46 L Glucose 94 Calcium 8.6 - ABG Interpretation ABG results: PT/INR, D-dimer PT 11.7 Seconds (9.4-12.1) 11/04/17 18:44 - VTE Documentation of Mechanical Device: Graduated compression elastic hosiery Consult Discharge Plan - Plan Additional Instructions: 1. Recommend pt follow up with Substance abuse treatment program ([facility] at the [facility] or [facility] Substance abuse program). 2. Consider fixed ativan taper due to questionable alcohol withdrawal due to severe chronic alcohol 3. consider a UA [facility]errals: [facility] [Primary Care Provider] - (6) Hypothyroidism Qualifiers: Hypothyroidism type: unspecified Qualified Code(s): E03.9 - Hypothyroidism, unspecified (7) Stroke Qualifiers: CVA mechanism: unspecified Qualified Code(s): I63.9 - Cerebral infarction, unspecified (10) Alcohol withdrawal Qualifiers: Complication of substance-induced condition: with unspecified complication Qualified Code(s): F10.239 - Alcohol dependence with withdrawal, unspecified (11) COPD (chronic obstructive pulmonary disease) Qualifiers: COPD type: unspecified COPD Qualified Code(s): J44.9 - Chronic obstructive pulmonary disease, unspecified (12) Anemia Qualifiers: Anemia type: unspecified type Qualified Code(s): D64.9 - Anemia, unspecified
[2017-11-14] MEDS: traZODone 50 MG TABLET PO SCH (22:36)
[2017-11-14] MEDS: Melatonin 3 MG TABLET PO SCH (22:37)
[2017-11-15 05:38] LABS: Basophils % 0.9 %; Eosinophils # 0.1 K/mcL (0.0-0.6); Eosinophils % 1.3 %; Hematocrit 28.8 % (35.3-44.9); Lymphocytes # 2.5 K/mcL (0.6-4.6); Mean Corpuscular HGB Conc 34.7 g/dL (31.6-35.5); Mean Corpuscular Hemoglobin 30.2 pg (28.0-33.3); Mean Platelet Volume 9.4 fL (9.4-12.4); Monocytes # 0.4 K/mcL (0.0-1.3); Monocytes % 9.2 %; Neutrophils # 1.5 K/mcL (1.6-8.9); Platelet Count 317 K/mcL (140-400); Red Blood Count 3.31 M/mcL (3.82-4.97); Red Cell Distribution Width 13.3 % (11.5-14.5); Segmented Neutrophils % 33.6 %
[2017-11-15 05:58] LABS: BUN/Creatinine Ratio 5 (6-26); Blood Urea Nitrogen 2 mg/dL (6-20); Calcium 8.6 mg/dL (8.6-10.3); Carbon Dioxide 21 mEq/L (23-29); Chloride 100 mEq/L (98-107); Glucose 77 mg/dL (70-105); Osmolality,Calculated 259 (280-300); Potassium 3.9 mEq/L (3.5-5.1); Sodium 127 mEq/L (136-145); eGFR For Non-African Americans > 60 (> 60)
[2017-11-15] MEDS ORDERED: Haloperidol Lactate 5 MG/ML VIAL IM ONE (08:55)
[2017-11-15] MEDS: BuPROPion XL (24 HR) 150 MG TABLET PO SCH (09:29)
[2017-11-15] MEDS: Cholecalciferol (D-3) 1,000 UNIT TABLET PO SCH (09:30)
[2017-11-15] MEDS: Vitamin B Complex/Vit C/Vit E 1 EACH TABLET PO SCH (09:30)
[2017-11-15] MEDS: Sennosides/Docusate Sodium TABLET PO SCH ×2 (09:30→20:50)
[2017-11-15] MEDS: Folic Acid 1 MG TABLET PO SCH (09:30)
[2017-11-15] MEDS: Aspirin Enteric Coated 81 MG Tablet PO SCH (09:30)
[2017-11-15] MEDS: dilTIAZem HCl 60 MG TABLET PO SCH ×3 (09:30→20:50)
[2017-11-15] MEDS: Metoprolol XL (24 HR) Succ 25 MG TAB.ER.24H PO SCH (09:30)
[2017-11-15] MEDS: Potassium Chloride Elixir 20 MEQ/15 ML UDC PO SCH (09:31)
[2017-11-15] MEDS: Nicotine 21 MG PATCH.TD24 TD SCH (09:31)
[2017-11-15] MEDS: Magnesium Oxide 400 MG TABLET PO SCH ×2 (09:31→20:50)
[2017-11-15] MEDS: Thiamine (B-1) 100 MG TABLET PO SCH (09:31)
[2017-11-15] MEDS: Fluticasone Propionate Nasal 50 MCG/SPRAY BOTTLE NS SCH ×2 (09:33→20:53)
--- NOTE | 2017-11-15 13:43 | Internal Med Progress Note ---
Hospitalist Progress Note - Encounter Date of Encounter: 11/15/17 Time of Encounter: 09:00 - Subjective Interval History: Patient is more awake alert. Fluctuating mental status. When I ask her where she is, her answer is "sister's house". - Exam Vitals: Temp Pulse Resp BP Pulse Ox 98 F 92 15 109/50 96 11/15/17 03:49 11/15/17 07:46 11/15/17 07:46 11/15/17 07:46 11/15/17 07:46 Exam: General: thin-built chronically sick female laying in bed in no acute distress , drowsy; Skin: Warm and supple Chest: Normal thoracic expansion. Normal breath sounds. Clear to auscultation B/ L; Heart: Normal S1 & S2; rhythmic. No rubs or murmurs. Neurological: no focal deficits; generalized decrease in motor power noted; confused and disoriented. - Assessment and Plan (1) Hyponatremia Current Visit: Yes Status: Acute Assessment and Plan: acute on chronic, due to poor oral intake; continues to have poor intake due to dementia and delirium; continue salt tablets; (2) Hypokalemia Current Visit: Yes Status: Resolved Assessment and Plan: Resolved (3) Acute metabolic encephalopathy Current Visit: Yes Status: Acute Assessment and Plan: Toxic/metabolic encephalopathy due to chronic alcohol abuse, less likely current alcohol withdrawal as pt is already in hospital for 10days. No signs of infection, urinalysis normal. Pt has baseline psych issue and probably early dementia. Psychiatry consult appreciated. We will switch Ativan to Haldol po. Continue closely monitor patient. (4) Essential hypertension Current Visit: Yes Status: Chronic Assessment and Plan: BP acceptable; continue current meds; (5) Tobacco abuse Current Visit: Yes Status: Chronic Assessment and Plan: continue NicoDerm patch (6) Hypothyroidism Current Visit: Yes Status: Chronic Assessment and Plan: Continue home medications (7) Stroke Current Visit: Yes Status: Chronic Assessment and Plan: History of CVA, continue antiplatelet treatment. MRI shows no acute infarct this time. (8) TIA (transient ischemic attack) Current Visit: Yes Status: Suspected Assessment and Plan: less likely; patient presented with nonspecific symptoms of transient hearing loss and generalized leg weakness. CT head showed no acute infarct/bleed. MRI brain shows no acute intracranial abnormality, shows right mastoid effusion; currently asymptomatic. Continue telemetry monitoring. Echo and duplex carotid unremarkable (9) Abnormal finding on EKG Current Visit: Yes Status: Acute Assessment and Plan: Cardiology consult appreciated. Consider caused by electrolyte abnormality. Patient denies chest pain. (10) Alcohol withdrawal Current Visit: Yes Status: Acute Assessment and Plan: Cont closely monitoring. Less likely alcohol withdrawal at this point. guidance services coordinator on board for placement; PT/OT evaluation noted- recommend ECF placement; (11) COPD (chronic obstructive pulmonary disease) Current Visit: Yes Status: Chronic Assessment and Plan: not in exacerbation; continue PRN breathing treatments and supplemental O2; (12) Anemia Current Visit: Yes Status: Chronic Assessment and Plan: Normocytic anemia, likely due to nutritional deficiencies and chronic heavy alcoholism. Serum Vit B12 and folate levels normal; iron stores normal, mildly elevated Ferritin, monitor for signs of bleeding; H/H stable (13) Moderate protein-energy malnutrition Current Visit: Yes Status: Chronic Assessment and Plan: secondary to poor nutrition from alcohol abuse; Nutrition consulted; DVT Prophylaxis: SCDs - Time Spent with Patient Total time spent is greater than 50% in coordination of care (as documented) at patient's floor/unit and/or counseling patient: 30min 25 - 35 minutes Plan of Care Discussed with: social work Internal Medicine: Result - Labs CBC & Chem 7: 11/15/17 05:20 11/15/17 05:20 Labs: Short CBC 11/15/17 Range/Units 05:20 WBC 4.6 (4.3-11.1) K/mcL Hgb 10.0 L (11.5-15.4) g/dL Hct 28.8 L (35.3-44.9) % Plt Count 317 (140-400) K/mcL Neutrophils # 1.5 L (1.6-8.9) K/mcL BMP 11/15/17 05:20 Sodium 127 L Potassium 3.9 Chloride 100 Carbon Dioxide 21 L BUN 2 L Creatinine 0.43 L Glucose 77 Calcium 8.6 - ABG Interpretation ABG results: PT/INR, D-dimer PT 11.7 Seconds (9.4-12.1) 11/04/17 18:44 - VTE Documentation of Mechanical Device: Graduated compression elastic hosiery Consult Discharge Plan - Plan Additional Instructions: 1. Recommend pt follow up with Substance abuse treatment program ([facility] at the [facility] or [facility] Substance abuse program). 2. Consider fixed ativan taper due to questionable alcohol withdrawal due to severe chronic alcohol 3. consider a UA [facility]errals: [facility] [Primary Care Provider] - (6) Hypothyroidism Qualifiers: Hypothyroidism type: unspecified Qualified Code(s): E03.9 - Hypothyroidism, unspecified (7) Stroke Qualifiers: CVA mechanism: unspecified Qualified Code(s): I63.9 - Cerebral infarction, unspecified (10) Alcohol withdrawal Qualifiers: Complication of substance-induced condition: with unspecified complication Qualified Code(s): F10.239 - Alcohol dependence with withdrawal, unspecified (11) COPD (chronic obstructive pulmonary disease) Qualifiers: COPD type: unspecified COPD Qualified Code(s): J44.9 - Chronic obstructive pulmonary disease, unspecified (12) Anemia Qualifiers: Anemia type: unspecified type Qualified Code(s): D64.9 - Anemia, unspecified
[2017-11-15] MEDS ORDERED: Haloperidol Lactate 5 MG/ML VIAL IM PRN (16:19)
[2017-11-15] MEDS: traZODone 50 MG TABLET PO SCH (20:50)
[2017-11-15] MEDS: Melatonin 3 MG TABLET PO SCH (20:51)
[2017-11-15] MEDS: Estrogens, Conjugated CREAM 30 GM TUBE VG SCH (20:54)
[2017-11-16 08:44] LABS: BUN/Creatinine Ratio 6 (6-26); Blood Urea Nitrogen 3 mg/dL (6-20); Calcium 8.6 mg/dL (8.6-10.3); Carbon Dioxide 23 mEq/L (23-29); Chloride 104 mEq/L (98-107); Glucose 85 mg/dL (70-105); Osmolality,Calculated 268 (280-300); Potassium 3.9 mEq/L (3.5-5.1); Sodium 131 mEq/L (136-145); eGFR For Non-African Americans > 60 (> 60)
[2017-11-16 08:45] LABS: Basophils # 0.1 K/mcL (0.0-0.2); Basophils % 1.2 %; Eosinophils # 0.1 K/mcL (0.0-0.6); Eosinophils % 1.2 %; Hematocrit 28.4 % (35.3-44.9); Immature Platelets 2.5 % (1.1-6.1); Lymphocytes # 1.9 K/mcL (0.6-4.6); Lymphocytes % 47.4 %; Mean Corpuscular HGB Conc 35.6 g/dL (31.6-35.5); Mean Corpuscular Hemoglobin 31.1 pg (28.0-33.3); Mean Corpuscular Volume 87.4 fL (83.0-100.0); Mean Platelet Volume 9.7 fL (9.4-12.4); Monocytes # 0.3 K/mcL (0.0-1.3); Monocytes % 7.5 %; Neutrophils # 1.7 K/mcL (1.6-8.9); Platelet Count 327 K/mcL (140-400); Red Blood Count 3.25 M/mcL (3.82-4.97); Red Cell Distribution Width 13.3 % (11.5-14.5); Segmented Neutrophils % 42.7 %
[2017-11-16 08:59] LABS: Hemoglobin 10.1 g/dL (11.5-15.4)
[2017-11-16] MEDS: Vitamin B Complex/Vit C/Vit E 1 EACH TABLET PO SCH (09:03)
[2017-11-16] MEDS: Folic Acid 1 MG TABLET PO SCH (09:03)
[2017-11-16] MEDS: dilTIAZem HCl 60 MG TABLET PO SCH (09:04)
[2017-11-16] MEDS: Thiamine (B-1) 100 MG TABLET PO SCH (09:05)
[2017-11-16] MEDS: Metoprolol XL (24 HR) Succ 25 MG TAB.ER.24H PO SCH (09:05)
[2017-11-16] MEDS: Magnesium Oxide 400 MG TABLET PO SCH (09:05)
[2017-11-16] MEDS: BuPROPion XL (24 HR) 150 MG TABLET PO SCH (09:06)
[2017-11-16] MEDS: Cholecalciferol (D-3) 1,000 UNIT TABLET PO SCH (09:06)
[2017-11-16] MEDS: Nicotine 21 MG PATCH.TD24 TD SCH (09:07)
[2017-11-16] MEDS: Sennosides/Docusate Sodium TABLET PO SCH (09:08)
[2017-11-16] MEDS: Aspirin Enteric Coated 81 MG Tablet PO SCH (09:09)
[2017-11-16] MEDS: Potassium Chloride Elixir 20 MEQ/15 ML UDC PO SCH (09:09)
[2017-11-16] MEDS: Fluticasone Propionate Nasal 50 MCG/SPRAY BOTTLE NS SCH (09:13)
[2017-11-16 09:33] VITALS: BP 115/78
--- NOTE | 2017-11-16 11:35 | Discharge Summary ---
Date of Encounter: 11/16/17 Time of Encounter: 11:00 - Discharge Diagnosis (1) Hyponatremia Priority: Secondary Status: Acute (2) Hypokalemia Priority: Secondary Status: Resolved (3) Acute metabolic encephalopathy Priority: Primary Status: Acute (4) Essential hypertension Priority: Secondary Status: Chronic (5) Tobacco abuse Priority: Secondary Status: Chronic (6) Hypothyroidism Priority: Secondary Status: Chronic Qualifiers: Hypothyroidism type: unspecified Qualified Code(s): E03.9 - Hypothyroidism , unspecified (7) Stroke Priority: Secondary Status: Chronic Qualifiers: CVA mechanism: unspecified Qualified Code(s): I63.9 - Cerebral infarction, unspecified (8) TIA (transient ischemic attack) Priority: Secondary Status: Suspected (9) Abnormal finding on EKG Priority: Primary Status: Acute (10) Alcohol withdrawal Priority: Primary Status: Acute Qualifiers: Complication of substance-induced condition: with unspecified complication Qualified Code(s): F10.239 - Alcohol dependence with withdrawal, unspecified (11) COPD (chronic obstructive pulmonary disease) Priority: Secondary Status: Chronic Qualifiers: COPD type: unspecified COPD Qualified Code(s): J44.9 - Chronic obstructive pulmonary disease, unspecified (12) Anemia Priority: Secondary Status: Chronic Qualifiers: Anemia type: unspecified type Qualified Code(s): D64.9 - Anemia, unspecified (13) Moderate protein-energy malnutrition Priority: Secondary Status: Chronic Hospital course: Ms. Pulliam is a 57 year old female present to ER for transient hearing loss and abnormal EKG. Patient has depression and anxiety on multiple psych medications. Patient also has history of CVA. In the hospital, cardiology consult was called, consider EKG change is due to electrolyte abnormality. Patient has no further hearing problem. MRI has been done, negative for acute infarct. Patient has and remarkable echo and duplex carotid study. Patient has normal vitamin B12 and folic acid and TSH. Patient has history of alcoholism, she was also treated with CIWA protocol and vitamin B-1 and folic acid. After treatment, patient still has fluctuate mental status and sometimes delirium. She was considered alcohol withdrawal and was treated with ativan po. Psychiatry consult was called and see patient. Recommend low dose haldol 2mg po tid and dc ativan. Patient need one-to-one sitter at Hospital. Per psychiatry recommendation, will transfer patient to [facility] for further and long-term care. I saw and examined the patient today. Patient is awake alert, cooperative , knows she is in [facility], can tell me her date of and her daughter' s name. Vitals are stable. 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 Will transfer patient today to [facility] for long-term care and further treatment. Discharge discussed with: patient Time spent discussing smoking cessation with patient: 3 to 10 minutes - Time Spent with Patient Total time spent providing and/or coordinating discharge services: 40min Greater than 30 minutes - Discharge Medications Prescriptions: Folic Acid 1 mg PO DAILY #30 tablet Haloperidol [Haldol] 2 mg PO TID 3 Days #18 tablet Thiamine (B-1) [Vitamin B-1] 100 mg PO DAILY #30 tablet Vitamin B Complex/Vit C/Vit E [Stresstab] 1 each PO DAILY #30 tablet Home Medications: Ipratropium [ATROVENT Inhaler] 2 puff IH QID PRN 06/15/16 [History] Montelukast [Singulair] 10 mg PO DAILY PRN 06/15/16 [History] Omeprazole [PriLOSEC] 40 mg PO DAILY 06/15/16 [History] Albuterol Sulfate [Albuterol Inhaler] 2 puff IH Q4H PRN 08/02/16 [History] Ibuprofen [Motrin] 600 mg PO TID PRN 08/02/16 [History] Potassium Chloride [K-Tab ER] 20 meq PO DAILY 08/02/16 [History] Aspirin Enteric Coated [Aspirin EC] 81 mg PO DAILY #30 tablet. 08/03/16 [Rx] Atorvastatin Calcium [Lipitor] 20 mg PO HS 06/19/17 [History] Cyclobenzaprine HCl 5 mg PO TID PRN 06/19/17 [History] Fluticasone Propionate Nasal [Flonase] 1 spr NS BID 06/19/17 [History] Melatonin [Melatin] 9 mg PO HS 06/19/17 [History] Metoprolol Succinate [Toprol Xl] 25 mg PO DAILY 06/19/17 [History] hydrOXYzine HCl [Hydroxyzine HCl] 25 mg PO QID 06/19/17 [History] traZODone [TraZODone] 50 mg PO HS 06/19/17 [History] Levothyroxine [Synthroid] 75 mcg PO 0630 #30 tablet 06/20/17 [Rx] Acetaminophen [Tylenol] 650 mg PO Q6HR PRN 11/05/17 [History] Bupropion HCl [Wellbutrin Xl] 300 mg PO DAILY 11/05/17 [History] Calcium Carbonate [Calcium] 500 mg PO BID 11/05/17 [History] Diltiazem HCl [Cardizem] 60 mg PO TID 11/05/17 [History] Ergocalciferol (VITAMIN D2) [Vitamin D] 800 unit PO DAILY 11/05/17 [History] Escitalopram [Lexapro] 10 mg PO DAILY 11/05/17 [History] Estrogens, Conjugated [Premarin Cream] 1 appl VG HS 11/05/17 [History] Medroxyprogesterone Acetate [Provera] 5 mg PO HS 11/05/17 [History] Sodium Chloride [Sodium Chloride Tab] 1 gm PO BID 11/05/17 [History] Folic Acid 1 mg PO DAILY #30 tablet 11/16/17 [Rx] Haloperidol [Haldol] 2 mg PO TID 3 Days #18 tablet 11/16/17 [Rx] Nicotine Patch [Nicoderm] 21 mg TD DAILY patch.td24 11/16/17 [Rx] Thiamine (B-1) [Vitamin B-1] 100 mg PO DAILY #30 tablet 11/16/17 [Rx] Vitamin B Complex/Vit C/Vit E [Stresstab] 1 each PO DAILY #30 tablet 11/16/17 [ Rx] Allergies/Adverse Reactions: 3 Allergy/AdvReac Type Severity Reaction Status Date / Time egg AdvReac See Verified 06/19/17 19:28 Comments milk AdvReac Vomiting Verified 06/19/17 19:28 pyridoxine AdvReac Rash Verified 06/19/17 19:28 Date of admission: 11/07/17 11:20 [facility] Consults: 11/08/17 13:09 Consult to Invasive Line Access Team [CONS] Routine Reason for Consult: poor access Line Type: EPIV 11/09/17 11:18 Consult to Psychiatry [CONS] Routine Consulting Provider: [facility] Reason consult: Capacity assessment Other reason and/or additional details: Chronic alcohol abuse, somewhat delirious now; gives conflicting history, wants to be discharged home vs ECF; Time Notified: 11:19 Call Completed: Yes 11/13/17 14:19 Consult to Psychiatry [CONS] Routine Consulting Provider: [facility] Reason consult: Confusion Other reason and/or additional details: continues to be disoriented and confabulating; to recommend BDZ taper and disposition; Time Notified: 14:20 Call Completed: Yes Discharging clinician: Davie Ramirez Anticipated date of discharge: 11/16/17 - Constitutional Vitals: Temp Pulse Resp BP Pulse Ox 98.3 F 77 17 115/78 96 11/16/17 09:32 11/16/17 09:32 11/16/17 09:32 11/16/17 09:32 11/16/17 09:32 General appearance: Present: A&O X 2, no acute distress, answers questions appropriately Exam: in NAD - Head Head exam: Present: atraumatic, normocephalic - Eye Eye exam: Present: PERRL, conjuntiva pink, sclera anicteric Pupils: Present: PERRL - Neck Neck exam general surgery: Present: supple, trachea midline. Absent: lymphadenopathy - Respiratory Respiratory exam: Present: CTAB. Absent: accessory muscle use, rales, rhonchi, wheezes - Cardiovascular Cardiovascular exam: Present: RRR, +S1, +S2. Absent: diastolic murmur, gallop, rubs, systolic murmur - GI/Abdominal GI/Abdominal exam: Present: normal bowel sounds, soft, no peritoneal signs. Absent: distended, tenderness - Extremities Exam Extremities exam: Present: warm, radial pulses palpable and symmetrical. Absent : calf tenderness, cyanotic, pedal edema - Neurological Exam Neurological exam: Present: CN II-XII intact, oriented X3, no focal deficits. Absent: pronater drift, facial droop, speech deficit - Skin Skin exam: Present: dry, intact - Patient Status Disposition: Transfer [facility] Condition: Good Functional capacity at discharge: independent ambulation Overall status at discharge: patient is not back to baseline - Discharge Instructions [facility] With: [facility] Care Provider[facility] - Additional Instructions: 1. Recommend pt follow up with Substance abuse treatment program ([facility] or civilian Substance abuse program). 2. Consider fixed ativan taper due to questionable alcohol withdrawal due to severe chronic alcohol 3. consider a UA - Diet and Activity Activity: as per physical therapy Diet: other (Mechanical soft diet) - VTE Documentation of Mechanical Device: Graduated compression elastic hosiery
--- NOTE | 2017-11-16 11:54 | Physician Discharge Referral ---
ExtendedCare Referral Info Transfer To: [facility] Provider in Charge after Transfer: PCP - Diagnosis (1) Hyponatremia Status: Acute (2) Hypokalemia Status: Resolved (3) Acute metabolic encephalopathy Status: Acute (4) Essential hypertension Status: Chronic (5) Tobacco abuse Status: Chronic (6) Hypothyroidism Status: Chronic (7) Stroke Status: Chronic (8) TIA (transient ischemic attack) Status: Suspected (9) Abnormal finding on EKG Status: Acute (10) Alcohol withdrawal Status: Acute (11) COPD (chronic obstructive pulmonary disease) Status: Chronic (12) Anemia Status: Chronic (13) Moderate protein-energy malnutrition Status: Chronic - Transfer Medications Prescriptions: Folic Acid 1 mg PO DAILY #30 tablet Haloperidol [Haldol] 2 mg PO TID 3 Days #18 tablet Thiamine (B-1) [Vitamin B-1] 100 mg PO DAILY #30 tablet Vitamin B Complex/Vit C/Vit E [Stresstab] 1 each PO DAILY #30 tablet Home Medications: Ipratropium [ATROVENT Inhaler] 2 puff IH QID PRN 06/15/16 [History] Montelukast [Singulair] 10 mg PO DAILY PRN 06/15/16 [History] Omeprazole [PriLOSEC] 40 mg PO DAILY 06/15/16 [History] Albuterol Sulfate [Albuterol Inhaler] 2 puff IH Q4H PRN 08/02/16 [History] Ibuprofen [Motrin] 600 mg PO TID PRN 08/02/16 [History] Potassium Chloride [K-Tab ER] 20 meq PO DAILY 08/02/16 [History] Aspirin Enteric Coated [Aspirin EC] 81 mg PO DAILY #30 tablet. 08/03/16 [Rx] Atorvastatin Calcium [Lipitor] 20 mg PO HS 06/19/17 [History] Cyclobenzaprine HCl 5 mg PO TID PRN 06/19/17 [History] Fluticasone Propionate Nasal [Flonase] 1 spr NS BID 06/19/17 [History] Melatonin [Melatin] 9 mg PO HS 06/19/17 [History] Metoprolol Succinate [Toprol Xl] 25 mg PO DAILY 06/19/17 [History] hydrOXYzine HCl [Hydroxyzine HCl] 25 mg PO QID 06/19/17 [History] traZODone [TraZODone] 50 mg PO HS 06/19/17 [History] Levothyroxine [Synthroid] 75 mcg PO 0630 #30 tablet 06/20/17 [Rx] Acetaminophen [Tylenol] 650 mg PO Q6HR PRN 11/05/17 [History] Bupropion HCl [Wellbutrin Xl] 300 mg PO DAILY 11/05/17 [History] Calcium Carbonate [Calcium] 500 mg PO BID 11/05/17 [History] Diltiazem HCl [Cardizem] 60 mg PO TID 11/05/17 [History] Ergocalciferol (VITAMIN D2) [Vitamin D] 800 unit PO DAILY 11/05/17 [History] Escitalopram [Lexapro] 10 mg PO DAILY 11/05/17 [History] Estrogens, Conjugated [Premarin Cream] 1 appl VG HS 11/05/17 [History] Medroxyprogesterone Acetate [Provera] 5 mg PO HS 11/05/17 [History] Sodium Chloride [Sodium Chloride Tab] 1 gm PO BID 11/05/17 [History] Folic Acid 1 mg PO DAILY #30 tablet 11/16/17 [Rx] Haloperidol [Haldol] 2 mg PO TID 3 Days #18 tablet 11/16/17 [Rx] Nicotine Patch [Nicoderm] 21 mg TD DAILY patch.td24 11/16/17 [Rx] Thiamine (B-1) [Vitamin B-1] 100 mg PO DAILY #30 tablet 11/16/17 [Rx] Vitamin B Complex/Vit C/Vit E [Stresstab] 1 each PO DAILY #30 tablet 11/16/17 [ Rx] Allergies/Adverse Reactions: 3 Allergy/AdvReac Type Severity Reaction Status Date / Time egg AdvReac See Verified 06/19/17 19:28 Comments milk AdvReac Vomiting Verified 06/19/17 19:28 pyridoxine AdvReac Rash Verified 06/19/17 19:28 - Respiratory Orders Smoking Cessation: Smoking cessation has been advised. For more information, call the [place] Tobacco Quit Line at 1-277-HYII-NOW. - Advance Directives Code Status: Full Code - Mobility Orders Ambulate - Rehabiliation Orders Rehab Orders: Evaluation for Physical Therapy, Evaluation for Occupational Therapy - Diet Orders Mechanical Soft CERTIFICATION: I certify that the transfer of the above named patient to an Extended Care Facility is necessary for the continuing treatment of the diagnosis listed. The above information is true and accurate reflection of patient's current condition. Confidential - Redisclosure prohibited without a patient's written consent.
== END 2017-11-16 13:32 | DRG 896 ==
LOC: 2NENU 17:54 → EMEROOARM 17:54 → SUATTDRO 23:57 → 2NENU 11-05 01:59
PROVIDERS: ADMIT Internal Medicine; ATTEND Internal Medicine

== ENCOUNTER 2020-01-05 23:55 | Inpatient (IN) ==
[2020-01-06] MEDS ORDERED: Ondansetron 4 MG/2 ML VIAL IVP PRN (01:58)
[2020-01-06] MEDS ORDERED: Naloxone 0.4 MG/ML INJ IVP PRN (01:58)
[2020-01-06] MEDS ORDERED: Acetaminophen 325 MG TABLET PO PRN (05:01)
[2020-01-06 05:09] LABS: Basophils # 0.1 K/mcL (0.0-0.2); Eosinophils # 0.1 K/mcL (0.0-0.6); Eosinophils % 1.8 %; Hematocrit 36.5 % (35.3-44.9); Immature Granulocytes % 0.2 % (0-4); Lymphocytes # 2.6 K/mcL (0.6-4.6); Lymphocytes % 40.9 %; Mean Corpuscular HGB Conc 32.9 g/dL (31.6-35.5); Mean Corpuscular Hemoglobin 28.3 pg (28.0-33.3); Mean Corpuscular Volume 86.1 fL (83.0-100.0); Mean Platelet Volume 9.2 fL (9.4-12.4); Monocytes # 0.6 K/mcL (0.0-1.3); Monocytes % 9.1 %; Platelet Count 312 K/mcL (140-400); Red Blood Count 4.24 M/mcL (3.82-4.97); Red Cell Distribution Width 14.3 % (11.5-14.5); White Blood Count 6.3 K/mcL (4.3-11.1)
[2020-01-06 05:35] LABS: BUN/Creatinine Ratio 3 (6-26); Blood Urea Nitrogen 2 mg/dL (8-23); Calcium 8.8 mg/dL (8.6-10.3); Carbon Dioxide 25 mEq/L (23-29); Chloride 98 mEq/L (98-107); Glucose 84 mg/dL (70-105); Osmolality,Calculated 263 (280-300); Potassium 3.8 mEq/L (3.5-5.1); Sodium 129 mEq/L (136-145); eGFR For African Americans > 60 (> 60); eGFR For Non-African Americans > 60 (> 60)
[2020-01-06] MEDS ORDERED: D5% in Water 1,000 ML IVC SCH (05:45)
[2020-01-06 10:57] LABS: Thyroid Stimulating Hormone 2.272 mcIU/mL (0.340-5.600)
[2020-01-06 10:58] LABS: Bilirubin,Urine Negative (Negative); Blood,Urine Negative (Negative); Clarity,Urine Clear (Clear); Color,Urine Colorless (Yellow); Glucose,Urine (UA) Normal (Normal); Ketones,Urine Negative (Negative); Leukocyte Esterase,Urine Negative (Negative); Nitrite,Urine Negative (Negative); PH,Urine 7.5 pH Units (5.0-8.0); Protein,Urine Negative (Neg-Trace); Specific Gravity,Urine < 1.005 (1.010-1.025); Urobilinogen,Urine Normal (Normal)
[2020-01-06] MEDS ORDERED: *HR* LORazepam 2 MG/ML VIAL IVP ONE (17:48)
[2020-01-06] MEDS: Ipratropium 1 PUFF INHALER IH SCH (20:48)
[2020-01-06] MEDS: Melatonin 3 MG TABLET PO SCH (20:57)
[2020-01-06] MEDS: Mirtazapine 15 MG TABLET PO SCH (20:58)
[2020-01-06] MEDS: Cholecalciferol (D-3) 1,000 UNIT (25MCG) TABLET PO SCH (21:15)
[2020-01-06] MEDS: Fluticasone Propionate Nasal 50 MCG/SPRAY BOTTLE NS SCH (21:15)
[2020-01-07 01:34] LABS: Basophils % 0.8 %; Eosinophils # 0.1 K/mcL (0.0-0.6); Eosinophils % 1.4 %; Hematocrit 32.4 % (35.3-44.9); Hemoglobin 10.6 g/dL (11.5-15.4); Immature Granulocytes % 0.2 % (0-4); Lymphocytes # 1.1 K/mcL (0.6-4.6); Lymphocytes % 22.7 %; Mean Corpuscular HGB Conc 32.7 g/dL (31.6-35.5); Mean Corpuscular Hemoglobin 28.3 pg (28.0-33.3); Mean Corpuscular Volume 86.4 fL (83.0-100.0); Mean Platelet Volume 9.4 fL (9.4-12.4); Monocytes # 0.5 K/mcL (0.0-1.3); Monocytes % 9.9 %; Neutrophils # 3.2 K/mcL (1.6-8.9); Platelet Count 300 K/mcL (140-400); Red Blood Count 3.75 M/mcL (3.82-4.97); Red Cell Distribution Width 14.5 % (11.5-14.5); White Blood Count 4.9 K/mcL (4.3-11.1)
[2020-01-07 01:46] LABS: BUN/Creatinine Ratio 7 (6-26); Blood Urea Nitrogen 4 mg/dL (8-23); Calcium 8.8 mg/dL (8.6-10.3); Carbon Dioxide 22 mEq/L (23-29); Chloride 100 mEq/L (98-107); Glucose 85 mg/dL (70-105); Magnesium 1.5 mg/dL (1.6-2.6); Osmolality,Calculated 264 (280-300); Sodium 129 mEq/L (136-145); eGFR For African Americans > 60 (> 60); eGFR For Non-African Americans > 60 (> 60)
[2020-01-07] MEDS: Acetaminophen 325 MG TABLET PO PRN ×3 (05:33→18:30)
[2020-01-07] MEDS: Ipratropium 1 PUFF INHALER IH SCH ×2 (07:42→20:15)
[2020-01-07] MEDS: Folic Acid 1 MG TABLET PO SCH (07:47)
[2020-01-07] MEDS: Cholecalciferol (D-3) 1,000 UNIT (25MCG) TABLET PO SCH (07:47)
[2020-01-07] MEDS: Thiamine (B-1) 100 MG TABLET PO SCH (07:49)
[2020-01-07] MEDS: Fluticasone Propionate Nasal 50 MCG/SPRAY BOTTLE NS SCH ×2 (07:52→20:57)
[2020-01-07] MEDS ORDERED: Patient Taking Own Medication 1 EACH PO SCH (09:00)
[2020-01-07] MEDS: Melatonin 3 MG TABLET PO SCH (20:54)
[2020-01-07] MEDS: Mirtazapine 15 MG TABLET PO SCH (20:55)
[2020-01-08] MEDS: Thiamine (B-1) 100 MG TABLET PO SCH (08:13)
[2020-01-08] MEDS: Cholecalciferol (D-3) 1,000 UNIT (25MCG) TABLET PO SCH (08:13)
[2020-01-08] MEDS: Fluticasone Propionate Nasal 50 MCG/SPRAY BOTTLE NS SCH ×2 (08:13→19:52)
[2020-01-08] MEDS: Folic Acid 1 MG TABLET PO SCH (08:13)
[2020-01-08] MEDS ORDERED: PROGESTERONE MICRONIZED 100 MG PO SCH (09:00)
[2020-01-08 09:23] LABS: Hematocrit 32.6 % (35.3-44.9); Hemoglobin 10.6 g/dL (11.5-15.4); Lymphocytes # 1.2 K/mcL (0.6-4.6); Mean Corpuscular HGB Conc 32.5 g/dL (31.6-35.5); Mean Corpuscular Hemoglobin 28.4 pg (28.0-33.3); Mean Corpuscular Volume 87.4 fL (83.0-100.0); Mean Platelet Volume 9.1 fL (9.4-12.4); Platelet Count 247 K/mcL (140-400); Red Blood Count 3.73 M/mcL (3.82-4.97); Red Cell Distribution Width 14.6 % (11.5-14.5); White Blood Count 3.4 K/mcL (4.3-11.1)
[2020-01-08 09:29] LABS: BUN/Creatinine Ratio 5 (6-26); Blood Urea Nitrogen 3 mg/dL (8-23); Calcium 8.1 mg/dL (8.6-10.3); Carbon Dioxide 19 mEq/L (23-29); Chloride 98 mEq/L (98-107); Glucose 96 mg/dL (70-105); Osmolality,Calculated 256 (280-300); Potassium 3.5 mEq/L (3.5-5.1); Sodium 125 mEq/L (136-145); eGFR For African Americans > 60 (> 60); eGFR For Non-African Americans > 60 (> 60)
[2020-01-08 09:54] LABS: Monocytes # 0.5 K/mcL (0.0-1.3); Neutrophils # 1.7 K/mcL (1.6-8.9)
[2020-01-08 09:55] LABS: Platelet Estimate Normal (Normal)
[2020-01-08] MEDS: Ipratropium 1 PUFF INHALER IH SCH ×2 (11:01→20:06)
[2020-01-08] MEDS: Acetaminophen 325 MG TABLET PO PRN (13:25)
[2020-01-08] MEDS: Mirtazapine 15 MG TABLET PO SCH (19:51)
[2020-01-08] MEDS: Melatonin 3 MG TABLET PO SCH (19:51)
[2020-01-09] MEDS: Ipratropium 1 PUFF INHALER IH SCH ×2 (08:13→19:42)
[2020-01-09] MEDS: Thiamine (B-1) 100 MG TABLET PO SCH (08:36)
[2020-01-09] MEDS: Folic Acid 1 MG TABLET PO SCH (08:36)
[2020-01-09] MEDS: Cholecalciferol (D-3) 1,000 UNIT (25MCG) TABLET PO SCH (08:36)
[2020-01-09] MEDS: Fluticasone Propionate Nasal 50 MCG/SPRAY BOTTLE NS SCH ×2 (08:37→19:52)
[2020-01-09 09:35] LABS: Basophils % 0.9 %; Eosinophils % 0.9 %; Hematocrit 34.8 % (35.3-44.9); Hemoglobin 11.1 g/dL (11.5-15.4); Lymphocytes # 1.8 K/mcL (0.6-4.6); Lymphocytes % 52.9 %; Mean Corpuscular HGB Conc 31.9 g/dL (31.6-35.5); Mean Corpuscular Hemoglobin 28.4 pg (28.0-33.3); Mean Platelet Volume 9.3 fL (9.4-12.4); Monocytes # 0.5 K/mcL (0.0-1.3); Monocytes % 15.6 %; Platelet Count 260 K/mcL (140-400); Red Blood Count 3.91 M/mcL (3.82-4.97); Red Cell Distribution Width 14.9 % (11.5-14.5); Segmented Neutrophils % 29.7 %; White Blood Count 3.5 K/mcL (4.3-11.1)
[2020-01-09 09:53] LABS: BUN/Creatinine Ratio 6 (6-26); Blood Urea Nitrogen 4 mg/dL (8-23); Calcium 8.4 mg/dL (8.6-10.3); Carbon Dioxide 23 mEq/L (23-29); Chloride 101 mEq/L (98-107); Glucose 104 mg/dL (70-105); Osmolality,Calculated 267 (280-300); Potassium 4.1 mEq/L (3.5-5.1); Sodium 130 mEq/L (136-145); eGFR For African Americans > 60 (> 60); eGFR For Non-African Americans > 60 (> 60)
[2020-01-09] MEDS: Melatonin 3 MG TABLET PO SCH (19:52)
[2020-01-09] MEDS: Mirtazapine 15 MG TABLET PO SCH (19:52)
[2020-01-09 23:20] LABS: Adenovirus Not Detected (Not Detect); Coronavirus 229E Not Detected (Not Detect); Coronavirus HKU1 Not Detected (Not Detect); Coronavirus NL63 Not Detected (Not Detect); Coronavirus OC43 Not Detected (Not Detect)
[2020-01-09 23:21] LABS: SARS-CoV-2 DETECTED (Not Detect)
[2020-01-09 23:22] LABS: Bordetella Pertussis Not Detected (Not Detect); Chlamydophila pneumoniae Not Detected (Not Detect); Human Metapneumovirus Not Detected (Not Detect); Human Rhinovirus/Enterovirus Not Detected (Not Detect); Influenza A Subtype 2009 H1 Not Detected (Not Detect); Influenza B Not Detected (Not Detect); Mycoplasma pneumoniae Not Detected (Not Detect); Parainfluenza Virus 1 Not Detected (Not Detect); Parainfluenza Virus 2 Not Detected (Not Detect); Parainfluenza Virus 3 Not Detected (Not Detect); Parainfluenza Virus 4 Not Detected (Not Detect); Respiratory Syncytial Virus Not Detected (Not Detect)
[2020-01-10] MEDS: Folic Acid 1 MG TABLET PO SCH (07:51)
[2020-01-10] MEDS: Cholecalciferol (D-3) 1,000 UNIT (25MCG) TABLET PO SCH (07:51)
[2020-01-10] MEDS: Thiamine (B-1) 100 MG TABLET PO SCH (07:51)
[2020-01-10] MEDS: Ipratropium 1 PUFF INHALER IH SCH (10:30)
[2020-01-10] MEDS: Fluticasone Propionate Nasal 50 MCG/SPRAY BOTTLE NS SCH (10:31)
[2020-01-10 15:11] VITALS: BP 111/76
== END 2020-01-10 17:50 | DRG 885 ==
LOC: EMEROOARM 23:55 → 2ANU 23:55 → SUATTDRO 01-06 03:41 → 2ANU 01-06 04:35 → SUATTDRO 01-07 17:38 → CDU 01-10 00:38
PROVIDERS: ADMIT Family Medicine; ATTEND Student in an Organized Health Care Education/Training Program

== ENCOUNTER 2020-01-17 02:02 | Inpatient (IN) ==
[2020-01-17] MEDS ORDERED: levoFLOXacin 750 MG/150 ML 750 MG/150 ML BAG IVPB ONE (02:12)
[2020-01-17] MEDS ORDERED: Dexamethasone 4 MG/ML VIAL IVP ONE (02:14)
[2020-01-17] MEDS ORDERED: Isovue-370 500 ML BOTTLE IVP ONE ×2 (02:14→03:19)
[2020-01-17] MEDS ORDERED: Ipratropium/Albuterol Neb 3 ML IH ONE (02:15)
[2020-01-17 02:21] LABS: ABG Base Excess -5 mEq/L (-2 to 3); ABG HCO3 19 mEq/L (21-27); ABG Oxygen Saturation 100 % (95-98); ABG PCO2 33 mmHg (35-45); ABG PH 7.38 pH Units (7.32-7.45); ABG PO2 208 mmHg (85-104); ABG TCO2 20 mEq/L (20-26)
[2020-01-17] MEDS ORDERED: 0.9 % Sodium Chloride 1,000 ML IVC ONE (02:28)
[2020-01-17] MEDS: 0.9 % Sodium Chloride 1,000 ML IVC ONE ×2 (02:37→02:56)
[2020-01-17 02:55] LABS: Basophils % 0.1 %; Eosinophils % 0.2 %; Hematocrit 29.2 % (35.3-44.9); Hemoglobin 9.5 g/dL (11.5-15.4); Immature Granulocytes % 1.1 % (0-4); Lymphocytes # 1.4 K/mcL (0.6-4.6); Lymphocytes % 15.7 %; Mean Corpuscular HGB Conc 32.5 g/dL (31.6-35.5); Mean Corpuscular Hemoglobin 28.1 pg (28.0-33.3); Mean Corpuscular Volume 86.4 fL (83.0-100.0); Mean Platelet Volume 9.3 fL (9.4-12.4); Monocytes # 0.6 K/mcL (0.0-1.3); Monocytes % 6.3 %; Neutrophils # 6.7 K/mcL (1.6-8.9); Platelet Count 229 K/mcL (140-400); Red Blood Count 3.38 M/mcL (3.82-4.97); Segmented Neutrophils % 76.6 %; White Blood Count 8.7 K/mcL (4.3-11.1)
[2020-01-17 03:01] LABS: Activated Partial Thrombo Time 28.8 Seconds (26.0-36.0)
[2020-01-17 03:09] LABS: Ethanol < 10 mg/dL (Less than 10)
[2020-01-17 03:14] LABS: Alanine Aminotransferase 13 Units/L (7-52); Albumin 3.3 g/dL (3.5-5.7); Albumin/Globulin Ratio 1.4 (1.1-2.2); Alkaline Phosphatase 104 Units/L (34-104); Aspartate Amino Transferase 18 Units/L (13-39); BUN/Creatinine Ratio 12 (6-26); Bilirubin,Direct 0.1 mg/dL (0.0-0.2); Bilirubin,Indirect 0.3 mg/dL (0.0-1.0); Bilirubin,Total 0.4 mg/dL (0.3-1.0); Blood Urea Nitrogen 7 mg/dL (8-23); Calcium 7.8 mg/dL (8.6-10.3); Carbon Dioxide 18 mEq/L (23-29); Chloride 97 mEq/L (98-107); Globulin 2.4 g/dL (2.4-3.5); Glucose 96 mg/dL (70-105); Lipase 26 Units/L (11-82); Osmolality,Calculated 256 (280-300); Phosphorous 2.2 mg/dL (2.7-4.5); Potassium 3.2 mEq/L (3.5-5.1); Sodium 124 mEq/L (136-145); Total Protein 5.7 g/dL (6.4-8.9); eGFR For African Americans > 60 (> 60); eGFR For Non-African Americans > 60 (> 60)
[2020-01-17 03:15] LABS: Troponin I 0.03 ng/mL (< 0.04)
[2020-01-17] MEDS ORDERED: Potassium Chloride Elixir 20 MEQ/15 ML UDC PO ONE (03:18)
[2020-01-17 03:30] LABS: Amphetamine Screen,Urine Negative ng/mL (Cutoff=1000); Barbiturate Screen,Urine Negative ng/mL (Cutoff=200); Benzodiazepines Screen,Urine Negative ng/mL (Cutoff=300); Cannabinoid Screen,Urine Negative ng/mL (Cutoff = 50); Cocaine Screen,Urine Negative ng/mL (Cutoff= 300); Opiate Screen,Urine Negative ng/mL (Cutoff=300); Phencyclidine Screen,Urine Negative ng/mL (Cutoff=25)
[2020-01-17 03:33] LABS: Bilirubin,Urine Negative (Negative); Blood,Urine Trace (Negative); Clarity,Urine Clear (Clear); Color,Urine Colorless (Yellow); Glucose,Urine (UA) Normal (Normal); Ketones,Urine Negative (Negative); Leukocyte Esterase,Urine Negative (Negative); Mucus,Urine Few per lpf (None-Few); Nitrite,Urine Negative (Negative); Protein,Urine Negative (Neg-Trace); Specific Gravity,Urine 1.006 (1.010-1.025); Squamous Epithelial Cell,Urine Few per hpf (None-Few); Urobilinogen,Urine Normal (Normal); WBC,Urine 0-3 per hpf (0-3)
[2020-01-17] MEDS ORDERED: Magnesium Sulfate 1 GM/102 ML PIGGYBACK IVPB ONE (03:37)
[2020-01-17] MEDS ORDERED: levETIRAcetam 1,500 MG in 0.9 % Sodium Chloride 250 ML IVPB ONE (04:05)
[2020-01-17] MEDS ORDERED: *HR* LORazepam 2 MG/ML VIAL IVP ONE (04:32)
[2020-01-17] MEDS ORDERED: Ondansetron ODT 4 MG TAB.RAPDIS SL PRN (04:48)
[2020-01-17] MEDS ORDERED: Acetaminophen 325 MG TABLET PO PRN (04:48)
[2020-01-17] MEDS ORDERED: *HR* LORazepam 2 MG/ML VIAL IVP PRN (04:56)
[2020-01-17 05:06] LABS: Thyroid Stimulating Hormone 4.788 mcIU/mL (0.340-5.600)
[2020-01-17] MEDS ORDERED: Potassium Chloride 40 MEQ, Lidocaine 1% 2 ML in 0.9 % Sodium Chloride 500 ML IVPB ONE (05:30)
[2020-01-17] MEDS ORDERED: Potassium Phosphate 44 MEQ in 0.9 % Sodium Chloride 250 ML IVPB ONE (08:11)
[2020-01-17] MEDS ORDERED: Calcium Gluconate 1gm/50mL 1 GM/50 ML BAG IVPB ONE (08:11)
[2020-01-17] MEDS: *HR* Enoxaparin 40 MG/0.4 ML SYRINGE SQ SCH (10:00)
[2020-01-17] MEDS: Ziprasidone 20 MG CAPSULE PO SCH ×2 (10:06→19:54)
[2020-01-17] MEDS: Folic Acid 1 MG TABLET PO SCH (10:06)
[2020-01-17] MEDS: Multivit/Ca/Min/Fe/FA 1 TAB TABLET PO SCH (10:07)
[2020-01-17] MEDS: Thiamine (B-1) 100 MG TABLET PO SCH (10:07)
[2020-01-17] MEDS: Ipratropium 1 PUFF INHALER IH SCH ×2 (10:15→22:22)
[2020-01-17] MEDS ORDERED: Ziprasidone 10 MG in Water for inj. (sterile) 0.5 ML IM ONE (17:10)
[2020-01-17] MEDS: Valproic Acid INJ 500 MG in 0.9 % Sodium Chloride 100 ML IVPB SCH (17:50)
[2020-01-17 19:50] LABS: BUN/Creatinine Ratio 10 (6-26); Blood Urea Nitrogen 5 mg/dL (8-23); Calcium 8.6 mg/dL (8.6-10.3); Carbon Dioxide 13 mEq/L (23-29); Chloride 111 mEq/L (98-107); Glucose 104 mg/dL (70-105); Osmolality,Calculated 280 (280-300); Potassium 5.5 mEq/L (3.5-5.1); Sodium 136 mEq/L (136-145); eGFR For African Americans > 60 (> 60); eGFR For Non-African Americans > 60 (> 60)
[2020-01-17] MEDS ORDERED: Mirtazapine 15 MG TABLET PO SCH (21:00)
[2020-01-17] MEDS ORDERED: *HR* LORazepam 2 MG/ML VIAL IM STA (21:53)
[2020-01-18] MEDS: Valproic Acid INJ 500 MG in 0.9 % Sodium Chloride 100 ML IVPB SCH ×2 (00:01→09:41)
[2020-01-18] MEDS ORDERED: Melatonin 3 MG TABLET PO SCH (02:45)
[2020-01-18] MEDS: *HR* Enoxaparin 40 MG/0.4 ML SYRINGE SQ SCH (06:00)
[2020-01-18 07:39] LABS: Hematocrit 31.8 % (35.3-44.9); Hemoglobin 10.4 g/dL (11.5-15.4); Mean Corpuscular HGB Conc 32.7 g/dL (31.6-35.5); Mean Corpuscular Hemoglobin 28.2 pg (28.0-33.3); Mean Corpuscular Volume 86.2 fL (83.0-100.0); Mean Platelet Volume 9.4 fL (9.4-12.4); Platelet Count 256 K/mcL (140-400); Red Blood Count 3.69 M/mcL (3.82-4.97); Red Cell Distribution Width 15.4 % (11.5-14.5); White Blood Count 6.9 K/mcL (4.3-11.1)
[2020-01-18 08:00] VITALS: BP 130/88
[2020-01-18 08:03] LABS: BUN/Creatinine Ratio 10 (6-26); Blood Urea Nitrogen 6 mg/dL (8-23); Calcium 8.6 mg/dL (8.6-10.3); Carbon Dioxide 17 mEq/L (23-29); Chloride 109 mEq/L (98-107); Glucose 88 mg/dL (70-105); Magnesium 2.2 mg/dL (1.6-2.6); Osmolality,Calculated 277 (280-300); Phosphorous 3.1 mg/dL (2.7-4.5); Potassium 4.4 mEq/L (3.5-5.1); Sodium 135 mEq/L (136-145); eGFR For African Americans > 60 (> 60); eGFR For Non-African Americans > 60 (> 60)
[2020-01-18] MEDS: Ipratropium 1 PUFF INHALER IH SCH (08:14)
[2020-01-18] MEDS ORDERED: Dexamethasone 4 MG/ML VIAL IVP SCH (09:00)
[2020-01-18] MEDS: Thiamine (B-1) 100 MG TABLET PO SCH (09:39)
[2020-01-18] MEDS: Folic Acid 1 MG TABLET PO SCH (09:39)
[2020-01-18] MEDS: Multivit/Ca/Min/Fe/FA 1 TAB TABLET PO SCH (09:39)
[2020-01-18] MEDS: Ziprasidone 20 MG CAPSULE PO SCH (09:44)
[2020-01-18] MEDS ORDERED: polyethylene glycoL 3350 17 GM POWD.PACK PO SCH (09:45)
[2020-01-18] MEDS ORDERED: Divalproex (12 HR) 500 MG TABLET PO SCH (21:00)
== END 2020-01-18 14:45 | DRG 177 ==
LOC: EMEROOARM 02:02 → CDU 02:02 → SUATTDRO 12:09 → 2NENU 17:41
PROVIDERS: ADMIT Family Medicine; ATTEND Internal Medicine

== ENCOUNTER 2020-06-29 19:23 | Observation (INO) ==
[2020-06-29 20:02] LABS: Bacteria,Urine Few per hpf (None-Few); Bilirubin,Urine Negative (Negative); Blood,Urine Negative (Negative); Clarity,Urine Clear (Clear); Color,Urine Colorless (Yellow); Glucose,Urine (UA) Normal (Normal); Ketones,Urine Negative (Negative); Leukocyte Esterase,Urine Small (Negative); Nitrite,Urine Negative (Negative); Protein,Urine Negative (Neg-Trace); RBC,Urine 0-3 per hpf (0-3); Specific Gravity,Urine 1.006 (1.010-1.025); Squamous Epithelial Cell,Urine Few per hpf (None-Few); Urobilinogen,Urine Normal (Normal)
[2020-06-29 20:10] LABS: Amphetamine Screen,Urine Negative ng/mL (Cutoff=1000); Barbiturate Screen,Urine Negative ng/mL (Cutoff=200); Benzodiazepines Screen,Urine Negative ng/mL (Cutoff=200); Cannabinoid Screen,Urine Negative ng/mL (Cutoff = 50); Cocaine Screen,Urine Negative ng/mL (Cutoff= 300); Opiate Screen,Urine Negative ng/mL (Cutoff=300); Phencyclidine Screen,Urine Negative ng/mL (Cutoff=25)
[2020-06-29] MEDS ORDERED: hydrOXYzine pamoate 25 MG CAPSULE PO STA (20:34)
[2020-06-29 20:55] LABS: Basophils # 0.1 K/mcL (0.0-0.2); Eosinophils # 0.1 K/mcL (0.0-0.6); Eosinophils % 0.8 %; Immature Granulocytes % 0.2 % (0-4); Mean Corpuscular HGB Conc 33.3 g/dL (31.6-35.5); Mean Corpuscular Hemoglobin 30.1 pg (28.0-33.3); Mean Corpuscular Volume 90.4 fL (83.0-100.0); Mean Platelet Volume 9.2 fL (9.4-12.4); Monocytes % 9.7 %; Platelet Count 281 K/mcL (140-400); Red Blood Count 3.65 M/mcL (3.82-4.97); Red Cell Distribution Width 13.7 % (11.5-14.5); Segmented Neutrophils % 59.3 %; White Blood Count 10.2 K/mcL (4.3-11.1)
[2020-06-29 21:05] LABS: Estimated Average Glucose 103 mg/dl; Hemoglobin A1C 5.2 %
[2020-06-29 21:13] LABS: Acetaminophen < 10 mcg/mL (10-20); BUN/Creatinine Ratio 5 (6-26); Blood Urea Nitrogen 3 mg/dL (8-23); Calcium 8.3 mg/dL (8.6-10.3); Carbon Dioxide 18 mEq/L (23-29); Chloride 98 mEq/L (98-107); Chol/HDL Ratio 2.2 (0-4.9); Cholesterol 168 mg/dL (< 200); Ethanol < 10 mg/dL (Less than 10); Glucose 78 mg/dL (70-105); HDL Cholesterol 77 mg/dL (40-59); LDL Cholesterol,Calculated 62 mg/dL (< 100); Osmolality,Calculated 255 (280-300); Potassium 3.9 mEq/L (3.5-5.1); Salicylate < 2.5 mg/dL (15.0-30.0); Sodium 125 mEq/L (136-145); Triglycerides 147 mg/dL (< 150); eGFR For African Americans > 60 (> 60); eGFR For Non-African Americans > 60 (> 60)
[2020-06-29] MEDS ORDERED: Naloxone 0.4 MG/ML INJ IVP PRN (23:08)
[2020-06-29] MEDS ORDERED: Ondansetron 4 MG/2 ML VIAL IVP PRN (23:08)
[2020-06-29] MEDS: 0.9 % Sodium Chloride 1,000 ML IVC SCH (23:50)
[2020-06-29] MEDS: Acetaminophen 325 MG TABLET PO PRN (23:50)
[2020-06-30] MEDS: 0.9 % Sodium Chloride 1,000 ML IVC SCH (04:39)
[2020-06-30 07:51] LABS: Hematocrit 32.3 % (35.3-44.9); Hemoglobin 10.8 g/dL (11.5-15.4); Mean Corpuscular HGB Conc 33.4 g/dL (31.6-35.5); Mean Corpuscular Hemoglobin 30.1 pg (28.0-33.3); Mean Platelet Volume 8.6 fL (9.4-12.4); Platelet Count 307 K/mcL (140-400); Red Blood Count 3.59 M/mcL (3.82-4.97); Red Cell Distribution Width 13.3 % (11.5-14.5)
[2020-06-30 08:10] LABS: BUN/Creatinine Ratio 5 (6-26); Blood Urea Nitrogen 3 mg/dL (8-23); Calcium 8.7 mg/dL (8.6-10.3); Carbon Dioxide 20 mEq/L (23-29); Chloride 104 mEq/L (98-107); Glucose 87 mg/dL (70-105); Osmolality,Calculated 270 (280-300); Phosphorous 3.8 mg/dL (2.7-4.5); Potassium 3.6 mEq/L (3.5-5.1); Sodium 132 mEq/L (136-145); eGFR For African Americans > 60 (> 60); eGFR For Non-African Americans > 60 (> 60)
[2020-06-30] MEDS ORDERED: Ipratropium/Albuterol Neb 3 ML IH PRN (08:45)
[2020-06-30] MEDS ORDERED: Folic Acid 1 MG TABLET PO SCH (09:00)
[2020-06-30] MEDS ORDERED: Fluticasone Propionate Nasal 50 MCG/SPRAY BOTTLE NS SCH (09:00)
[2020-06-30] MEDS ORDERED: Divalproex (12 HR) 500 MG TABLET PO SCH (09:00)
[2020-06-30] MEDS ORDERED: Loratadine 10 MG TABLET PO SCH (09:00)
[2020-06-30] MEDS: Acetaminophen 325 MG TABLET PO PRN (09:12)
[2020-06-30] MEDS ORDERED: hydrOXYzine pamoate 25 MG CAPSULE PO PRN (11:36)
[2020-06-30] MEDS ORDERED: levETIRAcetam 250 MG TABLET PO SCH (13:00)
[2020-06-30 14:05] VITALS: BP 121/83; PULSE 115; TEMP 97.5; O2SAT 93
[2020-06-30] MEDS ORDERED: Ipratropium 1 PUFF INHALER IH PRN (14:37)
[2020-06-30] MEDS ORDERED: Lactulose Oral Soln 20 GM/30 ML UDC PO SCH (15:00)
[2020-06-30] MEDS ORDERED: Ipratropium 1 PUFF INHALER IH SCH (16:00)
[2020-06-30] MEDS ORDERED: methocarbamoL 500 MG TABLET PO SCH (21:00)
[2020-06-30] MEDS ORDERED: Mirtazapine 15 MG TABLET PO SCH (21:00)
[2020-06-30] MEDS ORDERED: Melatonin 3 MG TABLET PO SCH (21:00)
[2020-06-30] MEDS ORDERED: Ziprasidone 20 MG CAPSULE PO SCH (21:00)
[2020-07-01] MEDS ORDERED: Cholecalciferol (D-3) 1,000 UNIT (25MCG) TABLET PO SCH (09:00)
[2020-07-01] MEDS ORDERED: clonazePAM 0.5 MG TABLET PO SCH (09:00)
[2020-07-01] MEDS ORDERED: Thiamine (B-1) 100 MG TABLET PO SCH (09:00)
[2020-07-01] MEDS ORDERED: Metoprolol XL (24 HR) Succ 25 MG TAB.ER.24H PO SCH (09:00)
== END 2020-06-30 16:40 ==
LOC: 3ANU 19:23 → EMEROOARM 19:23 → SUATTDRO 22:08 → 3ANU 22:46
PROVIDERS: ADMIT Student in an Organized Health Care Education/Training Program; ATTEND Family Medicine

== ENCOUNTER 2020-07-23 19:26 | Observation (INO) ==
[2020-07-23] MEDS ORDERED: 0.9 % Sodium Chloride 1,000 ML IVC ONE (20:06)
[2020-07-23 20:49] LABS: Basophils # 0.1 K/mcL (0.0-0.2); Eosinophils # 0.1 K/mcL (0.0-0.6); Eosinophils % 1.5 %; Hematocrit 34.6 % (35.3-44.9); Hemoglobin 11.7 g/dL (11.5-15.4); Immature Granulocytes % 0.4 % (0-4); Lymphocytes # 3.3 K/mcL (0.6-4.6); Lymphocytes % 41.9 %; Mean Corpuscular HGB Conc 33.8 g/dL (31.6-35.5); Mean Corpuscular Hemoglobin 29.5 pg (28.0-33.3); Mean Corpuscular Volume 87.4 fL (83.0-100.0); Mean Platelet Volume 8.5 fL (9.4-12.4); Monocytes # 0.7 K/mcL (0.0-1.3); Monocytes % 9.4 %; Neutrophils # 3.6 K/mcL (1.6-8.9); Platelet Count 341 K/mcL (140-400); Red Blood Count 3.96 M/mcL (3.82-4.97); Red Cell Distribution Width 12.6 % (11.5-14.5); Segmented Neutrophils % 45.8 %; White Blood Count 7.9 K/mcL (4.3-11.1)
[2020-07-23 21:00] LABS: Alanine Aminotransferase 9 Units/L (7-52); Albumin/Globulin Ratio 1.5 (1.1-2.2); Alkaline Phosphatase 101 Units/L (34-104); Aspartate Amino Transferase 13 Units/L (13-39); BUN/Creatinine Ratio 4 (6-26); Bilirubin,Direct 0.1 mg/dL (0.0-0.2); Bilirubin,Indirect 0.2 mg/dL (0.0-1.0); Bilirubin,Total 0.3 mg/dL (0.3-1.0); Blood Urea Nitrogen 3 mg/dL (8-23); Calcium 8.8 mg/dL (8.6-10.3); Carbon Dioxide 21 mEq/L (23-29); Chloride 95 mEq/L (98-107); Globulin 2.6 g/dL (2.4-3.5); Glucose 89 mg/dL (70-105); Lipase 23 Units/L (11-82); Osmolality,Calculated 256 (280-300); Potassium 3.6 mEq/L (3.5-5.1); Sodium 125 mEq/L (136-145); Total Protein 6.6 g/dL (6.4-8.9); eGFR For African Americans > 60 (> 60); eGFR For Non-African Americans > 60 (> 60)
[2020-07-23 21:01] LABS: Troponin I < 0.03 ng/mL (< 0.04)
[2020-07-23] MEDS ORDERED: Naloxone 0.4 MG/ML INJ IVP PRN (22:58)
[2020-07-24 00:32] LABS: Bilirubin,Urine Negative (Negative); Blood,Urine Negative (Negative); Clarity,Urine Clear (Clear); Color,Urine Colorless (Yellow); Glucose,Urine (UA) Normal (Normal); Ketones,Urine Negative (Negative); Leukocyte Esterase,Urine Negative (Negative); Nitrite,Urine Negative (Negative); Protein,Urine Negative (Neg-Trace); Specific Gravity,Urine 1.005 (1.010-1.025); Urobilinogen,Urine Normal (Normal)
[2020-07-24] MEDS ORDERED: Ondansetron 4 MG/2 ML VIAL IVP PRN (01:43)
[2020-07-24 10:25] LABS: Hematocrit 35.7 % (35.3-44.9); Hemoglobin 11.8 g/dL (11.5-15.4); Mean Corpuscular HGB Conc 33.1 g/dL (31.6-35.5); Mean Corpuscular Hemoglobin 29.6 pg (28.0-33.3); Mean Corpuscular Volume 89.5 fL (83.0-100.0); Platelet Count 309 K/mcL (140-400); Red Blood Count 3.99 M/mcL (3.82-4.97); Red Cell Distribution Width 12.8 % (11.5-14.5); White Blood Count 7.6 K/mcL (4.3-11.1)
[2020-07-24 11:06] LABS: BUN/Creatinine Ratio 4 (6-26); Blood Urea Nitrogen 3 mg/dL (8-23); Carbon Dioxide 19 mEq/L (23-29); Chloride 104 mEq/L (98-107); Glucose 84 mg/dL (70-105); Osmolality,Calculated 272 (280-300); Potassium 3.6 mEq/L (3.5-5.1); Sodium 133 mEq/L (136-145); Thyroid Stimulating Hormone 3.462 mcIU/mL (0.340-5.600); eGFR For African Americans > 60 (> 60); eGFR For Non-African Americans > 60 (> 60)
[2020-07-24 11:13] LABS: Calcium 9.1 mg/dL (8.6-10.3); Magnesium 1.8 mg/dL (1.6-2.6)
[2020-07-24] MEDS: Acetaminophen 325 MG TABLET PO PRN (11:39)
[2020-07-24] MEDS ORDERED: Ipratropium/Albuterol Neb 3 ML IH PRN (16:00)
[2020-07-24] MEDS: Ipratropium 1 PUFF INHALER IH PRN (16:30)
[2020-07-24] MEDS: Lactulose Oral Soln 20 GM/30 ML UDC PO SCH ×2 (17:12→20:08)
[2020-07-24] MEDS: Metoprolol XL (24 HR) Succ 25 MG TAB.ER.24H PO SCH (17:28)
[2020-07-24] MEDS: Ziprasidone 20 MG CAPSULE PO SCH (17:28)
[2020-07-24] MEDS: Divalproex Sodium 125 MG Sprinkle Capsule (DR) PO SCH (17:28)
[2020-07-24] MEDS: levETIRAcetam 250 MG TABLET PO SCH (17:29)
[2020-07-24] MEDS: Folic Acid 1 MG TABLET PO SCH (17:30)
[2020-07-24] MEDS ORDERED: *HR* LORazepam 2 MG/ML VIAL IVP ONE (19:40)
[2020-07-24] MEDS ORDERED: *HR* LORazepam 2 MG/ML VIAL IM ONE (20:08)
[2020-07-24] MEDS: *HR* Heparin 5,000 UNIT/ML VIAL SQ SCH (20:09)
[2020-07-24] MEDS: Melatonin 3 MG TABLET PO SCH (20:09)
[2020-07-24] MEDS: Mirtazapine 15 MG TABLET PO SCH (20:09)
[2020-07-24] MEDS: methocarbamoL 500 MG TABLET PO SCH (20:09)
[2020-07-25 03:27] LABS: Hematocrit 31.3 % (35.3-44.9); Hemoglobin 10.6 g/dL (11.5-15.4); Mean Corpuscular HGB Conc 33.9 g/dL (31.6-35.5); Mean Corpuscular Hemoglobin 30.4 pg (28.0-33.3); Mean Corpuscular Volume 89.7 fL (83.0-100.0); Platelet Count 288 K/mcL (140-400); Red Blood Count 3.49 M/mcL (3.82-4.97); Red Cell Distribution Width 12.6 % (11.5-14.5); White Blood Count 8.7 K/mcL (4.3-11.1)
[2020-07-25 03:52] LABS: BUN/Creatinine Ratio 5 (6-26); Blood Urea Nitrogen 3 mg/dL (8-23); Calcium 8.8 mg/dL (8.6-10.3); Carbon Dioxide 19 mEq/L (23-29); Chloride 105 mEq/L (98-107); Glucose 89 mg/dL (70-105); Osmolality,Calculated 274 (280-300); Potassium 3.2 mEq/L (3.5-5.1); Sodium 134 mEq/L (136-145); eGFR For African Americans > 60 (> 60); eGFR For Non-African Americans > 60 (> 60)
[2020-07-25] MEDS: *HR* Heparin 5,000 UNIT/ML VIAL SQ SCH ×3 (04:14→19:08)
[2020-07-25] MEDS ORDERED: Thiamine (B-1) 100 MG TABLET PO SCH (09:00)
[2020-07-25] MEDS: Lactulose Oral Soln 20 GM/30 ML UDC PO SCH ×3 (09:05→19:31)
[2020-07-25] MEDS: levETIRAcetam 250 MG TABLET PO SCH ×2 (09:06→19:25)
[2020-07-25] MEDS: Ziprasidone 20 MG CAPSULE PO SCH ×2 (09:06→19:25)
[2020-07-25] MEDS: Metoprolol XL (24 HR) Succ 25 MG TAB.ER.24H PO SCH (09:06)
[2020-07-25] MEDS: Folic Acid 1 MG TABLET PO SCH ×2 (09:06→19:24)
[2020-07-25] MEDS: Divalproex Sodium 125 MG Sprinkle Capsule (DR) PO SCH (09:06)
[2020-07-25 11:47] VITALS: BP 136/91
[2020-07-25 14:23] LABS: BUN/Creatinine Ratio 5 (6-26); Blood Urea Nitrogen 4 mg/dL (8-23); Calcium 9.1 mg/dL (8.6-10.3); Carbon Dioxide 18 mEq/L (23-29); Chloride 108 mEq/L (98-107); Glucose 137 mg/dL (70-105); Osmolality,Calculated 281 (280-300); Potassium 4.1 mEq/L (3.5-5.1); Sodium 136 mEq/L (136-145); eGFR For African Americans > 60 (> 60); eGFR For Non-African Americans > 60 (> 60)
[2020-07-25 14:30] LABS: Amphetamine Screen,Urine Negative ng/mL (Cutoff=1000); Barbiturate Screen,Urine Negative ng/mL (Cutoff=200); Benzodiazepines Screen,Urine Negative ng/mL (Cutoff=200); Cannabinoid Screen,Urine Negative ng/mL (Cutoff = 50); Cocaine Screen,Urine Negative ng/mL (Cutoff= 300); Opiate Screen,Urine Negative ng/mL (Cutoff=300); Phencyclidine Screen,Urine Negative ng/mL (Cutoff=25)
[2020-07-25] MEDS: Melatonin 3 MG TABLET PO SCH (19:24)
[2020-07-25] MEDS: methocarbamoL 500 MG TABLET PO SCH (19:24)
[2020-07-25] MEDS: Mirtazapine 15 MG TABLET PO SCH (19:25)
[2020-07-25] MEDS: Acetaminophen 325 MG TABLET PO PRN (19:40)
[2020-07-25] MEDS: Ipratropium 1 PUFF INHALER IH PRN (20:35)
[2020-07-25] MEDS ORDERED: Divalproex Sodium 125 MG Sprinkle Capsule (DR) PO SCH (21:00)
[2020-07-26 03:09] LABS: Hematocrit 33.1 % (35.3-44.9); Hemoglobin 10.7 g/dL (11.5-15.4); Mean Corpuscular HGB Conc 32.3 g/dL (31.6-35.5); Mean Corpuscular Hemoglobin 29.7 pg (28.0-33.3); Mean Corpuscular Volume 91.9 fL (83.0-100.0); Mean Platelet Volume 8.5 fL (9.4-12.4); Platelet Count 298 K/mcL (140-400); Red Cell Distribution Width 12.9 % (11.5-14.5); White Blood Count 7.8 K/mcL (4.3-11.1)
[2020-07-26 03:28] LABS: BUN/Creatinine Ratio 9 (6-26); Blood Urea Nitrogen 7 mg/dL (8-23); Calcium 8.5 mg/dL (8.6-10.3); Carbon Dioxide 18 mEq/L (23-29); Chloride 107 mEq/L (98-107); Glucose 110 mg/dL (70-105); Osmolality,Calculated 275 (280-300); Potassium 4.2 mEq/L (3.5-5.1); Sodium 133 mEq/L (136-145); eGFR For African Americans > 60 (> 60); eGFR For Non-African Americans > 60 (> 60)
[2020-07-26] MEDS: *HR* Heparin 5,000 UNIT/ML VIAL SQ SCH (05:48)
== END 2020-07-26 06:50 ==
LOC: EMEROOARM 19:26 → 2NENU 19:26 → SUATTDRO 22:53 → 2NENU 23:50 → 3BNU 07-24 18:05
PROVIDERS: ADMIT Student in an Organized Health Care Education/Training Program; ATTEND Family Medicine

== ENCOUNTER 2020-12-09 19:25 | Inpatient (IN) ==
[2020-12-09] MEDS ORDERED: Ziprasidone 20 MG, Closed System Device IM Kit 1 EACH in Water for inj. (sterile) 1 ML IM ONE (20:26)
[2020-12-09 21:11] LABS: Basophils % 0.6 %; Red Cell Distribution Width 13.2 % (11.5-14.5)
[2020-12-09 21:13] LABS: Eosinophils # 0.1 K/mcL (0.0-0.6); Hematocrit 31.6 % (35.3-44.9); Hemoglobin 10.9 g/dL (11.5-15.4); Immature Granulocytes % 0.3 % (0-4); Immature Platelets 7.9 % (1.1-6.1); Lymphocytes # 2.3 K/mcL (0.6-4.6); Mean Corpuscular HGB Conc 34.5 g/dL (31.6-35.5); Mean Corpuscular Hemoglobin 32.3 pg (28.0-33.3); Mean Corpuscular Volume 93.8 fL (83.0-100.0); Mean Platelet Volume 10.3 fL (9.4-12.4); Monocytes # 0.8 K/mcL (0.0-1.3); Neutrophils # 3.8 K/mcL (1.6-8.9); Platelet Count 238 K/mcL (140-400); Red Blood Count 3.37 M/mcL (3.82-4.97); Segmented Neutrophils % 54.1 %
[2020-12-09 21:18] LABS: Bacteria,Urine Few per hpf (None-Few); Bilirubin,Urine Negative (Negative); Blood,Urine Negative (Negative); Clarity,Urine Clear (Clear); Color,Urine Light-Yellow (Yellow); Glucose,Urine (UA) Normal (Normal); Ketones,Urine Negative (Negative); Leukocyte Esterase,Urine Small (Negative); Mucus,Urine Few per lpf (None-Few); Nitrite,Urine Positive (Negative); Protein,Urine Negative (Neg-Trace); RBC,Urine 0-3 per hpf (0-3); Specific Gravity,Urine 1.005 (1.010-1.025); Squamous Epithelial Cell,Urine Few per hpf (None-Few); Urobilinogen,Urine Normal (Normal)
[2020-12-09 21:24] LABS: Acetaminophen < 10 mcg/mL (10-20); Alanine Aminotransferase 73 Units/L (7-52); Albumin 3.6 g/dL (3.5-5.7); Albumin/Globulin Ratio 1.6 (1.1-2.2); Alkaline Phosphatase 120 Units/L (34-104); Aspartate Amino Transferase 112 Units/L (13-39); BUN/Creatinine Ratio 7 (6-26); Bilirubin,Indirect 0.4 mg/dL (0.0-1.0); Bilirubin,Total 0.4 mg/dL (0.3-1.0); Blood Urea Nitrogen 4 mg/dL (8-23); Calcium 8.7 mg/dL (8.6-10.3); Carbon Dioxide 22 mEq/L (23-29); Chloride 88 mEq/L (98-107); Ethanol < 10 mg/dL (Less than 10); Globulin 2.2 g/dL (2.4-3.5); Glucose 72 mg/dL (70-105); Lipase 29 Units/L (11-82); Osmolality,Calculated 239 (280-300); Potassium 4.4 mEq/L (3.5-5.1); Salicylate < 2.5 mg/dL (15.0-30.0); Sodium 117 mEq/L (136-145); Total Protein 5.8 g/dL (6.4-8.9); eGFR For African Americans > 60 (> 60); eGFR For Non-African Americans > 60 (> 60)
[2020-12-09 21:26] LABS: Amphetamine Screen,Urine Negative ng/mL (Cutoff=1000); Barbiturate Screen,Urine Negative ng/mL (Cutoff=200); Benzodiazepines Screen,Urine Negative ng/mL (Cutoff=200); Cannabinoid Screen,Urine Negative ng/mL (Cutoff = 50); Cocaine Screen,Urine Negative ng/mL (Cutoff= 300); Opiate Screen,Urine Negative ng/mL (Cutoff=300); Phencyclidine Screen,Urine Negative ng/mL (Cutoff=25)
[2020-12-09] MEDS ORDERED: Water for inj. (sterile) 10 ML ONE (21:59)
[2020-12-09] MEDS ORDERED: Ziprasidone 20 MG/VIAL VIAL IM ONE (21:59)
[2020-12-09] MEDS ORDERED: *HR* LORazepam 2 MG/ML VIAL IVP ONE (23:32)
[2020-12-09] MEDS ORDERED: *HR* LORazepam 2 MG/ML VIAL ONE (23:35)
[2020-12-09] MEDS ORDERED: Ondansetron 4 MG/2 ML VIAL IVP PRN (23:42)
[2020-12-09] MEDS ORDERED: Naloxone 0.4 MG/ML INJ IVP PRN (23:42)
[2020-12-10 01:12] LABS: Alanine Aminotransferase 77 Units/L (7-52); Albumin 3.7 g/dL (3.5-5.7); Albumin/Globulin Ratio 1.5 (1.1-2.2); Alkaline Phosphatase 117 Units/L (34-104); Aspartate Amino Transferase 110 Units/L (13-39); BUN/Creatinine Ratio 7 (6-26); Bilirubin,Direct 0.1 mg/dL (0.0-0.2); Bilirubin,Indirect 0.4 mg/dL (0.0-1.0); Bilirubin,Total 0.5 mg/dL (0.3-1.0); Blood Urea Nitrogen 4 mg/dL (8-23); Carbon Dioxide 20 mEq/L (23-29); Chloride 90 mEq/L (98-107); Cholesterol 166 mg/dL (< 200); Globulin 2.4 g/dL (2.4-3.5); Glucose 93 mg/dL (70-105); HDL Cholesterol 81 mg/dL (40-59); LDL Cholesterol,Calculated 71 mg/dL (< 100); Magnesium 1.5 mg/dL (1.6-2.6); Osmolality,Calculated 245 (280-300); Phosphorous 2.9 mg/dL (2.7-4.5); Potassium 3.9 mEq/L (3.5-5.1); Sodium 119 mEq/L (136-145); Total Protein 6.1 g/dL (6.4-8.9); Triglycerides 72 mg/dL (< 150); eGFR For African Americans > 60 (> 60); eGFR For Non-African Americans > 60 (> 60)
[2020-12-10 01:23] LABS: Thyroid Stimulating Hormone 8.425 mcIU/mL (0.340-5.600)
[2020-12-10 03:36] LABS: Hepatitis B Surface Antigen Nonreactive (Nonreactive)
[2020-12-10 04:04] LABS: Hepatitis C Virus Antibody Nonreactive (Nonreactive)
[2020-12-10 04:05] LABS: Hepatitis B Core IgM Nonreactive (Nonreactive)
[2020-12-10 04:07] LABS: Hepatitis A Antibody IgM Nonreactive (Nonreactive)
[2020-12-10 06:29] LABS: Chloride,Urine 51 mEq/L; Potassium,Urine 18.8 mEq/L; Sodium, Urine 40.3 mEq/L
[2020-12-10 06:55] LABS: BUN/Creatinine Ratio 5 (6-26); Blood Urea Nitrogen 3 mg/dL (8-23); Calcium 8.8 mg/dL (8.6-10.3); Carbon Dioxide 20 mEq/L (23-29); Chloride 94 mEq/L (98-107); Glucose 81 mg/dL (70-105); Osmolality,Calculated 250 (280-300); Potassium 4.4 mEq/L (3.5-5.1); Sodium 122 mEq/L (136-145); eGFR For African Americans > 60 (> 60); eGFR For Non-African Americans > 60 (> 60)
[2020-12-10 11:55] LABS: BUN/Creatinine Ratio 5 (6-26); Blood Urea Nitrogen 3 mg/dL (8-23); Calcium 8.7 mg/dL (8.6-10.3); Carbon Dioxide 23 mEq/L (23-29); Chloride 89 mEq/L (98-107); Glucose 89 mg/dL (70-105); Osmolality,Calculated 250 (280-300); Potassium 4.2 mEq/L (3.5-5.1); Sodium 122 mEq/L (136-145); eGFR For African Americans > 60 (> 60); eGFR For Non-African Americans > 60 (> 60)
[2020-12-10] MEDS: *HR* LORazepam 0.5 MG TABLET PO PRN ×2 (14:05→22:10)
[2020-12-10] MEDS: Acetaminophen 325 MG TABLET PO PRN ×2 (14:08→22:10)
[2020-12-10] MEDS ORDERED: Ipratropium/Albuterol Neb 3 ML IH PRN (16:48)
[2020-12-10] MEDS: LIPASE PO SCH (17:40)
[2020-12-10] MEDS: AMYLASE PO SCH (17:40)
[2020-12-10] MEDS: PROTEASE PO SCH (17:40)
[2020-12-10] MEDS: Lactulose Oral Soln 20 GM/30 ML UDC PO SCH (19:50)
[2020-12-10] MEDS: Mirtazapine 15 MG TABLET PO SCH (19:51)
[2020-12-10] MEDS: levETIRAcetam 250 MG TABLET PO SCH (19:51)
[2020-12-10] MEDS: Folic Acid 1 MG TABLET PO SCH (19:51)
[2020-12-10] MEDS: Melatonin 3 MG TABLET PO SCH (19:51)
[2020-12-10] MEDS: Divalproex Sodium 125 MG Sprinkle Capsule (DR) PO SCH (19:52)
[2020-12-10] MEDS: Budesonide/Formoterol 160/4.5 1 PUFF INH IH SCH (20:05)
[2020-12-10] MEDS: methocarbamoL 500 MG TABLET PO SCH (21:04)
[2020-12-10] MEDS: Fluticasone Propionate Nasal 50 MCG/SPRAY BOTTLE NS SCH (21:04)
[2020-12-10] MEDS: Sennosides/Docusate Sodium TABLET PO SCH (21:05)
[2020-12-10] MEDS: Ziprasidone 20 MG CAPSULE PO SCH (21:05)
[2020-12-11 04:18] LABS: Blood Urea Nitrogen 6 mg/dL (8-23); Calcium 8.6 mg/dL (8.6-10.3); Carbon Dioxide 19 mEq/L (23-29); Chloride 93 mEq/L (98-107); Glucose 92 mg/dL (70-105); Osmolality,Calculated 251 (280-300); Potassium 3.7 mEq/L (3.5-5.1); Sodium 122 mEq/L (136-145)
[2020-12-11 04:35] LABS: BUN/Creatinine Ratio 10 (6-26); eGFR For African Americans > 60 (> 60); eGFR For Non-African Americans > 60 (> 60)
[2020-12-11 05:39] LABS: Hematocrit 31.1 % (35.3-44.9); Hemoglobin 10.5 g/dL (11.5-15.4); Immature Platelets 3.3 % (1.1-6.1); Mean Corpuscular HGB Conc 33.8 g/dL (31.6-35.5); Mean Corpuscular Hemoglobin 31.3 pg (28.0-33.3); Mean Corpuscular Volume 92.8 fL (83.0-100.0); Red Blood Count 3.35 M/mcL (3.82-4.97); Red Cell Distribution Width 12.9 % (11.5-14.5); White Blood Count 5.2 K/mcL (4.3-11.1)
[2020-12-11 06:48] LABS: Protein/Creatinine Ratio,Urine 0.24 mg/mg (0.00-0.20); Sodium, Urine 22.1 mEq/L
[2020-12-11] MEDS: MOM Conc 10 ML UD.LIQ PO SCH (08:02)
[2020-12-11] MEDS: Lactulose Oral Soln 20 GM/30 ML UDC PO SCH ×3 (08:03→16:07)
[2020-12-11] MEDS: Divalproex Sodium 125 MG Sprinkle Capsule (DR) PO SCH ×2 (08:04→19:59)
[2020-12-11] MEDS: Ziprasidone 20 MG CAPSULE PO SCH ×2 (08:04→20:19)
[2020-12-11] MEDS: Loratadine 10 MG TABLET PO SCH (08:04)
[2020-12-11] MEDS: Thiamine (B-1) 100 MG TABLET PO SCH (08:04)
[2020-12-11] MEDS: Sennosides/Docusate Sodium TABLET PO SCH ×2 (08:05→23:10)
[2020-12-11] MEDS: levETIRAcetam 250 MG TABLET PO SCH ×2 (08:05→19:58)
[2020-12-11] MEDS: Metoprolol XL (24 HR) Succ 25 MG TAB.ER.24H PO SCH (08:05)
[2020-12-11] MEDS: Folic Acid 1 MG TABLET PO SCH ×2 (08:05→19:58)
[2020-12-11] MEDS: AMYLASE PO SCH ×3 (08:06→17:00)
[2020-12-11] MEDS: PROTEASE PO SCH ×3 (08:06→17:00)
[2020-12-11] MEDS: LIPASE PO SCH ×3 (08:06→17:00)
[2020-12-11] MEDS: Acetaminophen 325 MG TABLET PO PRN ×2 (08:11→19:57)
[2020-12-11] MEDS: Fluticasone Propionate Nasal 50 MCG/SPRAY BOTTLE NS SCH ×2 (08:11→19:59)
[2020-12-11] MEDS: Budesonide/Formoterol 160/4.5 1 PUFF INH IH SCH ×2 (08:18→20:11)
[2020-12-11] MEDS: cefTRIAXone 1,000 MG in Water for inj. (sterile) 10 ML IVP SCH (12:38)
[2020-12-11] MEDS: Melatonin 3 MG TABLET PO SCH (19:57)
[2020-12-11] MEDS: Mirtazapine 15 MG TABLET PO SCH (19:58)
[2020-12-11] MEDS: *HR* LORazepam 0.5 MG TABLET PO PRN (20:20)
[2020-12-11] MEDS: methocarbamoL 500 MG TABLET PO SCH (20:20)
[2020-12-12 04:58] LABS: Hematocrit 29.4 % (35.3-44.9); Hemoglobin 10.3 g/dL (11.5-15.4); Mean Corpuscular Hemoglobin 32.1 pg (28.0-33.3); Mean Corpuscular Volume 91.6 fL (83.0-100.0); Platelet Count 285 K/mcL (140-400); Red Blood Count 3.21 M/mcL (3.82-4.97); Red Cell Distribution Width 12.7 % (11.5-14.5); White Blood Count 4.7 K/mcL (4.3-11.1)
[2020-12-12 05:10] LABS: BUN/Creatinine Ratio 8 (6-26); Blood Urea Nitrogen 5 mg/dL (8-23); Calcium 8.6 mg/dL (8.6-10.3); Carbon Dioxide 21 mEq/L (23-29); Chloride 95 mEq/L (98-107); Glucose 93 mg/dL (70-105); Osmolality,Calculated 255 (280-300); Potassium 3.6 mEq/L (3.5-5.1); Sodium 124 mEq/L (136-145); eGFR For African Americans > 60 (> 60); eGFR For Non-African Americans > 60 (> 60)
[2020-12-12] MEDS ORDERED: Lactulose Oral Soln 20 GM/30 ML UDC PO SCH (09:00)
[2020-12-12] MEDS: Divalproex Sodium 125 MG Sprinkle Capsule (DR) PO SCH (09:29)
[2020-12-12] MEDS: Sennosides/Docusate Sodium TABLET PO SCH (09:29)
[2020-12-12] MEDS: levETIRAcetam 250 MG TABLET PO SCH (09:29)
[2020-12-12] MEDS: Loratadine 10 MG TABLET PO SCH (09:30)
[2020-12-12] MEDS: Metoprolol XL (24 HR) Succ 25 MG TAB.ER.24H PO SCH (09:30)
[2020-12-12] MEDS: Ziprasidone 20 MG CAPSULE PO SCH (09:30)
[2020-12-12] MEDS: Thiamine (B-1) 100 MG TABLET PO SCH (09:30)
[2020-12-12] MEDS: cefTRIAXone 1,000 MG in Water for inj. (sterile) 10 ML IVP SCH (09:30)
[2020-12-12] MEDS: MOM Conc 10 ML UD.LIQ PO SCH (09:30)
[2020-12-12] MEDS: Folic Acid 1 MG TABLET PO SCH (09:30)
[2020-12-12] MEDS: AMYLASE PO SCH ×3 (09:52→17:43)
[2020-12-12] MEDS: PROTEASE PO SCH ×3 (09:52→17:43)
[2020-12-12] MEDS: LIPASE PO SCH ×3 (09:52→17:43)
[2020-12-12] MEDS: Fluticasone Propionate Nasal 50 MCG/SPRAY BOTTLE NS SCH (09:52)
[2020-12-12] MEDS: Budesonide/Formoterol 160/4.5 1 PUFF INH IH SCH (10:57)
[2020-12-12 13:05] LABS: Adenovirus Not Detected (Not Detect); Bordetella Pertussis Not Detected (Not Detect); Chlamydophila pneumoniae Not Detected (Not Detect); Coronavirus 229E Not Detected (Not Detect); Coronavirus HKU1 Not Detected (Not Detect); Coronavirus NL63 Not Detected (Not Detect); Coronavirus OC43 Not Detected (Not Detect); Human Metapneumovirus Not Detected (Not Detect); Human Rhinovirus/Enterovirus Not Detected (Not Detect); Influenza A Subtype 2009 H1 Not Detected (Not Detect); Influenza B Not Detected (Not Detect); Mycoplasma pneumoniae Not Detected (Not Detect); Parainfluenza Virus 1 Not Detected (Not Detect); Parainfluenza Virus 2 Not Detected (Not Detect); Parainfluenza Virus 3 Not Detected (Not Detect); Parainfluenza Virus 4 Not Detected (Not Detect); Respiratory Syncytial Virus Not Detected (Not Detect); SARS-CoV-2 Not Detected (Not Detect)
[2020-12-12 13:12] VITALS: PULSE 81
[2020-12-12] MEDS: *HR* LORazepam 0.5 MG TABLET PO PRN (14:25)
[2020-12-12 15:58] VITALS: BP 135/87; TEMP 98.2; O2SAT 98
== END 2020-12-12 19:35 | DRG 640 ==
LOC: EMEROOARM 19:25 → 2ANU 19:25 → SUATTDRO 23:14 → 2ANU 12-10 00:04
PROVIDERS: ADMIT Student in an Organized Health Care Education/Training Program; ATTEND Family Medicine

== ENCOUNTER 2021-05-19 00:45 | Observation (INO) ==
[2021-05-19] MEDS ORDERED: Melatonin 3 MG TABLET PO PRN (01:16)
[2021-05-19] MEDS ORDERED: Naloxone 0.4 MG/ML INJ IVP PRN (01:16)
[2021-05-19] MEDS ORDERED: Isovue-370 500 ML BOTTLE IVP ONE (01:19)
[2021-05-19] MEDS ORDERED: D5% in Water 1,000 ML IVC PRN (01:20)
[2021-05-19] MEDS ORDERED: *HR* Dextrose 50 % in Water (Syg) 50 ML SYRINGE IVP PRN (01:20)
[2021-05-19] MEDS ORDERED: Dextrose 4 GM Chewable Tablets PO PRN ×2 (01:20)
[2021-05-19 04:19] LABS: Hematocrit 32.3 % (35.3-44.9); Hemoglobin 11.2 g/dL (11.5-15.4); Mean Corpuscular HGB Conc 34.7 g/dL (31.6-35.5); Mean Corpuscular Hemoglobin 31.4 pg (28.0-33.3); Mean Corpuscular Volume 90.5 fL (83.0-100.0); Mean Platelet Volume 10.1 fL (9.4-12.4); Platelet Count 255 K/mcL (140-400); Red Blood Count 3.57 M/mcL (3.82-4.97); White Blood Count 5.1 K/mcL (4.3-11.1)
[2021-05-19 04:22] LABS: BUN/Creatinine Ratio 7 (6-26); Blood Urea Nitrogen 4 mg/dL (8-23); Calcium 8.5 mg/dL (8.6-10.3); Carbon Dioxide 22 mEq/L (23-29); Chloride 92 mEq/L (98-107); Glucose 84 mg/dL (70-105); Magnesium 1.5 mg/dL (1.6-2.6); Osmolality,Calculated 248 (280-300); Phosphorous 2.4 mg/dL (2.7-4.5); Potassium 3.6 mEq/L (3.5-5.1); Sodium 121 mEq/L (136-145); eGFR For African Americans > 60 (> 60); eGFR For Non-African Americans > 60 (> 60)
[2021-05-19 04:23] LABS: Acetaminophen < 10 mcg/mL (10-20); Ethanol < 10 mg/dL (Less than 10); Salicylate < 2.5 mg/dL (15.0-30.0)
[2021-05-19 04:25] LABS: INR 1.1; Prothrombin Time 12.3 Seconds (9.4-12.1)
[2021-05-19] MEDS ORDERED: Potassium Phosphate 44 MEQ in 0.9 % Sodium Chloride 250 ML IVPB ONE (04:27)
[2021-05-19 04:28] LABS: Activated Partial Thrombo Time 33.4 Seconds (26.0-36.0)
[2021-05-19] MEDS: Calcium Gluconate 1gm/50mL 1 GM/50 ML BAG IVPB SCH ×2 (04:53→06:41)
[2021-05-19] MEDS ORDERED: Ipratropium/Albuterol Neb 3 ML IH PRN (06:17)
[2021-05-19] MEDS ORDERED: Saliva Stimulant 44.3ml BOTTLE PO PRN (06:19)
[2021-05-19 06:27] LABS: Chloride,Urine 83 mEq/L; Creatinine,Urine 35 mg/dL
[2021-05-19] MEDS ORDERED: *HR* Promethazine 25 MG/ML VIAL IM PRN (06:51)
[2021-05-19 07:03] LABS: Chol/HDL Ratio 3.3 (0-4.9)
[2021-05-19 07:04] LABS: Albumin 3.4 g/dL (3.5-5.7); Albumin/Globulin Ratio 1.7 (1.1-2.2); Bilirubin,Direct 0.3 mg/dL (0.0-0.2); Bilirubin,Indirect 0.4 mg/dL (0.0-1.0); Bilirubin,Total 0.7 mg/dL (0.3-1.0); Total Protein 5.4 g/dL (6.4-8.9)
[2021-05-19 07:05] LABS: Troponin I < 0.03 ng/mL (< 0.04)
[2021-05-19 07:17] LABS: BUN/Creatinine Ratio 8 (6-26); Blood Urea Nitrogen 4 mg/dL (8-23); Calcium 8.7 mg/dL (8.6-10.3); Carbon Dioxide 20 mEq/L (23-29); Chloride 91 mEq/L (98-107); Glucose 83 mg/dL (70-105); Osmolality,Calculated 246 (280-300); Potassium 3.6 mEq/L (3.5-5.1); Sodium 120 mEq/L (136-145); eGFR For African Americans > 60 (> 60); eGFR For Non-African Americans > 60 (> 60)
[2021-05-19] MEDS: Budesonide/Formoterol 160/4.5 1 PUFF INH IH SCH ×2 (07:22→20:51)
[2021-05-19] MEDS: CREON 3000 UNIT PO SCH ×2 (07:26→12:12)
[2021-05-19] MEDS: Acetaminophen 325 MG TABLET PO PRN ×2 (07:26→14:09)
[2021-05-19 08:31] LABS: C-Reactive Protein < 5 mg/L (Less than 10)
[2021-05-19 08:38] LABS: Amphetamine Screen,Urine Negative ng/mL (Cutoff=1000); Barbiturate Screen,Urine Negative ng/mL (Cutoff=200); Benzodiazepines Screen,Urine Negative ng/mL (Cutoff=200); Cannabinoid Screen,Urine Negative ng/mL (Cutoff = 50); Cocaine Screen,Urine Negative ng/mL (Cutoff= 300); Opiate Screen,Urine Negative ng/mL (Cutoff=300); Phencyclidine Screen,Urine Negative ng/mL (Cutoff=25)
[2021-05-19 09:53] LABS: BUN/Creatinine Ratio 8 (6-26); Blood Urea Nitrogen 4 mg/dL (8-23); Calcium 8.9 mg/dL (8.6-10.3); Carbon Dioxide 19 mEq/L (23-29); Chloride 91 mEq/L (98-107); Glucose 98 mg/dL (70-105); Osmolality,Calculated 247 (280-300); Potassium 4.2 mEq/L (3.5-5.1); Sodium 120 mEq/L (136-145); eGFR For African Americans > 60 (> 60); eGFR For Non-African Americans > 60 (> 60)
[2021-05-19] MEDS: Ziprasidone 20 MG CAPSULE PO SCH ×2 (09:55→20:06)
[2021-05-19] MEDS: hydrOXYzine pamoate 25 MG CAPSULE PO SCH ×2 (09:55→20:06)
[2021-05-19] MEDS: levETIRAcetam 250 MG TABLET PO SCH ×2 (09:55→20:06)
[2021-05-19] MEDS: Divalproex Sodium 125 MG Sprinkle Capsule (DR) PO SCH ×2 (09:55→20:06)
[2021-05-19] MEDS ORDERED: Ondansetron 4 MG/2 ML VIAL IVP PRN (09:59)
[2021-05-19 15:05] LABS: BUN/Creatinine Ratio 7 (6-26); Blood Urea Nitrogen 4 mg/dL (8-23); Calcium 7.9 mg/dL (8.6-10.3); Carbon Dioxide 20 mEq/L (23-29); Chloride 94 mEq/L (98-107); Glucose 98 mg/dL (70-105); Osmolality,Calculated 259 (280-300); Potassium 4.1 mEq/L (3.5-5.1); Sodium 126 mEq/L (136-145); eGFR For African Americans > 60 (> 60); eGFR For Non-African Americans > 60 (> 60)
[2021-05-19] MEDS ORDERED: Mag Hydrox/Al Hydrox/Simeth 30 ML UDC PO ONE (15:15)
[2021-05-19 18:14] LABS: BUN/Creatinine Ratio 7 (6-26); Blood Urea Nitrogen 4 mg/dL (8-23); Calcium 8.3 mg/dL (8.6-10.3); Carbon Dioxide 24 mEq/L (23-29); Chloride 93 mEq/L (98-107); Glucose 91 mg/dL (70-105); Osmolality,Calculated 256 (280-300); Potassium 4.2 mEq/L (3.5-5.1); Sodium 125 mEq/L (136-145); eGFR For African Americans > 60 (> 60); eGFR For Non-African Americans > 60 (> 60)
[2021-05-19] MEDS ORDERED: *HR* LORazepam 2 MG/ML VIAL IVP ONE (19:55)
[2021-05-19] MEDS ORDERED: methocarbamoL 500 MG TABLET PO SCH (21:00)
[2021-05-19 22:11] LABS: BUN/Creatinine Ratio 8 (6-26); Blood Urea Nitrogen 4 mg/dL (8-23); Calcium 7.8 mg/dL (8.6-10.3); Carbon Dioxide 22 mEq/L (23-29); Chloride 93 mEq/L (98-107); Glucose 94 mg/dL (70-105); Osmolality,Calculated 257 (280-300); Potassium 3.7 mEq/L (3.5-5.1); Sodium 125 mEq/L (136-145); eGFR For African Americans > 60 (> 60); eGFR For Non-African Americans > 60 (> 60)
[2021-05-20 01:59] LABS: Basophils % 0.8 %; Eosinophils # 0.1 K/mcL (0.0-0.6); Eosinophils % 1.2 %; Hematocrit 29.7 % (35.3-44.9); Hemoglobin 10.1 g/dL (11.5-15.4); Immature Granulocytes % 0.2 % (0-4); Lymphocytes # 2.7 K/mcL (0.6-4.6); Lymphocytes % 54.1 %; Mean Corpuscular Hemoglobin 30.6 pg (28.0-33.3); Mean Platelet Volume 10.3 fL (9.4-12.4); Monocytes # 0.5 K/mcL (0.0-1.3); Monocytes % 9.7 %; Neutrophils # 1.7 K/mcL (1.6-8.9); Platelet Count 248 K/mcL (140-400); Red Cell Distribution Width 12.9 % (11.5-14.5)
[2021-05-20 02:20] LABS: Albumin 2.8 g/dL (3.5-5.7); Albumin/Globulin Ratio 1.5 (1.1-2.2); Bilirubin,Direct 0.2 mg/dL (0.0-0.2); Bilirubin,Indirect 0.5 mg/dL (0.0-1.0); Bilirubin,Total 0.7 mg/dL (0.3-1.0); Globulin 1.9 g/dL (2.4-3.5); Total Protein 4.7 g/dL (6.4-8.9)
[2021-05-20 02:21] LABS: BUN/Creatinine Ratio 8 (6-26); Blood Urea Nitrogen 4 mg/dL (8-23); Calcium 8.1 mg/dL (8.6-10.3); Carbon Dioxide 23 mEq/L (23-29); Chloride 94 mEq/L (98-107); Glucose 87 mg/dL (70-105); Magnesium 1.8 mg/dL (1.6-2.6); Osmolality,Calculated 256 (280-300); Phosphorous 3.5 mg/dL (2.7-4.5); Potassium 3.6 mEq/L (3.5-5.1); Sodium 125 mEq/L (136-145); eGFR For African Americans > 60 (> 60); eGFR For Non-African Americans > 60 (> 60)
[2021-05-20 02:22] LABS: % Iron Saturation 34 % (15-50); Iron 78 mcg/dL (50-170); Transferrin 162 mg/dL (203-362)
[2021-05-20 02:34] LABS: Thyroid Stimulating Hormone 2.031 mcIU/mL (0.340-5.600)
[2021-05-20 02:40] LABS: Ferritin 173 ng/mL (10-120)
[2021-05-20 02:47] LABS: Folate > 22.3 ng/mL (3.0-16.0); Vitamin B12 279 pg/mL (250-1100)
[2021-05-20 02:52] LABS: Hepatitis B Surface Antigen Nonreactive (Nonreactive)
[2021-05-20 03:21] LABS: Hepatitis B Core IgM Nonreactive (Nonreactive)
[2021-05-20 03:22] LABS: Hepatitis C Virus Antibody Nonreactive (Nonreactive)
[2021-05-20 03:23] LABS: Hepatitis A Antibody IgM Nonreactive (Nonreactive)
[2021-05-20] MEDS ORDERED: *HR* Enoxaparin 40 MG/0.4 ML SYRINGE SQ SCH (06:00)
[2021-05-20] MEDS: Budesonide/Formoterol 160/4.5 1 PUFF INH IH SCH (07:44)
[2021-05-20] MEDS ORDERED: GuaiFENesin Liq 200 MG/10 ML UDC PO PRN (08:12)
[2021-05-20] MEDS ORDERED: Acetaminophen 325 MG TABLET PO PRN (08:12)
[2021-05-20] MEDS ORDERED: Ipratropium 1 PUFF INHALER IH PRN (08:12)
[2021-05-20] MEDS: Ziprasidone 20 MG CAPSULE PO SCH (08:43)
[2021-05-20] MEDS: hydrOXYzine pamoate 25 MG CAPSULE PO SCH (08:44)
[2021-05-20] MEDS ORDERED: Fluticasone Propionate Nasal 50 MCG/SPRAY BOTTLE NS SCH (09:00)
[2021-05-20] MEDS ORDERED: Thiamine (B-1) 100 MG TABLET PO SCH (09:00)
[2021-05-20] MEDS ORDERED: Metoprolol XL (24 HR) Succ 25 MG TAB.ER.24H PO SCH (09:00)
[2021-05-20] MEDS ORDERED: Divalproex (12 HR) 250 MG TABLET PO SCH (09:00)
[2021-05-20] MEDS ORDERED: Folic Acid 1 MG TABLET PO SCH (09:00)
[2021-05-20] MEDS ORDERED: Loratadine 10 MG TABLET PO SCH (09:00)
[2021-05-20] MEDS: levETIRAcetam 250 MG TABLET PO SCH (10:01)
[2021-05-20 10:45] VITALS: BP 97/44; PULSE 87; TEMP 97.9; O2SAT 94
[2021-05-20 11:54] LABS: Influenza A PCR Negative (Negative); Influenza B PCR Negative (Negative); Resp. Syncytial Virus PCR Negative (Negative)
[2021-05-20 11:55] LABS: SARS-CoV-2 by PCR (In House) Negative (Negative)
[2021-05-20] MEDS ORDERED: Melatonin 3 MG TABLET PO SCH (21:00)
== END 2021-05-20 12:52 ==
LOC: 3BNU → SUATTDRO 00:45
PROVIDERS: ADMIT Internal Medicine; ATTEND Internal Medicine